=== PATIENT | female | born 1990 | race African-American/Black ===

== ENCOUNTER 2022-01-21 20:44 | Emergency (ER) | payer OTHER ==
--- OUTSIDE RECORDS SUMMARY | 2022-01-21 20:47 | XMS REPORT | Continuity of Care Document ---
:[address] [facility] t Address [address] [place] [address] Care Team Providers Name Role Phone Asked, Pcp Primary Care Physician Unavailable Rj Chong Attending Clinician Unavailable Caitie Calle Attending Clinician Unavailable JULIET CULLEN Attending Clinician Unavailable Makenzie Deluna MD Attending Clinician MAKENZIE DELUNA Attending Clinician Unavailable Doctor Unassigned, Name Attending Clinician Unavailable Wood Rasheed Attending Clinician Unavailable Joselyn BILL Attending Clinician 2, Lab Attending Clinician Unavailable Tushar BILL Attending Clinician Ultrasound Attending Clinician Unavailable Josselyn LATHAM Attending Clinician Akinsitammy WHJONELP, C Attending Clinician Risk Attending Clinician Unavailable Rj Chnog Admitting Clinician Unavailable Caitie Calle Admitting Clinician Unavailable MAKENZIE DELUNA Admitting Clinician Unavailable Payers Payer Name Policy Type Policy Number Effective Date Expiration Date Rufino zavala [facility] MARIA G [id number] 2015 00:00:00 PLUS Advance Directives Directive Decision Effective Termination Comments Source Date Date Healthcare Agents on N/A Univ ersity FileNameRelationshipHealthcare [facility] Agent Medical RelationshipCommunicationLancaster General [facility] Branch BatesFatherHealth Care [phone] (Mobile) Tamera RiccardodparentFirst Alternate Health Care [phone] (Home) Tobin McknightJuancho Partner2 - Health Care Agent (Medical Power of 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 Current History of History of Disease Active U nivers depression depression 1-14 it y of 00:: [place] [address] Medical Branch Undiagnose Undiagnose Disease Active U nivers d cardiac d cardiac 1-14 ity of murmurs murmurs 00:00: [place] [address] Medical Branch Acute Acute Diagnosis Active [facility] vaginitis vaginitis Clin ic Poorly Poorly Problem Active [facility] controlled controlled Cl inic type 2 type 2 diabetes diabetes mellitus mellitus Vulvar Vulvar Problem Active [facility] Hyperthyro Hyperthyro Problem Active H ope idism idism Clinic Pure Pure Problem Active [facility] hyperchole hyperchole Cl inic sterolemia sterolemia Vitamin D Vitamin D Problem Active Hop e deficiency deficiency Cl inic Neutrophil Neutrophil Problem Active H ope ic ic Clinic leukocytos leukocytos is is Other Other Problem Active [facility] specified specified Clin ic anxiety anxiety disorders disorders Bandemia Bandemia Problem Active [facility] Allergies, Adverse Reactions, Alerts Allergy Allergy Status Severity Reaction(s) Onset Inactive Treating Comm ents Source Name Type Date Date Clinician No Known DA Active U 2020-0 [facility] No Known DA Active U 2020-0 [facility]ie 7[facility]15 [facility] 00 [facility] st No Known DA Active U 2020-0 [facility] Allergie 6-14 [facility] 00 are [facility] st No Known DA Active U 2020-0 [facility] Allergie 6-14 [facility] 00 are [facility] NO KNOWN Drug Active Univers ALLERGIE Class ity of S [facility] Social History Social Habit Start Date Stop Date Quantity Comments Source History of 2015-10-28 Cigarette Smoker Universi ty of tobacco use 00:00:00 [place] [facility] History [facility] University o f Alcohol Std [place] Medical Drinks Branch History [facility] University o f Alcohol Binge [place] Medic al Branch Exposure to Not sure University of SARS-CoV-2 [facility] (event) Branch ASSERTION [facility] Alcohol intake 2021-10-26 2021-10-26 Lifetime University of 00:00:00 00:00:00 non-drinker [facility] (finding) [place] Tobacco Comment 2021-09-08 2021-09-08 1 cig a day Universi ty of 00:00:00 00:00:00 [facility] History SDOH 2019-10-28 2019-10-28 1 University o f Alcohol Frequency 00:00:00 00:00:00 [facility] edical Branch Alcohol Comment 2013-10-14 2013-10-14 occasional Universit y of 00:00:00 00:00:00 [facility] Tobacco use and 2013-10-14 2013-10-14 Never used Universit y of exposure 00:00:00 00:00:00 [facility] Sex Assigned At [birth year] Universit y of 00:00:00 00:00:00 [facility] Smoking Status Start Date Stop Date Source Never smoker [facility] Current every day smoker 2013-10-14 00:00:00 [facility] Medications Ordered Filled Start Stop Current Ordering Indication Dosage Frequency Signature Comments Components Source Medication Medication Date Date Medication? Clinician (SIG) Name Name medroxyPROG 2021- No [id number] 150mg Univers ESTERone 10-26 ity of (DEPO-PROVE 17:15: 16:06 [place] RA) syringe 00 :00 Medical 150 mg Branch medroxyPROG 2021- No [id number] 150mg 150 mg, Univers ESTERone 10-26 Intramuscu ity of (DEPO-PROVE 17:15: 16:06 lar, ONCE, [place] RA) syringe 00 :00 1 dose, On Me dical 150 mg [facility] Branch 10/26/21 at 1115, Routine medroxyPROG 2021- No [id number] 150mg Univers ESTERone 10-26 ity of (DEPO-PROVE 17:15: 16:06 [place] RA) syringe 00 :00 Medical 150 mg Branch medroxyPROG 2021- No [id number] 150mg 150 mg, Univers ESTERone 10-26 Intramuscu ity of (DEPO-PROVE 17:15: 16:06 lar, ONCE, [place] RA) syringe 00 :00 1 dose, On Me dical 150 mg [facility] Branch 10/26/21 at 1115, Routine atorvastati 2020-10 Yes 40mg Take 40 mg Univers n 40 mg 2-13 by mouth ity of tablet 19:00: at [place] 30 bedtime. Medical Branch lisinopril 2020-10 Yes 2.5mg Take 2.5 Un turner 2.5 mg 2-13 mg by ity of tablet 19:00: mouth [place] 30 daily. Medical Branch atorvastati 2020-10 Yes 40mg Take 40 mg Univers n 40 mg 2-13 by mouth ity of tablet 19:00: at [place] 30 bedtime. Medical Branch lisinopril 2020-10 Yes 2.5mg Take 2.5 Un turner 2.5 mg 2-13 mg by ity of tablet 19:00: mouth [place] 30 daily. Medical Branch atorvastati 2020-10 Yes 40mg Take 40 mg Univers n 40 mg 2-13 by mouth ity of tablet 19:00: at [place] 30 bedtime. Medical Branch lisinopril 2020-10 Yes 2.5mg Take 2.5 Un turner 2.5 mg 2-13 mg by ity of tablet 19:00: mouth [place] 30 daily. Medical Branch PNV 67-iron 2020-10 Yes [id number] 1{each} Take 1 Univers ps-folate 2-13 Each by ity of no.1-dha 00:00: mouth [place] (VITAFOL 00 daily. Medical ULTRA) 29 Branch mg iron- 1 mg-200 mg Cap docusate 2020-10 Yes [id number] 240mg Take 1 Univers calcium 240 2-13 102 capsule by it y of mg capsule 00:00: mouth [place] 00 daily as Medical needed for Branch Constipati on. ibuprofen 2020-10 Yes [id number] 600mg Take 1 Univers 600 mg 2-13 102 tablet by ity of tablet 00:00: mouth [place] 00 every 6 Medical (six) Branch hours as needed (Pain). Take with food or milk. PNV 67-iron 2020-10 Yes [id number] 1{each} Take 1 Univers ps-folate 2-13 Each by ity of no.1-dha 00:00: mouth [place] (VITAFOL 00 daily. Medical ULTRA) 29 Branch mg iron- 1 mg-200 mg Cap docusate 2020-10 Yes [id number] 240mg Take 1 Univers calcium 240 2-13 102 capsule by it y of mg capsule 00:00: mouth once [place] 00 daily as Medical needed for Branch Constipati on. ibuprofen 2020-10 Yes [id number] 600mg Take 1 Univers 600 mg 2-13 102 tablet by ity of tablet 00:00: mouth [place] 00 every 6 Medical (six) Branch hours as needed (Pain). Take with food or milk. PNV 67-iron 2020-10 Yes [id number] 1{each} Take 1 Univers ps-folate 2-13 Each by ity of no.1-dha 00:00: mouth [place] (VITAFOL 00 daily. Medical ULTRA) 29 Branch mg iron- 1 mg-200 mg Cap docusate 2020-10 Yes [id number] 240mg Take 1 Univers calcium 240 2-13 102 capsule by it y of mg capsule 00:00: mouth once [place] 00 daily as Medical needed for Branch Constipati on. ibuprofen 2020-10 Yes [id number] 600mg Take 1 Univers 600 mg 2-13 102 tablet by ity of tablet 00:00: mouth [place] 00 every 6 Medical (six) Branch hours as needed (Pain). Take with food or milk. [id number] Yes 1{tbl} QD Chew 1 Me thodi 3-dha-epa-f 02-[address] [facility] oil 00:00: daily. [facility] ( 00 l Gummy) 400 mcg-35 mg -25 mg-5 mg tablet,chew able nitrofurant 2020- No 100mg Q.5D Take 1 Me thodi oin, 02-26 06-[address] macrocrysta 00:00: 04:59 (100 mg Ho spita l-monohydra 00 :00 total) by l te, mouth 2 (MACROBID) (two) 100 MG times a capsule day for 7 days. Blood-Gluco 2020-0 Yes Patient to [facility] se Meter 02-26 check ity of Kit 00:00: blood [place] 00 sugar 4 Medical times Branch daily blood sugar 2020-0 Yes Patient to [facility] diagnostic 02-26 check ity of (BLOOD 00:00: blood [place] GLUCOSE 00 sugar 4 Medical TEST) strip times Branch daily. Lancets 2020-0 Yes Patient to [facility] Misc 02-26 check ity of 00:00: blood [place] 00 sugar 4 Medical times Branch daily. Blood-Gluco 2020-0 Yes Patient to [facility] se Meter 02-26 check ity of Kit 00:00: blood [place] 00 sugar 4 Medical times Branch daily blood sugar 2020-0 Yes Patient to [facility] diagnostic 02-26 check ity of (BLOOD 00:00: blood [place] GLUCOSE 00 sugar 4 Medical TEST) strip times Branch daily. Lancets 2020-0 Yes Patient to [facility] easy2map Misc 02-26 check ity of 00:00: blood [place] 00 sugar 4 Medical times Branch daily. Blood-Gluco 2020-0 Yes Patient to [facility] se Meter 02-26 check ity of Kit 00:00: blood [place] 00 sugar 4 Medical times Branch daily blood sugar 2020-0 Yes Patient to [facility] diagnostic 02-26 check ity of (BLOOD 00:00: blood [place] GLUCOSE 00 sugar 4 Medical TEST) strip times Branch daily. Lancets 2020-0 Yes Patient to [facility] Misc 02-26 check ity of 00:00: blood [place] 00 sugar 4 Medical times Branch daily. famotidine 2020-0 Yes [id number] 20mg Take 1 Univers 20 mg 5-27 tablet by ity of tablet 00:00: mouth 2 (two) Medical times Branch daily. insulin 2020-0 Yes Use as Univers syringe-nee 5-27 directed ity of dle U-100 00:00: [place] 1/2 ml 1/2 00 Medical mL 28 gauge Branch x 1/2" Syrg famotidine 2020-0 Yes [id number] 20mg Take 1 Univers 20 mg 5-27 tablet by ity of tablet 00:00: mouth 2 (two) Medical times Branch daily. insulin 2020-0 Yes Use as Univers syringe-nee 5-27 directed ity of dle U-100 00:00: [place] 1/2 ml 1/2 00 Medical mL 28 gauge Branch x 1/2" Syrg famotidine 2020-0 Yes [id number] 20mg Take 1 Univers 20 mg 5-27 tablet by ity of tablet 00:00: mouth 2 [place] (two) Medical times Branch daily. insulin 2020-0 Yes Use as Univers syringe-nee 5-27 directed ity of dle U-100 00:00: [place] 1/2 ml 1/2 00 Medical mL 28 gauge Branch x 1/2" Syrg propylthiou 2020-0 Yes [id number] 50mg Take 1 Univers racil 50 mg 2-13 100 tablet by ity of tablet 00:00: mouth [place] 00 every 8 Medical (eight) Branch hours. atenoloL 25 2020-0 Yes [id number] 25mg Take 1 Univers mg tablet 2-13 tablet by ity o f 00:00: mouth [place] 00 daily. Medical Branch propylthiou 2020-0 Yes [id number] 50mg Take 1 Univers racil 50 mg 2-13 100 tablet by ity of tablet 00:00: mouth [place] 00 every 8 Medical (eight) Branch hours. atenoloL 25 2020-0 Yes [id number] 25mg Take 1 Univers mg tablet 2-13 tablet by ity o f 00:00: mouth [place] 00 daily. Medical Branch propylthiou 2020-0 Yes [id number] 50mg Take 1 Univers racil 50 mg 2-13 100 tablet by ity of tablet 00:00: mouth [place] 00 every 8 Medical (eight) Branch hours. atenoloL 25 2019-0 Yes [id number] 25mg Take 1 Univers mg tablet 2-13 tablet by ity o f 00:00: mouth [place] 00 daily. Medical Branch Lancing Yes [id number] Check Univ ers Device with 1-28 blood ity of Lancets 00:00: glucose 4x [place] (ACCU-CHEK 00 daily Medical FASTCLIX Branch LANCING DEV) Kit Lancing Yes [id number] Check Univ ers Device with 1-28 blood ity of Lancets 00:00: glucose 4x [place] (ACCU-CHEK 00 daily Medical FASTCLIX Branch LANCING DEV) Kit Lancing Yes [id number] Check Univ ers Device with 1-28 blood ity of Lancets 00:00: glucose 4x [place] (ACCU-CHEK 00 daily Medical FASTCLIX Branch LANCING DEV) Kit metFORMIN 2014-10 Yes [id number] 1000mg Take 1 Tab Univers (GLUCOPHAGE 0-13 by mouth 2 it y of ) 1,000 mg 00:00: (two) [place] tablet 00 times Medical daily with Branch meals. metFORMIN 2014-10 Yes [id number] 1000mg Take 1 Tab Univers (GLUCOPHAGE 0-13 by mouth 2 it y of ) 1,000 mg 00:00: (two) [place] tablet 00 times Medical daily with Branch meals. metFORMIN 2014-10 Yes [id number] 1000mg Take 1 Tab Univers (GLUCOPHAGE 0-13 by mouth 2 it y of ) 1,000 mg 00:00: (two) [place] tablet 00 times Medical daily with Branch meals. Metronidazo Metronidazo Yes Florencio 1 tablet [facility] Terconazole Terconazole Yes Florencio 1 H [facility] n at bedtime Immunizations Ordered Filled Immunization Date Status Comments [facility] e Immunization Name Name TDAP 2021-09-08 Completed University 00:00:00 [facility] TDAP 2021-09-08 Completed University of 00:00:00 [facility] TDAP 2021-09-08 Completed University of 00:00:00 [facility] Rubella 2010-01-18 Completed University 00:00:00 [facility] Rubella 2010-01-18 Completed University of 00:00:00 [facility] Rubella 2010-01-18 Completed University of 00:00:00 [facility] HPV 2008-01-09 Completed University of 00:00:00 [facility] Branch HPV 2008-01-09 Completed University of 00:00:00 [facility] Branch HPV 2008-01-09 Completed University of 00:00:00 [facility] Branch Td 2005-05-14 Completed University of 00:00:00 [facility] Branch Td 2005-05-14 Completed University of 00:00:00 [facility] Branch Td 2005-05-14 Completed University of 00:00:00 [facility] Vital Signs Vital Name Observation Time Observation Value Comments Source Systolic blood 2021-10-26 15:50:00 134 mm[Hg] Univer sity of pressure [facility] Diastolic blood 2021-10-26 15:50:00 89 mm[Hg] Unive rsity [facility] Heart rate 2021-10-26 15:48:00 94 /min [facility] Body temperature 2021-10-26 15:48:00 36.5 [facility] Respiratory rate 2021-10-26 15:48:00 18 /[facility] Body height 2021-10-26 15:48:00 157.5 cm [facility] Body weight 2021-10-26 15:48:00 68.04 kg [facility] BMI 2021-10-26 15:48:00 27.44 kg/m2 [facility] Diastolic blood 2021-02-26 13:12:00 60 mm[Hg[facility] pressure Heart rate 2021-02-26 13:12:00 89 /min [facility] Body temperature 2021-02-26 13:12:00 36.67 Jennifer [facility] Respiratory rate 2021-02-26 13:12:00 16 /min [facility] Oxygen saturation in 2021-02-26 13:12:00 100 /min [facility] Arterial blood by Pulse oximetry Systolic blood 2021-02-26 13:12:00 110 mm[Hg] Method [facility] pressure Body height 2021-02-26 09:52:00 157.5 cm [facility] Body weight 2021-02-26 09:52:00 58.2 kg [facility] BMI 2021-02-26 09:52:00 23.47 kg/m2 [facility] Procedure Date / Time Performing Clinician Source Performed CONSENT FOR 2021-10-26 06:01:00 Doctor Unassigned, Alyson hylton [facility] CONTRACEPTION Name [facility] Branch POCT TEST 2021-10-26 00:00:00 [facility] SING[facility] L[facility] 2021-02-26 11:25:00 [facility] THAN 14 WEEKS US 2021-02-26 11:25:[address] [facility] TRANSVAGINAL URINALYSIS SCREEN AND 2021-02-26 10:27:00 [facility] MICROSCOPY, WITH REFLEX TO CULTURE HC COMPLETE BLD COUNT 2021-02-26 10:24:00 [facility] W/AUTO DIFF COMPREHENSIVE METABOLIC 2021-02-26 10:24:00 [facility] [place] PANEL HCG QUANTITATIVE, SERUM 2021-02-26 10:24:00 [facility] [place] TYPE AND SCREEN 2021-02-26 10:24:[address] [facility] ESTIMATED GFR 2021-02-26 10:24:[address] [facility] URINE CULTURE 2021-02-26 10:00:[address] [facility] [id number] 2020-06-01 00:00:[address] [facility] Plan of Care Planned Activity Planned Date Details Comments Source Future Scheduled Test DIABETES: RETINAL EYE [facility] EXAM [code = DIABETES: RETINAL EYE EXAM] Future Scheduled Test DIABETIC FOOT EXAM [facility] [code = DIABETIC FOOT EXAM] Future Scheduled Test URINE MICROALBUMIN [facility] [code = URINE MICROALBUMIN] Future Scheduled Test COVID-19 VACCINE (1) [facility] [code = COVID-19 VACCINE (1)] Future Scheduled Test Hepatitis C screening [facility] (procedure) [code = 930839906] Future Scheduled Test Screening for malignant [facility] neoplasm of cervix (procedure) [code = 326857171] Future Scheduled Test INFLUENZA VACCINE [code [facility] = INFLUENZA VACCINE] Encounters Start End Encounter Admission Attending Care Care Encounter Source Date/Time Date/Time Type Type Clinicians Facility Department ID 2020-05-31 Inpatient STEFANI Chong MARC [id number] [facility] 22:20:00 Jamir [id number] [facility] 2020-04-14 Inpatient LATOYA CalleLinW MARC [id number] [facility] 00:30:00 Cruz [id number] [facility] are [facility] 2020-03-14 Inpatient LATOYA ChongJERED MARC [id number] [facility] 00:18:00 Jamir [id number] [facility] are [facility] 2022-01-24 2022-01-24 Outpatient R [facility] [id number] Univers 10:30:00 10:30:00 ity [facility] 2021-10-27 2021-10-27 Outpatient R SUBHASH [facility] [id number] Univers 11:20:00 11:20:00 [facility] [place] [facility] 2021-10-26 2021-10-26 Office Huey Deluna [facility] [id number] Univers 09:30:00 10:06:50 Visit Makenzie HERNANDEZ [id number] i ty [facility] 4.2.7.2.686 [place] PROFESSIO [phone] Or dical [address] 2021-10-26 2021-10-26 Outpatient R HUEY DELUNA [facility] [id number] Univers 09:30:00 10:06:50 ity of [facility] 2021-10-26 2021-10-26 Orders Doctor FORTINO [id number] Univers 00:00:00 00:00:00 Only Unassigned, ALINA [id number] ity of [place] [facility] [id number] Jaylon as [phone] [address] 2021-09-08 2021-09-12 Inpatient P HUEY DELUNA [facility] OBS [id number] Univers 16:31:00 17:15:00 ity [facility] 2021-06-12 2021-06-12 Emergency EM STEFANI Chong MARC [id number] [facility] 03:25:00 05:44:00 Jamir [id number] [facility] are [facility] 2021-05-31 2021-05-31 Emergency EM Kathya, LATOYANW [facility] [id number] [facility] 15:12:00 23:29:00 Jake [id number] [facility] are [facility] 2021-02-26 2021-02-26 Emergency Joselyn, 1.2.840.1 [id number] Methodi 05:15:00 08:13:[id number] 3.430.2.7 Hospit a .[id number] l .8 2021-02-26 2021-02-26 Travel 1.2.840.1 [id number] Methodi 00:00:00 00:00:[address] 3.430.2.7 0.2.7.3.698 Ho spita .3.409290 084.8 l .8 2020-04-27 2020-04-27 Orders Doctor FORTINO 1.2.840.114 [id number] 00:00:00 00:00:00 Only Unassigned, ALINA [id number] [place] [facility] 4.2.7.2.686 [id number] [id number] 2020-04-26 2020-04-26 Telephone Huey Deluna [facility] [id number] 00:00:00 00:00:00 [place] [id number] Jitendra [id number] Professio [phone] [facility] [address] [facility] 2020-02-27 2020-02-27 Health Care Marketing Manager 2, Adc Lab [facility] [id number] 15:47:13 16:02:13 Visit [place] [id number] Jitendra [id number] Professio [id number] [facility] 2020-02-27 2020-02-27 Telephone Huey Deluna [facility] 1.2.840.114 [id number] 00:00:00 00:00:00 [place] [id number] Jitendra 4.2.7.2.686 Professio [id number] [address] 2020-02-26 2020-02-26 Telephone Huey Deluna [facility] 1.2.840.114 [id number] 00:00:00 00:00:00 [place] [id number] [place] [id number] Professio [id number] [address] 2020-02-25 2020-02-25 Routine Huey Deluna [facility] [id number] 15:12:41 16:39:24 [place] [id number] Visit [place] [id number] Professio [id number] [address] 2020-02-18 2020-02-18 Routine Huey Deluna [facility] [id number] 08:56:59 09:27:58 [place] [id number] Visit [place] [id number] Professio [id number] [address] 2020-02-18 2020-02-18 Orders Huey Deluna [facility] [id number] 00:00:00 00:00:00 Only Cam ALINA [id number] [facility] 4.2.7.2.686 [id number] 009 2020-02-16 2020-02-16 Telephone DANNY Finley 1.2.840.114 [id number] 00:00:00 00:00:00 Kobe Y 350.1.13.10 [facility] 4.2.7.2.686 [facility] [id number] BLDG. 136 2020-02-12 2020-02-12 Health Care Marketing Manager Ultrasound, [facility] 1.2.840.114 [id number] 11:06:22 12:17:59 Visit Otoniel-Mfm CARAMEL CUTTER MACHINE [id number] [facility] 4.2.7.2.686 MATERNAL [id number] & CHILD [address] [place] [address] 2020-02-12 2020-02-12 Case Josselyn [facility] [id number] 00:00:00 00:00:00 Management Tomasa Hernandez [id number] [place] [id number] Professio [phone] [address] 2020-02-12 2020-02-12 Case Josselyn [facility] [id number] 00:00:00 00:00:00 Management Tomasa Hernandez [id number] [place] 4.2.7.2.686 Professio [phone] [address] 2020-02-12 2020-02-12 Case Josselyn [facility] [id number] [id number] 00:00:00 00:00:00 Management Tomasa Hernandez [id number] [place] [id number] Professio [id number] [address] 2020-02-11 2020-02-11 Initial Huey Deluna [facility] [id number] 07:56:09 12:21:22 [place] [id number] Visit [place] [id number] Professio [id number] [address] 2019-12-31 2019-12-31 Telephone Akinsitammy, [facility] 1.2.840.114 [id number] 00:00:00 00:00:00 Ana Carmichael CARAMEL CUTTER MACHINE [id number] REGIONAL 4.2.7.2.686 MATERNAL [id number] & CHILD 107 [facility] 2019-11-20 2019-12-01 Routine [place] 1.2.840.114 [id number] 13:55:16 13:23:02 Ang-Rmchp-N CARAMEL CUTTER MACHINE 350.1.13.10 Visit p/High REGIONAL 4.2.7.2.686 MATERNAL [id number] & CHILD 107 [facility] 2018-04-17 2018-04-[address] [facility] [id number] [place] 15:56:00 15:56:00 [facility] 2018-04-15 2018-04-[address] [facility] [id number] [place] 10:16:00 10:16:00 [facility] 2018-04-05 2018-04-05 [facility] [facility] [id number] [facility] 09:45:00 09:45:00 [facility] 2018-03-21 2018-03-21 [facility] [id number] [facility] 10:30:00 10:30:00 [facility] 2018-03-05 2018-03-05 Outpatient [facility]( [id number] [facility] 16:00:00 16:00:00 [facility] ) 2018-03-05 2018-03-05 [facility]patient [facility]( [id number] [facility] 15:30:00 15:30:00 [facility] ) 2018-02-04 2018-02-04 Outpatient [facility]( [id number] [facility] 14:45:00 14:45:00 [facility] ) 2018-01-22 2018-01-22 Outpatient [facility]( [id number] [facility] 15:00:00 15:00:00 [facility] ) 2018-01-22 2018-01-22 Outpatient [facility]( [id number] [facility] 14:30:00 14:30:00 [facility] ) 2018-01-20 2018-01-20 [facility] [id number] [facility] 13:24:00 13:24:00 [facility] 2018-01-18 2018-01-18 [facility] [id number] [facility] 10:30:00 10:30:00 [facility] 2018-01-17 2018-01-17 [facility] [id number] [facility] 10:00:00 10:00:00 [facility] 2018-01-03 2018-01-03 [facility] [id number] [facility] 10:15:00 10:15:00 [facility] 2017-12-21 2017-12-21 [facility] [id number] [facility] 10:15:00 10:15:00 [facility] Results Test Description Test Time Test Comments Results Result Comments Source POCT TEST 2021-10-26 15:56:00 Test Item Value Reference Range Interpretation Comme nts POCT PREG (test code = 1605) Negative On board controls acceptable with C Line (test code = 3574) Yes POCT PREG LOT # (test code = 3575) POCT PREG TEST DATE (test code = 3576) [facility] [id number] 15:56:00 Test Item Value Reference Range Interpretation Comments POCT PREG (test code = 1605) Negative On board controls acceptable with C Yes Line (test code = 3574) POCT PREG LOT # (test code = 3575) POCT PREG TEST DATE (test code = 3576) [facility] [id number] 04:37:00 Test Item Value Reference Range Interpretation Comments UA COLOR (test code = Straw YELLOW COLU) UA APPEARANCE (test Clear CLEAR code = APPU) UA GLUCOSE DIPSTICK NEGATIVE NEGATIVE (test code = DGLUU) UA BILIRUBIN DIPSTICK NEGATIVE NEGATIVE (test code = BILU) UA KETONE DIPSTICK NEGATIVE NEGATIVE (test code = KETU) UA SPECIFIC GRAVITY 1.008 1.001-1.030 (test code = SGU) UA BLOOD DIPSTICK (test 2+ NEGATIVE code = ALESSIO) UA PH DIPSTICK (test 7.0 5.0-9.0 code = PATEL) UA PROTEIN DIPSTICK NEGATIVE NEGATIVE (test code = PROU) UA UROBILINOGEN NEGATIVE See_Comment [Automated message] DIPSTICK (test code = The sy stem which URO) generated this result transmitted ref erence range: <=1.0. T he reference range was not used to int erpret this result as normal/abnormal . UA NITRITE DIPSTICK NEGATIVE NEGATIVE (test code = CHARISSE) UA ASCORBIC ACID NEGATIVE DIPSTICK (test code = AAU) UA LEUKOCYTE ESTERASE NEGATIVE NEGATIVE DIPSTICK (test code = LEUU) UA WBC (test code = 0-5 /HPF 0-5 WBCU) UA RBC (test code = 0-5 /HPF 0-5 RBCU) UA EPITHELIAL CELLS RARE /LPF NONE-FEW (test code = EPIU) UA BACTERIA (test code None /HPF NONE SEEN = BACU) [id number] 04:15:00 Test Item Value Reference Range Interpretation Comments GLUBED (test code = GLUBED) 134 MG/DL 70-105 H - XR CHEST 1 [id number] 16:20:00 [facility] 1990 Sex: FPatient Name: MICHELLE AZUL Unit No: [id number] EXAMS: CPT: [id number] XR CHEST 1 V 08798 CHEST RADIOGRAPH, ONE VIEW: FRONTAL HISTORY: Shortness of breath. COMPARISON: None. FINDINGS: The lungs are clear and the cardiovascular silhouette is normal. No infiltrates or pulmonary edema is present.No pleural effusions are seen. IMPRESSION: No acute lung findings. at 1620 Reported and signed by: Moses Mercado MD CC: Jamir Chong DO Technologist: Jonas Roa Time: DAP (Gy m2): Air Kerma (mGy): Trscr Dt/Tm: 05/31/2021 (1620) by:[email or web address] Orig Print D/T: S: 05/31/2021 (1623) BATCH NO: N/A Name: MICHELLE AZUL [facility] Phys: [id number] - Jake Rasheed MD [address] [facility] : 1990 Age: 31 Sex: [place] [address] Loc: N.ERS Exam Date: 05/31/2021 Status: REG ER PH: FAX: PAGE 1 Signed ReportUrine [id number] 21:11:10 Test Item Value Reference Range Interpretation Comments Urine culture Mixed madelyn Specimen isolate (test 07-04 col/cc InformationSpe [facility] code = 77471-4) Source: Urin eSpecimen Site: Clean cat ch [facility] Single Less Than 14 [id number] 12:09:20 EXAMINATION: US SINGLE LESS THAN 14 WEEKS, US TRANSVAGINAL CLINICAL HISTORY: Vaginal bleeding () COMPARISON: None. TECHNIQUE: Transverse and longitudinal transvaginal andtransabdominal sonographic images of the pelvis were obtained. Grayscale, color Doppler, and spectral waveform analysis of the ovarian vessels was performed. FINDINGS: The uterus measures 8.8 x 5.9 x4.7 cm. The right ovary measures 2.5 x 1.5 x 1.0 cm. The left ovary measures 2.6 x 2.1 x 1.5 cm.Blood flow is documented within each ovary. No suspicious fluid is identified. Limited evaluation demonstrates a single intrauterine . Mean gestational sac diameter: 3.0 cmCrown-rump length: 2.2 cm Estimated gestational age is 8 weeks 3 days which gives an JAKOB of 10/05/2021. cardiac activity is identified with a rate of 171 bpm. IMPRESSION: 1.Viable montes intrauterine ,8 weeks 3 days by sonographic dating, with heart rate of 171 bpm. [facility] Results 02/26/2021 7:12 AM CDT EXAMINATION: US SINGLE LESS THAN 14 WEEKS, US TRANSVAGINALCLINICAL HISTORY: Vaginal bleeding ()COMPARISON: None.TECHNIQUE: Transverse and longitudinal transvaginal and transabdominal sonographic images of the pelvis were obtained. Grayscale, color Doppler, and spectral waveform analysis of the ovarian vessels was performed.FINDINGS:The uterus measures 8.8 x5.9 x 4.7 cm. The right ovary measures 2.5 x 1.5 x 1.0 cm. The left ovary measures 2.6 x 2.1 x 1.5cm. Blood flow is documented within each ovary. No suspicious fluid is identified.Limited evaluation demonstrates a single intrauterine .Mean gestational sac diameter: 3.0 cmCrown-rump length: 2.2 cmEstimated gestational age is 8 weeks 3 days which gives an JAKOB of 10/05/2021. cardiac activity is identified with a rate of 171 bpm.IMPRESSION:1.Viable montes intrauterine , 8 weeks 3 days by sonographic dating, with heart rate of 171 bpm.[facility]andaen [facility] [id number] 12:09:20EXAMINATION: US SINGLE LESS THAN 14 WEEKS, US TRANSVAGINAL CLINICAL HISTORY: Vaginal bleeding () COMPARISON: None. TECHNIQUE: Transverse and longitudinal transvaginal andtransabdominal sonographic images of the pelvis were obtained. Grayscale, color Doppler, and spectral waveform analysis of the ovarian vessels was performed. FINDINGS: The uterus measures 8.8 x 5.9 x4.7 cm. The right ovary measures 2.5 x 1.5 x 1.0 cm. The left ovary measures 2.6 x 2.1 x 1.5 cm.Blood flow is documented within each ovary. No suspicious fluid is identified. Limited evaluation demonstrates a single intrauterine . Mean gestational sac diameter: 3.0 cmCrown-rump length:2.2 cm Estimated gestational age is 8 weeks 3 days which gives an JAKOB of 10/05/2021. cardiac activity is identified with a rate of 171 bpm. IMPRESSION: 1.Viable montes intrauterine ,8 weeks 3 days by sonographic dating, with heart rate of 171 bpm. [facility] Results 02/26/2021 7:12 AM CDT EXAMINATION: US SINGLE LESS THAN 14 WEEKS, US TRANSVAGINALCLINICAL HISTORY: Vaginal bleeding ()COMPARISON: None.TECHNIQUE: Transverse and longitudinal transvaginal and transabdominal sonographic images of the pelvis were obtained. Grayscale, color Doppler, and spectral waveform analysis of the ovarian vessels was performed.FINDINGS:The uterus measures 8.8 x5.9 x 4.7 cm. The right ovary measures 2.5 x 1.5 x 1.0 cm. The left ovary measures 2.6 x 2.1 x 1.5cm. Blood flow is documented within each ovary. No suspicious fluid is identified.Limited evaluation demonstrates a single intrauterine .Mean gestational sac diameter: 3.0 cmCrown-rump length: 2.2 cmEstimated gestational age is 8 weeks 3 days which gives an JAKOB of 10/05/2021. cardiac activity is identified with a rate of 171 bpm.IMPRESSION:1.Viable montes intrauterine , 8 weeks 3 days by sonographic dating, with heart rate of 171 bpm.[facility]st HospitalType and [id number] 11:15:00 Test Item Value Reference Range Interpretation Comments ABO grouping (test code = 883-9) A Rh type (test code = 82210-5) POS Antibody screen (gel) (test code = NEG 890-4) [facility] [id number] 18:51:00 RUN DATE: 06/09/20 [facility] PAGE 1 RUN TIME: 1850 Specimen Inquiry RUN USER: INTERFACE PATIENT: MICHELLE AZUL LOC: Oneil2A U #: [id number] AGE/SX: 30/F ROOM: [facility] RE05/31/20REG DR: Jamir Chong : [birth year] BED: 1 DIS: 06/02/20 STATUS: DIS IN TLOC: SPEC #: [id number] RECD: 06/02/20-1148 STATUS: BETSY MOLINA #: [id number] [place]: 06/01/20-[address]: Jamir Chong DO ENTERED: 06/02/20-1224 SP TYPE: SURG OTHR DR: ORDERED: PATHGM5, PATH SPEC, H E STAIN TISSUES: A. PLACENTA THIRD TRIMESTER - Placenta CLINICAL HISTORY Diagnosis/Clinical Data: IUFD, 37.1 weeks Operative Procedure: Vaginal delivery FINAL DIAGNOSIS Placenta, vaginal delivery: Underweight placenta (280 g) for gestational age. Umbilical cord: Three vessels identified; cord length 21 cm. Membranes: Microscopic meconium staining. Dilated surface blood vessel with organizing thrombus. Other surface vessels with endothelial cushion lesion. Cotyledons: - Stem villi vessels with luminal septations and organizing to organized thrombi. - Occasional, hypovascular or avascular villi identified. - Foci of placental infarction and focally increased perivillous fibrin deposition. - Mild increase in parenchymal calcifications. - Pattern consistent with accelerated maturation. 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 FTV can be associated with maternal diabetes, growth restriction, maternal or hypercoagulable state, and/or sudden intrauterine or intrapartum . Clinical correlation is recommended. Although a signed consent for disposal of fetus is received with this placenta specimen, no fetus is received in the Pathology department. Discussed with Jackie Kimble DDirector) on 06/08/2020, by telephone. Electronically signed by: Juan Duncan MD 06/09/2020 CONTINUED ON NEXT PAGE RUN DATE: 06/09/20 [facility] PAGE 2 RUN TIME: 1850 Specimen Inquiry RUN USER: INTERFACE - SPEC #: [id number] PATIENT: MICHELLE AZUL #[id number] (Continued) GROSS DESCRIPTION Received fresh, labeled "placenta", is a 280 g, 15.0 x 14.0 x 2.0 cm, montes, ovoid placenta.The membranes are segura-pink to segura- brown, semi-translucent, and insert marginally. The umbilical cord is segura- brown and dusky, measures 21.0 cm in length and 1.7 cm in diameter, is normally coiled, contains three vessels and inserts eccentrically. The surface is blue-pizano, contains focal areas of meconium staining, and has a normal vascular distribution pattern. The maternal surface is red-brown with complete cotyledons. The parenchyma contains multiple, segura-yellow, focal, firm lesions ranging from 0.5 - 1.2 x 1.0 x 0.6 cm in greatest dimension. These areas account for less than 10% of the total disc. The remaining cotyledons are segura-red and spongy. Vacuum Extractor Operator sections are submitted in cassettes as follows, A1 - A5 (A2-A3 contains lesions). TR 06/04/2020 03:05 PM The placenta is grossly examined by Dr. Jorge L Duncan on 06/08/2020. Of note, the surface blood vessels appear dilated and filled with blood clot. The umbilical cord, on cut section also shows some dilated vessels filled with blood clot. The placental parenchyma shows vagueareas of soft, segura-white discoloration as well as a few, white-segura, more firm areas. The maternal surface appears relatively unremarkable. Additional telephone claims representative sections are submitted in A6-A10. [facility], 06/09/2020 5:54 PM MICROSCOPIC DESCRIPTION Sections of the umbilical cord show three vessels identified that are free of inflammation. Sections of the membranes show amnion and chorion that are without inflammation, however, a number of pigment-laden macrophages are noted within the membranes, consistent with microscopic meconium staining. A surface vessel is dilatedand filled with organizing thrombus. Other surface vessels show endothelial cushion lesions. Sections of the cotyledons show a pattern consistent with accelerated maturation, showing frequently slender or small chorionic villi and numerous syncytial knots. Several foci of placental infarction and increased perivillous fibrin deposition are noted. Many villi show appropriate vascularity, however, occasional, hypovascular or avascular stem villi are noted and some stem villi show focal, luminal septations, organizing or organized thrombi. No villitis is identified. A mild increase in parenchymal calcifications is noted. The decidual vessels are without thrombosis nor necrosis. No distinct evidence of malignancy is identified. Signed SIGNATURE ON FILE Juan Duncan MD 06/09/20 6530 END OF REPORT CBC W/AUTO [id number] 06:12:00 Test Item Value Reference Range Interpretation Comments WHITE BLOOD CELL (test code = 13.1 x10 3/uL 3.2-11.5 H WBC) RED BLOOD CELL (test code = 3.85 x10(6)/m 3.70-5.10 N RBC) HEMOGLOBIN (test code = HGB) 11.7 g/dL 12.0-15.0 L HEMATOCRIT (test code = HCT) 34.8 % 35.7-44.8 L MEAN CELL VOLUME (test code = 90 fL 80-100 N MCV) MEAN CELL HGB (test code = MCH) 30.4 pg 26.2-33.8 N MEAN CELL HGB CONCENTRATION 33.6 g/dL 30.0-34.0 N (test code = MCHC) RED CELL DISTRIBUTION WIDTH 12.6 % 11.3-14.5 N (test code = RDW) PLATELET COUNT (test code = 277 x10 3/uL 130-408 N PLT) MEAN PLATELET VOLUME (test code 9.0 fL 8.6-12.6 N = MPV) NEUTROPHIL % (test code = NT%) 68.8 % 40.0-70.0 N IMMATURE GRANULOCYTE % (test 0.5 % 0.0-2.0 N code = IG%) LYMPHOCYTE % (test code = LY%) 24.3 % 20-40 N MONOCYTE % (test code = MO%) 6.0 % 1-10 N EOSINOPHIL % (test code = EO%) 0.2 % 0.0-5.0 N BASOPHIL % (test code = BA%) 0.2 % 0.0-1.0 N NUCLEATED RBC % (test code = 0.0 % 0.0-0.9 N NRBC%) NEUTROPHIL # (test code = NT#) 9.0 x10 3/uL 1.6-7.2 H LYMPHOCYTE # (test code = LY#) 3.18 x10 3/uL 1.1-2.7 H MONOCYTE # (test code = MO#) 0.8 x10 3/uL 0.3-0.8 N EOSINOPHIL # (test code = EO#) 0.0 x10 3/uL 0.0-0.5 N BASOPHIL # (test code = BA#) 0.0 x10 3/uL 0.0-0.1 N RAPID PLASMA [id number] 10:35:00 Test Item Value Reference Range Interpretation Comments RAPID PLASMA REAGIN (test code = NEGATIVE NEGATIVE RPR) [id number] 06:52:00 Test Item Value Reference Range Interpretation Comments GLUBED (test code = GLUBED) 85 MG/DL 70-105 N [id number] 04:40:00 Test Item Value Reference Range Interpretation Comments GLUBED (test code = GLUBED) 78 MG/DL 70-105 N UR CREATININE [id number] 02:42:00 Test Item Value Reference Range Interpretation Comments UR CREATININE RANDOM (test code 221.63 mg/dL 40-300 N = CREATU) UR MICROALB/CREAT [id number] 02:42:00 Test Item Value Reference Range Interpretation Comments UR MICROALB/CREAT RATIO (test code 0.0 mg/dL 0.0-30.0 N = MICALBRAT) MICROALBUMIN [id number] 02:42:00 Test Item Value Reference Range Interpretation Comments MICROALBUMIN UR (test code = 1.6 mg/dL 0.0-1.9 N MICROALBUR) UR CREATININE [id number] 02:36:00 Test Item Value Reference Range Interpretation Comments UR CREATININE RANDOM (test code 221.63 mg/dL 40-300 N = CREATU) UR MICROALB/CREAT [id number] 02:36:00 Test Item Value Reference Range Interpretation Comments UR MICROALB/CREAT RATIO (test code = mg/dL 0.0-30.0 MICALBRAT) MICROALBUMIN [id number] 02:36:00 Test Item Value Reference Range Interpretation Comments MICROALBUMIN UR (test code = mg/dL 0.0-1.9 MICROALBUR) AB RUBELLA [id number] 02:26:00 Test Item Value Reference Range Interpretation Comments AB RUBELLA IGG POSITIVE NEGATIVE A Interpretive Data: (test code = Rubella IgG Con centrations RUBGAB) between >= 10 IU/mL and < 15 IU/mL are co nsidered indeterminate f or determining imm unity to rubella. Studie s suggest that vaccinate d individuals hav ing these low levels of anti-rubella Ig G do show a secondary immun e response following re-va ccination but have not be en challenged with wild rubella virus ( 9). A follow-up sampl e should be taken to [facility] evaluate immune status. If the repeat sample i s still indeterminate, the sample may require zohaib ting by alternate metho ds AG HEPATITIS B [id number] 02:26:00 Test Item Value Reference Range Interpretation Comments AG HEPATITIS B SURFACE (test code = NEGATIVE NEGATIVE HBSAG) AB HIV 1 02:26:00 Test Item Value Reference Range Interpretation Comments AB HIV 1 2 (test code = SKG50KH) NEGATIVE NEGATIVE [id number] 02:25:00 Test Item Value Reference Range Interpretation Comments GLUBED (test code = GLUBED) 117 MG/DL 70-105 H BASIC METABOLIC [id number] 02:25:00 Test Item Value Reference Range Interpretation Comments SODIUM (test code 132 mmol/L 135-145 L = NA) POTASSIUM (test 3.4 mmol/L 3.6-5.0 L code = K) CHLORIDE (test 99 mmol/L 101-111 L code = CL) CARBON DIOXIDE 23 mmol/L 21-31 N (test code = CO2) GLUCOSE (test code 140 mg/dl 70-100 H = GLU) BLOOD UREA 12 mg/dl 6-20 N NITROGEN (test code = BUN) GLOMERULAR >=60 max >60 The estimated FILTRATION RATE estimate glomerular (test code = GFR) filtration rate is computed usingpatient ra ce, age (>18), sex, and serum creatinin e. If anyof the neede d data elements a re missing the Laboratory lucita ot compute an estimation of t he glomerular filtration rate . CREATININE (test 0.60 mg/dL 0.44-1.03 N code = CREAT) CALCIUM (test code 9.3 mg/dL 8.5-10.5 N = CA) T4 [id number] 02:25:00 Test Item Value Reference Range Interpretation Comments T4 FREE (test code = T4F) 0.78 ng/dL 0.61-1.12 N THYROID STIMULATING [id number] 02:25:00 Test Item Value Reference Range Interpretation Comments THYROID STIMULATING HORMONE 0.229 uIU/ml 0.450-5.330 L (test code = TSH) THYROID REFLEX TO [id number] 02:25:00 Test Item Value Reference Range Interpretation Comments THYROID REFLEX TO FT4 (test code 0.229 uIU/ml 0.450-5.330 L = TSHREFLEX) DRUGS OF ABUSE SCREEN [id number] 01:41:00 Test Item Value Reference Range Interpretation Comments UR COCAINE (test code NEGATIVE NEGATIVE This i s a toxicology = COCAU) qualitative scr eening test only, whic hmay detect parent c ompound or metabolite or relatedsubstanc e. If confirmatory te sting is desired, please request drug screen con firmation. These results a re unconfirmed and should be used only for m edical purposes. Cut- off concentration f or Cocaine is 300 ng/mLRec ommended screening cut-o ff concentrations by theS[facility] Ab use and [facility] Administration. UR CANABINOIDS (test POSITIVE NEGATIVE A This is a toxicology code = CANU) qualitative scr eening test only which may detect parent compound or metabolite or relatedsubstanc e. If confirmatory te sting is desired, please request drug screen con firmation. These results areunconfirmed and should be used only fo r medical purposes. Cut-o ff concentration f or THC is 50 ng/mLRecomme nded screening cut-o ff concentrations by theS[facility] Ab use and [facility] Administration. UR AMPHETAMINE (test POSITIVE NEGATIVE A The ing estion of natural code = AMPHU) herbal and miiran nt productscontain ing Ephedra/Ephedra -Metabolit es can produce in urineone or mor e substances capa ble of cross-reacting withAmphetamine /Methamphe tamine immunoas says. This testprovid es a preliminary res ult only. A more specificalterna tive chemical method must be used to obtain aconfirmed analytical resu lt. This is a toxicology qualitative scr eening test only which may detect parent compund or metabolite or relatedsubstanc e. If confirmatory te sting is desired, please request drug screen con firmation. These results areunconfirmed and should be used only fo r medical purposes. Cut-o ff concentration f or Amphetamines is 1000 ng/mLRecommende d screening cut-o ff concentrations by thebstance Ab use and [facility]. UR BARBITURATE (test NEGATIVE NEGATIVE This is a toxicology code = BARBQLU) qualitative screening test only which may detect parent compund or metabolite or relatedsubstanc e. If confirmatory te sting is desired, please request drug screen con firmation. These results areunconfirmed and should be used only fo r medical purposes. Cut-o ff concentration f or Barbiturates is 200 ng/mLRecommende d screening cut-o ff concentrations by thebstance Ab use and [facility]. UR BENZODIAZEPINE NEGATIVE NEGATIVE This is a toxicology (test code = BENZU) qualitat jethro screening test only which may detect parent compound or metabolite or relatedsubstanc e. If confirmatory te sting is desired, please request drug screen con firmation. These results areunconfirmed and should be used only fo r medical purposes. Cut-o ff concentration f or Benzodiazepines is 200 ng/mLRecommende d screening cut-o ff concentrations by thebstance Ab use and [facility] Administration. UR OPIATES QUAL (test NEGATIVE NEGATIVE This i s a toxicology code = OPIAQLU) qualitative screening test only which may detect parent compound or metabolite or relatedsubstanc e. If confirmatory te sting is desired, please request drug screen con firmation. These results areunconfirmed and should be used only fo r medical purposes. Cut-o ff concentration f or Opiates is 300 ng/mLRec ommended screening cut-o ff concentrations by theS[facility] Ab use and [facility]. UR PHENCYCLIDINE NEGATIVE NEGATIVE This is a t oxicology (PCP) (test code = qualitati ve screening PHENCU) test only which may detect parent compund or metabolite or relatedsubstanc e. If confirmatory te sting is desired, please request drug screen con firmation. These results areunconfirmed and should be used only fo r medical purposes. Cut-o ff concentration f or PCP is 25 ng/mLRecomme nded screening cut-o ff concentrations by thebstance Ab use and [facility]. - US [id number] 01:34:00Patient Name: MICHELLE AZUL Unit No: [id number] EXAMS: CPT: [id number] [place] [address]131 Limited obstetrical sonogram, 06/01/2020. Clinical: No heart rate. Comment: Single intrauterine gestation. Sonographic gestational age 27W1D +/- 1W6D. Cephalic presentation. Posterior placenta without previa or abruption. OJ 1.1 cm. No heart tones profiled. 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 at 0134 Reported and signed by: Thaddeus Pal MD CC: Jamir Chong DO; Moshe Bassett MD Technologist: Sumi Peres Probe: Trscr Dt/Tm: 06/01/2020 (0134) by:[email or web address] Orig Print D/T: S: 06/01 (0137) BATCH NO: N/A Name: MICHELLE AZUL [facility] Phys: CONSUELOONO.Ann - Brittany Bassett [address] [place] : 1990 Age: 30 Sex: F [place] [address] Loc: N.1210 1 Exam Date: 05/31/2020 Status: ADM IN PH: FAX: PAGE 1 Signed ReportCBC W/AUTO [id number] 01:33:00 Test Item Value Reference Range Interpretation Comments WHITE BLOOD CELL (test code = 9.9 x10 3/uL 3.2-11.5 N WBC) RED BLOOD CELL (test code = 4.25 x10(6)/m 3.70-5.10 N RBC) HEMOGLOBIN (test code = HGB) 13.1 g/dL 12.0-15.0 N HEMATOCRIT (test code = HCT) 38.0 % 35.7-44.8 N MEAN CELL VOLUME (test code = 89 fL 80-100 N MCV) MEAN CELL HGB (test code = MCH) 30.8 pg 26.2-33.8 N MEAN CELL HGB CONCENTRATION 34.5 g/dL 30.0-34.0 H (test code = MCHC) RED CELL DISTRIBUTION WIDTH 12.8 % 11.3-14.5 N (test code = RDW) PLATELET COUNT (test code = 335 x10 3/uL 130-408 N PLT) MEAN PLATELET VOLUME (test code 9.6 fL 8.6-12.6 N = MPV) NEUTROPHIL % (test code = NT%) 64.0 % 40.0-70.0 N IMMATURE GRANULOCYTE % (test 0.5 % 0.0-2.0 N code = IG%) LYMPHOCYTE % (test code = LY%) 29.8 % 20-40 N MONOCYTE % (test code = MO%) 5.2 % 1-10 N EOSINOPHIL % (test code = EO%) 0.3 % 0.0-5.0 N BASOPHIL % (test code = BA%) 0.2 % 0.0-1.0 N NUCLEATED RBC % (test code = 0.0 % 0.0-0.9 N NRBC%) NEUTROPHIL # (test code = NT#) 6.4 x10 3/uL 1.6-7.2 N LYMPHOCYTE # (test code = LY#) 2.96 x10 3/uL 1.1-2.7 H MONOCYTE # (test code = MO#) 0.5 x10 3/uL 0.3-0.8 N EOSINOPHIL # (test code = EO#) 0.0 x10 3/uL 0.0-0.5 N BASOPHIL # (test code = BA#) 0.0 x10 3/uL 0.0-0.1 N BASIC METABOLIC [id number] 01:32:00 Test Item Value Reference Range Interpretation Comments SODIUM (test code 132 mmol/L 135-145 L = NA) POTASSIUM (test 3.4 mmol/L 3.6-5.0 L code = K) CHLORIDE (test 99 mmol/L 101-111 L code = CL) CARBON DIOXIDE 23 mmol/L 21-31 N (test code = CO2) GLUCOSE (test code 140 mg/dl 70-100 H = GLU) BLOOD UREA 12 mg/dl 6-20 N NITROGEN (test code = BUN) GLOMERULAR >=60 max >60 The estimated FILTRATION RATE estimate glomerular (test code = GFR) filtration rate is computed usingpatient ra ce, age (>18), sex, and serum creatinin e. If anyof the neede d data elements a re missing the Laboratory lucita ot compute an estimation of t he glomerular filtration rate . CREATININE (test 0.60 mg/dL 0.44-1.03 N code = CREAT) CALCIUM (test code 9.3 mg/dL 8.5-10.5 N = CA) T4 [id number] 01:32:00 Test Item Value Reference Range Interpretation Comments T4 FREE (test code = T4F) ng/dL 0.61-1.12 THYROID STIMULATING [id number] 01:32:00 Test Item Value Reference Range Interpretation Comments THYROID STIMULATING HORMONE 0.229 uIU/ml 0.450-5.330 L (test code = TSH) THYROID REFLEX TO [id number] 01:32:00 Test Item Value Reference Range Interpretation Comments THYROID REFLEX TO FT4 (test code 0.229 uIU/ml 0.450-5.330 L = TSHREFLEX) CBC W/AUTO [id number] 01:24:00 Test Item Value Reference Range Interpretation Comments WHITE BLOOD CELL (test code = 9.9 x10 3/uL 3.2-11.5 N WBC) RED BLOOD CELL (test code = 4.25 x10(6)/m 3.70-5.10 N RBC) HEMOGLOBIN (test code = HGB) 13.1 g/dL 12.0-15.0 N HEMATOCRIT (test code = HCT) 38.0 % 35.7-44.8 N MEAN CELL VOLUME (test code = 89 fL 80-100 N MCV) MEAN CELL HGB (test code = MCH) 30.8 pg 26.2-33.8 N MEAN CELL HGB CONCENTRATION 34.5 g/dL 30.0-34.0 H (test code = MCHC) RED CELL DISTRIBUTION WIDTH % 11.3-14.5 (test code = RDW) PLATELET COUNT (test code = x10 3/uL 130-408 PLT) MEAN PLATELET VOLUME (test code 9.6 fL 8.6-12.6 N = MPV) NEUTROPHIL % (test code = NT%) % 40.0-70.0 LYMPHOCYTE % (test code = LY%) % 20-40 MONOCYTE % (test code = MO%) % 1-10 EOSINOPHIL % (test code = EO%) % 0.0-5.0 BASOPHIL % (test code = BA%) % 0.0-1.0 NUCLEATED RBC % (test code = % 0.0-0.9 NRBC%) NEUTROPHIL # (test code = NT#) x10 3/uL 1.6-7.2 LYMPHOCYTE # (test code = LY#) x10 3/uL 1.1-2.7 MONOCYTE # (test code = MO#) x10 3/uL 0.3-0.8 EOSINOPHIL # (test code = EO#) x10 3/uL 0.0-0.5 BASIC METABOLIC [id number] 01:10:00 Test Item Value Reference Range Interpretation Comments SODIUM (test code 132 mmol/L 135-145 L = NA) POTASSIUM (test 3.4 mmol/L 3.6-5.0 L code = K) CHLORIDE (test 99 mmol/L 101-111 L code = CL) CARBON DIOXIDE 23 mmol/L 21-31 N (test code = CO2) GLUCOSE (test code 140 mg/dl 70-100 H = GLU) BLOOD UREA 12 mg/dl 6-20 N NITROGEN (test code = BUN) GLOMERULAR >=60 max >60 The estimated FILTRATION RATE estimate glomerular (test code = GFR) filtration rate is computed usingpatient ra ce, age (>18), sex, and serum creatinin e. If anyof the neede d data elements a re missing the Laboratory lcuita ot compute an estimation of t he glomerular filtration rate . CREATININE (test 0.60 mg/dL 0.44-1.03 N code = CREAT) CALCIUM (test code 9.3 mg/dL 8.5-10.5 N = CA) THYROID STIMULATING [id number] 01:10:00 Test Item Value Reference Range Interpretation Comments THYROID STIMULATING HORMONE (test uIU/ml 0.450-5.330 code = TSH) THYROID REFLEX TO [id number] 01:10:00 Test Item Value Reference Range Interpretation Comments THYROID REFLEX TO FT4 (test code = uIU/ml 0.450-5.330 TSHREFLEX) URINALYSIS [id number] 00:16:00 Test Item Value Reference Range Interpretation Comments UA COLOR (test code = COLU) YELLOW YELLOW UA APPEARANCE (test code = APPU) Clear CLEAR UA GLUCOSE DIPSTICK (test code = 3+ NEGATIVE DGLUU) UA BILIRUBIN DIPSTICK (test code = NEGATIVE NEGATIVE BILU) UA KETONE DIPSTICK (test code = NEGATIVE NEGATIVE KETU) UA SPECIFIC GRAVITY (test code = 1.021 1.001-1.030 SGU) UA BLOOD DIPSTICK (test code = ALESSIO) NEGATIVE NEGATIVE UA PH DIPSTICK (test code = PATEL) 6.0 5.0-9.0 UA PROTEIN DIPSTICK (test code = 1+ NEGATIVE A PROU) UA UROBILINOGEN DIPSTICK (test code 2.0 <=1.0 A = URO) UA NITRITE DIPSTICK (test code = NEGATIVE NEGATIVE CHARISSE) UA ASCORBIC ACID DIPSTICK (test NEGATIVE code = AAU) UA LEUKOCYTE ESTERASE DIPSTICK NEGATIVE NEGATIVE (test code = LEUU) UA WBC (test code = WBCU) 0-5 /HPF 0-5 UA RBC (test code = RBCU) 0-5 /HPF 0-5 UA EPITHELIAL CELLS (test code = RARE /LPF NONE-FEW EPIU) UA BACTERIA (test code = BACU) None /HPF NONE SEEN UA MUCUS (test code = MUCU) 1+ /LPF NONE SEEN COVID 19 Asymptomatic IH [id number] 00:03:00 Test Item Value Reference Range Interpretation Comments COVID 19 Asymptomatic Negative Negative Negati ve results IH AG (test code = should be treated as COVNONPUIAG) presumptive andconfirmed wi th a molecular assay , if necessary for patientmanageme nt. Negative result s do not rule out CO VID-19 andshould not b e used as the sole bas is for treatment orpat ient management deci sions, including infec tion controldecision s. Negative result s should be consi dered in thecontext o f a patient's recen t exposures, hist ory and thepresence of clnical signs and sympt oms consistent withCOVID-19. [id number] 23:23:00 Test Item Value Reference Range Interpretation Comments GLUBED (test code = GLUBED) 161 MG/DL 70-105 H URINALYSIS [id number] 02:17:00 Test Item Value Reference Range Interpretation Comments UA COLOR (test code = COLU) YELLOW YELLOW UA APPEARANCE (test code = APPU) Clear CLEAR UA GLUCOSE DIPSTICK (test code = NEGATIVE NEGATIVE DGLUU) UA BILIRUBIN DIPSTICK (test code = NEGATIVE NEGATIVE BILU) UA KETONE DIPSTICK (test code = 1+ NEGATIVE A KETU) UA SPECIFIC GRAVITY (test code = 1.008 1.001-1.030 SGU) UA BLOOD DIPSTICK (test code = ALESSIO) NEGATIVE NEGATIVE UA PH DIPSTICK (test code = PATEL) 7.0 5.0-9.0 UA PROTEIN DIPSTICK (test code = NEGATIVE NEGATIVE PROU) UA UROBILINOGEN DIPSTICK (test code NEGATIVE <=1.0 = URO) UA NITRITE DIPSTICK (test code = NEGATIVE NEGATIVE CHARISSE) UA ASCORBIC ACID DIPSTICK (test code NEGATIVE = AAU) UA LEUKOCYTE ESTERASE DIPSTICK (test NEGATIVE NEGATIVE code = LEUU) UA WBC (test code = WBCU) 0-5 /HPF 0-5 UA RBC (test code = RBCU) 0-5 /HPF 0-5 UA EPITHELIAL CELLS (test code = OCC /LPF NONE-FEW EPIU) UA BACTERIA (test code = BACU) 1+ /HPF NONE SEEN A URINALYSIS [id number] 01:28:00 Test Item Value Reference Range Interpretation Comments UA COLOR (test code = COLU) YELLOW YELLOW UA APPEARANCE (test code = APPU) Clear CLEAR UA GLUCOSE DIPSTICK (test code = 3+ NEGATIVE DGLUU) UA BILIRUBIN DIPSTICK (test code = NEGATIVE NEGATIVE BILU) UA KETONE DIPSTICK (test code = NEGATIVE NEGATIVE KETU) UA SPECIFIC GRAVITY (test code = 1.023 1.001-1.030 SGU) UA BLOOD DIPSTICK (test code = ALESSIO) NEGATIVE NEGATIVE UA PH DIPSTICK (test code = PATEL) 6.0 5.0-9.0 UA PROTEIN DIPSTICK (test code = NEGATIVE NEGATIVE PROU) UA UROBILINOGEN DIPSTICK (test code 2.0 <=1.0 A = URO) UA NITRITE DIPSTICK (test code = NEGATIVE NEGATIVE CHARISSE) UA ASCORBIC ACID DIPSTICK (test NEGATIVE code = AAU) UA LEUKOCYTE ESTERASE DIPSTICK NEGATIVE NEGATIVE (test code = LEUU) UA WBC (test code = WBCU) 0-5 /HPF 0-5 UA RBC (test code = RBCU) 0-5 /HPF 0-5 UA EPITHELIAL CELLS (test code = RARE /LPF NONE-FEW EPIU) UA BACTERIA (test code = BACU) None /HPF NONE SEEN UA MUCUS (test code = MUCU) 1+ /LPF NONE SEEN
[2022-01-22] MEDS ORDERED: ACETAMINOPHEN 500 MG TAB ONE (00:15)
[2022-01-22 00:17] LABS: Absolute Lymphocytes (CBC) 3.9 K/uL (0.7-4.9); Hematocrit 42.7 % (36.0-45.0); Lymphocytes % 48.5 % (15.3-44.8); MPV 7.4 fL (7.6-11.3); RBC Red Blood Cell Count 4.78 M/uL (3.86-4.86)
[2022-01-22 00:35] LABS: ALT/SGPT 17 U/L (12-78); AST/SGOT 9 U/L (15-37); Albumin 3.3 g/dL (3.4-5.0); Alkaline Phosphatase 88 U/L (45-117); BUN Blood Urea Nitrogen 9 mg/dL (7-18); Bicarbonate 24 mmol/L (21-32); Bilirubin Total 0.2 mg/dL (0.2-1.0); Glucose Level 365 mg/dL (74-106); Potassium 3.5 mmol/L (3.5-5.1); Protein, Total 7.4 g/dL (6.4-8.2); Sodium Level 133 mmol/L (136-145)
[2022-01-22] MEDS ORDERED: INSULIN -REGULAR HUMAN 50 UNIT/0.5 ML ML ONE ×2 (01:40→02:27)
--- NOTE | 2022-01-22 03:10 | ER ---
Nurse's Notes [facility] Name: Lindsay Alexander Age: 31 yrs Sex: Female : 1990 Arrival Date: 01/21/2022 Time: 20:51 Bed 4 Private MD: Diagnosis: Hyperglycemia, unspecified Presentation: 01/21 20:51 Chief complaint: EMS states: at rehab for 2 weeks for meth, recently prescribed sm5 metformin. high blood sugar for rehab 600, 403 for ems on arrival. 20:51 Method Of Arrival: EMS: [facility] 5 21:21 Coronavirus screen: Vaccine status: Patient reports being unvaccinated. Ebola Screen: 5 No symptoms or risks identified at this time. Initial Sepsis Screen: Does the patient meet any 2 criteria? HR > 90 bpm. No. Patient's initial sepsis screen is negative. Does the patient have a suspected source of infection? No. Patient's initial sepsis screen is negative. Risk Assessment: Do you want to hurt yourself or someone else? Patient reports no desire to harm self or others. Onset of symptoms was January 21, 2022. 21:21 Acuity: MORENO 3 5 Triage Assessment: 21:20 General: Appears in no apparent distress. Behavior is cooperative. Pain: Denies pain. sm5 Neuro: No deficits noted. Level of Consciousness is awake, alert, obeys commands, Oriented to person, place, time, situation. Cardiovascular: No deficits noted. Capillary refill < 3 seconds Patient's skin is warm and dry. Respiratory: No deficits noted. Airway is patent Trachea midline Respiratory effort is even, unlabored. 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 - Social history:: Smoking status: Patient reports the use of cigarette tobacco products, smokes one-half pack cigarettes per day, Patient uses street drugs, Methamphetamine (Meth). Screenin:20 Abuse screen: Denies threats or abuse. Denies injuries from another. Nutritional sm5 screening: No deficits noted. Tuberculosis screening: No symptoms or risk factors identified. Fall Risk None identified. Assessment: 22:37 Reassessment: called patient to bring back to room. pt not in lobby or standing outside [facility] ER doors. 23:00 Reassessment: Pt seen drinking powerade, pt educated on the amount of sugar in the vc1 drink and instructed not to drink any more. Pt verbalized understanding. 01/22 00:11 General: Appears in no apparent distress. Behavior is calm, cooperative. Neuro: Level kd3 of Consciousness is awake, alert, obeys commands, Oriented to person, place, time, situation. Cardiovascular: Patient's skin is warm and dry. Respiratory: Airway is patent Trachea midline Respiratory effort is even, unlabored, Respiratory pattern is regular, symmetrical. 01:15 Reassessment: Patient and/or family updated on plan of care and expected duration. Pain kd3 level reassessed. Patient is alert, oriented x 3, equal unlabored respirations, skin warm/dry/pink. 02:04 Reassessment: No changes from previously documented assessment. kd3 03:04 Reassessment: No changes from previously documented assessment. kd3 Vital Signs: 01/21 21:21 BP 123 / 89; Pulse 106; Resp 17; Temp 98.2(TE); Pulse Ox 99% on R/A; Weight 63.5 kg; [facility] Height 5 ft. 2 in. (157.48 cm); 01/22 02:04 BP 120 / 75; Pulse 99; Resp 16; Pulse Ox 99% on R/A; kd3 03:17 BP 108 / 68; Pulse 90; Resp 16; Pulse Ox 99% on R/A; kd3 01/21 21:21 Body Mass Index 25.61 (63.50 kg, 157.48 cm) [facility] ED Course: 01/21 20:51 Patient arrived in ED. 5 20:52 Arm band placed on right wrist. 5 21:21 Triage completed. [facility] 21:22 Pasquale Martinez MD is Attending Physician. kdr 23:58 Pamela Fairbanks, [place] is Primary Nurse. kd3 01/22 00:11 Patient has correct armband on for positive identification. Bed in low position. Call kd3 light in reach. Side rails up X 1. 03:15 No provider procedures requiring assistance completed. Patient did not have IV access kd3 during this emergency room visit. Administered Medications: 00:11 Drug: Tylenol 1000 mg Route: PO; kd3 03:14 Follow up: Response: Pain is decreased kd3 01:39 Drug: Insulin Regular Human 8 units {Co-Signature: al4 (Eric Wilsall).} Route: IVP; kd3 Site: left upper arm; 03:15 Follow up: Response: Blood sugar is lowered kd3 02:25 Drug: Insulin Regular Human 6 units {Co-Signature: al4 (Eric Wilsall).} Route: kd3 Sub-Q; Site: left upper arm; 03:15 Follow up: Response: Blood sugar is lowered kd3 Outcome: 03:09 Discharge ordered by . kdr 03:15 Discharged to home ambulatory. kd3 03:15 Condition: stable 03:15 Discharge instructions given to patient, Instructed on discharge instructions, Demonstrated understanding of instructions. 03:25 Patient left the ED. kd3 Signatures: Pasquale Martinez MD MD kdr Doucette, Kyli RN RN kd3 Makenzie Espinoza RN RN 5 Violette Castaneda RN RN vc1 Eric Mcleod al4
--- NOTE | 2022-01-22 03:10 | EDPHYS ---
Physician Documentation [facility] Name: Lindsay Alexander Age: 31 yrs Sex: Female : 1990 Arrival Date: 01/21/2022 Time: 20:51 Bed 4 Private MD: ED Physician Pasquale Martinez HPI: 01/21 23:50 This 31 yrs old Black Female presents to ER via EMS with complaints of elevated Blood kdr Sugar. 23:50 The patient is in a recovery program for meth use and has not been on her kdr antihyperglycemic medication until day when she had a low dose of metformin. Onset: The symptoms/episode began/occurred today. Severity of symptoms: At their worst the symptoms were mild in the emergency department the symptoms are unchanged. It is unknown whether or not the patient has had similar symptoms in the past. The patient has been recently seen by a physician: the patient's primary care provider. 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 - Social history:: Smoking status: Patient reports the use of cigarette tobacco products, smokes one-half pack cigarettes per day, Patient uses street drugs, Methamphetamine (Meth). ROS: 23:50 Constitutional: Negative for fever, chills, and weight loss, Eyes: Negative for injury, kdr pain, redness, and discharge, ENT: Negative for injury, pain, and discharge, Neck: Negative for injury, pain, and swelling, Cardiovascular: Negative for chest pain, palpitations, and edema, Respiratory: Negative for shortness of breath, cough, wheezing, and pleuritic chest pain, Abdomen/GI: Negative for abdominal pain, nausea, vomiting, diarrhea, and constipation, Back: Negative for injury and pain, : Negative for injury, bleeding, discharge, and swelling, MS/Extremity: Negative for injury and deformity, Skin: Negative for injury, rash, and discoloration, Neuro: Negative for headache, weakness, numbness, tingling, and seizure activity. Psych: Negative for depression, anxiety, suicide ideation, homicidal ideation, and hallucinations, Allergy/Immunology: Negative for hives, rash, and allergies, Hematologic/Lymphatic: Negative for swollen nodes, abnormal bleeding, and unusual bruising. 23:50 Endocrine: Positive for increased glucose. Exam: 23:50 Constitutional: This is a well developed, well nourished patient who is awake, alert, kdr and in no acute distress. Head/Face: Normocephalic, atraumatic. Eyes: Pupils equal round and reactive to light, extra-ocular motions intact. Lids and lashes normal. Conjunctiva and sclera are non-icteric and not injected. Cornea within normal limits. Periorbital areas with no swelling, redness, or edema. Neck: Trachea midline, no thyromegaly or masses palpated, and no cervical lymphadenopathy. Supple, full range of motion without nuchal rigidity, or vertebral point tenderness. No Meningismus. Chest/axilla: Normal chest wall appearance and motion. Nontender with no deformity. No lesions are appreciated. Cardiovascular: Regular rate and rhythm with a normal S1 and S2. No gallops, murmurs, or rubs. Normal PMI, no JVD. No pulse deficits. Respiratory: Lungs have equal breath sounds bilaterally, clear to auscultation and percussion. No rales, rhonchi or wheezes noted. No increased work of breathing, no retractions or nasal flaring. Abdomen/GI: Soft, non-tender, with normal bowel sounds. No distension or tympany. No guarding or rebound. No evidence of tenderness throughout. Back: No spinal tenderness. No costovertebral tenderness. Full range of motion. MS/ Extremity: Pulses equal, no cyanosis. Neurovascular intact. Full, normal range of motion. Neuro: Awake and alert, GCS 15, oriented to person, place, time, and situation. Cranial nerves II-XII grossly intact. Motor strength 5/5 in all extremities. Sensory grossly intact. Cerebellar exam normal. Normal gait. Psych: Awake, alert, with orientation to person, place and time. Behavior, mood, and affect are within normal limits. Vital Signs: 21:21 BP 123 / 89; Pulse 106; Resp 17; Temp 98.2(TE); Pulse Ox 99% on R/A; Weight 63.5 kg; sm5 Height 5 ft. 2 in. (157.48 cm); 01/22 02:04 BP 120 / 75; Pulse 99; Resp 16; Pulse Ox 99% on R/A; kd3 03:17 BP 108 / 68; Pulse 90; Resp 16; Pulse Ox 99% on R/A; kd3 01/21 21:21 Body Mass Index 25.61 (63.50 kg, 157.48 cm) 5 MDM: 01/21 23:50 Data reviewed: vital signs, nurses notes, lab test result(s). Counseling: I had a kdr detailed discussion with the patient and/or guardian regarding: the historical points, exam findings, and any diagnostic results supporting the discharge/admit diagnosis, lab results. 01/22 03:09 Patient medically screened. kdr 01/21 21:30 Order name: Glucose, Ancillary Testing; Complete Time: 23:16 EDMS 01/21 23:42 Order name: CBC with Diff; Complete Time: 00:54 kdr 01/21 23:42 Order name: Comprehensive Metabolic Panel; Complete Time: 00:54 kdr 01/22 02:59 Order name: Glucose, Ancillary Testing; Complete Time: 03:04 EDMS 01/22 03:20 Order name: Glucose, Ancillary Testing EDMS Administered Medications: 00:11 Drug: Tylenol 1000 mg Route: PO; kd3 03:14 Follow up: Response: Pain is decreased kd3 01:39 Drug: Insulin Regular Human 8 units {Co-Signature: al4 (Eric Shani).} Route: IVP; kd3 Site: left upper arm; 03:15 Follow up: Response: Blood sugar is lowered kd3 02:25 Drug: Insulin Regular Human 6 units {Co-Signature: al4 (Eric [place]).} Route: kd3 Sub-Q; Site: left upper arm; 03:15 Follow up: Response: Blood sugar is lowered kd3 Disposition Summary: 01/22/22 03:09 Discharge Ordered Location: Home kdr Problem: an acute exacerbation kdr Symptoms: have improved kdr Condition: Stable kdr Diagnosis - Hyperglycemia, unspecified kdr Followup: kdr - With: Private Physician - When: 2 - 3 days - Reason: If symptoms return, Further diagnostic work-up, Recheck today's complaints, Continuance of care, Re-evaluation by your physician Discharge Instructions: - Discharge Summary Sheet kdr - Blood Glucose Monitoring, Adult kdr - Hyperglycemia, [id number] kdr Forms: - Medication Reconciliation Form kdr - Thank You Letter kdr Prescriptions: - Metformin 500 mg Oral Tablet - take 2 tablet by ORAL route once daily for 30 days Then take 2 tablet with kdr morning meals; 30 tablet; Refills: 0, Product Selection Permitted Signatures: Dispatcher [employer] Pasquale Alberto MD MD kdr Doucette, Kyli, RN RN kd3 Makenzie Espinoza RN RN sm5 Kimberly May PA PA sb3 Eric Mcleod al4
[2022-01-22 03:29] VITALS: TEMP 98.2; O2SAT 99
[2022-01-22 03:31] VITALS: BP 108/68
== END 2022-01-22 03:25 | disposition home or self-care (01) ==
LOC: ER 20:44
DX: E11.65 Type 2 diabetes mellitus with hyperglycemia (principal); F17.210 Nicotine dependence, cigarettes, uncomplicated
CPT/HCPCS: 85025; 36415; 82947 ×3; 80053; 96372; 96374; 99283; J1815 ×2

== ENCOUNTER 2023-02-24 20:23 | Emergency (ER) | payer OTHER ==
--- OUTSIDE RECORDS SUMMARY | 2023-02-24 20:39 | XMS REPORT | Continuity of Care Document ---
:1990 Author Organization [facility] t Address [address] [address] [place] [address] Care Team Providers Name Role Phone Asked, No Pcp Primary Care Physician Unavailable Jamir Chong Attending Clinician Unavailable Cruz Calle Attending Clinician Unavailable CHAIM RAMIREZ Attending Clinician Unavailable EVENS MACE Attending Clinician Unavailable HUEY DELUNA Attending Clinician Unavailable Room, Adc Nst Attending Clinician Unavailable Gladys Angeles MD, Vincent Attending Clinician [phone] Stefany BILL, Crystal Attending Clinician VINCENT HOOKER Attending Clinician Unavailable Faculty, Otoniel Dowdkiko [facility] Attending Clinician Unavailable Regi BILL, Huey Martinez Attending Clinician Doctor Unassigned, [place] Attending Clinician Unavailable 2, [facility] Attending Clinician Unavailable 1, [facility] Nst Room Attending Clinician Unavailable Fellow, Genaro Walters [facility] Attending Clinician Unavailable Damian BILL, Ama Attending Clinician AMA SALGADO Attending Clinician Unavailable Claire Cobos MD Attending Clinician CLAIRE COBOS Attending Clinician Unavailable 1, [facility] Us Room Attending Clinician Unavailable Rodri BILL, Evens Byrne Attending Clinician [phone] Ambreen Alba PA-C Attending Clinician Ultrasound, [facility] Attending Clinician Unavailable ARIC MOSER Attending Clinician Unavailable MOPARIC FERNANDEZ Attending Clinician Unavailable Pob, [facility] Lab Main Attending Clinician Unavailable NATALIE BLUE Attending Clinician Unavailable NATALIE BLUE Attending Clinician Unavailable Deven BILL, Chaim Attending Clinician Natalie Blue MD Attending Clinician TOBIN VICENTE Attending Clinician Unavailable Jennifer Watkins Attending Clinician Unavailable Tobin Vicente MD Attending Clinician Yanna Joyce DO Attending Clinician YANNA JOYCE Attending Clinician Unavailable KATHY DE LA FUENTE Attending Clinician Unavailable Kathy De La Fuente MD Attending Clinician TRICIA TIM Attending Clinician Unavailable TRICIA TIM Attending Clinician Unavailable AMBREEN ALBA Attending Clinician Unavailable Nurse, [facility] Attending Clinician Unavailable RADHA BLUE Attending Clinician Unavailable Tone CHOWDHURY, Cassidy Gloria Attending Clinician Unavailable JONO ALEXANDRA Attending Clinician Unavailable Jono Alexandra DO Attending Clinician Jaya Olivera MD Attending Clinician [phone] Jake Rasheed Attending Clinician Unavailable Raoul Alves MD Attending Clinician MATIAS SAGE Attending Clinician Unavailable OTILIO SANTANA Attending Clinician Unavailable Otilio Santana MD Attending Clinician Akinsitammy WHJONELPAna Attending Clinician [phone] VERA BURCH Attending Clinician Unavailable BALA DAVIS Attending Clinician Unavailable Risk, Mxt-Uwncj-Ka/High Attending Clinician Unavailable JAZMÍN WHITE Attending Clinician Unavailable Jamir Chong Admitting Clinician Unavailable Cruz Calle Admitting Clinician Unavailable NATALIE BLUE Admitting Clinician Unavailable HUEY DELUNA Admitting Clinician Unavailable Huey Deluna MD Admitting Clinician Payers Payer Name Policy Type Policy Number Effective Date Expiration Date S lucas [facility] [id number] 2015 00:00:00 PLUS Problems Condition Condition Condition Status Onset Resolution Last Treating Co mments Source Name Details Category Date Date Treatment Clinician Date Carrier of Carrier of Disease Active U nivers galactosem galactosem 1-20 it y of ia ia 00:00: [address] High-risk High-risk Disease Active 2021-10 Uni vers 1-03 ity of in third in third 00:00: [place] trimester trimester 00 [facility] Maternal Maternal Disease Active 2021-10 Unive rs pregestati pregestati 1-03 it y of onal onal 00:00: [place] diabetes diabetes 00 Medica l classes B classes B Bran ch through R, through R, antepartum antepartum History of History of Disease Active 2021-10 U nivers 1-03 ity of delivery delivery 00:00: [address] History of History of Disease Active 2020-10 U nivers stillbirth stillbirth 2-09 it y of 00:00: [address] Obesity Obesity Disease Active 2020-10 Univers (BMI (BMI 2-09 ity of 30-39.9) 30-39.9) 00:00: [address] Hyperthyro Hyperthyro Disease Active Overview : Univers idism idism 10-29 Formattin ity of affecting affecting 00:00: [place] , , 00 note Me dical antepartum antepartum might be Branch different from the original. See recent labs Marijuana Marijuana Disease Active Overview: Univers use use 10-28 Formattin ity of 00:00: g of this [place] 00 note Medical might be Branch different from the original. Current Pre-existi Pre-existi Disease Active Overview : Univers ng ng 10-14 Formattin ity of essential essential 00:00: [place] of [place] hypertensi hypertensi 00 note Me dical on during on during might be Br anch , , different antepartum antepartum from the original. A1C 8.1 History of History of Disease Active U nivers depression depression 10-14 it y of 00:00: [address] Undiagnose Undiagnose Disease Active U nivers d cardiac d cardiac 10-14 ity of murmurs murmurs 00:: [address] Branch Acute Acute Diagnosis Active [facility] vaginitis [...] Date Clinician No Known DA Active U 2019-0 [facility]14 [facility] 00:00: Health 00 are [facility] No Known DA Active U 2019-0 [facility] 04[facility]14 [facility] 00:[facility]: [facility] 00 are [facility] No Known DA Active U 2020-0 [facility] 03-14 [facility] 00:00: Health 00 are [facility] No Known DA Active U 2020-0 [facility] 03-14 [facility] 00:00: [facility] 00 are [facility] NO KNOWN Drug Active Univers ALLERGIE Class ity of S [facility] Social History Social Habit Start Date Stop Date Quantity Comments Source History [facility] University o f Alcohol Std Drinks [place] [facility] [place] History [facility] University o f Alcohol Binge [place] [facility] ASSERTION [facility] Gender identity [facility] Sexual orientation [facility] Exposure to 2023-02-09 2023-02-19 Not sure University SARS-CoV-2 (event) 00:00:00 14:56:00 [facility] Alcohol intake 2023-02-19 2023-02-19 Lifetime University of 00:00:00 00:00:00 non-drinker [facility] (finding) [place] Tobacco Comment 2022-08-03 2022-08-03 1 cig a day Universi ty of 00:00:00 00:00:00 [facility] Tobacco use and 2022-08-03 2022-08-03 Smokeless tobacco Un iversity of exposure 00:00:00 00:00:00 non-user [facility] History of tobacco 2015-10-28 2022-08-02 Cigarette Smoker University of use 00:00:00 00:00:00 [facility] History of Social 2021-02-26 2021-02-[address] function 00:00:00 00:00:00 Hospital History SDOH 2019-10-28 2019-10-28 1 University o f Alcohol Frequency 00:00:00 00:00:00 [facility] Alcohol Comment 2013-10-14 2013-10-14 occasional Universit y of 00:00:00 00:00:00 [facility] Sex Assigned At [birth year] [facility] 00:[facility]00 [facility] Smoking Status Start Date Stop Date Source Ex-smoker 2022-08-03 00:00:00 2022-08-03 00:00:00 Universi ty of [facility] Smokes tobacco daily 2021-09-08 00:00:00 Univers ity of [facility] Never smoker [facility] Medications Ordered Filled Start Stop Current Ordering Indication Dosage Frequency Signature Comments Components Source Medication Medication Date Date Medication? Clinician (SIG) Name Name methIMAzole Yes [id number] 10mg Take 1 Univers 10 mg 5-18 100 tablet by ity of tablet 00:00: mouth [place] 00 every 8 Medical (eight) Branch hours. methIMAzole Yes [id number] 10mg Take 1 Univers 10 mg 5-18 100 tablet by ity of tablet 00:00: mouth [place] 00 every 8 Medical (eight) Branch hours. methIMAzole 2023-0 Yes [id number] 10mg Take 1 Univers 10 mg 5-18 100 tablet by ity of tablet 00:00: mouth [place] 00 every 8 Medical (eight) Branch hours. methIMAzole 2023-0 Yes [id number] 10mg Take 1 Univers 10 mg 5-18 100 tablet by ity of tablet 00:00: mouth [place] 00 every 8 Medical (eight) Branch hours. methIMAzole 2023-0 Yes [id number] 10mg Take 1 Univers 10 mg 5-18 100 tablet by ity of tablet 00:00: mouth [place] 00 every 8 Medical (eight) Branch hours. methIMAzole 2023-0 Yes [id number] 10mg Take 1 Univers 10 mg 5-18 100 tablet by ity of tablet 00:00: mouth [place] 00 every 8 Medical (eight) Branch hours. pantoprazol 2023-0 Yes [id number] 40mg Take 1 Univers e 5-02 tablet by ity of (PROTONIX) 00:00: mouth in [place] 40 mg EC 00 the Medical tablet morning. Branch pantoprazol 2023-0 Yes [id number] 40mg Take 1 Univers e 5-02 tablet by ity of (PROTONIX) 00:00: mouth in [place] 40 mg EC 00 the Medical tablet morning. Branch pantoprazol 2023-0 Yes [id number] 40mg Take 1 Univers e 5-02 tablet by ity of (PROTONIX) 00:00: mouth in [place] 40 mg EC 00 the Medical tablet morning. Branch pantoprazol 2023-0 Yes [id number] 40mg Take 1 Univers e 5-02 tablet by ity of (PROTONIX) 00:00: mouth in [place] 40 mg EC 00 the Medical tablet morning. Branch pantoprazol 2023-0 Yes [id number] 40mg Take 1 Univers e 5-02 tablet by ity of (PROTONIX) 00:00: mouth in [place] 40 mg EC 00 the Medical tablet morning. Branch pantoprazol 2023-0 Yes [id number] 40mg Take 1 Univers e 5-02 tablet by ity of (PROTONIX) 00:00: mouth in [place] 40 mg EC 00 the Medical tablet morning. Branch pantoprazol 2023-0 Yes [id number] 40mg Take 1 Univers e 5-02 tablet by ity of (PROTONIX) 00:00: mouth in [place] 40 mg EC 00 the Medical tablet morning. Branch pantoprazol 2023-0 Yes [id number] 40mg Take 1 Univers e 5-02 tablet by ity of (PROTONIX) 00:00: mouth in [place] 40 mg EC 00 the Medical tablet morning. Branch pantoprazol 2023-0 Yes [id number] 40mg Take 1 Univers e 5-02 tablet by ity of (PROTONIX) 00:00: mouth in [place] 40 mg EC 00 the Medical tablet morning. Branch pantoprazol 2023-0 Yes [id number] 40mg Take 1 Univers e 5-02 tablet by ity of (PROTONIX) 00:00: mouth in [place] 40 mg EC 00 the Medical tablet morning. Branch pantoprazol 2023-0 Yes [id number] 40mg Take 1 Univers e 5-02 tablet by ity of (PROTONIX) 00:00: mouth in [place] as 40 mg EC 00 the Medical tablet morning. Branch pantoprazol 2023-0 Yes [id number] 40mg Take 1 Univers e 5-02 tablet by ity of (PROTONIX) 00:00: mouth in [place] as 40 mg EC 00 the Medical tablet morning. Branch methIMAzole 2023-0 Yes [id number] 10mg Take 1 Univers 10 mg 3-06 100 tablet by ity of tablet 00:00: mouth in [place] 00 the Medical morning Branch and 1 tablet in the evening. methIMAzole 2023-0 Yes [id number] 10mg Take 1 Univers 10 mg 3-06 100 tablet by ity of tablet 00:00: mouth in [place] 00 the Medical morning Branch and 1 tablet in the evening. methIMAzole 2023-0 Yes [id number] 10mg Take 1 Univers 10 mg 3-06 100 tablet by ity of tablet 00:00: mouth in [place] 00 the Medical morning Branch and 1 tablet in the evening. methIMAzole 2023-0 Yes [id number] 10mg Take 1 Univers 10 mg 3-06 100 tablet by ity of tablet 00:00: mouth in [place] 00 the Medical morning Branch and 1 tablet in the evening. methIMAzole 2023-0 Yes [id number] 10mg Take 1 Univers 10 mg 3-06 100 tablet by ity of tablet 00:00: mouth in [place] [address] the Medical morning Branch and 1 tablet in the evening. methIMAzole 2023-0 Yes [id number] 10mg Take 1 Univers 10 mg 3-06 100 tablet by ity of tablet 00:00: mouth in [place] [address] the Medical morning Branch and 1 tablet in the evening. methIMAzole 2023-0 Yes [id number] 10mg Take 1 Univers 10 mg 3-06 100 tablet by ity of tablet 00:00: mouth in [place] [address] the Medical morning Branch and 1 tablet in the evening. methIMAzole 2023-0 Yes [id number] 10mg Take 1 Univers 10 mg 3-06 100 tablet by ity of tablet 00:00: mouth in [place] [address] the [facility] morning [place] and 1 tablet in the evening. methIMAzole 2023-0 Yes [id number] 10mg Take 1 Univers 10 mg 3-06 100 tablet by ity of tablet 00:00: mouth in [address] morning [place] and 1 tablet in the evening. methIMAzole 2023-0 Yes [id number] 10mg Take 1 Univers 10 mg 3-06 100 tablet by ity of tablet 00:00: mouth in [address] morning [place] and 1 tablet in the evening. methIMAzole 2023-0 Yes [id number] 10mg Take 1 Univers 10 mg 3-06 100 tablet by ity of tablet 00:00: mouth in [address] morning [place] and 1 tablet in the evening. methIMAzole 2023-0 Yes [id number] 10mg Take 1 Univers 10 mg 3-06 100 tablet by ity of tablet 00:00: mouth in [address] Medical morning [place] and 1 tablet in the evening. methIMAzole 2023-0 Yes [id number] 10mg Take 1 Univers 10 mg 3-06 100 tablet by ity of tablet 00:00: mouth in [address] morning [place] and 1 tablet in the evening. methIMAzole 2023-0 Yes [id number] 10mg Take 1 Univers 10 mg 3-06 100 tablet by ity of tablet 00:00: mouth in [address] morning [place] and 1 tablet in the evening. methIMAzole 2023-0 Yes [id number] 10mg Take 1 Univers 10 mg 3-06 100 tablet by ity of tablet 00:00: mouth in [place] 00 the Medical morning Branch and 1 tablet in the evening. methIMAzole 2023-0 Yes [id number] 10mg Take 1 Univers 10 mg 3-06 100 tablet by ity of tablet 00:00: mouth in [place] 00 the Medical morning Branch and 1 tablet in the evening. methIMAzole 2023-0 Yes [id number] 10mg Take 1 Univers 10 mg 3-06 100 tablet by ity of tablet 00:00: mouth in [place] 00 the Medical morning Branch and 1 tablet in the evening. methIMAzole 2023-0 Yes [id number] 10mg Take 1 Univers 10 mg 3-06 100 tablet by ity of tablet 00:00: mouth in [place] [address] the Medical morning Branch and 1 tablet in the evening. methIMAzole 2023-0 Yes [id number] 10mg Take 1 Univers 10 mg 3-06 100 tablet by ity of tablet 00:00: mouth in [place] 00 the [facility] morning [place] and 1 tablet in the evening. methIMAzole 2023-0 2023- No [id number] 10mg Take 1 Univers 10 mg 3-06 05-18 100 tablet by ity of tablet 00:00: 00:00 mouth in [place] 00 :00 the [facility] morning [place] and 1 tablet in the evening. methIMAzole 2023-0 2023- No [id number] 7.5mg Take 1.5 Univers 5 mg tablet 10-12- 100 tablets by i ty of 00:00: 05:59 mouth in [place] 00 :00 the [facility] morning Branch and 1.5 tablets in the evening. Do all this for 30 days. methIMAzole 2023-0 2023- No [id number] 7.5mg Take 1.5 Univers 5 mg tablet 10-12-12 100 tablets by i ty of 00:00: 05:59 mouth in [place] 00 :00 the Medical morning Branch and 1.5 tablets in the evening. Do all this for 30 days. methIMAzole 2023-0 3- No [id number] 7.5mg Take 1.5 Univers 5 mg tablet 10-12-12 100 tablets by i ty of 00:00: 05:59 mouth in [place] 00 :00 the [facility] morning [place] and 1.5 tablets in the evening. Do all this for 30 days. methIMAzole 2023-0 2023- No [id number] 7.5mg Take 1.5 Univers 5 mg tablet 10-12 100 tablets by i ty of 00:00: 05:59 mouth in [place] 00 :00 the [facility] morning Branch and 1.5 tablets in the evening. Do all this for 30 days. methIMAzole 2023-0 2023- No [id number] 7.5mg Take 1.5 Univers 5 mg tablet 10-12 100 tablets by i ty of 00:00: 05:59 mouth in [place] 00 :00 the [facility] morning Branch and 1.5 tablets in the evening. Do all this for 30 days. methIMAzole 2023-0 2023- No [id number] 7.5mg Take 1.5 Univers 5 mg tablet 10-12 100 tablets by i ty of 00:00: 05:59 mouth in [place] 00 :00 the [facility] and 1.5 tablets in the evening. Do all this for 30 days. methIMAzole 2023-0 2023- No [id number] 7.5mg Take 1.5 Univers 5 mg tablet 10-12 100 tablets by i ty of 00:00: 05:59 mouth in [place] 00 :00 the [facility] and 1.5 tablets in the evening. Do all this for 30 days. methIMAzole 2023-0 3- No [id number] 7.5mg Take 1.5 Univers 5 mg tablet 10-12 100 tablets by i ty of 00:00: 05:59 mouth in [place] 00 :00 the [facility] and 1.5 tablets in the evening. Do all this for 30 days. methIMAzole 2023-0 2023- No [id number] 7.5mg Take 1.5 Univers 5 mg tablet 10-12 100 tablets by i ty of 00:00: 05:59 mouth in [place] 00 :00 the [facility] and 1.5 tablets in the evening. Do all this for 30 days. methIMAzole 2023-0 2023- No [id number] 7.5mg Take 1.5 Univers 5 mg tablet 10-12 100 tablets by i ty of 00:00: 05:59 mouth in [place] 00 :00 the Medical morning Branch and 1.5 tablets in the evening. Do all this for 30 days. aspirin 81 2023-0 Yes [id number] 81mg Take 1 Univers mg EC 1-09 102 tablet by ity of tablet 00:00: mouth in [place] 00 the Medical morning. Branch aspirin 81 3-0 Yes [id number] 81mg Take 1 Univers mg EC 1-09 102 tablet by ity of tablet 00:00: mouth in [place] 00 the Medical morning. Branch aspirin 81 3-0 Yes [id number] 81mg Take 1 Univers mg EC 1-09 102 tablet by ity of tablet 00:00: mouth in [place] 00 the Medical morning. Branch aspirin 81 3-0 Yes [id number] 81mg Take 1 Univers mg EC 1-09 102 tablet by ity of tablet 00:00: mouth in [place] 00 the Medical morning. Branch aspirin 81 3-0 Yes [id number] 81mg Take 1 Univers mg EC 1-09 102 tablet by ity of tablet 00:00: mouth in [place] 00 the Medical morning. Branch aspirin 81 2022-0 Yes [id number] 81mg Take 1 Univers mg EC 1-09 102 tablet by ity of tablet 00:00: mouth in [place] 00 the Medical morning. Branch aspirin 81 2022-0 Yes [id number] 81mg Take 1 Univers mg EC 1-09 102 tablet by ity of tablet 00:00: mouth in [place] 00 the Medical morning. Branch aspirin 81 3-0 Yes [id number] 81mg Take 1 Univers mg EC 1-09 102 tablet by ity of tablet 00:00: mouth in [place] 00 the Medical morning. Branch aspirin 81 3-0 Yes [id number] 81mg Take 1 Univers mg EC 1-09 102 tablet by ity of tablet 00:00: mouth in [place] 00 the Medical morning. Branch aspirin 81 2023-0 Yes [id number] 81mg Take 1 Univers mg EC 1-09 102 tablet by ity of tablet 00:00: mouth in [place] 00 the Medical morning. Branch aspirin 81 2023-0 Yes [id number] 81mg Take 1 Univers mg EC 1-09 102 tablet by ity of tablet 00:00: mouth in [place] 00 the Medical morning. Branch aspirin 81 3-0 Yes [id number] 81mg Take 1 Univers mg EC 1-09 102 tablet by ity of tablet 00:00: mouth in [place] 00 the Medical morning. Branch aspirin 81 2023-0 Yes [id number] 81mg Take 1 Univers mg EC 1-09 102 tablet by ity of tablet 00:00: mouth in [place] 00 the Medical morning. Branch aspirin 81 2023-0 Yes [id number] 81mg Take 1 Univers mg EC 1-09 102 tablet by ity of tablet 00:00: mouth in [place] 00 the Medical morning. Branch aspirin 81 2023-0 Yes [id number] 81mg Take 1 Univers mg EC 1-09 102 tablet by ity of tablet 00:00: mouth in [place] 00 the Medical morning. Branch aspirin 81 2023-0 Yes [id number] 81mg Take 1 Univers mg EC 1-09 102 tablet by ity of tablet 00:00: mouth in [place] 00 the Medical morning. Branch aspirin 81 2023-0 Yes [id number] 81mg Take 1 Univers mg EC 1-09 102 tablet by ity of tablet 00:00: mouth in [place] 00 the Medical morning. Branch aspirin 81 3-0 Yes [id number] 81mg Take 1 Univers mg EC 1-09 102 tablet by ity of tablet 00:00: mouth in [place] 00 the Medical morning. Branch aspirin 81 3-0 Yes [id number] 81mg Take 1 Univers mg EC 1-09 102 tablet by ity of tablet 00:00: mouth in [place] 00 the Medical morning. Branch aspirin 81 3-0 Yes [id number] 81mg Take 1 Univers mg EC 1-09 102 tablet by ity of tablet 00:00: mouth in [place] 00 the Medical morning. Branch aspirin 81 2023-0 Yes [id number] 81mg Take 1 Univers mg EC 1-09 102 tablet by ity of tablet 00:00: mouth in [place] 00 the Medical morning. Branch aspirin 81 2023-0 Yes [id number] 81mg Take 1 Univers mg EC 1-09 102 tablet by ity of tablet 00:00: mouth in [place] 00 the Medical morning. Branch aspirin 81 2023-0 Yes [id number] 81mg Take 1 Univers mg EC 1-09 102 tablet by ity of tablet 00:00: mouth in [place] 00 the Medical morning. Branch aspirin 81 2023-0 Yes [id number] 81mg Take 1 Univers mg EC 1-09 102 tablet by ity of tablet 00:00: mouth in [place] 00 the Medical morning. Branch aspirin 81 2022-0 Yes [id number] 81mg Take 1 Univers mg EC 1-09 102 tablet by ity of tablet 00:00: mouth in [place] 00 the Medical morning. Branch aspirin 81 2022-0 Yes [id number] 81mg Take 1 Univers mg EC 1-09 102 tablet by ity of tablet 00:00: mouth in [place] 00 the Medical morning. Branch aspirin 81 2022-0 Yes [id number] 81mg Take 1 Univers mg EC 1-09 102 tablet by ity of tablet 00:00: mouth in [place] 00 the Medical morning. Branch aspirin 81 2022-0 Yes [id number] 81mg Take 1 Univers mg EC 1- 102 tablet by ity of tablet 00:00: mouth in [place] 00 the Medical morning. Branch aspirin 81 2022-0 Yes [id number] 81mg Take 1 Univers mg EC 1- 102 tablet by ity of tablet 00:00: mouth in [place] the Medical morning. Branch aspirin 81 2022-0 Yes [id number] 81mg Take 1 Univers mg EC 1- 102 tablet by ity of tablet 00:00: mouth in [place] the Medical morning. Branch aspirin 81 2022-0 Yes [id number] 81mg Take 1 Univers mg EC 1- 102 tablet by ity of tablet 00:00: mouth in [place] the Medical morning. Branch aspirin 81 2022-0 Yes [id number] 81mg Take 1 Univers mg EC 1- 102 tablet by ity of tablet 00:00: mouth in [place] the Medical morning. Branch aspirin 81 2022-0 Yes [id number] 81mg Take 1 Univers mg EC 1- 102 tablet by ity of tablet 00:00: mouth in [place] 00 the Medical morning. Branch aspirin 81 2022-0 Yes [id number] 81mg Take 1 Univers mg EC 1-09 102 tablet by ity of tablet 00:00: mouth in [place] 00 the Medical morning. Branch aspirin 81 3-0 Yes [id number] 81mg Take 1 Univers mg EC 1-09 102 tablet by ity of tablet 00:00: mouth in [place] 00 the Medical morning. Branch aspirin 81 3-0 Yes [id number] 81mg Take 1 Univers mg EC 1-09 102 tablet by ity of tablet 00:00: mouth in [place] 00 the Medical morning. Branch aspirin 81 2022-0 Yes [id number] 81mg Take 1 Univers mg EC 1-09 102 tablet by ity of tablet 00:00: mouth in [place] 00 the Medical morning. Branch aspirin 81 2022-0 Yes [id number] 81mg Take 1 Univers mg EC 1- 102 tablet by ity of tablet 00:00: mouth in [place] 00 the Medical morning. Branch aspirin 81 2022-0 Yes [id number] 81mg Take 1 Univers mg EC 1- 102 tablet by ity of tablet 00:00: mouth in [place] 00 the Medical morning. Branch aspirin 81 2022-0 Yes [id number] 81mg Take 1 Univers mg EC - 102 tablet by ity of tablet 00:00: mouth in [place] 00 the Medical morning. Branch aspirin 81 2022-0 Yes [id number] 81mg Take 1 Univers mg EC - 102 tablet by ity of tablet 00:00: mouth in [place] 00 the Medical morning. Branch aspirin 81 2022-0 Yes [id number] 81mg Take 1 Univers mg EC - 102 tablet by ity of tablet 00:00: mouth in [place] 00 the Medical morning. Branch aspirin 81 2022-0 Yes [id number] 81mg Take 1 Univers mg EC - 102 tablet by ity of tablet 00:00: mouth in [place] 00 the Medical morning. Branch aspirin 81 2022-0 Yes [id number] 81mg Take 1 Univers mg EC - 102 tablet by ity of tablet 00:00: mouth in [place] 00 the Medical morning. Branch aspirin 81 2022-0 Yes [id number] 81mg Take 1 Univers mg EC - 102 tablet by ity of tablet 00:00: mouth in [place] 00 the Medical morning. Branch aspirin 81 2022-0 Yes [id number] 81mg Take 1 Univers mg EC 1- 102 tablet by ity of tablet 00:00: mouth in [place] 00 the Medical morning. Branch aspirin 81 2022-0 Yes [id number] 81mg Take 1 Univers mg EC 1- 102 tablet by ity of tablet 00:00: mouth in [place] 00 the Medical morning. Branch methIMAzole 2021-10 Yes [id number] 5mg Take 1 Univers 5 mg tablet 2- 100 tablet by ity of 00:00: mouth in [place] 00 the Medical morning Branch and 1 tablet in the evening. methIMAzole 2021-10 Yes [id number] 5mg Take 1 Univers 5 mg tablet 2-29 100 tablet by ity of 00:00: mouth in [place] 00 the Medical morning Branch and 1 tablet in the evening. methIMAzole 2021-1 Yes [id number] 5mg Take 1 [facility] 5 mg tablet 2-29 100 tablet by [facility]y of 00:00: mouth in [place] 00 the Medical morning Branch and 1 tablet in the evening. methIMAzole 2021-10 Yes [id number] 5mg Take 1 [facility] 5 mg tablet 2-29 100 tablet by ity of 00:00: mouth in [place] 00 the Medical morning Branch and 1 tablet in the evening. methIMAzole 2021-10 Yes [id number] 5mg Take 1 [facility] 5 mg tablet 2-29 100 tablet by ity of 00:00: mouth in [place] 00 the Medical morning Branch and 1 tablet in the evening. methIMAzole 2021-10 Yes [id number] 5mg Take 1 [facility] 5 mg tablet 2-29 100 tablet by ity of 00:00: mouth in [place] 00 the Medical morning Branch and 1 tablet in the evening. methIMAzole 2021-10 Yes [id number] 5mg Take 1 [facility] 5 mg tablet 2-29 100 tablet by ity of 00:00: mouth in [place] 00 the Medical morning Branch and 1 tablet in the evening. methIMAzole 2021-10 Yes [id number] 5mg Take 1 [facility] 5 mg tablet 2-29 100 tablet by ity of 00:00: mouth in [place] 00 the Medical morning Branch and 1 tablet in the evening. methIMAzole 2021-10- No [id number] 5mg Take 1 [facility] 5 mg tablet - 100 tablet by it y of 00:00: 00:00 mouth in [place] 00 :00 the Medical morning Branch and 1 tablet in the evening. methIMAzole 2021-10- No [id number] 5mg Take 1 [facility] 5 mg tablet - 100 tablet by it y of 00:00: 00:00 mouth in [place] 00 :00 the Medical morning Branch and 1 tablet in the evening. ondansetron 2021-10- No 4mg 4 mg, Slow [facility] (ZOFRAN 11-12 IV Push, ity of (PF)) 19:45: 18:56 ONCE, 1 [place] injection 4 00 :00 dose, On Medi zhao mg Mon Branch 09/11/22 at 1345, TEJINDER NaCl 0.9% 2021-10 No 1000mL at 999 Uni vers (NS) bolus 2-12 12-12 mL/hr, ity of infusion 19:45: 20:16 1,000 mL, [place] as 1,000 mL 00 :00 IV Medical Infusion, Branch ONCE, 1 dose, On Sun09/11/22 at 1345, STAT metoclopram 2021-10- No 10mg 10 mg, Uni vers fred HCl 2-12 12-12 Slow IV ity of (REGLAN) 18:45: 18:57 Push, [place] injection 00 :00 ONCE, 1 Medical 10 mg dose, On Branch Sun09/11/22 at 1245, TEJINDER metoclopram 2021-10 Yes [id number] 10mg Take 1 [facility] fred HCl 10 2-12 tablet by ity of mg tablet 00:00: mouth [place] 00 every 6 Medical (six) Branch hours. ondansetron 2021-10 Yes [id number] 4mg Take 1 [facility] 4 mg 2-12 tablet by ity of disintegrat 00:00: mouth [place] ing tablet 00 every 8 Medica l (eight) Branch hours as needed for Nausea and Vomiting (N/V). metoclopram 2021-10 Yes [id number] 10mg Take 1 [facility] fred HCl 10 2-12 tablet by ity of mg tablet 00:00: mouth [place] 00 every 6 Medical (six) Branch hours. ondansetron 2021-10 Yes [id number] 4mg Take 1 [facility] 4 mg 2-12 tablet by ity of disintegrat 00:00: mouth [place] ing tablet 00 every 8 Medica l (eight) Branch hours as needed for Nausea and Vomiting (N/V). metoclopram 2021-10 Yes [id number] 10mg Take 1 [facility] fred HCl 10 2-12 tablet by ity of mg tablet 00:00: mouth [place] 00 every 6 Medical (six) Branch hours. ondansetron 2021-10 Yes [id number] 4mg Take 1 [facility] 4 mg 2-12 tablet by ity of disintegrat 00:00: mouth [place] ing tablet 00 every 8 Medica l (eight) Branch hours as needed for Nausea and Vomiting (N/V). metoclopram 2021-1 Yes [id number] 10mg Take 1 [facility] fred HCl 10 2-12 tablet by ity of mg tablet 00:00: mouth [place] 00 every 6 Medical (six) Branch hours. ondansetron 2021-1 Yes [id number] 4mg Take 1 [facility] 4 mg 2-12 tablet by ity of disintegrat 00:00: mouth [place] ing tablet 00 every 8 Medica l (eight) Branch hours as needed for Nausea and Vomiting (N/V). metoclopram 2021- Yes [id number] 10mg Take 1 [facility] fred HCl 10 2-12 tablet by ity of mg tablet 00:00: mouth [place] 00 every 6 Medical (six) Branch hours. ondansetron 2021-1 Yes [id number] 4mg Take 1 [facility] 4 mg 2-12 tablet by ity of disintegrat 00:00: mouth [place] ing tablet 00 every 8 Medica l (eight) Branch hours as needed for Nausea and Vomiting (N/V). metoclopram 2021- Yes [id number] 10mg Take 1 [facility] fred HCl 10 2-12 tablet by ity of mg tablet 00:00: mouth [place] 00 every 6 Medical (six) Branch hours. ondansetron 2021- Yes [id number] 4mg Take 1 [facility] 4 mg 2-12 tablet by ity of disintegrat 00:00: mouth [place] ing tablet 00 every 8 Medica l (eight) Branch hours as needed for Nausea and Vomiting (N/V). metoclopram 2021- Yes [id number] 10mg Take 1 [facility] fred HCl 10 2-12 tablet by ity of mg tablet 00:00: mouth [place] 00 every 6 Medical (six) Branch hours. ondansetron 2021-1 Yes [id number] 4mg Take 1 [facility] 4 mg 2-12 tablet by ity of disintegrat 00:00: mouth [place] ing tablet 00 every 8 Medica l (eight) Branch hours as needed for Nausea and Vomiting (N/V). metoclopram 2-1 Yes [id number] 10mg Take 1 [facility] fred HCl 10 2-12 tablet by ity of mg tablet 00:00: mouth [place] 00 every 6 Medical (six) Branch hours. ondansetron 2021-1 Yes [id number] 4mg Take 1 [facility] 4 mg 2-12 tablet by ity of disintegrat 00:00: mouth [place] ing tablet 00 every 8 Medica l (eight) Branch hours as needed for Nausea and Vomiting (N/V). metoclopram 2021-1 Yes [id number] 10mg Take 1 [facility] fred HCl 10 2-12 tablet by ity of mg tablet 00:00: mouth [place] 00 every 6 Medical (six) Branch hours. ondansetron 2021- Yes [id number] 4mg Take 1 [facility] 4 mg 2-12 tablet by ity of disintegrat 00:00: mouth [place] ing tablet 00 every 8 Medica l (eight) Branch hours as needed for Nausea and Vomiting (N/V). metoclopram 2021- Yes [id number] 10mg Take 1 [facility] fred HCl 10 2-12 tablet by ity of mg tablet 00:00: mouth [place] 00 every 6 Medical (six) Branch hours. ondansetron 2021-1 Yes [id number] 4mg Take 1 [facility] 4 mg 2-12 tablet by ity of disintegrat 00:00: mouth [place] ing tablet 00 every 8 Medica l (eight) Branch hours as needed for Nausea and Vomiting (N/V). metoclopram 2021- Yes [id number] 10mg Take 1 [facility] fred HCl 10 2-12 tablet by ity of mg tablet 00:00: mouth [place] 00 every 6 Medical (six) Branch hours. ondansetron 2021-1 Yes [id number] 4mg Take 1 [facility] 4 mg 2-12 tablet by ity of disintegrat 00:00: mouth [place] ing tablet 00 every 8 Medica l (eight) Branch hours as needed for Nausea and Vomiting (N/V). metoclopram 2021-1 Yes [id number] 10mg Take 1 [facility] fred HCl 10 2-12 tablet by ity of mg tablet 00:00: mouth [place] 00 every 6 Medical (six) Branch hours. ondansetron 2021-1 Yes [id number] 4mg Take 1 [facility] 4 mg 2-12 tablet by ity of disintegrat 00:00: mouth [place] ing tablet 00 every 8 Medica l (eight) Branch hours as needed for Nausea and Vomiting (N/V). metoclopram 2021-1 Yes [id number] 10mg Take 1 [facility] fred HCl 10 2-12 tablet by ity of mg tablet 00:00: mouth [place] 00 every 6 Medical (six) Branch hours. ondansetron 2022-1 Yes [id number] 4mg Take 1 [facility] 4 mg 2-12 tablet by ity of disintegrat 00:00: mouth [place] ing tablet 00 every 8 Medica l (eight) Branch hours as needed for Nausea and Vomiting (N/V). metoclopram 2021-10 Yes [id number] 10mg Take 1 [facility] fred HCl 10 2-12 tablet by ity of mg tablet 00:00: mouth [place] 00 every 6 Medical (six) Branch hours. ondansetron 2021-10 Yes [id number] 4mg Take 1 [facility] 4 mg 2-12 tablet by ity of disintegrat 00:00: mouth [place] ing tablet 00 every 8 Medica l (eight) Branch hours as needed for Nausea and Vomiting (N/V). metoclopram 2021-10 Yes [id number] 10mg Take 1 [facility] fred HCl 10 2-12 tablet by ity of mg tablet 00:00: mouth [place] 00 every 6 Medical (six) Branch hours. ondansetron 2021-10 Yes [id number] 4mg Take 1 [facility] 4 mg 2-12 tablet by ity of disintegrat 00:00: mouth [place] ing tablet 00 every 8 Medica l (eight) Branch hours as needed for Nausea and Vomiting (N/V). metoclopram 2021-10 Yes [id number] 10mg Take 1 [facility] fred HCl 10 2-12 tablet by ity of mg tablet 00:00: mouth [place] 00 every 6 Medical (six) Branch hours. ondansetron 2021-10 Yes [id number] 4mg Take 1 [facility] 4 mg 2-12 tablet by ity of disintegrat 00:00: mouth [place] ing tablet 00 every 8 Medica l (eight) Branch hours as needed for Nausea and Vomiting (N/V). metoclopram 2021-10 Yes [id number] 10mg Take 1 [facility] fred HCl 10 2-12 tablet by ity of mg tablet 00:00: mouth [place] 00 every 6 Medical (six) Branch hours. ondansetron 2021-10 Yes [id number] 4mg Take 1 [facility] 4 mg 2-12 tablet by ity of disintegrat 00:00: mouth [place] ing tablet 00 every 8 Medica l (eight) Branch hours as needed for Nausea and Vomiting (N/V). metoclopram 2021-10 Yes [id number] 10mg Take 1 [facility] fred HCl 10 2-12 tablet by ity of mg tablet 00:00: mouth [place] 00 every 6 Medical (six) Branch hours. ondansetron 2021- Yes [id number] 4mg Take 1 [facility] 4 mg 2-12 tablet by ity of disintegrat 00:00: mouth [place] ing tablet 00 every 8 Medica l (eight) Branch hours as needed for Nausea and Vomiting (N/V). metoclopram 2021- Yes [id number] 10mg Take 1 [facility] fred HCl 10 2-12 tablet by ity of mg tablet 00:00: mouth [place] 00 every 6 Medical (six) Branch hours. ondansetron 2021- Yes [id number] 4mg Take 1 [facility] 4 mg 2-12 tablet by ity of disintegrat 00:00: mouth [place] ing tablet 00 every 8 Medica l (eight) Branch hours as needed for Nausea and Vomiting (N/V). metoclopram 2021- Yes [id number] 10mg Take 1 [facility] fred HCl 10 2-12 tablet by ity of mg tablet 00:00: mouth [place] 00 every 6 Medical (six) Branch hours. ondansetron 2021- Yes [id number] 4mg Take 1 [facility] 4 mg 2-12 tablet by ity of disintegrat 00:00: mouth [place] ing tablet 00 every 8 Medica l (eight) Branch hours as needed for Nausea and Vomiting (N/V). metoclopram 2021- Yes [id number] 10mg Take 1 [facility] fred HCl 10 2-12 tablet by ity of mg tablet 00:00: mouth [place] 00 every 6 Medical (six) Branch hours. ondansetron 2021-1 Yes [id number] 4mg Take 1 [facility] 4 mg 2-12 tablet by ity of disintegrat 00:00: mouth [place] ing tablet 00 every 8 Medica l (eight) Branch hours as needed for Nausea and Vomiting (N/V). metoclopram 2021-1 Yes [id number] 10mg Take 1 [facility] fred HCl 10 2-12 tablet by ity of mg tablet 00:00: mouth [place] 00 every 6 Medical (six) Branch hours. ondansetron 2021-1 Yes [id number] 4mg Take 1 [facility] 4 mg 2-12 tablet by ity of disintegrat 00:00: mouth [place] ing tablet 00 every 8 Medica l (eight) Branch hours as needed for Nausea and Vomiting (N/V). metoclopram 2022-1 Yes [id number] 10mg Take 1 [facility] fred HCl 10 2-12 tablet by ity of mg tablet 00:00: mouth [place] 00 every 6 Medical (six) Branch hours. ondansetron 2021- Yes [id number] 4mg Take 1 [facility] 4 mg 2-12 tablet by ity of disintegrat 00:00: mouth [place] ing tablet 00 every 8 Medica l (eight) Branch hours as needed for Nausea and Vomiting (N/V). metoclopram 2021- Yes [id number] 10mg Take 1 [facility] fred HCl 10 2-12 tablet by ity of mg tablet 00:00: mouth [place] 00 every 6 Medical (six) Branch hours. ondansetron 2021- Yes [id number] 4mg Take 1 [facility] 4 mg 2-12 tablet by ity of disintegrat 00:00: mouth [place] ing tablet 00 every 8 Medica l (eight) Branch hours as needed for Nausea and Vomiting (N/V). metoclopram 2021-10 Yes [id number] 10mg Take 1 [facility] fred HCl 10 2-12 tablet by ity of mg tablet 00:00: mouth [place] 00 every 6 Medical (six) Branch hours. ondansetron 2021-10 Yes [id number] 4mg Take 1 [facility] 4 mg 2-12 tablet by ity of disintegrat 00:00: mouth [place] ing tablet 00 every 8 Medica l (eight) Branch hours as needed for Nausea and Vomiting (N/V). metoclopram 2021-10 Yes [id number] 10mg Take 1 [facility] fred HCl 10 2-12 tablet by ity of mg tablet 00:00: mouth [place] 00 every 6 Medical (six) Branch hours. ondansetron 2021- Yes [id number] 4mg Take 1 [facility] 4 mg 2-12 tablet by ity of disintegrat 00:00: mouth [place] ing tablet 00 every 8 Medica l (eight) Branch hours as needed for Nausea and Vomiting (N/V). metoclopram 2021-1 Yes [id number] 10mg Take 1 [facility] fred HCl 10 2-12 tablet by ity of mg tablet 00:00: mouth [place] 00 every 6 Medical (six) Branch hours. ondansetron 2021-1 Yes [id number] 4mg Take 1 [facility] 4 mg 2-12 tablet by ity of disintegrat 00:00: mouth [place] ing tablet 00 every 8 Medica l (eight) Branch hours as needed for Nausea and Vomiting (N/V). metoclopram 2021- Yes [id number] 10mg Take 1 [facility] fred HCl 10 2-12 tablet by ity of mg tablet 00:00: mouth [place] 00 every 6 Medical (six) Branch hours. ondansetron 2021- Yes [id number] 4mg Take 1 [facility] 4 mg 2-12 tablet by ity of disintegrat 00:00: mouth [place] ing tablet 00 every 8 Medica l (eight) Branch hours as needed for Nausea and Vomiting (N/V). metoclopram 2021-10 Yes [id number] 10mg Take 1 [facility] fred HCl 10 2-12 tablet by ity of mg tablet 00:00: mouth [place] 00 every 6 Medical (six) Branch hours. ondansetron 2021- Yes [id number] 4mg Take 1 [facility] 4 mg 2-12 tablet by ity of disintegrat 00:00: mouth [place] ing tablet 00 every 8 Medica l (eight) Branch hours as needed for Nausea and Vomiting (N/V). metoclopram 2021-10 Yes [id number] 10mg Take 1 [facility] fred HCl 10 2-12 tablet by ity of mg tablet 00:00: mouth [place] 00 every 6 Medical (six) Branch hours. ondansetron 2021- Yes [id number] 4mg Take 1 [facility] 4 mg 2-12 tablet by ity of disintegrat 00:00: mouth [place] ing tablet 00 every 8 Medica l (eight) Branch hours as needed for Nausea and Vomiting (N/V). metoclopram 2021- Yes [id number] 10mg Take 1 [facility] fred HCl 10 2-12 tablet by ity of mg tablet 00:00: mouth [place] 00 every 6 Medical (six) Branch hours. ondansetron 2021- Yes [id number] 4mg Take 1 [facility] 4 mg 2-12 tablet by ity of disintegrat 00:00: mouth [place] ing tablet 00 every 8 Medica l (eight) Branch hours as needed for Nausea and Vomiting (N/V). metoclopram 2021-1 Yes [id number] 10mg Take 1 [facility] fred HCl 10 2-12 tablet by ity of mg tablet 00:00: mouth [place] 00 every 6 Medical (six) Branch hours. ondansetron 2021-1 Yes [id number] 4mg Take 1 [facility] 4 mg 2-12 tablet by ity of disintegrat 00:00: mouth [place] ing tablet 00 every 8 Medica l (eight) Branch hours as needed for Nausea and Vomiting (N/V). metoclopram 2021- Yes [id number] 10mg Take 1 [facility] fred HCl 10 2-12 tablet by ity of mg tablet 00:00: mouth [place] 00 every 6 Medical (six) Branch hours. ondansetron 2021-10 Yes [id number] 4mg Take 1 [facility] 4 mg 2-12 tablet by ity of disintegrat 00:00: mouth [place] ing tablet 00 every 8 Medica l (eight) Branch hours as needed for Nausea and Vomiting (N/V). metoclopram 2021-10 Yes [id number] 10mg Take 1 [facility] fred HCl 10 2-12 tablet by ity of mg tablet 00:00: mouth [place] 00 every 6 Medical (six) Branch hours. ondansetron 2021-10 Yes [id number] 4mg Take 1 [facility] 4 mg 2-12 tablet by ity of disintegrat 00:00: mouth [place] ing tablet 00 every 8 Medica l (eight) Branch hours as needed for Nausea and Vomiting (N/V). metoclopram 2021-10 Yes [id number] 10mg Take 1 [facility] fred HCl 10 2-12 tablet by ity of mg tablet 00:00: mouth [place] 00 every 6 Medical (six) Branch hours. ondansetron 2021-10 Yes [id number] 4mg Take 1 [facility] 4 mg 2-12 tablet by ity of disintegrat 00:00: mouth [place] ing tablet 00 every 8 Medica l (eight) Branch hours as needed for Nausea and Vomiting (N/V). metoclopram 2021-10 Yes [id number] 10mg Take 1 [facility] fred HCl 10 2-12 tablet by ity of mg tablet 00:00: mouth [place] 00 every 6 Medical (six) Branch hours. ondansetron 2021-1 Yes [id number] 4mg Take 1 [facility] 4 mg 2-12 tablet by ity of disintegrat 00:00: mouth [place] ing tablet 00 every 8 Medica l (eight) Branch hours as needed for Nausea and Vomiting (N/V). metoclopram 2021- Yes [id number] 10mg Take 1 [facility] fred HCl 10 2-12 tablet by ity of mg tablet 00:00: mouth [place] 00 every 6 Medical (six) Branch hours. ondansetron 2021- Yes [id number] 4mg Take 1 [facility] 4 mg 2-12 tablet by ity of disintegrat 00:00: mouth [place] ing tablet 00 every 8 Medica l (eight) Branch hours as needed for Nausea and Vomiting (N/V). metoclopram 2021- Yes [id number] 10mg Take 1 [facility] fred HCl 10 2-12 tablet by ity of mg tablet 00:00: mouth [place] 00 every 6 Medical (six) Branch hours. ondansetron 2021- Yes [id number] 4mg Take 1 [facility] 4 mg 2-12 tablet by ity of disintegrat 00:00: mouth [place] ing tablet 00 every 8 Medica l (eight) Branch hours as needed for Nausea and Vomiting (N/V). metoclopram 2021- Yes [id number] 10mg Take 1 [facility] fred HCl 10 2-12 tablet by ity of mg tablet 00:00: mouth [place] 00 every 6 Medical (six) Branch hours. ondansetron 2021- Yes [id number] 4mg Take 1 [facility] 4 mg 2-12 tablet by ity of disintegrat 00:00: mouth [place] ing tablet 00 every 8 Medica l (eight) Branch hours as needed for Nausea and Vomiting (N/V). metoclopram 2021- Yes [id number] 10mg Take 1 [facility] fred HCl 10 2-12 tablet by ity of mg tablet 00:00: mouth [place] 00 every 6 Medical (six) Branch hours. ondansetron 2021-1 Yes [id number] 4mg Take 1 [facility] 4 mg 2-12 tablet by ity of disintegrat 00:00: mouth [place] ing tablet 00 every 8 Medica l (eight) Branch hours as needed for Nausea and Vomiting (N/V). metoclopram 2021-1 Yes [id number] 10mg Take 1 [facility] fred HCl 10 2-12 tablet by ity of mg tablet 00:00: mouth [place] 00 every 6 Medical (six) Branch hours. ondansetron 2021-1 Yes [id number] 4mg Take 1 [facility] 4 mg 2-12 tablet by ity of disintegrat 00:00: mouth [place] ing tablet 00 every 8 Medica l (eight) Branch hours as needed for Nausea and Vomiting (N/V). metoclopram 2022-1 Yes [id number] 10mg Take 1 [facility] fred HCl 10 2-12 tablet by ity of mg tablet 00:00: mouth [place] 00 every 6 Medical (six) Branch hours. ondansetron 2021- Yes [id number] 4mg Take 1 [facility] 4 mg 2-12 tablet by ity of disintegrat 00:00: mouth [place] ing tablet 00 every 8 Medica l (eight) Branch hours as needed for Nausea and Vomiting (N/V). metoclopram 2021- Yes [id number] 10mg Take 1 [facility] fred HCl 10 2-12 tablet by ity of mg tablet 00:00: mouth [place] 00 every 6 Medical (six) Branch hours. ondansetron 2021- Yes [id number] 4mg Take 1 [facility] 4 mg 2-12 tablet by ity of disintegrat 00:00: mouth [place] ing tablet 00 every 8 Medica l (eight) Branch hours as needed for Nausea and Vomiting (N/V). metoclopram 2021-10 Yes [id number] 10mg Take 1 [facility] fred HCl 10 2-12 tablet by ity of mg tablet 00:00: mouth [place] 00 every 6 Medical (six) Branch hours. ondansetron 2021-10 Yes [id number] 4mg Take 1 [facility] 4 mg 2-12 tablet by ity of disintegrat 00:00: mouth [place] ing tablet 00 every 8 Medica l (eight) Branch hours as needed for Nausea and Vomiting (N/V). metoclopram 2021-10 Yes [id number] 10mg Take 1 [facility] fred HCl 10 2-12 tablet by ity of mg tablet 00:00: mouth [place] 00 every 6 Medical (six) Branch hours. ondansetron 2021- Yes [id number] 4mg Take 1 [facility] 4 mg 2-12 tablet by ity of disintegrat 00:00: mouth [place] ing tablet 00 every 8 Medica l (eight) Branch hours as needed for Nausea and Vomiting (N/V). metoclopram 2021-1 Yes [id number] 10mg Take 1 [facility] fred HCl 10 2-12 tablet by ity of mg tablet 00:00: mouth [place] 00 every 6 Medical (six) Branch hours. ondansetron 2021-1 Yes [id number] 4mg Take 1 [facility] 4 mg 2-12 tablet by ity of disintegrat 00:00: mouth [place] ing tablet 00 every 8 Medica l (eight) Branch hours as needed for Nausea and Vomiting (N/V). metoclopram 2021- Yes [id number] 10mg Take 1 [facility] fred HCl 10 2-12 tablet by ity of mg tablet 00:00: mouth [place] 00 every 6 Medical (six) Branch hours. ondansetron 2021- Yes [id number] 4mg Take 1 [facility] 4 mg 2-12 tablet by ity of disintegrat 00:00: mouth [place] ing tablet 00 every 8 Medica l (eight) Branch hours as needed for Nausea and Vomiting (N/V). metoclopram 2021- Yes [id number] 10mg Take 1 [facility] fred HCl 10 2-12 tablet by ity of mg tablet 00:00: mouth [place] 00 every 6 Medical (six) Branch hours. ondansetron 2021- Yes [id number] 4mg Take 1 [facility] 4 mg 2-12 tablet by ity of disintegrat 00:00: mouth [place] ing tablet 00 every 8 Medica l (eight) Branch hours as needed for Nausea and Vomiting (N/V). metoclopram 2021- Yes [id number] 10mg Take 1 [facility] fred HCl 10 2-12 tablet by ity of mg tablet 00:00: mouth [place] 00 every 6 Medical (six) Branch hours. ondansetron 2021- Yes [id number] 4mg Take 1 [facility] 4 mg 2-12 tablet by ity of disintegrat 00:00: mouth [place] ing tablet 00 every 8 Medica l (eight) Branch hours as needed for Nausea and Vomiting (N/V). metoclopram 2021- Yes [id number] 10mg Take 1 [facility] fred HCl 10 2-12 tablet by ity of mg tablet 00:00: mouth [place] 00 every 6 Medical (six) Branch hours. ondansetron 2021-1 Yes [id number] 4mg Take 1 [facility] 4 mg 2-12 tablet by ity of disintegrat 00:00: mouth [place] ing tablet 00 every 8 Medica l (eight) Branch hours as needed for Nausea and Vomiting (N/V). metoclopram 2-1 Yes [id number] 10mg Take 1 [facility] fred HCl 10 2-12 tablet by ity of mg tablet 00:00: mouth [place] 00 every 6 Medical (six) Branch hours. ondansetron 2021-1 Yes [id number] 4mg Take 1 [facility] 4 mg 2-12 tablet by ity of disintegrat 00:00: mouth [place] ing tablet 00 every 8 Medica l (eight) Branch hours as needed for Nausea and Vomiting (N/V). metoclopram 2021-10 Yes [id number] 10mg Take 1 [facility] fred HCl 10 2-12 tablet by ity of mg tablet 00:00: mouth [place] 00 every 6 Medical (six) Branch hours. ondansetron 2021-10 Yes [id number] 4mg Take 1 [facility] 4 mg 2-12 tablet by ity of disintegrat 00:00: mouth [place] ing tablet 00 every 8 Medica l (eight) Branch hours as needed for Nausea and Vomiting (N/V). metoclopram 2021-10 Yes [id number] 10mg Take 1 [facility] fred HCl 10 2-12 tablet by ity of mg tablet 00:00: mouth [place] 00 every 6 Medical (six) Branch hours. ondansetron 2021-10 Yes [id number] 4mg Take 1 [facility] 4 mg 2-12 tablet by ity of disintegrat 00:00: mouth [place] ing tablet 00 every 8 Medica l (eight) Branch hours as needed for Nausea and Vomiting (N/V). metoclopram 2021-10 Yes [id number] 10mg Take 1 [facility] fred HCl 10 2-12 tablet by ity of mg tablet 00:00: mouth [place] 00 every 6 Medical (six) Branch hours. ondansetron 2021-10 Yes [id number] 4mg Take 1 [facility] 4 mg 2-12 tablet by ity of disintegrat 00:00: mouth [place] ing tablet 00 every 8 Medica l (eight) Branch hours as needed for Nausea and Vomiting (N/V). blood sugar 2021-10 Yes Patient to [facility] diagnostic 1-28 check ity of (BLOOD 00:00: blood [place] GLUCOSE 00 sugar 4 Medical TEST) strip times Branch daily. Insulin 2021-10 Yes [id number] 25U inject 25 [facility] Glargine 1-28 Units ity of (LANTUS 00:00: under the [place] SOLOSTAR 00 skin Medical U-100 SEE-INSTRU Branch INSULIN) CTIONS. 100 unit/mL QAM and (3 mL) QPM injection insulin 2021-10 Yes [id number] 12U inject 12 [facility] aspart 1-28 Units ity of U-100 00:00: under the [place] (NOVOLOG 00 skin in Medical FLEXPEN the Branch U-100 morning INSULIN) and 12 100 unit/mL Units at (3 mL) noon and injection 12 Units in the evening. inject before meals. blood sugar 2021-10 Yes Patient to [facility] diagnostic 10-28 check ity of (BLOOD 00:00: blood [place] GLUCOSE 00 sugar 4 Medical TEST) strip times Branch daily. Insulin 2021-10 Yes 25U inject 25 [facility] Glargine 1-28 Units ity of (LANTUS 00:00: under the [place] [address] skin Medical U-100 SEE-INSTRU Branch INSULIN) CTIONS. 100 unit/mL QAM and (3 mL) QPM injection insulin 2021-10 Yes 12U inject 12 [facility] aspart 1-28 Units ity of U-100 00:00: under the [place] (NOVOLOG 00 skin in [facility] the Branch U-100 morning INSULIN) and 12 100 unit/mL Units at (3 mL) noon and injection 12 Units in the evening. inject before meals. blood sugar 2021-10 Yes Patient to [facility] diagnostic 10-28 check ity of (BLOOD 00:00: blood [place] GLUCOSE 00 sugar 4 Medical TEST) strip times Branch daily. Insulin 2021-10 Yes 25U inject 25 [facility] Glargine 1-28 Units ity of (LANTUS 00:00: under the [place] [id number] skin [facility] U-100 SEE-INSTRU Branch INSULIN) CTIONS. 100 unit/mL QAM and (3 mL) QPM injection insulin 2021-10 Yes 12U inject 12 [facility] aspart 1-28 Units ity of U-100 00:00: under the [place] (NOVOLOG 00 skin in [facility] the Branch U-100 morning INSULIN) and 12 100 unit/mL Units at (3 mL) noon and injection 12 Units in the evening. inject before meals. blood sugar 2021-10 Yes Patient to [facility] diagnostic 10-28 check ity of (BLOOD 00:00: blood [place] GLUCOSE 00 sugar 4 Medical TEST) strip times Branch daily. Insulin 2021-10 Yes 25U inject 25 [facility] Glargine 1-28 Units ity of (LANTUS 00:00: under the [place] [address] skin Medical U-100 SEE-INSTRU Branch INSULIN) CTIONS. 100 unit/mL QAM and (3 mL) QPM injection insulin 2021-10 Yes 12U inject 12 [facility] aspart 1-28 Units ity of U-100 00:00: under the [place] (NOVOLOG 00 skin in Medical FLEXPEN the Branch U-100 morning INSULIN) and 12 100 unit/mL Units at (3 mL) noon and injection 12 Units in the evening. inject before meals. blood sugar 2021-10 Yes Patient to [facility] diagnostic 10-28 check ity of (BLOOD 00:00: blood [place] GLUCOSE 00 sugar 4 Medical TEST) strip times Branch daily. Insulin 2021-10 Yes 25U inject 25 [facility] Glargine 1-28 Units ity of (LANTUS 00:00: under the [place] [address] skin Medical U-100 SEE-INSTRU Branch INSULIN) CTIONS. 100 unit/mL QAM and (3 mL) QPM injection insulin 2021-10 Yes 12U inject 12 [facility] aspart 1-28 Units ity of U-100 00:00: under the [place] (NOVOLOG 00 skin in [facility] the Branch U-100 morning INSULIN) and 12 100 unit/mL Units at (3 mL) noon and injection 12 Units in the evening. inject before meals. blood sugar 2021-10 Yes Patient to [facility] diagnostic 10-28 check ity of (BLOOD 00:00: blood [place] GLUCOSE 00 sugar 4 Medical TEST) strip times Branch daily. Insulin 2021-10 Yes 25U inject 25 [facility] Glargine 1-28 Units ity of (LANTUS 00:00: under the [address] U-100 SEE-INSTRU Branch INSULIN) CTIONS. 100 unit/mL QAM and (3 mL) QPM injection insulin 2021-10 Yes 12U inject 12 [facility] aspart 1-28 Units ity of U-100 00:00: under the [place] (NOVOLOG 00 skin in [facility] the Branch U-100 morning INSULIN) and 12 100 unit/mL Units at (3 mL) noon and injection 12 Units in the evening. inject before meals. blood sugar 2021-10 Yes Patient to [facility] diagnostic 10-28 check ity of (BLOOD 00:00: blood [place] GLUCOSE 00 sugar 4 Medical TEST) strip times Branch daily. Insulin 2021-10 Yes 25U inject 25 [facility] Glargine 1-28 Units ity of (LANTUS 00:00: under the [place] [facility] 00 skin Medical U-100 SEE-INSTRU Branch INSULIN) CTIONS. 100 unit/mL QAM and (3 mL) QPM injection insulin 2021-10 Yes 12U inject 12 [facility] aspart 1-28 Units ity of U-100 00:00: under the [place] (NOVOLOG 00 skin in Medical FLEXPEN the Branch U-100 morning INSULIN) and 12 100 unit/mL Units at (3 mL) noon and injection 12 Units in the evening. inject before meals. blood sugar 2021-10 Yes Patient to [facility] diagnostic 10-28 check ity of (BLOOD 00:00: blood [place] GLUCOSE 00 sugar 4 Medical TEST) strip times [place] daily. Insulin 2021-10 Yes 25U inject 25 [facility] Glargine 1-28 Units ity of (LANTUS 00:00: under the [place] [address] skin Medical U-100 SEE-INSTRU Branch INSULIN) CTIONS. 100 unit/mL QAM and (3 mL) QPM injection insulin 2021-10 Yes 12U inject 12 [facility] aspart 1-28 Units ity of U-100 00:00: under the [place] (NOVOLOG 00 skin in Medical FLEXPEN the Branch U-100 morning INSULIN) and 12 100 unit/mL Units at (3 mL) noon and injection 12 Units in the evening. inject before meals. blood sugar 2021-10 Yes Patient to [facility] diagnostic 10-28 check ity of (BLOOD 00:00: blood [place] GLUCOSE 00 sugar 4 Medical TEST) strip times [place] daily. Insulin 2021-10 Yes 25U inject 25 [facility] Glargine 1-28 Units ity of (LANTUS 00:00: under the [place] [facility] Medical U-100 SEE-INSTRU Branch INSULIN) CTIONS. 100 unit/mL QAM and (3 mL) QPM injection insulin 2021-10 Yes 12U inject 12 [facility] aspart 1-28 Units ity of U-100 00:00: under the [place] (NOVOLOG 00 skin in Medical FLEXPEN the Branch U-100 morning INSULIN) and 12 100 unit/mL Units at (3 mL) noon and injection 12 Units in the evening. inject before meals. blood sugar 2021-10 Yes Patient to [facility] diagnostic 10-28 check ity of (BLOOD 00:00: blood [place] GLUCOSE 00 sugar 4 Medical TEST) strip times Branch daily. Insulin 2021-10 Yes 25U inject 25 [facility] Glargine 1-28 Units ity of (LANTUS 00:00: [facility] [place] [facility] U-[facility] SEE-INSTRU Branch INSULIN) CTIONS. 100 unit/mL QAM and (3 mL) QPM injection insulin 2021-10 Yes 12U inject 12 [facility] aspart 1-28 Units ity of U-100 00:00: under the [place] (NOVOLOG 00 skin in Medical FLEXPEN the Branch U-100 morning INSULIN) and 12 100 unit/mL Units at (3 mL) noon and injection 12 Units in the evening. inject before meals. blood sugar 2021-10 Yes Patient to [facility] diagnostic 10-28 check ity of (BLOOD 00:00: blood [place] GLUCOSE 00 sugar 4 Medical TEST) strip times Branch daily. Insulin 2021-10 Yes 25U inject 25 [facility] Glargine 1-28 Units ity of (LANTUS 00:00: under the [place] [address] skin Medical U-100 SEE-INSTRU Branch INSULIN) CTIONS. 100 unit/mL QAM and (3 mL) QPM injection insulin 2021-10 Yes 12U inject 12 [facility] aspart 1-28 Units ity of U-100 00:00: under the [place] (NOVOLOG 00 skin in [facility] FLEXPEN the Branch U-100 morning INSULIN) and 12 100 unit/mL Units at (3 mL) noon and injection 12 Units in the evening. inject before meals. blood sugar 2021-10 Yes Patient to [facility] diagnostic 10-28 check ity of (BLOOD 00:00: blood [place] GLUCOSE 00 sugar 4 Medical TEST) strip times Branch daily. Insulin 2021-10 Yes 25U inject 25 [facility] Glargine 1-28 Units ity of (LANTUS 00:00: [facility] [place] [facility] U[facility] SEE-INSTRU Branch INSULIN) CTIONS. 100 unit/mL QAM and (3 mL) QPM injection insulin 2021-10 Yes 12U inject 12 [facility] aspart 1-28 Units ity of U-100 00:00: under the [place] (NOVOLOG 00 skin in Medical FLEXPEN the Branch U-100 morning INSULIN) and 12 100 unit/mL Units at (3 mL) noon and injection 12 Units in the evening. inject before meals. blood sugar 2021-10 Yes Patient to [facility] diagnostic 10-28 check ity of (BLOOD 00:00: blood [place] GLUCOSE 00 sugar 4 Medical TEST) strip times Branch daily. Insulin 2021-10 Yes 25U inject 25 [facility] Glargine 1-28 Units ity of (LANTUS 00:00: under the [place] [facility] skin Medical U-100 SEE-INSTRU Branch INSULIN) CTIONS. 100 unit/mL QAM and (3 mL) QPM injection insulin 2021-10 Yes 12U inject 12 [facility] aspart 1-28 Units ity of U-100 00:00: under the [place] (NOVOLOG 00 skin in [facility] the Branch U-100 morning INSULIN) and 12 100 unit/mL Units at (3 mL) noon and injection 12 Units in the evening. inject before meals. blood sugar 2021-10 Yes Patient to [facility] diagnostic 10-28 check ity of (BLOOD 00:00: blood [place] GLUCOSE 00 sugar 4 Medical TEST) strip times Branch daily. Insulin 2021-10 Yes 25U inject 25 [facility] Glargine 1-28 Units ity of (LANTUS 00:00: under the [place] [address] skin Medical U-100 SEE-INSTRU Branch INSULIN) CTIONS. 100 unit/mL QAM and (3 mL) QPM injection insulin 2021-10 Yes 12U inject 12 [facility] aspart 1-28 Units ity of U-100 00:00: under the [place] (NOVOLOG 00 skin in [facility] the Branch U-100 morning INSULIN) and 12 100 unit/mL Units at (3 mL) noon and injection 12 Units in the evening. inject before meals. blood sugar 2021-10 Yes Patient to [facility] diagnostic 10-28 check ity of (BLOOD 00:00: blood [place] GLUCOSE 00 sugar 4 Medical TEST) strip times Branch daily. Insulin 2021-10 Yes 25U inject 25 [facility] Glargine 1-28 Units ity of (LANTUS 00:00: under the [place] [address] skin Medical U-100 SEE-INSTRU Branch INSULIN) CTIONS. 100 unit/mL QAM and (3 mL) QPM injection insulin 2021-10 Yes 12U inject 12 [facility] aspart 1-28 Units ity of U-100 00:00: under the [place] (NOVOLOG 00 skin in Medical FLEXPEN the Branch U-100 morning INSULIN) and 12 100 unit/mL Units at (3 mL) noon and injection 12 Units in the evening. inject before meals. blood sugar 2021-10 Yes Patient to [facility] diagnostic 10-28 check ity of (BLOOD 00:00: blood [place] GLUCOSE 00 sugar 4 Medical TEST) strip times Branch daily. Insulin 2021-10 Yes 25U inject 25 [facility] Glargine 1-28 Units ity of (LANTUS 00:00: under the [place] [address] skin [facility] U-100 SEE-INSTRU Branch INSULIN) CTIONS. 100 unit/mL QAM and (3 mL) QPM injection insulin 2021-10 Yes 12U inject 12 [facility] aspart 1-28 Units ity of U-100 00:00: under the [place] (NOVOLOG 00 skin in [facility] the Branch U-100 morning INSULIN) and 12 100 unit/mL Units at (3 mL) noon and injection 12 Units in the evening. inject before meals. blood sugar 2021-10 Yes Patient to [facility] 10-28 check ity of (BLOOD 00:00: blood [place] GLUCOSE 00 sugar 4 Medical TEST) strip times Branch daily. Insulin 2021-10 Yes 25U inject 25 [facility] Glargine 1-28 Units ity of (LANTUS 00:00: under the [address] U-100 SEE-INSTRU Branch INSULIN) CTIONS. 100 unit/mL QAM and (3 mL) QPM injection insulin 2021-10 Yes 12U inject 12 [facility] aspart 1-28 Units ity of U-100 00:00: under the [place] (NOVOLOG 00 skin in [facility] the Branch U-100 morning INSULIN) and 12 100 unit/mL Units at (3 mL) noon and injection 12 Units in the evening. inject before meals. blood sugar 2021-10 Yes Patient to [facility] diagnostic 10-28 check ity of (BLOOD 00:00: blood [place] GLUCOSE 00 sugar 4 Medical TEST) strip times Branch daily. Insulin 2021-10 Yes 25U inject 25 [facility] Glargine 1-28 Units ity of (LANTUS 00:00: under the [place] [facility] 00 skin Medical U-100 SEE-INSTRU Branch INSULIN) CTIONS. 100 unit/mL QAM and (3 mL) QPM injection insulin 2021-10 Yes 12U inject 12 [facility] aspart 1-28 Units ity of U-100 00:00: under the [place] (NOVOLOG 00 skin in Medical FLEXPEN the Branch U-100 morning INSULIN) and 12 100 unit/mL Units at (3 mL) noon and injection 12 Units in the evening. inject before meals. blood sugar 2021-10 Yes Patient to [facility] diagnostic 10-28 check ity of (BLOOD 00:00: blood [place] GLUCOSE 00 sugar 4 Medical TEST) strip times Branch daily. Insulin 2021-10 Yes 25U inject 25 [facility] Glargine 1-28 Units ity of (LANTUS 00:00: under the [place] [address] skin Medical U-100 SEE-INSTRU Branch INSULIN) CTIONS. 100 unit/mL QAM and (3 mL) QPM injection insulin 2021-10 Yes 12U inject 12 [facility] aspart 1-28 Units ity of U-100 00:00: under the [place] (NOVOLOG 00 skin in Medical FLEXPEN the Branch U-100 morning INSULIN) and 12 100 unit/mL Units at (3 mL) noon and injection 12 Units in the evening. inject before meals. blood sugar 2021-10 Yes Patient to [facility] diagnostic 10-28 check ity of (BLOOD 00:00: blood [place] GLUCOSE 00 sugar 4 Medical TEST) strip times [place] daily. Insulin 2021-10 Yes 25U inject 25 [facility] Glargine 1-28 Units ity of (LANTUS 00:00: under the [place] [facility] skin Medical U-100 SEE-INSTRU Branch INSULIN) CTIONS. 100 unit/mL QAM and (3 mL) QPM injection insulin 2021-10 Yes 12U inject 12 [facility] aspart 1-28 Units ity of U-100 00:00: under the [place] (NOVOLOG 00 skin in Medical FLEXPEN the Branch U-100 morning INSULIN) and 12 100 unit/mL Units at (3 mL) noon and injection 12 Units in the evening. inject before meals. blood sugar 2021-10 Yes Patient to [facility] diagnostic 10-28 check ity of (BLOOD 00:00: blood [place] GLUCOSE 00 sugar 4 Medical TEST) strip times Branch daily. Insulin 2021-10 Yes 25U inject 25 [facility] Glargine 1-28 Units ity of (LANTUS 00:00: under the [place] [facility] skin Medical U-100 SEE-INSTRU Branch INSULIN) CTIONS. 100 unit/mL QAM and (3 mL) QPM injection insulin 2021-10 Yes 12U inject 12 [facility] aspart 1-28 Units ity of U-100 00:00: under the [place] (NOVOLOG 00 skin in Medical FLEXPEN the Branch U-100 morning INSULIN) and 12 100 unit/mL Units at (3 mL) noon and injection 12 Units in the evening. inject before meals. blood sugar 2021-10 Yes Patient to [facility] diagnostic 10-28 check ity of (BLOOD 00:00: blood [place] GLUCOSE 00 sugar 4 Medical TEST) strip times Branch daily. Insulin 2021-10 Yes 25U inject 25 [facility] Glargine 1-28 Units ity of (LANTUS 00:00: under the [place] [address] skin Medical U-100 SEE-INSTRU Branch INSULIN) CTIONS. 100 unit/mL QAM and (3 mL) QPM injection insulin 2021-10 Yes 12U inject 12 [facility] aspart 1-28 Units ity of U-100 00:00: under the [place] (NOVOLOG 00 skin in Medical FLEXPEN the Branch U-100 morning INSULIN) and 12 100 unit/mL Units at (3 mL) noon and injection 12 Units in the evening. inject before meals. blood sugar 2021-10 Yes Patient to [facility] diagnostic 10-28 check ity of (BLOOD 00:00: blood [place] GLUCOSE 00 sugar 4 Medical TEST) strip times Branch daily. Insulin 2021-10 Yes 25U inject 25 [facility] Glargine 1-28 Units ity of (LANTUS 00:00: under the [place] [facility] 00 skin Medical U-100 SEE-INSTRU Branch INSULIN) CTIONS. 100 unit/mL QAM and (3 mL) QPM injection insulin 2021-10 Yes 12U inject 12 [facility] aspart 1-28 Units ity of U-100 00:00: under the [place] (NOVOLOG 00 skin in [facility] the Branch U-100 morning INSULIN) and 12 100 unit/mL Units at (3 mL) noon and injection 12 Units in the evening. inject before meals. blood sugar 2021-10 Yes Patient to [facility] diagnostic 10-28 check ity of (BLOOD 00:00: blood [place] GLUCOSE 00 sugar 4 Medical TEST) strip times Branch daily. Insulin 2021-10 Yes 25U inject 25 [facility] Glargine 1-28 Units ity of (LANTUS 00:00: under the [place] [address] skin Medical U-100 SEE-INSTRU Branch INSULIN) CTIONS. 100 unit/mL QAM and (3 mL) QPM injection insulin 2021-10 Yes 12U inject 12 [facility] aspart 1-28 Units ity of U-100 00:00: under the [place] (NOVOLOG 00 skin in [facility] the Branch U-100 morning INSULIN) and 12 100 unit/mL Units at (3 mL) noon and injection 12 Units in the evening. inject before meals. blood sugar 2021-10 Yes Patient to [facility] diagnostic 10-28 check ity of (BLOOD 00:00: blood [place] GLUCOSE 00 sugar 4 Medical TEST) strip times Branch daily. Insulin 2021-10 Yes 25U inject 25 [facility] Glargine 1-28 Units ity of (LANTUS 00:00: under the [place] [address] skin Medical U-100 SEE-INSTRU Branch INSULIN) CTIONS. 100 unit/mL QAM and (3 mL) QPM injection insulin 2021-10 Yes 12U inject 12 [facility] aspart 1-28 Units ity of U-100 00:00: under the [place] (NOVOLOG 00 skin in [facility] the Branch U-100 morning INSULIN) and 12 100 unit/mL Units at (3 mL) noon and injection 12 Units in the evening. inject before meals. blood sugar 2021-10 Yes Patient to [facility] diagnostic 10-28 check ity of (BLOOD 00:00: blood [place] GLUCOSE 00 sugar 4 Medical TEST) strip times Branch daily. Insulin 2021-10 Yes 25U inject 25 [facility] Glargine 1-28 Units ity of (LANTUS 00:00: under the [place] [address] skin Medical U-100 SEE-INSTRU Branch INSULIN) CTIONS. 100 unit/mL QAM and (3 mL) QPM injection insulin 2021-10 Yes 12U inject 12 [facility] aspart 1-28 Units ity of U-100 00:00: under the [place] (NOVOLOG 00 skin in Medical FLEXPEN the Branch U-100 morning INSULIN) and 12 100 unit/mL Units at (3 mL) noon and injection 12 Units in the evening. inject before meals. blood sugar 2021-10 Yes Patient to [facility] diagnostic 10-28 check ity of (BLOOD 00:00: blood [place] GLUCOSE 00 sugar 4 Medical TEST) strip times Branch daily. Insulin 2021-10 Yes 25U inject 25 [facility] Glargine 1-28 Units ity of (LANTUS 00:00: under the [place] [address] skin Medical U-100 SEE-INSTRU Branch INSULIN) CTIONS. 100 unit/mL QAM and (3 mL) QPM injection insulin 2021-10 Yes 12U inject 12 [facility] aspart 1-28 Units ity of U-100 00:00: under the [place] (NOVOLOG 00 skin in [facility] the Branch U-100 morning INSULIN) and 12 100 unit/mL Units at (3 mL) noon and injection 12 Units in the evening. inject before meals. blood sugar 2021-10 Yes Patient to [facility] 10-28 check ity of (BLOOD 00:00: blood [place] GLUCOSE 00 sugar 4 Medical TEST) strip times Branch daily. Insulin 2021-10 Yes 25U inject 25 [facility] Glargine 1-28 Units ity of (LANTUS 00:00: under the [address] U-100 SEE-INSTRU Branch INSULIN) CTIONS. 100 unit/mL QAM and (3 mL) QPM injection insulin 2021-10 Yes 12U inject 12 [facility] aspart 1-28 Units ity of U-100 00:00: under the [place] (NOVOLOG 00 skin in [facility] the Branch U-100 morning INSULIN) and 12 100 unit/mL Units at (3 mL) noon and injection 12 Units in the evening. inject before meals. blood sugar 2021-10 Yes Patient to [facility] diagnostic 10-28 check ity of (BLOOD 00:00: blood [place] GLUCOSE 00 sugar 4 Medical TEST) strip times Branch daily. Insulin 2021-10 Yes 25U inject 25 [facility] Glargine 1-28 Units ity of (LANTUS 00:00: under the [place] 00 skin Medical U-100 SEE-INSTRU Branch INSULIN) CTIONS. 100 unit/mL QAM and (3 mL) QPM injection insulin 2021-10 Yes 12U inject 12 [facility] aspart 1-28 Units ity of U-100 00:00: under the [place] (NOVOLOG 00 skin in Medical FLEXPEN the Branch U-100 morning INSULIN) and 12 100 unit/mL Units at (3 mL) noon and injection 12 Units in the evening. inject before meals. blood sugar 2021-10 Yes Patient to [facility] diagnostic 10-28 check ity of (BLOOD 00:00: blood [place] GLUCOSE 00 sugar 4 Medical TEST) strip times Branch daily. Insulin 2021-10 Yes 25U inject 25 [facility] Glargine 1-28 Units ity of (LANTUS 00:00: under the [place] [address] skin Medical U-100 SEE-INSTRU Branch INSULIN) CTIONS. 100 unit/mL QAM and (3 mL) QPM injection insulin 2021-10 Yes 12U inject 12 [facility] aspart 1-28 Units ity of U-100 00:00: under the [place] (NOVOLOG 00 skin in Medical FLEXPEN the Branch U-100 morning INSULIN) and 12 100 unit/mL Units at (3 mL) noon and injection 12 Units in the evening. inject before meals. blood sugar 2021-10 Yes Patient to [facility] diagnostic 10-28 check ity of (BLOOD 00:00: blood [place] GLUCOSE 00 sugar 4 Medical TEST) strip times [place] daily. Insulin 2021-10 Yes 25U inject 25 [facility] Glargine 1-28 Units ity of (LANTUS 00:00: under the [place] [facility] 00 skin Medical U-100 SEE-INSTRU Branch INSULIN) CTIONS. 100 unit/mL QAM and (3 mL) QPM injection insulin 2021-10 Yes 12U inject 12 [facility] aspart 1-28 Units ity of U-100 00:00: under the [place] (NOVOLOG 00 skin in Medical FLEXPEN the Branch U-100 morning INSULIN) and 12 100 unit/mL Units at (3 mL) noon and injection 12 Units in the evening. inject before meals. blood sugar 2021-10 Yes Patient to [facility] diagnostic 10-28 check ity of (BLOOD 00:00: blood [place] GLUCOSE 00 sugar 4 Medical TEST) strip times Branch daily. Insulin 2021-10 Yes 25U inject 25 [facility] Glargine 1-28 Units ity of (LANTUS 00:00: under the [place] [facility] skin Medical U-100 SEE-INSTRU Branch INSULIN) CTIONS. 100 unit/mL QAM and (3 mL) QPM injection insulin 2021-10 Yes 12U inject 12 [facility] aspart 1-28 Units ity of U-100 00:00: under the [place] (NOVOLOG 00 skin in Medical FLEXPEN the Branch U-100 morning INSULIN) and 12 100 unit/mL Units at (3 mL) noon and injection 12 Units in the evening. inject before meals. blood sugar 2021-10 Yes Patient to [facility] diagnostic 10-28 check ity of (BLOOD 00:00: blood [place] GLUCOSE 00 sugar 4 Medical TEST) strip times Branch daily. Insulin 2021-10 Yes 25U inject 25 [facility] Glargine 1-28 Units ity of (LANTUS 00:00: under the [place] [address] skin Medical U-100 SEE-INSTRU Branch INSULIN) CTIONS. 100 unit/mL QAM and (3 mL) QPM injection insulin 2021-10 Yes 12U inject 12 [facility] aspart 1-28 Units ity of U-100 00:00: under the [place] (NOVOLOG 00 skin in Medical FLEXPEN the Branch U-100 morning INSULIN) and 12 100 unit/mL Units at (3 mL) noon and injection 12 Units in the evening. inject before meals. blood sugar 2021-10 Yes Patient to [facility] diagnostic 10-28 check ity of (BLOOD 00:00: blood [place] GLUCOSE 00 sugar 4 Medical TEST) strip times Branch daily. Insulin 2021-10 Yes 25U inject 25 [facility] Glargine 1-28 Units ity of (LANTUS 00:00: under the [place] [facility] 00 skin Medical U-100 SEE-INSTRU Branch INSULIN) CTIONS. 100 unit/mL QAM and (3 mL) QPM injection insulin 2021-10 Yes 12U inject 12 [facility] aspart 1-28 Units ity of U-100 00:00: under the [place] (NOVOLOG 00 skin in [facility] the Branch U-100 morning INSULIN) and 12 100 unit/mL Units at (3 mL) noon and injection 12 Units in the evening. inject before meals. blood sugar 2021-10 Yes Patient to [facility] diagnostic 10-28 check ity of (BLOOD 00:00: blood [place] GLUCOSE 00 sugar 4 Medical TEST) strip times Branch daily. Insulin 2021-10 Yes 25U inject 25 [facility] Glargine 1-28 Units ity of (LANTUS 00:00: under the [place] [id number] skin Medical U-100 SEE-INSTRU Branch INSULIN) CTIONS. 100 unit/mL QAM and (3 mL) QPM injection insulin 2021-10 Yes 12U inject 12 [facility] aspart 1-28 Units ity of U-100 00:00: under the [place] (NOVOLOG 00 skin in [facility] the Branch U-100 morning INSULIN) and 12 100 unit/mL Units at (3 mL) noon and injection 12 Units in the evening. inject before meals. blood sugar 2021-10 Yes Patient to [facility] diagnostic 10-28 check ity of (BLOOD 00:00: blood [place] GLUCOSE 00 sugar 4 Medical TEST) strip times Branch daily. Insulin 2021-10 Yes 25U inject 25 [facility] Glargine 1-28 Units ity of (LANTUS 00:00: under the [address] Medical U-100 SEE-INSTRU Branch INSULIN) CTIONS. 100 unit/mL QAM and (3 mL) QPM injection insulin 2021-10 Yes 12U inject 12 [facility] aspart 1-28 Units ity of U-100 00:00: under the [place] (NOVOLOG 00 skin in [facility] the Branch U-100 morning INSULIN) and 12 100 unit/mL Units at (3 mL) noon and injection 12 Units in the evening. inject before meals. blood sugar 2021-10 Yes Patient to [facility] diagnostic 10-28 check ity of (BLOOD 00:00: blood [place] GLUCOSE 00 sugar 4 Medical TEST) strip times Branch daily. Insulin 2021-10 Yes 25U inject 25 [facility] Glargine 1-28 Units ity of (LANTUS 00:00: under the [place] [address] skin Medical U-100 SEE-INSTRU Branch INSULIN) CTIONS. 100 unit/mL QAM and (3 mL) QPM injection insulin 2021-10 Yes 12U inject 12 [facility] aspart 1-28 Units ity of U-100 00:00: under the [place] (NOVOLOG 00 skin in Medical FLEXPEN the Branch U-100 morning INSULIN) and 12 100 unit/mL Units at (3 mL) noon and injection 12 Units in the evening. inject before meals. blood sugar 2021-10 Yes Patient to [facility] 10-28 check ity of (BLOOD 00:00: blood [place] GLUCOSE 00 sugar 4 Medical TEST) strip times Branch daily. Insulin 2021-10 Yes 25U inject 25 [facility] Glargine 1-28 Units ity of (LANTUS 00:00: under the [place] [address] skin Medical U-100 SEE-INSTRU Branch INSULIN) CTIONS. 100 unit/mL QAM and (3 mL) QPM injection insulin 2021-10 Yes 12U inject 12 [facility] aspart 1-28 Units ity of U-100 00:00: under the [place] (NOVOLOG 00 skin in [facility] Branch U-100 morning INSULIN) and 12 100 unit/mL Units at (3 mL) noon and injection 12 Units in the evening. inject before meals. blood sugar 2021-10 Yes Patient to [facility] 10-28 check ity of (BLOOD 00:00: blood [place] GLUCOSE 00 sugar 4 Medical TEST) strip times [place] daily. Insulin 2021-10 Yes 25U inject 25 [facility] Glargine 1-28 Units ity of (LANTUS 00:00: under the [address] U-100 SEE-INSTRU Branch INSULIN) CTIONS. 100 unit/mL QAM and (3 mL) QPM injection insulin 2021-10 Yes 12U inject 12 [facility] aspart 1-28 Units ity of U-100 00:00: under the [place] (NOVOLOG 00 skin in [facility] Branch U-100 morning INSULIN) and 12 100 unit/mL Units at (3 mL) noon and injection 12 Units in the evening. inject before meals. blood sugar 2021-10 Yes Patient to [facility] 10-28 check ity of (BLOOD 00:00: blood [place] GLUCOSE 00 sugar 4 Medical TEST) strip times Branch daily. Insulin 2021-10 Yes 25U inject 25 [facility] Glargine 1-28 Units ity of (LANTUS 00:00: under the [place] 00 skin Medical U-100 SEE-INSTRU Branch INSULIN) CTIONS. 100 unit/mL QAM and (3 mL) QPM injection insulin 2021-10 Yes 12U inject 12 [facility] aspart 1-28 Units ity of U-100 00:00: under the [place] (NOVOLOG 00 skin in Medical FLEXPEN the Branch U-100 morning INSULIN) and 12 100 unit/mL Units at (3 mL) noon and injection 12 Units in the evening. inject before meals. blood sugar 2021-10 Yes Patient to [facility] diagnostic 10-28 check ity of (BLOOD 00:00: blood [place] GLUCOSE 00 sugar 4 Medical TEST) strip times Branch daily. Insulin 2021-10 Yes 25U inject 25 [facility] Glargine 1-28 Units ity of (LANTUS 00:00: under the [place] [address] skin [facility] U-100 SEE-INSTRU Branch INSULIN) CTIONS. 100 unit/mL QAM and (3 mL) QPM injection insulin 2021-10 Yes 12U inject 12 [facility] aspart 1-28 Units ity of U-100 00:00: under the [place] (NOVOLOG 00 skin in Medical FLEXPEN the Branch U-100 morning INSULIN) and 12 100 unit/mL Units at (3 mL) noon and injection 12 Units in the evening. inject before meals. blood sugar 2021-10 Yes Patient to [facility] diagnostic 10-28 check ity of (BLOOD 00:00: blood [place] GLUCOSE 00 sugar 4 Medical TEST) strip times Branch daily. Insulin 2021-10 Yes 25U inject 25 [facility] Glargine 1-28 Units ity of (LANTUS 00:00: under the [place] [address] skin Medical U-100 SEE-INSTRU Branch INSULIN) CTIONS. 100 unit/mL QAM and (3 mL) QPM injection insulin 2021-10 Yes 12U inject 12 [facility] aspart 1-28 Units ity of U-100 00:00: under the [place] (NOVOLOG 00 skin in Medical FLEXPEN the Branch U-100 morning INSULIN) and 12 100 unit/mL Units at (3 mL) noon and injection 12 Units in the evening. inject before meals. blood sugar 2021-10 Yes Patient to [facility] diagnostic 10-28 check ity of (BLOOD 00:00: blood [place] GLUCOSE 00 sugar 4 Medical TEST) strip times Branch daily. Insulin 2021-10 Yes 25U inject 25 [facility] Glargine 1-28 Units ity of (LANTUS 00:00: under the [place] [facility] skin Medical U-100 SEE-INSTRU Branch INSULIN) CTIONS. 100 unit/mL QAM and (3 mL) QPM injection insulin 2021-10 Yes 12U inject 12 [facility] aspart 1-28 Units ity of U-100 00:00: under the [place] (NOVOLOG 00 skin in Medical FLEXPEN the Branch U-100 morning INSULIN) and 12 100 unit/mL Units at (3 mL) noon and injection 12 Units in the evening. inject before meals. blood sugar 2021-10 Yes Patient to [facility] diagnostic 10-28 check ity of (BLOOD 00:00: blood [place] GLUCOSE 00 sugar 4 Medical TEST) strip times Branch daily. Insulin 2021-10 Yes 25U inject 25 [facility] Glargine 1-28 Units ity of (LANTUS 00:00: under the [place] [address] skin Medical U-100 SEE-INSTRU Branch INSULIN) CTIONS. 100 unit/mL QAM and (3 mL) QPM injection insulin 2021-10 Yes 12U inject 12 [facility] aspart 1-28 Units ity of U-100 00:00: under the [place] (NOVOLOG 00 skin in Medical FLEXPEN the Branch U-100 morning INSULIN) and 12 100 unit/mL Units at (3 mL) noon and injection 12 Units in the evening. inject before meals. blood sugar 2021-10 Yes Patient to [facility] diagnostic 10-28 check ity of (BLOOD 00:00: blood [place] GLUCOSE 00 sugar 4 Medical TEST) strip times Branch daily. Insulin 2021-10 Yes 25U inject 25 [facility] Glargine 1-28 Units ity of (LANTUS 00:00: under the [place] 00 skin Medical U-100 SEE-INSTRU Branch INSULIN) CTIONS. 100 unit/mL QAM and (3 mL) QPM injection insulin 2021-10 Yes 12U inject 12 [facility] aspart 1-28 Units ity of U-100 00:00: under the [place] [facility]) and 12 100 unit/mL Units at (3 mL) noon and injection 12 Units in the evening. inject before meals. blood sugar 2021-10 Yes Patient to [facility] diagnostic 10-28 check ity of (BLOOD 00:00: blood [place] GLUCOSE 00 sugar 4 Medical TEST) strip times Branch daily. Insulin 2021-10 Yes 25U inject 25 [facility] Glargine 1-28 Units ity of (LANTUS 00:00: under the [place] [address] skin Medical U-100 SEE-INSTRU Branch INSULIN) CTIONS. 100 unit/mL QAM and (3 mL) QPM injection insulin 2021-10 Yes 12U inject 12 [facility] aspart 1-28 Units ity of U-100 00:00: under the [place] [facility]OLOG [facility] U[facility] morning INSULIN) and 12 100 unit/mL Units at (3 mL) noon and injection 12 Units in the evening. inject before meals. blood sugar 2021-10 Yes Patient to [facility] diagnostic 10-28 check ity of (BLOOD 00:00: blood [place] GLUCOSE 00 sugar 4 Medical TEST) strip times Branch daily. Insulin 2021-10 Yes 25U inject 25 [facility] Glargine 1-28 Units ity of (LANTUS 00:00: under the [place] [address] skin Medical U-100 SEE-INSTRU Branch INSULIN) CTIONS. 100 unit/mL QAM and (3 mL) QPM injection insulin 2021-10 Yes 12U inject 12 [facility] aspart 1-28 Units ity of U-100 00:00: under the [place] ([facility]OLOG [facility] U[facility] morning INSULIN) and 12 100 unit/mL Units at (3 mL) noon and injection 12 Units in the evening. inject before meals. blood sugar 2021-10 Yes Patient to [facility] diagnostic 10-28 check ity of (BLOOD 00:00: blood [place] GLUCOSE 00 sugar 4 Medical TEST) strip times Branch daily. Insulin 2021-10 Yes 25U inject 25 [facility] Glargine 1-28 Units ity of (LANTUS 00:00: under the [place] [address] skin Medical U-100 SEE-INSTRU Branch INSULIN) CTIONS. 100 unit/mL QAM and (3 mL) QPM injection insulin 2021-10 Yes 12U inject 12 [facility] aspart 1-28 Units ity of U-100 00:00: under the [place] (NOVOLOG 00 skin in Medical FLEXPEN the Branch U-100 morning INSULIN) and 12 100 unit/mL Units at (3 mL) noon and injection 12 Units in the evening. inject before meals. blood sugar 2021-10 Yes Patient to [facility] 10-28 check ity of (BLOOD 00:00: blood [place] GLUCOSE 00 sugar 4 Medical TEST) strip times Branch daily. Insulin 2021-10 Yes 25U inject 25 [facility] Glargine 1-28 Units ity of (LANTUS 00:00: under the [place] [address] skin Medical U-100 SEE-INSTRU Branch INSULIN) CTIONS. 100 unit/mL QAM and (3 mL) QPM injection insulin 2021-10 Yes 12U inject 12 [facility] aspart 1-28 Units ity of U-100 00:00: under the [place] (NOVOLOG 00 skin in [facility] the Branch U-100 morning INSULIN) and 12 100 unit/mL Units at (3 mL) noon and injection 12 Units in the evening. inject before meals. blood sugar 2021-10 Yes Patient to [facility] 10-28 check ity of (BLOOD 00:00: blood [place] GLUCOSE 00 sugar 4 Medical TEST) strip times Branch daily. Insulin 2021-10 Yes 25U inject 25 [facility] Glargine 1-28 Units ity of (LANTUS 00:00: under the [address] U-100 SEE-INSTRU Branch INSULIN) CTIONS. 100 unit/mL QAM and (3 mL) QPM injection insulin 2021-10 Yes 12U inject 12 [facility] aspart 1-28 Units ity of U-100 00:00: under the [place] (NOVOLOG 00 skin in [facility] the Branch U-100 morning INSULIN) and 12 100 unit/mL Units at (3 mL) noon and injection 12 Units in the evening. inject before meals. blood sugar 2021-10 Yes Patient to [facility] 10-28 check ity of (BLOOD 00:00: blood [place] GLUCOSE 00 sugar 4 Medical TEST) strip times Branch daily. Insulin 2021-10 Yes 25U inject 25 [facility] Glargine 1-28 Units ity of (LANTUS 00:00: under the [place] skin Medical U-100 SEE-INSTRU Branch INSULIN) CTIONS. 100 unit/mL QAM and (3 mL) QPM injection insulin 2021-10 Yes 12U inject 12 [facility] aspart 1-28 Units ity of U-100 00:00: under the [place] (NOVOLOG 00 skin in Medical FLEXPEN the Branch U-100 morning INSULIN) and 12 100 unit/mL Units at (3 mL) noon and injection 12 Units in the evening. inject before meals. blood sugar 2021-10 Yes Patient to [facility] diagnostic 10-28 check ity of (BLOOD 00:00: blood [place] GLUCOSE 00 sugar 4 Medical TEST) strip times Branch daily. Insulin 2021-10 Yes 25U inject 25 [facility] Glargine 1-28 Units ity of (LANTUS 00:00: under the [place] [address] skin [facility] U-100 SEE-INSTRU Branch INSULIN) CTIONS. 100 unit/mL QAM and (3 mL) QPM injection insulin 2021-10 Yes 12U inject 12 [facility] aspart 1-28 Units ity of U-100 00:00: under the [place] (NOVOLOG 00 skin in Medical FLEXPEN the Branch U-100 morning INSULIN) and 12 100 unit/mL Units at (3 mL) noon and injection 12 Units in the evening. inject before meals. blood sugar 2021-10 Yes Patient to [facility] diagnostic 10-28 check ity of (BLOOD 00:00: blood [place] GLUCOSE 00 sugar 4 Medical TEST) strip times Branch daily. Insulin 2021-10 Yes 25U inject 25 [facility] Glargine 1-28 Units ity of (LANTUS 00:00: under the [place] [facility] Medical U-100 SEE-INSTRU Branch INSULIN) CTIONS. 100 unit/mL QAM and (3 mL) QPM injection insulin 2021-10 Yes 12U inject 12 [facility] aspart 1-28 Units ity of U-100 00:00: under the [place] (NOVOLOG 00 skin in Medical FLEXPEN the Branch U-100 morning INSULIN) and 12 100 unit/mL Units at (3 mL) noon and injection 12 Units in the evening. inject before meals. blood sugar 2021-10 Yes Patient to [facility] diagnostic 10-28 check ity of (BLOOD 00:00: blood [place] GLUCOSE 00 sugar 4 Medical TEST) strip times Branch daily. Insulin 2021-10 Yes 25U inject 25 [facility] Glargine 1-28 Units ity of (LANTUS 00:00: [facility] the [place] [facility] U-100 SEE-INSTRU Branch INSULIN) CTIONS. 100 unit/mL QAM and (3 mL) QPM injection insulin 2021-10 Yes 12U inject 12 [facility] aspart 1-28 Units ity of U-100 00:00: under the [place] (NOVOLOG 00 skin in Medical FLEXPEN the Branch U-100 morning INSULIN) and 12 100 unit/mL Units at (3 mL) noon and injection 12 Units in the evening. inject before meals. blood sugar 2021-10 Yes Patient to [facility] diagnostic 10-28 check ity of (BLOOD 00:00: blood [place] GLUCOSE 00 sugar 4 Medical TEST) strip times Branch daily. Insulin 2021-10 Yes 25U inject 25 [facility] Glargine 1-28 Units ity of (LANTUS 00:00: under the [place] [address] skin Medical U-100 SEE-INSTRU Branch INSULIN) CTIONS. 100 unit/mL QAM and (3 mL) QPM injection insulin 2021-10 Yes 12U inject 12 [facility] aspart 1-28 Units ity of U-100 00:00: under the [place] (NOVOLOG 00 skin in [facility] FLEXPEN the Branch U-100 morning INSULIN) and 12 100 unit/mL Units at (3 mL) noon and injection 12 Units in the evening. inject before meals. blood sugar 2021-10 Yes Patient to [facility] diagnostic 10-28 check ity of (BLOOD 00:00: blood [place] GLUCOSE 00 sugar 4 Medical TEST) strip times Branch daily. Insulin 2021-10 Yes 25U inject 25 [facility] Glargine 1-28 Units ity of (LANTUS 00:00: under the [place] skin Medical U-100 SEE-INSTRU Branch INSULIN) CTIONS. 100 unit/mL QAM and (3 mL) QPM injection insulin 2021-10 Yes 12U inject 12 [facility] aspart 1-28 Units ity of U-100 00:00: under the [place] (NOVOLOG 00 skin in [facility] the Branch U-100 morning INSULIN) and 12 100 unit/mL Units at (3 mL) noon and injection 12 Units in the evening. inject before meals. blood sugar 2021-10 Yes Patient to [facility] diagnostic 10-28 check ity of (BLOOD 00:00: blood [place] GLUCOSE 00 sugar 4 Medical TEST) strip times Branch daily. Insulin 2021-10 Yes 25U inject 25 [facility] Glargine 1-28 Units ity of (LANTUS 00:00: under the [place] [address] skin Medical U-100 SEE-INSTRU Branch INSULIN) CTIONS. 100 unit/mL QAM and (3 mL) QPM injection insulin 2021-10 Yes 12U inject 12 [facility] aspart 1-28 Units ity of U-100 00:00: under the [place] (NOVOLOG 00 skin in [facility] the Branch U-100 morning INSULIN) and 12 100 unit/mL Units at (3 mL) noon and injection 12 Units in the evening. inject before meals. blood sugar 2021-10 Yes Patient to [facility] diagnostic 10-28 check ity of (BLOOD 00:00: blood [place] GLUCOSE 00 sugar 4 Medical TEST) strip times Branch daily. Insulin 2021-10 Yes 25U inject 25 [facility] Glargine 1-28 Units ity of (LANTUS 00:00: under the [address] Medical U-100 SEE-INSTRU Branch INSULIN) CTIONS. 100 unit/mL QAM and (3 mL) QPM injection insulin 2021-10 Yes 12U inject 12 [facility] aspart 1-28 Units ity of U-100 00:00: under the [place] (NOVOLOG 00 skin in [facility] the Branch U-100 morning INSULIN) and 12 100 unit/mL Units at (3 mL) noon and injection 12 Units in the evening. inject before meals. blood sugar 2021-10 Yes Patient to [facility] diagnostic 10-28 check ity of (BLOOD 00:00: blood [place] GLUCOSE 00 sugar 4 Medical TEST) strip times Branch daily. Insulin 2021-10 Yes 25U inject 25 [facility] Glargine 1-28 Units ity of (LANTUS 00:00: under the [place] [address] skin Medical U-100 SEE-INSTRU Branch INSULIN) CTIONS. 100 unit/mL QAM and (3 mL) QPM injection insulin 2021-10 Yes 12U inject 12 [facility] aspart 1-28 Units ity of U-100 00:00: under the [place] (NOVOLOG 00 skin in Medical FLEXPEN the Branch U-100 morning INSULIN) and 12 100 unit/mL Units at (3 mL) noon and injection 12 Units in the evening. inject before meals. blood sugar 2021-10 Yes Patient to [facility] diagnostic 10-28 check ity of (BLOOD 00:00: blood [place] GLUCOSE 00 sugar 4 Medical TEST) strip times [place] daily. Insulin 2021-10 Yes 25U inject 25 [facility] Glargine 1-28 Units ity of (LANTUS 00:00: under the [place] 00 skin Medical U-100 SEE-INSTRU Branch INSULIN) CTIONS. 100 unit/mL QAM and (3 mL) QPM injection insulin 2021-10 Yes 12U inject 12 [facility] aspart 1-28 Units ity of U-100 00:00: under the [place] (NOVOLOG 00 skin in Medical FLEXPEN the Branch U-100 morning INSULIN) and 12 100 unit/mL Units at (3 mL) noon and injection 12 Units in the evening. inject before meals. blood sugar 2021-10 Yes Patient to [facility] diagnostic 10-28 check ity of (BLOOD 00:00: blood [place] GLUCOSE 00 sugar 4 Medical TEST) strip times [place] daily. Insulin 2021-10 Yes 25U inject 25 [facility] Glargine 1-28 Units ity of (LANTUS 00:00: under the [place] [facility] skin Medical U-100 SEE-INSTRU Branch INSULIN) CTIONS. 100 unit/mL QAM and (3 mL) QPM injection insulin 2021-10 Yes 12U inject 12 [facility] aspart 1-28 Units ity of U-100 00:00: under the [place] (NOVOLOG 00 skin in Medical FLEXPEN the Branch U-100 morning INSULIN) and 12 100 unit/mL Units at (3 mL) noon and injection 12 Units in the evening. inject before meals. insulin 2021-10 Yes 10U inject 10 Unive rs aspart 1-17 Units ity of (NOVOLOG 11:13: [facility] skin 3 Medical U-100 (three) Branch INSULIN SC) times daily with meals. insulin 2021-10 Yes 25U inject 25 Unive rs glargine,hu 1-17 Units ity of m.rec.anlog 11:13: under the [place] (LANTUS 21 skin 2 Medical SOLOSTAR (two) Branch U-100 times INSULIN SC) daily. insulin 2021-10 Yes 10U inject 10 Unive rs aspart 1-17 Units ity of (NOVOLOG 11:13: [place] FLEXPEN 21 skin 3 Medical U-100 (three) Branch INSULIN SC) times daily with meals. insulin 2021-10 Yes 25U inject 25 Unive rs glargine,hu 1-17 Units ity of m.rec.anlog 11:13: under the [place] (LANTUS 21 skin 2 Medical SOLOSTAR (two) Branch U-100 times INSULIN SC) daily. insulin 2021-10 Yes 10U inject 10 Unive rs aspart 1-17 Units ity of (NOVOLOG 11:13: [place] FLEXPEN 21 skin 3 Medical U-100 (three) Branch INSULIN SC) times daily with meals. insulin 2021-10 Yes 25U inject 25 Unive rs glargine,hu 1-17 Units ity of m.rec.anlog 11:13: under the [place] (LANTUS 21 skin 2 Medical SOLOSTAR (two) Branch U-100 times INSULIN SC) daily. insulin 2021-10 Yes 10U inject 10 Unive rs aspart 1-17 Units ity of (NOVOLOG 11:13: [place] the [place] FLEXPEN 21 skin 3 Medical U-100 (three) Branch INSULIN SC) times daily with meals. insulin 2021-10 Yes 25U inject 25 Unive rs glargine,hu 1-17 Units ity of m.rec.anlog 11:13: under the [place] (LANTUS 21 skin 2 Medical SOLOSTAR (two) Branch U-100 times INSULIN SC) daily. insulin 2021-10 Yes 10U inject 10 Unive rs aspart 1-17 Units ity of (NOVOLOG 11:13: [place] the [place] FLEXPEN 21 skin 3 Medical U-100 (three) Branch INSULIN SC) times daily with meals. insulin 2021-10 Yes 25U inject 25 Unive rs glargine,hu 1-17 Units ity of m.rec.anlog 11:13: under the [place] (LANTUS 21 skin 2 Medical SOLOSTAR (two) Branch U-100 times INSULIN SC) daily. insulin 2021-10 Yes 10U inject 10 Unive rs aspart 1-17 Units ity of (NOVOLOG 11:13: [place] the [place] FLEXPEN 21 skin 3 Medical U-100 (three) Branch INSULIN SC) times daily with meals. insulin 2021-10 Yes 25U inject 25 Unive rs glargine,hu 1-17 Units ity of m.rec.anlog 11:13: under the [place] (LANTUS 21 skin 2 Medical SOLOSTAR (two) Branch U-100 times INSULIN SC) daily. insulin 2021-10 Yes 10U inject 10 Unive rs aspart 1-17 Units ity of (NOVOLOG 11:13: [place] the [place] FLEXPEN 21 skin 3 Medical U-100 (three) Branch INSULIN SC) times daily with meals. insulin 2021-10 Yes 25U inject 25 Unive rs glargine,hu 1-17 Units ity of m.rec.anlog 11:13: under the [place] (LANTUS 21 skin 2 Medical SOLOSTAR (two) Branch U-100 times INSULIN SC) daily. insulin 2021-10 Yes 10U inject 10 Unive rs aspart 1-17 Units ity of (NOVOLOG 11:13: [place] FLEXPEN 21 skin 3 Medical U-100 (three) Branch INSULIN SC) times daily with meals. insulin 2021-10 Yes 25U inject 25 Unive rs glargine,hu 1-17 Units ity of m.rec.anlog 11:13: under the [place] (LANTUS 21 skin 2 Medical SOLOSTAR (two) Branch U-100 times INSULIN SC) daily. insulin 2021-10 Yes 10U inject 10 Unive rs aspart 1-17 Units ity of (NOVOLOG 11:13: [place] the [place] FLEXPEN 21 skin 3 Medical U-100 (three) Branch INSULIN SC) times daily with meals. insulin 2021-10 Yes 25U inject 25 Unive rs glargine,hu 1-17 Units ity of m.rec.anlog 11:13: under the [place] (LANTUS 21 skin 2 Medical SOLOSTAR (two) Branch U-100 times INSULIN SC) daily. insulin 2021-10 Yes 10U inject 10 Unive rs aspart 1-17 Units ity of (NOVOLOG 11:13: under the [place] FLEXPEN 21 skin 3 Medical U-100 (three) Branch INSULIN SC) times daily with meals. insulin 2021-10 Yes 25U inject 25 Unive rs glargine,hu 1-17 Units ity of m.rec.anlog 11:13: under the [place] (LANTUS 21 skin 2 Medical SOLOSTAR (two) Branch U-100 times INSULIN SC) daily. insulin 2021-10 Yes 10U inject 10 Unive rs aspart 1-17 Units ity of (NOVOLOG 11:13: [place] the [place] FLEXPEN 21 skin 3 Medical U-100 (three) Branch INSULIN SC) times daily with meals. insulin 2021-10 Yes 25U inject 25 Unive rs glargine,hu 1-17 Units ity of m.rec.anlog 11:13: under the [place] (LANTUS 21 skin 2 Medical SOLOSTAR (two) Branch U-100 times INSULIN SC) daily. insulin 2021-10 Yes 10U inject 10 Unive rs aspart 1-17 Units ity of (NOVOLOG 11:13: under the [place] FLEXPEN 21 skin 3 Medical U-100 (three) Branch INSULIN SC) times daily with meals. insulin 2021-10 Yes 25U inject 25 Unive rs glargine,hu 1-17 Units ity of m.rec.anlog 11:13: under the [place] (LANTUS 21 skin 2 Medical SOLOSTAR (two) Branch U-100 times INSULIN SC) daily. insulin 2021-10 Yes 10U inject 10 Unive rs aspart 1-17 Units ity of (NOVOLOG 11:13: [place] the [place] FLEXPEN 21 skin 3 Medical U-100 (three) Branch INSULIN SC) times daily with meals. insulin 2021-10 Yes 25U inject 25 Unive rs glargine,hu 1-17 Units ity of m.rec.anlog 11:13: under the [place] (LANTUS 21 skin 2 Medical SOLOSTAR (two) Branch U-100 times INSULIN SC) daily. insulin 2021-10 Yes 10U inject 10 Unive rs aspart 1-17 Units ity of (NOVOLOG 11:13: [place] the [place] FLEXPEN 21 skin 3 Medical U-100 (three) Branch INSULIN SC) times daily with meals. insulin 2021-10 Yes 25U inject 25 Unive rs glargine,hu 1-17 Units ity of m.rec.anlog 11:13: under the [place] (LANTUS 21 skin 2 Medical SOLOSTAR (two) Branch U-100 times INSULIN SC) daily. insulin 2021-10 Yes 10U inject 10 Unive rs aspart 1-17 Units ity of (NOVOLOG 11:13: [place] the [place] FLEXPEN 21 skin 3 Medical U-100 (three) Branch INSULIN SC) times daily with meals. insulin 2021-10 Yes 25U inject 25 Unive rs glargine,hu 1-17 Units ity of m.rec.anlog 11:13: under the [place] (LANTUS 21 skin 2 Medical SOLOSTAR (two) Branch U-100 times INSULIN SC) daily. insulin 2021-10 Yes 10U inject 10 Unive rs aspart 1-17 Units ity of (NOVOLOG 11:13: [place] the [place] FLEXPEN 21 skin 3 Medical U-100 (three) Branch INSULIN SC) times daily with meals. insulin 2021-10 Yes 25U inject 25 Unive rs glargine,hu 1-17 Units ity of m.rec.anlog 11:13: under the [place] (LANTUS 21 skin 2 Medical SOLOSTAR (two) Branch U-100 times INSULIN SC) daily. insulin 2021-10 Yes 10U inject 10 Unive rs aspart 1-17 Units ity of (NOVOLOG 11:13: under the [place] FLEXPEN 21 skin 3 Medical U-100 (three) Branch INSULIN SC) times daily with meals. insulin 2021-10 Yes 25U inject 25 Unive rs glargine,hu 1-17 Units ity of m.rec.anlog 11:13: under the [place] (LANTUS 21 skin 2 Medical SOLOSTAR (two) Branch U-100 times INSULIN SC) daily. insulin 2021-10 Yes 10U inject 10 Unive rs aspart 1-17 Units ity of (NOVOLOG 11:13: [place] the [place] FLEXPEN 21 skin 3 Medical U-100 (three) Branch INSULIN SC) times daily with meals. insulin 2021-10 Yes 25U inject 25 Unive rs glargine,hu 1-17 Units ity of m.rec.anlog 11:13: under the [place] (LANTUS 21 skin 2 Medical SOLOSTAR (two) Branch U-100 times INSULIN SC) daily. insulin 2021-10 Yes 10U inject 10 Unive rs aspart 1-17 Units ity of (NOVOLOG 11:13: under the [place] FLEXPEN 21 skin 3 Medical U-100 (three) Branch INSULIN SC) times daily with meals. insulin 2021-10 Yes 25U inject 25 Unive rs glargine,hu 1-17 Units ity of m.rec.anlog 11:13: under the [place] (LANTUS 21 skin 2 Medical SOLOSTAR (two) Branch U-100 times INSULIN SC) daily. insulin 2021-10 Yes 10U inject 10 Unive rs aspart 1-17 Units ity of (NOVOLOG 11:13: under the [place] FLEXPEN 21 skin 3 Medical U-100 (three) Branch INSULIN SC) times daily with meals. insulin 2021-10 Yes 25U inject 25 Unive rs glargine,hu 1-17 Units ity of m.rec.anlog 11:13: under the [place] (LANTUS 21 skin 2 Medical SOLOSTAR (two) Branch U-100 times INSULIN SC) daily. insulin 2021-10 Yes 10U inject 10 Unive rs aspart 1-17 Units ity of (NOVOLOG 11:13: [place] the [place] FLEXPEN 21 skin 3 Medical U-100 (three) Branch INSULIN SC) times daily with meals. insulin 2021-10 Yes 25U inject 25 Unive rs glargine,hu 1-17 Units ity of m.rec.anlog 11:13: under the [place] (LANTUS 21 skin 2 Medical SOLOSTAR (two) Branch U-100 times INSULIN SC) daily. insulin 2021-10 Yes 10U inject 10 Unive rs aspart 1-17 Units ity of (NOVOLOG 11:13: [place] the [place]LEXPEN 21 skin 3 Medical U-100 (three) Branch INSULIN SC) times daily with meals. insulin 2021-10 Yes 25U inject 25 Unive rs glargine,hu 1-17 Units ity of m.rec.anlog 11:13: under the [place] (LANTUS 21 skin 2 Medical SOLOSTAR (two) Branch U-100 times INSULIN SC) daily. insulin 2021-10 Yes 10U inject 10 Unive rs aspart 1-17 Units ity of (NOVOLOG 11:13: under the [place] FLEXPEN 21 skin 3 Medical U-100 (three) Branch INSULIN SC) times daily with meals. insulin 2021-10 Yes 25U inject 25 Unive rs glargine,hu 1-17 Units ity of m.rec.anlog 11:13: under the [place] (LANTUS 21 skin 2 Medical SOLOSTAR (two) Branch U-100 times INSULIN SC) daily. insulin 2021-10 Yes 10U inject 10 Unive rs aspart 1-17 Units ity of (NOVOLOG 11:13: [place] the [place] FLEXPEN 21 skin 3 Medical U-100 (three) Branch INSULIN SC) times daily with meals. insulin 2021-10 Yes 25U inject 25 Unive rs glargine,hu 1-17 Units ity of m.rec.anlog 11:13: under the [place] (LANTUS 21 skin 2 Medical SOLOSTAR (two) Branch U-100 times INSULIN SC) daily. insulin 2021-10 Yes 10U inject 10 Unive rs aspart 1-17 Units ity of (NOVOLOG 11:13: [place] the [place] FLEXP[place] 21 skin 3 Medical U-100 (three) Branch INSULIN SC) times daily with meals. insulin 2021-10 Yes 25U inject 25 Unive rs glargine,hu 1-17 Units ity of m.rec.anlog 11:13: under the [place] (LANTUS 21 skin 2 Medical SOLOSTAR (two) Branch U-100 times INSULIN SC) daily. insulin 2021-10 Yes 10U inject 10 Unive rs aspart 1-17 Units ity of (NOVOLOG 11:13: [place] the [place]LEXPEN 21 skin 3 Medical U-100 (three) Branch INSULIN SC) times daily with meals. insulin 2021-10 Yes 25U inject 25 Unive rs glargine,hu 1-17 Units ity of m.rec.anlog 11:13: under the [place] (LANTUS 21 skin 2 Medical SOLOSTAR (two) Branch U-100 times INSULIN SC) daily. insulin 2021-10 Yes 10U inject 10 Unive rs aspart 1-17 Units ity of (NOVOLOG 11:13: under the [place]LE[place] 21 skin 3 Medical U-100 (three) Branch INSULIN SC) times daily with meals. insulin 2021-10 Yes 25U inject 25 Unive rs glargine,hu 1-17 Units ity of m.rec.anlog 11:13: under the [place] (LANTUS 21 skin 2 Medical SOLOSTAR (two) Branch U-100 times INSULIN SC) daily. insulin 2021-10 Yes 10U inject 10 Unive rs aspart 1-17 Units ity of (NOVOLOG 11:13: [place] the [place] FLEXPEN 21 skin 3 Medical U-100 (three) Branch INSULIN SC) times daily with meals. insulin 2021-10 Yes 25U inject 25 Unive rs glargine,hu 1-17 Units ity of m.rec.anlog 11:13: under the [place] (LANTUS 21 skin 2 Medical SOLOSTAR (two) Branch U-100 times INSULIN SC) daily. insulin 2021-10 Yes 10U inject 10 Unive rs aspart 1-17 Units ity of (NOVOLOG 11:13: [place] 21 skin 3 Medical U-100 (three) Branch INSULIN SC) times daily with meals. insulin 2021-10 Yes 25U inject 25 Unive rs glargine,hu 1-17 Units ity of m.rec.anlog 11:13: under the [place] (LANTUS 21 skin 2 Medical SOLOSTAR (two) Branch U-100 times INSULIN SC) daily. insulin 2021-10 Yes 10U inject 10 Unive rs aspart 1-17 Units ity of (NOVOLOG 11:13: [place] 21 skin 3 Medical U-100 (three) Branch INSULIN SC) times daily with meals. insulin 2021-10 Yes 25U inject 25 Unive rs glargine,hu 1-17 Units ity of m.rec.anlog 11:13: under the [place] (LANTUS 21 skin 2 Medical SOLOSTAR (two) Branch U-100 times INSULIN SC) daily. insulin 2021-10 Yes 10U inject 10 Unive rs aspart 1-17 Units ity of (NOVOLOG 11:13: [place] 21 skin 3 Medical U-100 (three) Branch INSULIN SC) times daily with meals. insulin 2021-10 Yes 25U inject 25 Unive rs glargine,hu 1-17 Units ity of m.rec.anlog 11:13: under the [place] (LANTUS 21 skin 2 Medical SOLOSTAR (two) Branch U-100 times INSULIN SC) daily. insulin 2021-10 Yes 10U inject 10 Unive rs aspart 1-17 Units ity of (NOVOLOG 11:13: [place] 21 skin 3 Medical U-100 (three) Branch INSULIN SC) times daily with meals. insulin 2021-10 Yes 25U inject 25 Unive rs glargine,hu 1-17 Units ity of m.rec.anlog 11:13: under the [place] (LANTUS 21 skin 2 Medical SOLOSTAR (two) Branch U-100 times INSULIN SC) daily. insulin 2021-10 Yes 10U inject 10 Unive rs aspart 1-17 Units ity of (NOVOLOG 11:13: [place] 21 skin 3 Medical U-100 (three) Branch INSULIN SC) times daily with meals. insulin 2021-10 Yes 25U inject 25 Unive rs glargine,hu 1-17 Units ity of m.rec.anlog 11:13: under the [place] (LANTUS 21 skin 2 Medical SOLOSTAR (two) Branch U-100 times INSULIN SC) daily. insulin 2021-10 Yes 10U inject 10 Unive rs aspart 1-17 Units ity of (NOVOLOG 11:13: [place] 21 skin 3 Medical U-100 (three) Branch INSULIN SC) times daily with meals. insulin 2021-10 Yes 25U inject 25 Unive rs glargine,hu 1-17 Units ity of m.rec.anlog 11:13: under the [place] (LANTUS 21 skin 2 Medical SOLOSTAR (two) Branch U-100 times INSULIN SC) daily. insulin 2021-10 Yes 10U inject 10 Unive rs aspart 1-17 Units ity of (NOVOLOG 11:13: [place] 21 skin 3 Medical U-100 (three) Branch INSULIN SC) times daily with meals. insulin 2021-10 Yes 25U inject 25 Unive rs glargine,hu 1-17 Units ity of m.rec.anlog 11:13: under the [place] (LANTUS 21 skin 2 Medical SOLOSTAR (two) Branch U-100 times INSULIN SC) daily. insulin 2021-10 Yes 10U inject 10 Unive rs aspart 1-17 Units ity of (NOVOLOG 11:13: [place] 21 skin 3 Medical U-100 (three) Branch INSULIN SC) times daily with meals. insulin 2021-10 Yes 25U inject 25 Unive rs glargine,hu 1-17 Units ity of m.rec.anlog 11:13: under the [place] (LANTUS 21 skin 2 Medical SOLOSTAR (two) Branch U-100 times INSULIN SC) daily. insulin 2021-10 Yes 10U inject 10 Unive rs aspart 1-17 Units ity of (NOVOLOG 11:13: [place] 21 skin 3 Medical U-100 (three) Branch INSULIN SC) times daily with meals. insulin 2021-10 Yes 25U inject 25 Unive rs glargine,hu 1-17 Units ity of m.rec.anlog 11:13: under the [place] (LANTUS 21 skin 2 Medical SOLOSTAR (two) Branch U-100 times INSULIN SC) daily. insulin 2021-10 Yes 10U inject 10 Unive rs aspart 1-17 Units ity of (NOVOLOG 11:13: [place] 21 skin 3 Medical U-100 (three) Branch INSULIN SC) times daily with meals. insulin 2021-10 Yes 25U inject 25 Unive rs glargine,hu 1-17 Units ity of m.rec.anlog 11:13: under the [place] (LANTUS 21 skin 2 Medical SOLOSTAR (two) Branch U-100 times INSULIN SC) daily. insulin 2021-10 Yes 10U inject 10 Unive rs aspart 1-17 Units ity of (NOVOLOG 11:13: [place] 21 skin 3 Medical U-100 (three) Branch INSULIN SC) times daily with meals. insulin 2021-10 Yes 25U inject 25 Unive rs glargine,hu 1-17 Units ity of m.rec.anlog 11:13: under the [place] (LANTUS 21 skin 2 Medical SOLOSTAR (two) Branch U-100 times INSULIN SC) daily. insulin 2021-10 Yes 10U inject 10 Unive rs aspart 1-17 Units ity of (NOVOLOG 11:13: [place] 21 skin 3 Medical U-100 (three) Branch INSULIN SC) times daily with meals. insulin 2021-10 Yes 25U inject 25 Unive rs glargine,hu 1-17 Units ity of m.rec.anlog 11:13: under the [place] (LANTUS 21 skin 2 Medical SOLOSTAR (two) Branch U-100 times INSULIN SC) daily. insulin 2021-10 Yes 10U inject 10 Unive rs aspart 1-17 Units ity of (NOVOLOG 11:13: [place] 21 skin 3 Medical U-100 (three) Branch INSULIN SC) times daily with meals. insulin 2021-10 Yes 25U inject 25 Unive rs glargine,hu 1-17 Units ity of m.rec.anlog 11:13: under the [place] (LANTUS 21 skin 2 Medical SOLOSTAR (two) Branch U-100 times INSULIN SC) daily. insulin 2021-10 Yes 10U inject 10 Unive rs aspart 1-17 Units ity of (NOVOLOG 11:13: [place] 21 skin 3 Medical U-100 (three) Branch INSULIN SC) times daily with meals. insulin 2021-10 Yes 25U inject 25 Unive rs glargine,hu 1-17 Units ity of m.rec.anlog 11:13: under the [place] (LANTUS 21 skin 2 Medical SOLOSTAR (two) Branch U-100 times INSULIN SC) daily. insulin 2021-10 Yes 10U inject 10 Unive rs aspart 1-17 Units ity of (NOVOLOG 11:13: [place] 21 skin 3 Medical U-100 (three) Branch INSULIN SC) times daily with meals. insulin 2021-10 Yes 25U inject 25 Unive rs glargine,hu 1-17 Units ity of m.rec.anlog 11:13: under the [place] (LANTUS 21 skin 2 Medical SOLOSTAR (two) Branch U-100 times INSULIN SC) daily. insulin 2021-10 Yes 10U inject 10 Unive rs aspart 1-17 Units ity of (NOVOLOG 11:13: [place] 21 skin 3 Medical U-100 (three) Branch INSULIN SC) times daily with meals. insulin 2021-10 Yes 25U inject 25 Unive rs glargine,hu 1-17 Units ity of m.rec.anlog 11:13: under the [place] (LANTUS 21 skin 2 Medical SOLOSTAR (two) Branch U-100 times INSULIN SC) daily. insulin 2021-10 Yes 10U inject 10 Unive rs aspart 1-17 Units ity of (NOVOLOG 11:13: [place] 21 skin 3 Medical U-100 (three) Branch INSULIN SC) times daily with meals. insulin 2021-10 Yes 25U inject 25 Unive rs glargine,hu 1-17 Units ity of m.rec.anlog 11:13: under the [place] (LANTUS 21 skin 2 Medical SOLOSTAR (two) Branch U-100 times INSULIN SC) daily. insulin 2021-10 Yes 10U inject 10 Unive rs aspart 1-17 Units ity of (NOVOLOG 11:13: [place] 21 skin 3 Medical U-100 (three) Branch INSULIN SC) times daily with meals. insulin 2021-10 Yes 25U inject 25 Unive rs glargine,hu 1-17 Units ity of m.rec.anlog 11:13: under the [place] (LANTUS 21 skin 2 Medical SOLOSTAR (two) Branch U-100 times INSULIN SC) daily. insulin 2021-10 Yes 10U inject 10 Unive rs aspart 1-17 Units ity of (NOVOLOG 11:13: [place] 21 skin 3 Medical U-100 (three) Branch INSULIN SC) times daily with meals. insulin 2021-10 Yes 25U inject 25 Unive rs glargine,hu 1-17 Units ity of m.rec.anlog 11:13: under the [place] (LANTUS 21 skin 2 Medical SOLOSTAR (two) Branch U-100 times INSULIN SC) daily. insulin 2021-10 Yes 10U inject 10 Unive rs aspart 1-17 Units ity of (NOVOLOG 11:13: [place] 21 skin 3 Medical U-100 (three) Branch INSULIN SC) times daily with meals. insulin 2021-10 Yes 25U inject 25 Unive rs glargine,hu 1-17 Units ity of m.rec.anlog 11:13: under the [place] (LANTUS 21 skin 2 Medical SOLOSTAR (two) Branch U-100 times INSULIN SC) daily. insulin 2021-10 Yes 10U inject 10 Unive rs aspart 1-17 Units ity of (NOVOLOG 11:13: [place] 21 skin 3 Medical U-100 (three) Branch INSULIN SC) times daily with meals. insulin 2021-10 Yes 25U inject 25 Unive rs glargine,hu 1-17 Units ity of m.rec.anlog 11:13: under the [place] (LANTUS 21 skin 2 Medical SOLOSTAR (two) Branch U-100 times INSULIN SC) daily. insulin 2021-10 Yes 10U inject 10 Unive rs aspart 1-17 Units ity of (NOVOLOG 11:13: [place] 21 skin 3 Medical U-100 (three) Branch INSULIN SC) times daily with meals. insulin 2021-10 Yes 25U inject 25 Unive rs glargine,hu 1-17 Units ity of m.rec.anlog 11:13: under the [place] (LANTUS 21 skin 2 Medical SOLOSTAR (two) Branch U-100 times INSULIN SC) daily. insulin 2021-10 Yes 10U inject 10 Unive rs aspart 1-17 Units ity of (NOVOLOG 11:13: [place] 21 skin 3 Medical U-100 (three) Branch INSULIN SC) times daily with meals. insulin 2021-10 Yes 25U inject 25 Unive rs glargine,hu 1-17 Units ity of m.rec.anlog 11:13: under the [place] (LANTUS 21 skin 2 Medical SOLOSTAR (two) Branch U-100 times INSULIN SC) daily. insulin 2021-10 Yes 10U inject 10 Unive rs aspart 1-17 Units ity of (NOVOLOG 11:13: [place] 21 skin 3 Medical U-100 (three) Branch INSULIN SC) times daily with meals. insulin 2021-10 Yes 25U inject 25 Unive rs glargine,hu 1-17 Units ity of m.rec.anlog 11:13: under the [place] (LANTUS 21 skin 2 Medical SOLOSTAR (two) Branch U-100 times INSULIN SC) daily. insulin 2021-10 Yes 10U inject 10 Unive rs aspart 1-17 Units ity of (NOVOLOG 11:13: [place] 21 skin 3 Medical U-100 (three) Branch INSULIN SC) times daily with meals. insulin 2021-10 Yes 25U inject 25 Unive rs glargine,hu 1-17 Units ity of m.rec.anlog 11:13: under the [place] (LANTUS 21 skin 2 Medical SOLOSTAR (two) Branch U-100 times INSULIN SC) daily. insulin 2021-10 Yes 10U inject 10 Unive rs aspart 1-17 Units ity of (NOVOLOG 11:13: [place] 21 skin 3 Medical U-100 (three) Branch INSULIN SC) times daily with meals. insulin 2021-10 Yes 25U inject 25 Unive rs glargine,hu 1-17 Units ity of m.rec.anlog 11:13: under the [place] (LANTUS 21 skin 2 Medical SOLOSTAR (two) Branch U-100 times INSULIN SC) daily. insulin 2021-10 Yes 10U inject 10 Unive rs aspart 1-17 Units ity of (NOVOLOG 11:13: [place] 21 skin 3 Medical U-100 (three) Branch INSULIN SC) times daily with meals. insulin 2021-10 Yes 25U inject 25 Unive rs glargine,hu 1-17 Units ity of m.rec.anlog 11:13: under the [place] (LANTUS 21 skin 2 Medical SOLOSTAR (two) Branch U-100 times INSULIN SC) daily. insulin 2021-10 Yes 10U inject 10 Unive rs aspart 1-17 Units ity of (NOVOLOG 11:13: [place] 21 skin 3 Medical U-100 (three) Branch INSULIN SC) times daily with meals. insulin 2021-10 Yes 25U inject 25 Unive rs glargine,hu 1-17 Units ity of m.rec.anlog 11:13: under the [place] (LANTUS 21 skin 2 Medical SOLOSTAR (two) Branch U-100 times INSULIN SC) daily. insulin 2021-10 Yes 10U inject 10 Unive rs aspart 1-17 Units ity of (NOVOLOG 11:13: [place] 21 skin 3 Medical U-100 (three) Branch INSULIN SC) times daily with meals. insulin 2021-10 Yes 25U inject 25 Unive rs glargine,hu 1-17 Units ity of m.rec.anlog 11:13: under the [place] (LANTUS 21 skin 2 Medical SOLOSTAR (two) Branch U-100 times INSULIN SC) daily. insulin 2021-10 Yes 10U inject 10 Unive rs aspart 1-17 Units ity of (NOVOLOG 11:13: [place] 21 skin 3 Medical U-100 (three) Branch INSULIN SC) times daily with meals. insulin 2021-10 Yes 25U inject 25 Unive rs glargine,hu 1-17 Units ity of m.rec.anlog 11:13: under the [place] (LANTUS 21 skin 2 Medical SOLOSTAR (two) Branch U-100 times INSULIN SC) daily. insulin 2021-10 Yes 10U inject 10 Unive rs aspart 1-17 Units ity of (NOVOLOG 11:13: [place] 21 skin 3 Medical U-100 (three) Branch INSULIN SC) times daily with meals. insulin 2021-10 Yes 25U inject 25 Unive rs glargine,hu 1-17 Units ity of m.rec.anlog 11:13: under the [place] (LANTUS 21 skin 2 Medical SOLOSTAR (two) Branch U-100 times INSULIN SC) daily. insulin 2021-10 Yes 10U inject 10 Unive rs aspart 1-17 Units ity of (NOVOLOG 11:13: [place] 21 skin 3 Medical U-100 (three) Branch INSULIN SC) times daily with meals. insulin 2021-10 Yes 25U inject 25 Unive rs glargine,hu 1-17 Units ity of m.rec.anlog 11:13: under the [place] (LANTUS 21 skin 2 Medical SOLOSTAR (two) Branch U-100 times INSULIN SC) daily. insulin 2021-10 Yes 10U inject 10 Unive rs aspart 1-17 Units ity of (NOVOLOG 11:13: [place] 21 skin 3 Medical U-100 (three) Branch INSULIN SC) times daily with meals. insulin 2021-10 Yes 25U inject 25 Unive rs glargine,hu 1-17 Units ity of m.rec.anlog 11:13: under the [place] (LANTUS 21 skin 2 Medical SOLOSTAR (two) Branch U-100 times INSULIN SC) daily. insulin 2021-10 Yes 10U inject 10 Unive rs aspart 1-17 Units ity of (NOVOLOG 11:13: [place] 21 skin 3 Medical U-100 (three) Branch INSULIN SC) times daily with meals. insulin 2021-10 Yes 25U inject 25 Unive rs glargine,hu 1-17 Units ity of m.rec.anlog 11:13: under the [place] (LANTUS 21 skin 2 Medical SOLOSTAR (two) Branch U-100 times INSULIN SC) daily. lisinopril 2021-10- No 2.5mg Take 2.5 U nivers 2.5 mg 10-03 mg by ity of tablet 22:35: 00:00 mouth [place] 30 :00 daily. Medical Branch atorvastati 2021-10- No 40mg Take 40 mg [facility] n 40 mg 10-03 by mouth ity of tablet 22:35: 00:00 at [place] 09 :00 bedtime. Medical Branch labetaloL 2021-10 Yes Univers 100 mg 0-25 ity of tablet 00:00: [place] 00 Medical Branch labetaloL 2021-10 Yes Univers 100 mg 0-25 ity of tablet 00:00: [place] 00 Medical Branch labetaloL 2021-10 Yes Univers 100 mg 0-25 ity of tablet 00:00: [place] 00 Medical Branch labetaloL 2021- Yes Univers 100 mg 0-25 ity of tablet 00:00: [place] 00 Medical Branch labetaloL 2021- Yes Univers 100 mg 0-25 ity of tablet 00:00: [place] 00 [facility] Branch labetaloL 2021-1 Yes 100mg Take 100 Uni vers 100 mg 0-25 mg by ity of tablet 00:00: mouth in [place] the Medical morning. Branch labetaloL 2021- Yes 100mg Take 100 Uni vers 100 mg 0-25 mg by ity of tablet 00:00: mouth in [place] the morning. Branch labetaloL 2021-10 Yes 100mg Take 100 Uni vers 100 mg 0-25 mg by ity of tablet 00:00: mouth in [place] the morning. Branch labetaloL 2021- Yes 100mg Take 100 Uni vers 100 mg 0-25 mg by ity of tablet 00:00: mouth in [place] the morning. Branch labetaloL 2021-10 Yes 100mg Take 100 Uni vers 100 mg 0-25 mg by ity of tablet 00:00: mouth in [place] the morning. Branch labetaloL 2021-10 Yes 100mg Take 100 Uni vers 100 mg 0-25 mg by ity of tablet 00:00: mouth in [place] the morning. Branch labetaloL 2021-10 Yes 100mg Take 100 Uni vers 100 mg 0-25 mg by ity of tablet 00:00: mouth in [place] the morning. Branch labetaloL 2021- Yes 100mg Take 100 Uni vers 100 mg 0-25 mg by ity of tablet 00:00: mouth in [place] the Medical morning. Branch labetaloL 2021- Yes 100mg Take 100 Uni vers 100 mg 0-25 mg by ity of tablet 00:00: mouth in [place] the Medical morning. Branch labetaloL 2021- Yes 100mg Take 100 Uni vers 100 mg 0-25 mg by ity of tablet 00:00: mouth in [place] the Medical morning. Branch labetaloL 2021-1 Yes 100mg Take 100 Uni vers 100 mg 0-25 mg by ity of tablet 00:00: mouth in [place] the Medical morning. Branch labetaloL 2021-1 Yes 100mg Take 100 Uni vers 100 mg 0-25 mg by ity of tablet 00:00: mouth in [place] the morning. Branch labetaloL 2021-10 Yes 100mg Take 100 Uni vers 100 mg 0-25 mg by ity of tablet 00:00: mouth in [place] the morning. Branch labetaloL 2021- Yes 100mg Take 100 Uni vers 100 mg 0-25 mg by ity of tablet 00:00: mouth in [place] the morning. Branch labetaloL 2021-10 Yes 100mg Take 100 Uni vers 100 mg 0-25 mg by ity of tablet 00:00: mouth in [place] the morning. Branch labetaloL 2021-10 Yes 100mg Take 100 Uni vers 100 mg 0-25 mg by ity of tablet 00:00: mouth in [place] the morning. Branch labetaloL 2021-10 Yes 100mg Take 100 Uni vers 100 mg 0-25 mg by ity of tablet 00:00: mouth in [place] the morning. Branch labetaloL 2021-10 Yes 100mg Take 100 Uni vers 100 mg 0-25 mg by ity of tablet 00:00: mouth in [place] the morning. Branch labetaloL 2021-10 Yes 100mg Take 100 Uni vers 100 mg 0-25 mg by ity of tablet 00:00: mouth in [place] the morning. Branch labetaloL 2021-10 Yes 100mg Take 100 Uni vers 100 mg 0-25 mg by ity of tablet 00:00: mouth in [place] the morning. Branch labetaloL 2021- Yes 100mg Take 100 Uni vers 100 mg 0-25 mg by ity of tablet 00:00: mouth in [place] the morning. Branch labetaloL 2021-10 Yes 100mg Take 100 Uni vers 100 mg 0-25 mg by ity of tablet 00:00: mouth in [place] the morning. Branch labetaloL 2021-1 Yes 100mg Take 100 Uni vers 100 mg 0-25 mg by ity of tablet 00:00: mouth in [place] the morning. Branch labetaloL 2021-1 Yes 100mg Take 100 Uni vers 100 mg 0-25 mg by ity of tablet 00:00: mouth in [place] the morning. Branch labetaloL 2021-1 Yes 100mg Take 100 Uni vers 100 mg 0-25 mg by ity of tablet 00:00: mouth in [place] the Medical morning. Branch labetaloL 2021-1 Yes 100mg Take 100 Uni vers 100 mg 0-25 mg by ity of tablet 00:00: mouth in [place] the Medical morning. Branch labetaloL 2021-1 Yes 100mg Take 100 Uni vers 100 mg 0-25 mg by ity of tablet 00:00: mouth in [place] the morning. Branch labetaloL 2021-1 Yes 100mg Take 100 Uni vers 100 mg 0-25 mg by ity of tablet 00:00: mouth in [place] the Medical morning. Branch labetaloL 2021-1 Yes 100mg Take 100 Uni vers 100 mg 0-25 mg by ity of tablet 00:00: mouth in [place] the morning. Branch labetaloL 2021-1 Yes 100mg Take 100 Uni vers 100 mg 0-25 mg by ity of tablet 00:00: mouth in [place] the morning. Branch labetaloL 2021-1 Yes 100mg Take 100 Uni vers 100 mg 0-25 mg by ity of tablet 00:00: mouth in [place] the morning. Branch labetaloL 2021-1 Yes 100mg Take 100 Uni vers 100 mg 0-25 mg by ity of tablet 00:00: mouth in [place] the morning. Branch labetaloL 2021-10 Yes 100mg Take 100 Uni vers 100 mg 0-25 mg by ity of tablet 00:00: mouth in [place] the morning. Branch labetaloL 2021-1 Yes 100mg Take 100 Uni vers 100 mg 0-25 mg by ity of tablet 00:00: mouth in [place] the morning. Branch labetaloL 2021-1 Yes 100mg Take 100 Uni vers 100 mg 0-25 mg by ity of tablet 00:00: mouth in [place] the Medical morning. Branch labetaloL 2-1 Yes 100mg Take 100 Uni vers 100 mg 0-25 mg by ity of tablet 00:00: mouth in [place] the Medical morning. Branch labetaloL 2021-1 Yes 100mg Take 100 Uni vers 100 mg 0-25 mg by ity of tablet 00:00: mouth in [place] the Medical morning. Branch labetaloL 2-1 Yes 100mg Take 100 Uni vers 100 mg 0-25 mg by ity of tablet 00:00: mouth in [place] the Medical morning. Branch labetaloL 2021-1 Yes 100mg Take 100 Uni vers 100 mg 0-25 mg by ity of tablet 00:00: mouth in [place] the morning. Branch labetaloL 2021-1 Yes 100mg Take 100 Uni vers 100 mg 0-25 mg by ity of tablet 00:00: mouth in [place] the morning. Branch labetaloL 2021-1 Yes 100mg Take 100 Uni vers 100 mg 0-25 mg by ity of tablet 00:00: mouth in [place] the morning. Branch labetaloL 2021-1 Yes 100mg Take 100 Uni vers 100 mg 0-25 mg by ity of tablet 00:00: mouth in [place] the morning. Branch labetaloL 2021-1 Yes 100mg Take 100 Uni vers 100 mg 0-25 mg by ity of tablet 00:00: mouth in [place] the morning. Branch labetaloL 2021-1 Yes 100mg Take 100 Uni vers 100 mg 0-25 mg by ity of tablet 00:00: mouth in [place] the morning. Branch labetaloL 2021-1 Yes 100mg Take 100 Uni vers 100 mg 0-25 mg by ity of tablet 00:00: mouth in [place] the morning. Branch labetaloL 2021-1 Yes 100mg Take 100 Uni vers 100 mg 0-25 mg by ity of tablet 00:00: mouth in [place] the morning. Branch labetaloL 2021-1 Yes 100mg Take 100 Uni vers 100 mg 0-25 mg by ity of tablet 00:00: mouth in [place] the morning. Branch labetaloL 2-1 Yes 100mg Take 100 Uni vers 100 mg 0-25 mg by ity of tablet 00:00: mouth in [place] the Medical morning. Branch labetaloL 2-1 Yes 100mg Take 100 Uni vers 100 mg 0-25 mg by ity of tablet 00:00: mouth in [place] the morning. Branch labetaloL 2-1 Yes 100mg Take 100 Uni vers 100 mg 0-25 mg by ity of tablet 00:00: mouth in [place] the Medical morning. Branch labetaloL 2-1 Yes 100mg Take 100 Uni vers 100 mg 0-25 mg by ity of tablet 00:00: mouth in [place] the Medical morning. Branch labetaloL 2021-10 Yes 100mg Take 100 Uni vers 100 mg 0-25 mg by ity of tablet 00:00: mouth in [place] the morning. Branch labetaloL 2021-10 Yes 100mg Take 100 Uni vers 100 mg 0-25 mg by ity of tablet 00:00: mouth in [place] the morning. Branch labetaloL 2021-10 Yes 100mg Take 100 Uni vers 100 mg 0-25 mg by ity of tablet 00:00: mouth in [place] the morning. Branch labetaloL 2021-10 Yes 100mg Take 100 Uni vers 100 mg 0-25 mg by ity of tablet 00:00: mouth in [place] the morning. Branch labetaloL 2021-10 Yes 100mg Take 100 Uni vers 100 mg 0-25 mg by ity of tablet 00:00: mouth in [place] the morning. Branch labetaloL 2021-10 Yes 100mg Take 100 Uni vers 100 mg 0-25 mg by ity of tablet 00:00: mouth in [place] the morning. Branch labetaloL 2021-10 Yes 100mg Take 100 Uni vers 100 mg 0-25 mg by ity of tablet 00:00: mouth in [place] the morning. Branch labetaloL 2021-10 Yes 100mg Take 100 Uni vers 100 mg 0-25 mg by ity of tablet 00:00: mouth in [place] the morning. Branch labetaloL 2021-10 Yes 100mg Take 100 Uni vers 100 mg 0-25 mg by ity of tablet 00:00: mouth in [place] the morning. Branch labetaloL 2021-10 Yes 100mg Take 100 Uni vers 100 mg 0-25 mg by ity of tablet 00:00: mouth in [place] the morning. Branch labetaloL 2021-10 Yes 100mg Take 100 Uni vers 100 mg 0-25 mg by ity of tablet 00:00: mouth in [place] the morning. Branch labetaloL 2021-10 Yes Univers 100 mg 0-25 ity of tablet 00:00: [place] 00 Medical Branch PNV 67-iron 2021-10 Yes [id number] 1{each} Take 1 Univers ps-folate 0-20 Each by ity of no.1-dha 00:00: mouth [place] (VITAFOL 00 daily. Medical ULTRA) 29 Branch mg iron- 1 mg-200 mg Cap PNV 67-iron 2021-10 Yes [id number] 1{each} Take 1 Univers ps-folate 0-20 Each by ity of no.1-dha 00:00: mouth [place] (VITAFOL 00 daily. Medical ULTRA) 29 Branch mg iron- 1 mg-200 mg Cap PNV 67-iron 2021-10 Yes [id number] 1{each} Take 1 Univers ps-folate 0-20 Each by ity of no.1-dha 00:00: mouth [place] (VITAFOL 00 daily. Medical ULTRA) 29 Branch mg iron- 1 mg-200 mg Cap PNV 67-iron 2021-10 Yes [id number] 1{each} Take 1 Univers ps-folate 0-20 Each by ity of no.1-dha 00:00: mouth [place] (VITAFOL 00 daily. Medical ULTRA) 29 Branch mg iron- 1 mg-200 mg Cap PNV 67-iron 2021-10 Yes [id number] 1{each} Take 1 Univers ps-folate 0-20 Each by ity of no.1-dha 00:00: mouth [place] (VITAFOL 00 daily. Medical ULTRA) 29 Branch mg iron- 1 mg-200 mg Cap PNV 67-iron 2021-10 Yes [id number] 1{each} Take 1 Univers ps-folate 0-20 Each by ity of no.1-dha 00:00: mouth [place] (VITAFOL 00 daily. Medical ULTRA) 29 Branch mg iron- 1 mg-200 mg Cap PNV 67-iron 2021-10 Yes [id number] 1{each} Take 1 Univers ps-folate 0-20 Each by ity of no.1-dha 00:00: mouth [place] (VITAFOL 00 daily. Medical ULTRA) 29 Branch mg iron- 1 mg-200 mg Cap PNV 67-iron 2021-10 Yes [id number] 1{each} Take 1 Univers ps-folate 0-20 Each by ity of no.1-dha 00:00: mouth [place] (VITAFOL 00 daily. Medical ULTRA) 29 Branch mg iron- 1 mg-200 mg Cap PNV 67-iron 2021-10 Yes [id number] 1{each} Take 1 Univers ps-folate 0-20 Each by ity of no.1-dha 00:00: mouth [place] (VITAFOL 00 daily. Medical ULTRA) 29 Branch mg iron- 1 mg-200 mg Cap PNV 67-iron 2021-10 Yes [id number] 1{each} Take 1 Univers ps-folate 0-20 Each by ity of no.1-dha 00:00: mouth [place] (VITAFOL 00 daily. Medical ULTRA) 29 Branch mg iron- 1 mg-200 mg Cap PNV 67-iron 2021-10 Yes [id number] 1{each} Take 1 Univers ps-folate 0-20 Each by ity of no.1-dha 00:00: mouth [place] (VITAFOL 00 daily. Medical ULTRA) 29 Branch mg iron- 1 mg-200 mg Cap PNV 67-iron 2021-10 Yes [id number] 1{each} Take 1 Univers ps-folate 0-20 Each by ity of no.1-dha 00:00: mouth [place] (VITAFOL 00 daily. Medical ULTRA) 29 Branch mg iron- 1 mg-200 mg Cap PNV 67-iron 2021-10 Yes [id number] 1{each} Take 1 Univers ps-folate 0-20 Each by ity of no.1-dha 00:00: mouth [place] (VITAFOL 00 daily. Medical ULTRA) 29 Branch mg iron- 1 mg-200 mg Cap PNV 67-iron 2021-10 Yes [id number] 1{each} Take 1 Univers ps-folate 0-20 Each by ity of no.1-dha 00:00: mouth [place] (VITAFOL 00 daily. Medical ULTRA) 29 Branch mg iron- 1 mg-200 mg Cap PNV 67-iron 2021-10 Yes [id number] 1{each} Take 1 Univers ps-folate 0-20 Each by ity of no.1-dha 00:00: mouth [place] (VITAFOL 00 daily. Medical ULTRA) 29 Branch mg iron- 1 mg-200 mg Cap PNV 67-iron 2021-10 Yes [id number] 1{each} Take 1 [facility] ps-folate 0-20 Each by ity of no.1-dha 00:00: mouth [place] (VITAFOL 00 daily. Medical ULTRA) 29 Branch mg iron- 1 mg-200 mg Cap PNV 67-iron 2021-10 Yes [id number] 1{each} Take 1 [facility] ps-folate 0-20 Each by ity of no.1-dha 00:00: mouth [place] (VITAFOL 00 daily. Medical ULTRA) 29 Branch mg iron- 1 mg-200 mg Cap PNV 67-iron 2021-10 Yes [id number] 1{each} Take 1 [facility] ps-folate 0-20 Each by ity of no.1-dha 00:00: mouth [place] (VITAFOL 00 daily. Medical ULTRA) 29 Branch mg iron- 1 mg-200 mg Cap PNV 67-iron 2021-10 Yes [id number] 1{each} Take 1 [facility] ps-folate 0-20 Each by ity of no.1-dha 00:00: mouth [place] (VITAFOL 00 daily. Medical ULTRA) 29 Branch mg iron- 1 mg-200 mg Cap PNV 67-iron 2021-10 Yes [id number] 1{each} Take 1 [facility] ps-folate 0-20 Each by ity of no.1-dha 00:00: mouth [place] (VITAFOL 00 daily. Medical ULTRA) 29 Branch mg iron- 1 mg-200 mg Cap PNV 67-iron 2021-10 Yes [id number] 1{each} Take 1 [facility] ps-folate 0-20 Each by ity of no.1-dha 00:00: mouth [place] (VITAFOL 00 daily. Medical ULTRA) 29 Branch mg iron- 1 mg-200 mg Cap PNV 67-iron 2021-10 Yes [id number] 1{each} Take 1 [facility] ps-folate 0-20 Each by ity of no.1-dha 00:00: mouth [place] (VITAFOL 00 daily. Medical ULTRA) 29 Branch mg iron- 1 mg-200 mg Cap PNV 67-iron 2021-10 Yes [id number] 1{each} Take 1 [facility] ps-folate 0-20 Each by ity of no.1-dha 00:00: mouth [place] (VITAFOL 00 daily. Medical ULTRA) 29 Branch mg iron- 1 mg-200 mg Cap PNV 67-iron 2021-10 Yes [id number] 1{each} Take 1 [facility] ps-folate 0-20 Each by ity of no.1-dha 00:00: mouth [place] (VITAFOL 00 daily. Medical ULTRA) 29 Branch mg iron- 1 mg-200 mg Cap PNV 67-iron 2021-10 Yes [id number] 1{each} Take 1 [facility] ps-folate 0-20 Each by ity of no.1-dha 00:00: mouth [place] (VITAFOL 00 daily. Medical ULTRA) 29 Branch mg iron- 1 mg-200 mg Cap PNV 67-iron 2021-10 Yes [id number] 1{each} Take 1 [facility] ps-folate 0-20 Each by ity of no.1-dha 00:00: mouth [place] (VITAFOL 00 daily. Medical ULTRA) 29 Branch mg iron- 1 mg-200 mg Cap PNV 67-iron 2021-10 Yes [id number] 1{each} Take 1 [facility] ps-folate 0-20 Each by ity of no.1-dha 00:00: mouth [place] (VITAFOL 00 daily. Medical ULTRA) 29 Branch mg iron- 1 mg-200 mg Cap PNV 67-iron 2021-10 Yes [id number] 1{each} Take 1 [facility] ps-folate 0-20 Each by ity of no.1-dha 00:00: mouth [place] (VITAFOL 00 daily. Medical ULTRA) 29 Branch mg iron- 1 mg-200 mg Cap PNV 67-iron 2021-10 Yes [id number] 1{each} Take 1 [facility] ps-folate 0-20 Each by ity of no.1-dha 00:00: mouth [place] (VITAFOL 00 daily. Medical ULTRA) 29 Branch mg iron- 1 mg-200 mg Cap PNV 67-iron 2021-10 Yes [id number] 1{each} Take 1 [facility] ps-folate 0-20 Each by ity of no.1-dha 00:00: mouth [place] (VITAFOL 00 daily. Medical ULTRA) 29 Branch mg iron- 1 mg-200 mg Cap PNV 67-iron 2021-10 Yes [id number] 1{each} Take 1 [facility] ps-folate 0-20 Each by ity of no.1-dha 00:00: mouth [place] (VITAFOL 00 daily. Medical ULTRA) 29 Branch mg iron- 1 mg-200 mg Cap PNV 67-iron 2021-10 Yes [id number] 1{each} Take 1 [facility] ps-folate 0-20 Each by ity of no.1-dha 00:00: mouth [place] (VITAFOL 00 daily. Medical ULTRA) 29 Branch mg iron- 1 mg-200 mg Cap PNV 67-iron 2021-10 Yes [id number] 1{each} Take 1 [facility] ps-folate 0-20 Each by ity of no.1-dha 00:00: mouth [place] (VITAFOL 00 daily. Medical ULTRA) 29 Branch mg iron- 1 mg-200 mg Cap PNV 67-iron 2021-10 Yes [id number] 1{each} Take 1 [facility] ps-folate 0-20 Each by ity of no.1-dha 00:00: mouth [place] (VITAFOL 00 daily. Medical ULTRA) 29 Branch mg iron- 1 mg-200 mg Cap PNV 67-iron 2021-10 Yes [id number] 1{each} Take 1 [facility] ps-folate 0-20 Each by ity of no.1-dha 00:00: mouth [place] (VITAFOL 00 daily. Medical ULTRA) 29 Branch mg iron- 1 mg-200 mg Cap PNV 67-iron 2021-10 Yes [id number] 1{each} Take 1 [facility] ps-folate 0-20 Each by ity of no.1-dha 00:00: mouth [place] (VITAFOL 00 daily. Medical ULTRA) 29 Branch mg iron- 1 mg-200 mg Cap PNV 67-iron 2021-10 Yes [id number] 1{each} Take 1 [facility] ps-folate 0-20 Each by ity of no.1-dha 00:00: mouth [place] (VITAFOL daily. Medical ULTRA) 29 Branch mg iron- 1 mg-200 mg Cap PNV 67-iron 2021-10 Yes [id number] 1{each} Take 1 [facility] ps-folate 0-20 Each by ity of no.1-dha 00:00: mouth [place] (VITAFOL 00 daily. Medical ULTRA) 29 Branch mg iron- 1 mg-200 mg Cap PNV 67-iron 2021-10 Yes [id number] 1{each} Take 1 [facility] ps-folate 0-20 Each by ity of no.1-dha 00:00: mouth [place] (VITAFOL 00 daily. Medical ULTRA) 29 Branch mg iron- 1 mg-200 mg Cap PNV 67-iron 2021-10 Yes [id number] 1{each} Take 1 [facility] ps-folate 0-20 Each by ity of no.1-dha 00:00: mouth [place] (VITAFOL 00 daily. Medical ULTRA) 29 Branch mg iron- 1 mg-200 mg Cap PNV 67-iron 2021-10 Yes [id number] 1{each} Take 1 [facility] ps-folate 0-20 Each by ity of no.1-dha 00:00: mouth [place] (VITAFOL 00 daily. Medical ULTRA) 29 Branch mg iron- 1 mg-200 mg Cap PNV 67-iron 2021-10 Yes [id number] 1{each} Take 1 [facility] ps-folate 0-20 Each by ity of no.1-dha 00:00: mouth [place] (VITAFOL 00 daily. Medical ULTRA) 29 Branch mg iron- 1 mg-200 mg Cap PNV 67-iron 2021-10 Yes [id number] 1{each} Take 1 [facility] ps-folate 0-20 Each by ity of no.1-dha 00:00: mouth [place] (VITAFOL 00 daily. Medical ULTRA) 29 Branch mg iron- 1 mg-200 mg Cap PNV 67-iron 2021-10 Yes [id number] 1{each} Take 1 [facility] ps-folate 0-20 Each by ity of no.1-dha 00:00: mouth [place] (VITAFOL 00 daily. Medical ULTRA) 29 Branch mg iron- 1 mg-200 mg Cap PNV 67-iron 2021-10 Yes [id number] 1{each} Take 1 [facility] ps-folate 0-20 Each by ity of no.1-dha 00:00: mouth [place] (VITAFOL 00 daily. Medical ULTRA) 29 Branch mg iron- 1 mg-200 mg Cap PNV 67-iron 2021-10 Yes [id number] 1{each} Take 1 [facility] ps-folate 0-20 Each by ity of no.1-dha 00:00: mouth [place] (VITAFOL 00 daily. Medical ULTRA) 29 Branch mg iron- 1 mg-200 mg Cap PNV 67-iron 2021-10 Yes [id number] 1{each} Take 1 [facility] ps-folate 0-20 Each by ity of no.1-dha 00:00: mouth [place] (VITAFOL 00 daily. Medical ULTRA) 29 Branch mg iron- 1 mg-200 mg Cap PNV 67-iron 2021-10 Yes [id number] 1{each} Take 1 [facility] ps-folate 0-20 Each by ity of no.1-dha 00:00: mouth [place] (VITAFOL 00 daily. Medical ULTRA) 29 Branch mg iron- 1 mg-200 mg Cap PNV 67-iron 2021-10 Yes [id number] 1{each} Take 1 [facility] ps-folate 0-20 Each by ity of no.1-dha 00:00: mouth [place] (VITAFOL 00 daily. Medical ULTRA) 29 Branch mg iron- 1 mg-200 mg Cap PNV 67-iron 2021-10 Yes [id number] 1{each} Take 1 [facility] ps-folate 0-20 Each by ity of no.1-dha 00:00: mouth [place] (VITAFOL 00 daily. Medical ULTRA) 29 Branch mg iron- 1 mg-200 mg Cap PNV 67-iron 2021-10 Yes [id number] 1{each} Take 1 [facility] ps-folate 0-20 Each by ity of no.1-dha 00:00: mouth [place] (VITAFOL 00 daily. Medical ULTRA) 29 Branch mg iron- 1 mg-200 mg Cap PNV 67-iron 2021-10 Yes [id number] 1{each} Take 1 [facility] ps-folate 0-20 Each by ity of no.1-dha 00:00: mouth [place] (VITAFOL 00 daily. Medical ULTRA) 29 Branch mg iron- 1 mg-200 mg Cap PNV 67-iron 2021-10 Yes [id number] 1{each} Take 1 [facility] ps-folate 0-20 Each by ity of no.1-dha 00:00: mouth [place] (VITAFOL 00 daily. Medical ULTRA) 29 Branch mg iron- 1 mg-200 mg Cap PNV 67-iron 2021-10 Yes [id number] 1{each} Take 1 [facility] ps-folate 0-20 Each by ity of no.1-dha 00:00: mouth [place] (VITAFOL 00 daily. Medical ULTRA) 29 Branch mg iron- 1 mg-200 mg Cap PNV 67-iron 2021-10 Yes [id number] 1{each} Take 1 [facility] ps-folate 0-20 Each by ity of no.1-dha 00:00: mouth [place] (VITAFOL 00 daily. Medical ULTRA) 29 Branch mg iron- 1 mg-200 mg Cap PNV 67-iron 2021-10 Yes [id number] 1{each} Take 1 [facility] ps-folate 0-20 Each by ity of no.1-dha 00:00: mouth [place] (VITAFOL 00 daily. Medical ULTRA) 29 Branch mg iron- 1 mg-200 mg Cap PNV 67-iron 2021-10 Yes [id number] 1{each} Take 1 [facility] ps-folate 0-20 Each by ity of no.1-dha 00:00: mouth [place] (VITAFOL 00 daily. Medical ULTRA) 29 Branch mg iron- 1 mg-200 mg Cap PNV 67-iron 2021-10 Yes [id number] 1{each} Take 1 [facility] ps-folate 0-20 Each by ity of no.1-dha 00:00: mouth [place] (VITAFOL 00 daily. Medical ULTRA) 29 Branch mg iron- 1 mg-200 mg Cap PNV 67-iron 2021-10 Yes [id number] 1{each} Take 1 [facility] ps-folate 0-20 Each by ity of no.1-dha 00:00: mouth [place] (VITAFOL 00 daily. Medical ULTRA) 29 Branch mg iron- 1 mg-200 mg Cap PNV 67-iron 2021-10 Yes [id number] 1{each} Take 1 [facility] ps-folate 0-20 Each by ity of no.1-dha 00:00: mouth [place] (VITAFOL 00 daily. Medical ULTRA) 29 Branch mg iron- 1 mg-200 mg Cap PNV 67-iron 2021-10 Yes [id number] 1{each} Take 1 [facility] ps-folate 0-20 Each by ity of no.1-dha 00:00: mouth [place] (VITAFOL 00 daily. Medical ULTRA) 29 Branch mg iron- 1 mg-200 mg Cap PNV 67-iron 2021-10 Yes [id number] 1{each} Take 1 [facility] ps-folate 0-20 Each by ity of no.1-dha 00:00: mouth [place] (VITAFOL 00 daily. Medical ULTRA) 29 Branch mg iron- 1 mg-200 mg Cap PNV 67-iron 2021-10 Yes [id number] 1{each} Take 1 [facility] ps-folate 0-20 Each by ity of no.1-dha 00:00: mouth [place] (VITAFOL 00 daily. Medical ULTRA) 29 Branch mg iron- 1 mg-200 mg Cap PNV 67-iron 2021-10 Yes [id number] 1{each} Take 1 [facility] ps-folate 0-20 Each by ity of no.1-dha 00:00: mouth [place] (VITAFOL 00 daily. Medical ULTRA) 29 Branch mg iron- 1 mg-200 mg Cap PNV 67-iron 2021-10 Yes [id number] 1{each} Take 1 [facility] ps-folate 0-20 Each by ity of no.1-dha 00:00: mouth [place] (VITAFOL 00 daily. Medical ULTRA) 29 Branch mg iron- 1 mg-200 mg Cap PNV 67-iron 2021-10 Yes [id number] 1{each} Take 1 [facility] ps-folate 0-20 Each by ity of no.1-dha 00:00: mouth [place] (VITAFOL 00 daily. Medical ULTRA) 29 Branch mg iron- 1 mg-200 mg Cap PNV 67-iron 2021-10 Yes [id number] 1{each} Take 1 [facility] ps-folate 0-20 Each by ity of no.1-dha 00:00: mouth [place] (VITAFOL 00 daily. Medical ULTRA) 29 Branch mg iron- 1 mg-200 mg Cap metroNIDAZO 2021-10 Yes [id number] 500mg Take 1 [facility] LE 500 mg 0-20 tablet by ity o f tablet 00:00: mouth [place] 00 every 12 Medical (twelve) Branch hours. PNV 67-iron 2021-10 Yes [id number] 1{each} Take 1 [facility] ps-folate 0-20 Each by ity of no.1-dha 00:00: mouth [place] (VITAFOL 00 daily. Medical ULTRA) 29 Branch mg iron- 1 mg-200 mg Cap metroNIDAZO 2021-10 Yes [id number] 500mg Take 1 [facility] LE 500 mg 0-20 tablet by ity o f tablet 00:00: mouth [place] 00 every 12 Medical (twelve) Branch hours. PNV 67-iron 2021-10 Yes [id number] 1{each} Take 1 [facility] ps-folate 0-20 Each by ity of no.1-dha 00:00: mouth [place] (VITAFOL 00 daily. Medical ULTRA) 29 Branch mg iron- 1 mg-200 mg Cap metroNIDAZO 2021-10 Yes [id number] 500mg Take 1 [facility] LE 500 mg 0-20 tablet by ity o f tablet 00:00: mouth [place] 00 every 12 Medical (twelve) Branch hours. PNV 67-iron 2021-10 Yes [id number] 1{each} Take 1 [facility] ps-folate 0-20 Each by ity of no.1-dha 00:00: mouth [place] (VITAFOL 00 daily. Medical ULTRA) 29 Branch mg iron- 1 mg-200 mg Cap metroNIDAZO 2021-10 Yes [id number] 500mg Take 1 [facility] LE 500 mg 0-20 tablet by ity o f tablet 00:00: mouth [place] 00 every 12 Medical (twelve) Branch hours. metroNIDAZO 2021-10- No [id number] 500mg Take 1 [facility] LE 500 mg 0-20 11-03 tablet by ity of tablet 00:00: 00:00 mouth [place] 00 :00 every 12 Medical (twelve) Branch hours. medroxyPROG 2021- No [id number] 150mg [facility] ESTERone 01-24 ity of (DEPO-PROVE 16:30: 15:26 [place] RA) syringe 00 :00 Medical 150 mg Branch medroxyPROG 2021- No [id number] 150mg 150 mg, Univers ESTERone 01-24 Intramuscu ity of (DEPO-PROVE 16:30: 15:26 lar, ONCE, [place] RA) syringe 00 :00 1 dose, On Me dical 150 mg [facility] 01/24/22 at 1130, Routine medroxyPROG 2021- No [id number] 150mg [facility] ESTERone 10-26 ity of (DEPO-PROVE 17:15: 16:06 [place] RA) syringe 00 :00 Medical 150 mg Branch medroxyPROG 2021- No [id number] 150mg 150 mg, Univers ESTERone 10-26 Intramuscu ity of (DEPO-PROVE 17:15: 16:06 lar, ONCE, [place] RA) syringe 00 :00 1 dose, On Me dical 150 mg [facility] [place] [facility] 10/26/21 at 1115, Routine medroxyPROG 2021- No [id number] 150mg [facility] ESTERone 10-26 ity of (DEPO-PROVE 17:15: 16:06 [place] RA) syringe 00 :00 Medical 150 mg Branch medroxyPROG 2021- No [id number] 150mg 150 mg, [facility] ESTERone 10-26 Intramuscu ity of (DEPO-PROVE 17:15: 16:06 lar, ONCE, [place] RA) syringe 00 :00 1 dose, On Me dical 150 mg Wed Branch 10/26/21 at 1115, Routine atorvastati 2020-10 Yes 40mg Take 40 mg Univers n 40 mg 2-13 by mouth ity of tablet 19:00: at [place] 30 bedtime. Medical Branch lisinopril 2020-10 Yes 2.5mg Take 2.5 Un turner 2.5 mg 2-13 mg by ity of tablet 19:00: mouth [place] 30 daily. Medical Branch atorvastati 2020-10 Yes 40mg Take 40 mg Univers n 40 mg 2-13 by mouth ity of tablet 19:00: at [place] 30 bedtime. Medical Branch lisinopril 2020-10 Yes 2.5mg Take 2.5 Un turner 2.5 mg 2-13 mg by ity of tablet 19:00: mouth [place] 30 daily. Medical Branch atorvastati 2020-10 Yes 40mg Take 40 mg [facility] n 40 mg 2-13 by mouth ity of tablet 19:00: at [place] 30 bedtime. Medical Branch lisinopril 2020-10 Yes 2.5mg Take 2.5 Un turner 2.5 mg 2-13 mg by ity of tablet 19:00: mouth [place] 30 daily. Medical Branch atorvastati 2020-10 Yes 40mg Take 40 mg [facility] n 40 mg 2-13 by mouth ity of tablet 19:00: at [place] 30 bedtime. Medical Branch lisinopril 2020-10 Yes 2.5mg Take 2.5 Un turner 2.5 mg 2-13 mg by ity of tablet 19:00: mouth [place] 30 daily. Medical Branch atorvastati 2020-10 Yes 40mg Take 40 mg [facility] n 40 mg 2-13 by mouth ity of tablet 19:00: at [place] 30 bedtime. [facility] Branch lisinopril 2020-10 Yes 2.5mg Take 2.5 Un turner 2.5 mg 2-13 mg by ity of tablet 19:00: mouth [place] 30 daily. Medical Branch atorvastati 2021-1 Yes 40mg Take 40 mg Univers n [...] daily. Medical Branch PNV 67-iron 2020-10 Yes [id number] 1{each} Take 1 [facility] ps-folate 2-13 Each by ity of no.1-dha 00:00: mouth [place] (VITAFOL 00 daily. Medical ULTRA) 29 Branch mg iron- 1 mg-200 mg Cap docusate 2020-10 Yes [id number] 240mg Take 1 [facility] calcium 240 2-13 102 capsule by it y of mg capsule 00:00: mouth once [place] 00 daily as Medical needed for Branch Constipati on. ibuprofen 2020-10 Yes [id number] 600mg Take 1 [facility] 600 mg 2-13 102 tablet by ity of tablet 00:00: mouth [place] 00 every 6 Medical (six) Branch hours as needed (Pain). Take with food or milk. PNV 67-iron 2020-10 Yes [id number] 1{each} Take 1 [facility] ps-folate 2-13 Each by ity of no.1-dha 00:00: mouth [place] (VITAFOL 00 daily. Medical ULTRA) 29 Branch mg iron- 1 mg-200 mg Cap docusate 2020-10 Yes [id number] 240mg Take 1 [facility] calcium 240 2-13 102 capsule by it y of mg capsule 00:00: mouth once [place] 00 daily as Medical needed for Branch Constipati on. ibuprofen 2020-10 Yes [id number] 600mg Take 1 [facility] 600 mg 2-13 102 tablet by ity of tablet 00:00: mouth [place] 00 every 6 Medical (six) Branch hours as needed (Pain). Take with food or milk. PNV 67-iron 2020-10 Yes [id number] 1{each} Take 1 [facility] ps-folate 2-13 Each by ity of no.1-dha 00:00: mouth [place] (VITAFOL 00 daily. Medical ULTRA) 29 Branch mg iron- 1 mg-200 mg Cap docusate 2020-10 Yes [id number] 240mg Take 1 [facility] calcium 240 2-13 102 capsule by it y of mg capsule 00:00: mouth once [place] 00 daily as Medical needed for Branch Constipati on. ibuprofen 2020-10 Yes [id number] 600mg Take 1 [facility] 600 mg 2-13 102 tablet by ity of tablet 00:00: mouth [place] 00 every 6 Medical (six) Branch hours as needed (Pain). Take with food or milk. PNV 67-iron 2020-10 Yes [id number] 1{each} Take 1 [facility] ps-folate 2-13 Each by ity of no.1-dha 00:00: mouth [place] (VITAFOL 00 daily. Medical ULTRA) 29 Branch mg iron- 1 mg-200 mg Cap docusate 2020-10 Yes [id number] 240mg Take 1 [facility] calcium 240 2-13 102 capsule by it y of mg capsule 00:00: mouth once [place] 00 daily as Medical needed for Branch Constipati on. ibuprofen 2020-10 Yes [id number] 600mg Take 1 [facility] 600 mg 2-13 102 tablet by ity of tablet 00:00: mouth [place] 00 every 6 Medical (six) Branch hours as needed (Pain). Take with food or milk. PNV 67-iron 2020-10 Yes [id number] 1{each} Take 1 [facility] ps-folate 2-13 Each by ity of no.1-dha 00:00: mouth [place] (VITAFOL 00 daily. Medical ULTRA) 29 Branch mg iron- 1 mg-200 mg Cap docusate 2020-10 Yes [id number] 240mg Take 1 [facility] calcium 240 2-13 102 capsule by it y of mg capsule 00:00: mouth once [place] 00 daily as Medical needed for Branch Constipati on. ibuprofen 2020-10 Yes [id number] 600mg Take 1 [facility] 600 mg 2-13 102 tablet by ity of tablet 00:00: mouth [place] 00 every 6 Medical (six) Branch hours as needed (Pain). Take with food or milk. PNV 67-iron 2020-10 Yes [id number] 1{each} Take 1 [facility] ps-folate 2-13 Each by ity of no.1-dha 00:00: mouth [place] (VITAFOL 00 daily. Medical ULTRA) 29 Branch mg iron- 1 mg-200 mg Cap docusate 2020-10 Yes [id number] 240mg Take 1 [facility] calcium 240 2-13 102 capsule by it y of mg capsule 00:00: mouth once [place] 00 daily as Medical needed for Branch Constipati on. ibuprofen 2020-10 Yes [id number] 600mg Take 1 [facility] 600 mg 2-13 102 tablet by ity of tablet 00:00: mouth [place] 00 every 6 Medical (six) Branch hours as needed (Pain). Take with food or milk. PNV 67-iron 2020-10 Yes [id number] 1{each} Take 1 [facility] ps-folate 2-13 Each by ity of no.1-dha 00:00: mouth [place] (VITAFOL 00 daily. Medical ULTRA) 29 Branch mg iron- 1 mg-200 mg Cap docusate 2020-10 Yes [id number] 240mg Take 1 [facility] calcium 240 2-13 102 capsule by it y of mg capsule 00:00: mouth once [place] 00 daily as Medical needed for Branch Constipati on. ibuprofen 2020-10 Yes [id number] 600mg Take 1 [facility] 600 mg 2-13 102 tablet by ity of tablet 00:00: mouth [place] 00 every 6 Medical (six) Branch hours as needed (Pain). Take with food or milk. PNV 67-iron 2020-10 Yes [id number] 1{each} Take 1 [facility] ps-folate 2-13 Each by ity of no.1-dha 00:00: mouth [place] (VITAFOL 00 daily. Medical ULTRA) 29 Branch mg iron- 1 mg-200 mg Cap docusate 2020-10 Yes [id number] 240mg Take 1 [facility] calcium 240 2-13 102 capsule by it y of mg capsule 00:00: mouth once [place] 00 daily as Medical needed for Branch Constipati on. ibuprofen 2020-10 Yes [id number] 600mg Take 1 [facility] 600 mg 2-13 102 tablet by ity of tablet 00:00: mouth [place] 00 every 6 Medical (six) Branch hours as needed (Pain). Take with food or milk. PNV 67-iron 2020-10 Yes [id number] 1{each} Take 1 [facility] ps-folate 2-13 Each by ity of no.1-dha 00:00: mouth [place] (VITAFOL 00 daily. Medical ULTRA) 29 Branch mg iron- 1 mg-200 mg Cap docusate 2020-10 Yes [id number] 240mg Take 1 [facility] calcium 240 2-13 102 capsule by it y of mg capsule 00:00: mouth once [place] 00 daily as Medical needed for Branch Constipati on. ibuprofen 2020-10 Yes [id number] 600mg Take 1 [facility] 600 mg 2-13 102 tablet by ity of tablet 00:00: mouth [place] 00 every 6 Medical (six) Branch hours as needed (Pain). Take with food or milk. PNV 67-iron 2020-10 Yes [id number] 1{each} Take 1 [facility] ps-folate 2-13 Each by ity of no.1-dha 00:00: mouth [place] (VITAFOL 00 daily. Medical ULTRA) 29 Branch mg iron- 1 mg-200 mg Cap docusate 2020-10 Yes [id number] 240mg Take 1 [facility] calcium 240 2-13 102 capsule by it y of mg capsule 00:00: mouth once [place] 00 daily as Medical needed for Branch Constipati on. ibuprofen 2020-10 Yes [id number] 600mg Take 1 [facility] 600 mg 2-13 102 tablet by ity of tablet 00:00: mouth [place] 00 every 6 Medical (six) Branch hours as needed (Pain). Take with food or milk. docusate 2020-10 Yes [id number] 240mg Take 1 [facility] calcium 240 2-13 102 capsule by it y of mg capsule 00:00: mouth once [place] 00 daily as Medical needed for Branch Constipati on. ibuprofen 2020-10 Yes [id number] 600mg Take 1 [facility] 600 mg 2-13 102 tablet by ity of tablet 00:00: mouth [place] 00 every 6 Medical (six) Branch hours as needed (Pain). Take with food or milk. docusate 2020-10 Yes [id number] 240mg Take 1 [facility] calcium 240 2-13 102 capsule by it y of mg capsule 00:00: mouth once [place] 00 daily as Medical needed for Branch Constipati on. ibuprofen 2020-10 Yes [id number] 600mg Take 1 [facility] 600 mg 2-13 102 tablet by ity of tablet 00:00: mouth [place] 00 every 6 Medical (six) Branch hours as needed (Pain). Take with food or milk. docusate 2020-10 Yes [id number] 240mg Take 1 [facility] calcium 240 2-13 102 capsule by it y of mg capsule 00:00: mouth once [place] 00 daily as Medical needed for Branch Constipati on. ibuprofen 2020-10 Yes [id number] 600mg Take 1 [facility] 600 mg 2-13 102 tablet by ity of tablet 00:00: mouth [place] 00 every 6 Medical (six) Branch hours as needed (Pain). Take with food or milk. docusate 2020-10- No [id number] 240mg Take 1 [facility] calcium 240 2-13 11-03 102 capsule by i ty of mg capsule 00:00: 00:00 mouth once [place] 00 :00 daily as Medical needed for Branch Constipati on. ibuprofen 2020-10- No [id number] 600mg Take 1 [facility] 600 mg 2-13 11-03 102 tablet by ity of tablet 00:00: 00:00 mouth [place] 00 :00 every 6 Medical (six) Branch hours as needed (Pain). Take with food or milk. PNV 67-iron 2020-10- No [id number] 1{each} Take 1 [facility] ps-folate 2-13 10-20 Each by ity of no.1-dha 00:00: 00:00 mouth [place] (VITAFOL 00 :00 daily. Medical ULTRA) 29 Branch mg iron- 1 mg-200 mg Cap [id number] Yes 1{tbl} QD Chew 1 Me thodi 3-dha-epa-f 5-[address] [facility] ( 00 l Gummy) 400 mcg-35 mg -25 mg-5 mg tablet,chew able [id number] Yes 1{tbl} QD Chew 1 Me thodi 3-dha-epa-f 5-[address] [facility] 00:00: daily. [facility] ( 00 l Gummy) 400 mcg-35 mg -25 mg-5 mg tablet,chew able nitrofurant 2020- No 100mg Q.5D Take 1 Me [facility]odi oin, 5-29 06-[address] macrocrysta 00:00: 04:59 (100 mg [facility] l-monohydra 00 :00 total) by desire te, mouth 2 (MACROBID) (two) 100 MG times a capsule day for 7 days. Blood-Gluco 2020-0 Yes Patient to [facility] 02-26 check ity of Kit 00:00: blood [place] 00 sugar 4 Medical times Branch daily blood sugar 2020-0 Yes Patient to [facility] diagnostic 02-26 check ity of (BLOOD 00:00: blood [place] GLUCOSE 00 sugar 4 Medical TEST) strip times Branch daily. Lancets 2020-0 Yes Patient to [facility] [employer] Misc 02-26 check ity of 00:00: blood [place] 00 sugar 4 Medical times Branch daily. Blood-Gluco 2020-0 Yes Patient to [facility] [employer] 02-26 check ity of Kit 00:00: blood [place] 00 sugar 4 Medical times Branch daily blood sugar 2020-0 Yes Patient to [facility] diagnostic 02-26 check ity of (BLOOD 00:00: blood [place] GLUCOSE 00 sugar 4 Medical TEST) strip times Branch daily. Lancets 2020-0 Yes Patient to [facility] [employer] Misc 02-26 check ity of 00:00: blood [place] 00 sugar 4 Medical times Branch daily. Blood-Gluco 2020-0 Yes Patient to [facility] 02-26 check ity of Kit 00:00: blood [place] 00 sugar 4 Medical times Branch daily blood sugar 2020-0 Yes Patient to [facility] diagnostic 02-26 check ity of (BLOOD 00:00: blood [place] GLUCOSE 00 sugar 4 Medical TEST) strip times Branch daily. Lancets 2020-0 Yes Patient to [facility] [employer] Misc 02-26 check ity of 00:00: blood [place] 00 sugar 4 Medical times Branch daily. Blood-Gluco 2020-0 Yes Patient to [facility] 02-26 check ity of Kit 00:00: blood [place] 00 sugar 4 Medical times Branch daily blood sugar 2020-0 Yes Patient to [facility] diagnostic 02-26 check ity of (BLOOD 00:00: blood [place] GLUCOSE 00 sugar 4 Medical TEST) strip times Branch daily. Lancets 2020-0 Yes Patient to [facility] [employer] Misc 02-26 check ity of 00:00: blood [place] 00 sugar 4 Medical times Branch daily. Blood-Gluco 2020-0 Yes Patient to [facility] 02-26 check ity of Kit 00:00: blood [place] 00 sugar 4 Medical times Branch daily blood sugar 2020-0 Yes Patient to [facility] diagnostic 5-29 check ity of (BLOOD 00:00: blood [place] GLUCOSE 00 sugar 4 Medical TEST) strip times Branch daily. Lancets 2020-0 Yes Patient to [facility] [employer] Misc 5-29 check ity of 00:00: blood [place] 00 sugar 4 Medical times Branch daily. Blood-Gluco 2020-0 Yes Patient to [facility] 5-29 check ity of Kit 00:00: blood [place] 00 sugar 4 Medical times Branch daily blood sugar 2020-0 Yes Patient to [facility] diagnostic 5-29 check ity of (BLOOD 00:00: blood [place] GLUCOSE 00 sugar 4 Medical TEST) strip times Branch daily. Lancets 2020-0 Yes Patient to [facility] [employer] Misc 5-29 check ity of 00:00: blood [place] 00 sugar 4 Medical times Branch daily. Blood-Gluco 2020-0 Yes Patient to [facility] 5-29 check ity of Kit 00:00: blood [place] 00 sugar 4 Medical times Branch daily Lancets 2020-0 Yes Patient to [facility] Misc 5 check ity of 00:00: blood [place] 00 sugar 4 Medical times Branch daily. Blood-Gluco 2020-0 Yes Patient to [facility]eter 5-29 check ity of Kit 00:00: blood [place] 00 sugar 4 Medical times Branch daily Lancets 2020-0 Yes Patient to [facility] [employer] Misc 5- check ity of 00:00: blood [place] 00 sugar 4 Medical times Branch daily. Blood-Gluco 2020-0 Yes Patient to [facility] 5-29 check ity of Kit 00:00: blood [place] 00 sugar 4 Medical times Branch daily Lancets 2020-0 Yes Patient to [facility] Misc 5-29 check ity of 00:00: blood [place] 00 sugar 4 Medical times Branch daily. Blood-Gluco 2020-0 Yes Patient to [facility] 5-29 check ity of Kit 00:00: blood [place] 00 sugar 4 Medical times Branch daily Lancets 2020-0 Yes Patient to [facility] [employer] Misc 5-29 check ity of 00:00: blood [place] 00 sugar 4 Medical times Branch daily. Blood-Gluco 2020-0 Yes Patient to [facility] 5-29 check ity of Kit 00:00: blood [place] 00 sugar 4 Medical times Branch daily Lancets 2020-0 Yes Patient to [facility] Misc 5-29 check ity of 00:00: blood [place] 00 sugar 4 Medical times Branch daily. Blood-Gluco 2020-0 Yes Patient to [facility] 5-29 check ity of Kit 00:00: blood [place] 00 sugar 4 Medical times Branch daily Lancets 2020-0 Yes Patient to [facility] Misc 5-29 check ity of 00:00: blood [place] 00 sugar 4 Medical times Branch daily. Blood-Gluco 2020-0 Yes Patient to [facility] M[facility] 5-29 check ity of Kit 00:00: blood [place] 00 sugar 4 Medical times Branch daily Lancets 2020-0 Yes Patient to [facility] Misc 5-29 check ity of 00:00: blood [place] 00 sugar 4 Medical times Branch daily. Blood-Gluco 2020-0 Yes Patient to [facility] 5-29 check ity of Kit 00:00: blood [place] 00 sugar 4 Medical times Branch daily Lancets 2020-0 Yes Patient to [facility] Misc 5-29 check ity of 00:00: blood [place] 00 sugar 4 Medical times Branch daily. Blood-Gluco 2020-0 Yes Patient to [facility] 5-29 check ity of Kit 00:00: blood [place] 00 sugar 4 Medical times Branch daily Lancets 2020-0 Yes Patient to [facility] Misc 5-29 check ity of 00:00: blood [place] 00 sugar 4 Medical times Branch daily. Blood-Gluco 2020-0 Yes Patient to [facility] 5-29 check ity of Kit 00:00: blood [place] 00 sugar 4 Medical times Branch daily Lancets 2020-0 Yes Patient to [facility] Misc 5-29 check ity of 00:00: blood [place] 00 sugar 4 Medical times Branch daily. Blood-Gluco 2020-0 Yes Patient to [facility] 5-29 check ity of Kit 00:00: blood [place] 00 sugar 4 Medical times Branch daily Lancets 2020-0 Yes Patient to [facility] Misc 5-29 check ity of 00:00: blood [place] 00 sugar 4 Medical times Branch daily. Blood-Gluco 2020-0 Yes Patient to [facility] 5-29 check ity of Kit 00:00: blood [place] 00 sugar 4 Medical times Branch daily Lancets 2020-0 Yes Patient to [facility] Misc 5-29 check ity of 00:00: blood [place] 00 sugar 4 Medical times Branch daily. Blood-Gluco 2020-0 Yes Patient to [facility] 5-29 check ity of Kit 00:00: blood [place] 00 sugar 4 Medical times Branch daily Lancets 2020-0 Yes Patient to [facility] Misc 5-29 check ity of 00:00: blood [place] 00 sugar 4 Medical times Branch daily. Blood-Gluco 2020-0 Yes Patient to [facility] 5-29 check ity of Kit 00:00: blood [place] 00 sugar 4 Medical times Branch daily Lancets 2020-0 Yes Patient to [facility] Misc 5-29 check ity of 00:00: blood [place] 00 sugar 4 Medical times Branch daily. Blood-Gluco 2020-0 Yes Patient to [facility] 5-29 check ity of Kit 00:00: blood [place] 00 sugar 4 Medical times Branch daily Lancets 2020-0 Yes Patient to [facility] Misc 5-29 check ity of 00:00: blood [place] 00 sugar 4 Medical times Branch daily. Blood-Gluco 2020-0 Yes Patient to [facility] 5-29 check ity of Kit 00:00: blood [place] 00 sugar 4 Medical times Branch daily Lancets 2020-0 Yes Patient to [facility] Misc 5-29 check ity of 00:00: blood [place] 00 sugar 4 Medical times Branch daily. Blood-Gluco 2020-0 Yes Patient to [facility] 5-29 check ity of Kit 00:00: blood [place] 00 sugar 4 Medical times Branch daily Lancets 2020-0 Yes Patient to [facility] Misc 5-29 check ity of 00:00: blood [place] 00 sugar 4 Medical times Branch daily. Blood-Gluco 2020-0 Yes Patient to [facility] 5-29 check ity of Kit 00:00: blood [place] 00 sugar 4 Medical times Branch daily Lancets 2020-0 Yes Patient to [facility] Misc 5-29 check ity of 00:00: blood [place] 00 sugar 4 Medical times Branch daily. Blood-Gluco 2020-0 Yes Patient to [facility] 5-29 check ity of Kit 00:00: blood [place] 00 sugar 4 Medical times Branch daily Lancets 2020-0 Yes Patient to [facility] Misc 5-29 check ity of 00:00: blood [place] 00 sugar 4 Medical times Branch daily. Blood-Gluco 2020-0 Yes Patient to [facility] 5-29 check ity of Kit 00:00: blood [place] 00 sugar 4 Medical times Branch daily Lancets 2020-0 Yes Patient to [facility] Misc 5-29 check ity of 00:00: blood [place] 00 sugar 4 Medical times Branch daily. Blood-Gluco 2020-0 Yes Patient to [facility] 5-29 check ity of Kit 00:00: blood [place] 00 sugar 4 Medical times Branch daily Lancets 2020-0 Yes Patient to [facility] Misc 5-29 check ity of 00:00: blood [place] 00 sugar 4 Medical times Branch daily. Blood-Gluco 2020-0 Yes Patient to [facility] 5-29 check ity of Kit 00:00: blood [place] 00 sugar 4 Medical times Branch daily Lancets 2020-0 Yes Patient to [facility] Misc 5-29 check ity of 00:00: blood [place] 00 sugar 4 Medical times Branch daily. Blood-Gluco 2020-0 Yes Patient to [facility] 5-29 check ity of Kit 00:00: blood [place] 00 sugar 4 Medical times Branch daily Lancets 2020-0 Yes Patient to [facility] Misc 5-29 check ity of 00:00: blood [place] 00 sugar 4 Medical times Branch daily. Blood-Gluco 2020-0 Yes Patient to [facility] 5-29 check ity of Kit 00:00: blood [place] 00 sugar 4 Medical times Branch daily Lancets 2020-0 Yes Patient to [facility] Misc 5-29 check ity of 00:00: blood [place] 00 sugar 4 Medical times Branch daily. Blood-Gluco 2020-0 Yes Patient to [facility] 5-29 check ity of Kit 00:00: blood [place] 00 sugar 4 Medical times Branch daily Lancets 2020-0 Yes Patient to [facility] Misc 5-29 check ity of 00:00: blood [place] 00 sugar 4 Medical times Branch daily. Blood-Gluco 2020-0 Yes Patient to [employer] [facility] 5-29 check ity of Kit 00:00: blood [place] 00 sugar 4 Medical times Branch daily Lancets 2020-0 Yes Patient to [facility] Misc 5-29 check ity of 00:00: blood [place] 00 sugar 4 Medical times Branch daily. Blood-Gluco 2020-0 Yes Patient to [employer] [facility] 5-29 check ity of Kit 00:00: blood [place] 00 sugar 4 Medical times Branch daily Lancets 2020-0 Yes Patient to [facility] Misc 5-29 check ity of 00:00: blood [place] 00 sugar 4 Medical times Branch daily. Blood-Gluco 2020-0 Yes Patient to [facility] 5-29 check ity of Kit 00:00: blood [place] 00 sugar 4 Medical times Branch daily Lancets 2020-0 Yes Patient to [facility] Misc 5-29 check ity of 00:00: blood [place] 00 sugar 4 Medical times Branch daily. Blood-Gluco 2020-0 Yes Patient to [facility] 5-29 check ity of Kit 00:00: blood [place] 00 sugar 4 Medical times Branch daily Lancets 2020-0 Yes Patient to [facility] Misc 5-29 check ity of 00:00: blood [place] 00 sugar 4 Medical times Branch daily. Blood-Gluco 2020-0 Yes Patient to [facility] 5-29 check ity of Kit 00:00: blood [place] 00 sugar 4 Medical times Branch daily Lancets 2020-0 Yes Patient to [facility] Misc 5-29 check ity of 00:00: blood [place] 00 sugar 4 Medical times Branch daily. Blood-Gluco 2020-0 Yes Patient to [facility] 5-29 check ity of Kit 00:00: blood [place] 00 sugar 4 Medical times Branch daily Lancets 2020-0 Yes Patient to [facility] Misc 5-29 check ity of 00:00: blood [place] 00 sugar 4 Medical times Branch daily. Blood-Gluco 2020-0 Yes Patient to [facility] 5-29 check ity of Kit 00:00: blood [place] 00 sugar 4 Medical times Branch daily Lancets 2020-0 Yes Patient to [facility] Misc 5-29 check ity of 00:00: blood [place] 00 sugar 4 Medical times Branch daily. Blood-Gluco 2020-0 Yes Patient to [facility] 5-29 check ity of Kit 00:00: blood [place] 00 sugar 4 Medical times Branch daily Lancets 2020-0 Yes Patient to [facility] Misc 5-29 check ity of 00:00: blood [place] 00 sugar 4 Medical times Branch daily. Blood-Gluco 2020-0 Yes Patient to [facility] 5-29 check ity of Kit 00:00: blood [place] 00 sugar 4 Medical times Branch daily Lancets 2020-0 Yes Patient to [facility] Misc 5-29 check ity of 00:00: blood [place] 00 sugar 4 Medical times Branch daily. Blood-Gluco 2020-0 Yes Patient to [facility] 5-29 check ity of Kit 00:00: blood [place] 00 sugar 4 Medical times Branch daily Lancets 2020-0 Yes Patient to [facility] Misc 5-29 check ity of 00:00: blood [place] 00 sugar 4 Medical times Branch daily. Blood-Gluco 2020-0 Yes Patient to [employer] [facility] 5-29 check ity of Kit 00:00: blood [place] 00 sugar 4 Medical times Branch daily Lancets 2020-0 Yes Patient to [facility] Misc 5-29 check ity of 00:00: blood [place] 00 sugar 4 Medical times Branch daily. Blood-Gluco 2020-0 Yes Patient to [employer] [facility] 5-29 check ity of Kit 00:00: blood [place] 00 sugar 4 Medical times Branch daily Lancets 2020-0 Yes Patient to [facility] Misc 5-29 check ity of 00:00: blood [place] 00 sugar 4 Medical times Branch daily. Blood-Gluco 2020-0 Yes Patient to [employer] [facility] 5-29 check ity of Kit 00:00: blood [place] 00 sugar 4 Medical times Branch daily Lancets 2020-0 Yes Patient to [facility] Misc 5-29 check ity of 00:00: blood [place] 00 sugar 4 Medical times Branch daily. Blood-Gluco 2020-0 Yes Patient to [employer] [facility] 5-29 check ity of Kit 00:00: blood [place] 00 sugar 4 Medical times Branch daily Lancets 2020-0 Yes Patient to [facility] Misc 5-29 check ity of 00:00: blood [place] 00 sugar 4 Medical times Branch daily. Blood-Gluco 2020-0 Yes Patient to [employer] [facility] 5-29 check ity of Kit 00:00: blood [place] 00 sugar 4 Medical times Branch daily Lancets 2020-0 Yes Patient to [facility] Misc 5-29 check ity of 00:00: blood [place] 00 sugar 4 Medical times Branch daily. Blood-Gluco 2020-0 Yes Patient to [employer] [facility] 5-29 check ity of Kit 00:00: blood [place] 00 sugar 4 Medical times Branch daily Lancets 2020-0 Yes Patient to [facility] Misc 5-29 check ity of 00:00: blood [place] 00 sugar 4 Medical times Branch daily. Blood-Gluco 2020-0 Yes Patient to [employer] [facility] 5-29 check ity of Kit 00:00: blood [place] 00 sugar 4 Medical times Branch daily Lancets 2020-0 Yes Patient to [facility] Misc 5-29 check ity of 00:00: blood [place] 00 sugar 4 Medical times Branch daily. Blood-Gluco 2020-0 Yes Patient to [facility] 5-29 check ity of Kit 00:00: blood [place] 00 sugar 4 Medical times Branch daily Lancets 2020-0 Yes Patient to [facility] Misc 5-29 check ity of 00:00: blood [place] 00 sugar 4 Medical times Branch daily. Blood-Gluco 2020-0 Yes Patient to [facility] 5-29 check ity of Kit 00:00: blood [place] 00 sugar 4 Medical times Branch daily Lancets 2020-0 Yes Patient to [facility] Misc 5-29 check ity of 00:00: blood [place] 00 sugar 4 Medical times Branch daily. Blood-Gluco 2020-0 Yes Patient to [facility] 5-29 check ity of Kit 00:00: blood [place] 00 sugar 4 Medical times Branch daily Lancets 2020-0 Yes Patient to [facility] Misc 5-29 check ity of 00:00: blood [place] 00 sugar 4 Medical times Branch daily. Blood-Gluco 2020-0 Yes Patient to [facility] 5-29 check ity of Kit 00:00: blood [place] 00 sugar 4 Medical times Branch daily Lancets 2020-0 Yes Patient to [facility] Misc 5-29 check ity of 00:00: blood [place] 00 sugar 4 Medical times Branch daily. Blood-Gluco 2020-0 Yes Patient to [facility] 5-29 check ity of Kit 00:00: blood [place] 00 sugar 4 Medical times Branch daily Lancets 2020-0 Yes Patient to [facility] Misc 5-29 check ity of 00:00: blood [place] 00 sugar 4 Medical times Branch daily. Blood-Gluco 2020-0 Yes Patient to [facility] 5-29 check ity of Kit 00:00: blood [place] 00 sugar 4 Medical times Branch daily Lancets 2020-0 Yes Patient to [facility] Misc 5-29 check ity of 00:00: blood [place] 00 sugar 4 Medical times Branch daily. Blood-Gluco 2020-0 Yes Patient to [facility] 5-29 check ity of Kit 00:00: blood [place] 00 sugar 4 Medical times Branch daily Lancets 2020-0 Yes Patient to [facility] Misc 5-29 check ity of 00:00: blood [place] 00 sugar 4 Medical times Branch daily. Blood-Gluco 2020-0 Yes Patient to [facility] 5-29 check ity of Kit 00:00: blood [place] 00 sugar 4 Medical times Branch daily Lancets 2020-0 Yes Patient to [facility] Misc 5-29 check ity of 00:00: blood [place] 00 sugar 4 Medical times Branch daily. Blood-Gluco 2020-0 Yes Patient to [employer] [facility] 5-29 check ity of Kit 00:00: blood [place] 00 sugar 4 Medical times Branch daily Lancets 2020-0 Yes Patient to [facility] Misc 5-29 check ity of 00:00: blood [place] 00 sugar 4 Medical times Branch daily. Blood-Gluco 2020-0 Yes Patient to [employer] [facility] 5-29 check ity of Kit 00:00: blood [place] 00 sugar 4 Medical times Branch daily Lancets 2020-0 Yes Patient to [facility] Misc 5-29 check ity of 00:00: blood [place] 00 sugar 4 Medical times Branch daily. Blood-Gluco 2020-0 Yes Patient to [employer] [facility] 5-29 check ity of Kit 00:00: blood [place] 00 sugar 4 Medical times Branch daily Lancets 2020-0 Yes Patient to [facility] Misc 5-29 check ity of 00:00: blood [place] 00 sugar 4 Medical times Branch daily. Blood-Gluco 2020-0 Yes Patient to [employer] [facility] 5-29 check ity of Kit 00:00: blood [place] 00 sugar 4 Medical times Branch daily Lancets 2020-0 Yes Patient to [facility] Misc 5-29 check ity of 00:00: blood [place] 00 sugar 4 Medical times Branch daily. Blood-Gluco 2020-0 Yes Patient to [employer] [facility] 5-29 check ity of Kit 00:00: blood [place] 00 sugar 4 Medical times Branch daily Lancets 2020-0 Yes Patient to [facility] Misc 5-29 check ity of 00:00: blood [place] 00 sugar 4 Medical times Branch daily. Blood-Gluco 2020-0 Yes Patient to [employer] [facility] 5-29 check ity of Kit 00:00: blood [place] 00 sugar 4 Medical times Branch daily Lancets 2020-0 Yes Patient to [facility] Misc 5-29 check ity of 00:00: blood [place] 00 sugar 4 Medical times Branch daily. Blood-Gluco 2020-0 Yes Patient to [employer] [facility] 5-29 check ity of Kit 00:00: blood [place] 00 sugar 4 Medical times Branch daily Lancets 2020-0 Yes Patient to [facility] Misc 5-29 check ity of 00:00: blood [place] 00 sugar 4 Medical times Branch daily. Blood-Gluco 2020-0 Yes Patient to [facility] 5-29 check ity of Kit 00:00: blood [place] 00 sugar 4 Medical times Branch daily Lancets 2020-0 Yes Patient to [facility] Misc 5-29 check ity of 00:00: blood [place] 00 sugar 4 Medical times Branch daily. Blood-Gluco 2020-0 Yes Patient to [facility] 5-29 check ity of Kit 00:00: blood [place] 00 sugar 4 Medical times Branch daily Lancets 2020-0 Yes Patient to [facility] Misc 5-29 check ity of 00:00: blood [place] 00 sugar 4 Medical times Branch daily. Blood-Gluco 2020-0 Yes Patient to [facility] 5-29 check ity of Kit 00:00: blood [place] 00 sugar 4 Medical times Branch daily Lancets 2020-0 Yes Patient to [facility] Misc 5-29 check ity of 00:00: blood [place] 00 sugar 4 Medical times Branch daily. Blood-Gluco 2020-0 Yes Patient to [facility] 5-29 check ity of Kit 00:00: blood [place] 00 sugar 4 Medical times Branch daily Lancets 2020-0 Yes Patient to [facility] Misc 5-29 check ity of 00:00: blood [place] 00 sugar 4 Medical times Branch daily. Blood-Gluco 2020-0 Yes Patient to [facility] 5-29 check ity of Kit 00:00: blood [place] 00 sugar 4 Medical times Branch daily blood sugar 2020-0 Yes Patient to [facility] diagnostic 5-29 check ity of (BLOOD 00:00: blood [place] GLUCOSE 00 sugar 4 Medical TEST) strip times Branch daily. Lancets 2020-0 Yes Patient to [facility] Misc 5-29 check ity of 00:00: blood [place] 00 sugar 4 Medical times Branch daily. Blood-Gluco 2020-0 Yes Patient to [employer] 5-29 check ity of Kit 00:00: blood [place] 00 sugar 4 Medical times Branch daily blood sugar 2020-0 Yes Patient to [facility] diagnostic 5-29 check ity of (BLOOD 00:00: blood [place] GLUCOSE 00 sugar 4 Medical TEST) strip times Branch daily. Lancets 2020-0 Yes Patient to [facility] ers Misc 5-29 check ity of 00:00: blood [place] 00 sugar 4 Medical times Branch daily. Blood-Gluco 2020-0 Yes Patient to [employer] [facility] 5-29 check ity of Kit 00:00: blood [place] 00 sugar 4 Medical times Branch daily blood sugar 2020-0 Yes Patient to [facility] diagnostic 02-26 check ity of (BLOOD 00:00: blood [place] GLUCOSE 00 sugar 4 Medical TEST) strip times Branch daily. Lancets 2020-0 Yes Patient to [facility] ers Misc 02-26 check ity of 00:00: blood [place] 00 sugar 4 Medical times Branch daily. Blood-Gluco 2020-0 Yes Patient to [facility] 02-26 check ity of Kit 00:00: blood [place] 00 sugar 4 Medical times Branch daily blood sugar 2020-0 Yes Patient to [facility] diagnostic 02-26 check ity of (BLOOD 00:00: blood [place] GLUCOSE 00 sugar 4 Medical TEST) strip times Branch daily. Lancets 2020-0 Yes Patient to [facility] Misc 02-26 check ity of 00:00: blood [place] 00 sugar 4 Medical times Branch daily. Blood-Gluco 2020-0 Yes Patient to [facility] 02-26 check ity of Kit 00:00: blood [place] 00 sugar 4 Medical times Branch daily blood sugar 2020-0 Yes Patient to [facility] diagnostic 02-26 check ity of (BLOOD 00:00: blood [place] GLUCOSE 00 sugar 4 Medical TEST) strip times Branch daily. Lancets 2020-0 Yes Patient to [facility] Misc 02-26 check ity of 00:00: blood [place] 00 sugar 4 Medical times Branch daily. Blood-Gluco 2020-0 Yes Patient to [employer] [facility] 02-26 check ity of Kit 00:00: blood [place] 00 sugar 4 Medical times Branch daily blood sugar 2020-0 Yes Patient to [facility] diagnostic 02-26 check ity of (BLOOD 00:00: blood [place] GLUCOSE 00 sugar 4 Medical TEST) strip times Branch daily. Lancets 2020-0 Yes Patient to [facility] Misc 02-26 check ity of 00:00: blood [place] 00 sugar 4 Medical times Branch daily. Blood-Gluco 2020-0 Yes Patient to [employer] [facility] 02-26 check ity of Kit 00:00: blood [place] 00 sugar 4 Medical times Branch daily blood sugar 2020-0 Yes Patient to [facility] diagnostic 02-26 check ity of (BLOOD 00:00: blood [place] GLUCOSE 00 sugar 4 Medical TEST) strip times Branch daily. Lancets 2020-0 Yes Patient to [facility] Misc 02-26 check ity of 00:00: blood [place] 00 sugar 4 Medical times Branch daily. Blood-Gluco 2020-0 Yes Patient to [facility] 02-26 check ity of Kit 00:00: blood [place] 00 sugar 4 Medical times Branch daily blood sugar 2020-0 Yes Patient to [facility] diagnostic 02-26 check ity of (BLOOD 00:00: blood [place] GLUCOSE 00 sugar 4 Medical TEST) strip times Branch daily. Lancets 2020-0 Yes Patient to [facility] Misc 02-26 check ity of 00:00: blood [place] 00 sugar 4 Medical times Branch daily. Blood-Gluco 2020-0 Yes Patient to [facility] 02-26 check ity of Kit 00:00: blood [place] 00 sugar 4 Medical times Branch daily blood sugar 2020-0 Yes Patient to [facility] diagnostic 02-26 check ity of (BLOOD 00:00: blood [place] GLUCOSE 00 sugar 4 Medical TEST) strip times Branch daily. Lancets 2020-0 Yes Patient to [facility] Misc 02-26 check ity of 00:00: blood [place] 00 sugar 4 Medical times Branch daily. Blood-Gluco 2020-0 Yes Patient to [facility] 02-26 check ity of Kit 00:00: blood [place] 00 sugar 4 Medical times Branch daily blood sugar 2020-0 Yes Patient to [facility] diagnostic 02-26 check ity of (BLOOD 00:00: blood [place] GLUCOSE 00 sugar 4 Medical TEST) strip times Branch daily. Lancets 2020-0 Yes Patient to [facility] Misc 02-26 check ity of 00:00: blood [place] 00 sugar 4 Medical times Branch daily. Blood-Gluco 2020-0 Yes Patient to [facility] 02-26 check ity of Kit 00:00: blood [place] 00 sugar 4 Medical times Branch daily blood sugar 2020-0 Yes Patient to [facility] diagnostic 02-26 check ity of (BLOOD 00:00: blood [place] GLUCOSE 00 sugar 4 Medical TEST) strip times Branch daily. Lancets 2020-0 Yes Patient to [facility] Misc 02-26 check ity of 00:00: blood [place] 00 sugar 4 Medical times Branch daily. Blood-Gluco 2020-0 Yes Patient to [facility] 02-26 check ity of Kit 00:00: blood [place] 00 sugar 4 Medical times Branch daily blood sugar 2020-0 Yes Patient to [facility] diagnostic 02-26 check ity of (BLOOD 00:00: blood [place] GLUCOSE 00 sugar 4 Medical TEST) strip times Branch daily. Lancets 2020-0 Yes Patient to [facility] Misc 02-26 check ity of 00:00: blood [place] 00 sugar 4 Medical times Branch daily. Blood-Gluco 2020-0 Yes Patient to [facility] se Meter 02-26 check ity of Kit 00:00: blood [place] 00 sugar 4 Medical times Branch daily blood sugar 2020-0 Yes Patient to [facility] diagnostic 02-26 check ity of (BLOOD 00:00: blood [place] GLUCOSE 00 sugar 4 Medical TEST) strip times Branch daily. Lancets 2020-0 Yes Patient to [facility] ers Misc 02-26 check ity of 00:00: blood [place] 00 sugar 4 Medical times Branch daily. blood sugar 2020-0 2021- No Patient to [facility] diagnostic 02-26 check ity of (BLOOD 00:00: 00:00 blood [place] GLUCOSE 00 :00 sugar 4 Medical TEST) strip times Branch daily. blood sugar 2020-0 2021- No Patient to [facility] diagnostic 02-26 check ity of (BLOOD 00:00: 00:00 blood [place] GLUCOSE 00 :00 sugar 4 Medical TEST) strip times Branch daily. insulin 2020-0 Yes Use as [facility] syringe-nee 5-27 directed ity of dle U-100 00:00: [place] 1/2 ml 1/2 00 Medical mL 28 gauge Branch x 1/2" Syrg insulin 2020-0 Yes Use as [facility] syringe-nee 5-27 directed ity of dle U-100 00:00: [place] 1/2 ml 1/2 00 Medical mL 28 gauge Branch x 1/2" Syrg insulin 2020-0 Yes Use as [facility] syringe-nee 5-27 directed ity of dle U-100 00:00: [place] 1/2 ml 1/2 00 Medical mL 28 gauge Branch x 1/2" Syrg insulin 2020-0 Yes Use as [facility] syringe-nee 5-27 directed ity of dle U-100 00:00: [place] 1/2 ml 1/2 00 Medical mL 28 gauge Branch x 1/2" Syrg insulin 2020-0 Yes Use as [facility] syringe-nee 5-27 directed ity of dle U-100 00:00: [place] 1/2 ml 1/2 00 Medical mL 28 gauge Branch x 1/2" Syrg insulin 2020-0 Yes Use as [facility] syringe-nee 5-27 directed ity of dle U-100 00:00: [place] 1/2 ml 1/2 00 Medical mL 28 gauge Branch x 1/2" Syrg insulin 2020-0 Yes Use as [facility] syringe-nee 5-27 directed ity of dle U-100 00:00: [place] 1/2 ml 1/2 00 Medical mL 28 gauge Branch x 1/2" Syrg insulin 2020-0 Yes Use as [facility] syringe-nee 5-27 directed ity of dle U-100 00:00: [place] 1/2 ml 1/2 00 Medical mL 28 gauge Branch x 1/2" Syrg insulin 2020-0 Yes Use as [facility] syringe-nee 5-27 directed ity of dle U-100 00:00: [place] 1/2 ml 1/2 00 Medical mL 28 gauge Branch x 1/2" Syrg insulin 2020-0 Yes Use as [facility] syringe-nee 5-27 directed ity of dle U-100 00:00: [place] 1/2 ml 1/2 00 Medical mL 28 gauge Branch x 1/2" Syrg insulin 2020-0 Yes Use as [facility] syringe-nee 5-27 directed ity of dle U-100 00:00: [place] 1/2 ml 1/2 00 Medical mL 28 gauge Branch x 1/2" Syrg insulin 2020-0 Yes Use as [facility] syringe-nee 5-27 directed ity of dle U-100 00:00: [place] 1/2 ml 1/2 00 Medical mL 28 gauge Branch x 1/2" Syrg insulin 2020-0 Yes Use as [facility] syringe-nee 5-27 directed ity of dle U-100 00:00: [place] 1/2 ml 1/2 00 Medical mL 28 gauge Branch x 1/2" Syrg insulin 2020-0 Yes Use as [facility] syringe-nee 5-27 directed ity of dle U-100 00:00: [place] 1/2 ml 1/2 00 Medical mL 28 gauge Branch x 1/2" Syrg insulin 2020-0 Yes Use as [facility] syringe-nee 5-27 directed ity of dle U-100 00:00: [place] 1/2 ml 1/2 00 Medical mL 28 gauge Branch x 1/2" Syrg insulin 2020-0 Yes Use as [facility] syringe-nee 5-27 directed ity of dle U-100 00:00: [place] 1/2 ml 1/2 00 Medical mL 28 gauge Branch x 1/2" Syrg insulin 2020-0 Yes Use as [facility] syringe-nee 5-27 directed ity of dle U-100 00:00: [place] 1/2 ml 1/2 00 Medical mL 28 gauge Branch x 1/2" Syrg insulin 2020-0 Yes Use as [facility] syringe-nee 5-27 directed ity of dle U-100 00:00: [place] 1/2 ml 1/2 00 Medical mL 28 gauge Branch x 1/2" Syrg insulin 2020-0 Yes Use as [facility] syringe-nee 5-27 directed ity of dle U-100 00:00: [place] 1/2 ml 1/2 00 Medical mL 28 gauge Branch x 1/2" Syrg insulin 2020-0 Yes Use as [facility] syringe-nee 5-27 directed ity of dle U-100 00:00: [place] 1/2 ml 1/2 00 Medical mL 28 gauge Branch x 1/2" Syrg insulin 2020-0 Yes Use as [facility] syringe-nee 5-27 directed ity of dle U-100 00:00: [place] 1/2 ml 1/2 00 Medical mL 28 gauge Branch x 1/2" Syrg insulin 2020-0 Yes Use as [facility] syringe-nee 5-27 directed ity of dle U-100 00:00: [place] 1/2 ml 1/2 00 Medical mL 28 gauge Branch x 1/2" Syrg insulin 2020-0 Yes Use as [facility] syringe-nee 5-27 directed ity of dle U-100 00:00: [place] 1/2 ml 1/2 00 Medical mL 28 gauge Branch x 1/2" Syrg insulin 2020-0 Yes Use as [facility] syringe-nee 5-27 directed ity of dle U-100 00:00: [place] 1/2 ml 1/2 00 Medical mL 28 gauge Branch x 1/2" Syrg insulin 2020-0 Yes Use as [facility] syringe-nee 5-27 directed ity of dle U-100 00:00: [place] 1/2 ml 1/2 00 Medical mL 28 gauge Branch x 1/2" Syrg insulin 2020-0 Yes Use as [facility] syringe-nee 5-27 directed ity of dle U-100 00:00: [place] 1/2 ml 1/2 00 Medical mL 28 gauge Branch x 1/2" Syrg insulin 2020-0 Yes Use as [facility] syringe-nee 5-27 directed ity of dle U-100 00:00: [place] 1/2 ml 1/2 00 Medical mL 28 gauge Branch x 1/2" Syrg insulin 2020-0 Yes Use as [facility] syringe-nee 5-27 directed ity of dle U-100 00:00: [place] 1/2 ml 1/2 00 Medical mL 28 gauge Branch x 1/2" Syrg insulin 2020-0 Yes Use as [facility] syringe-nee 5-27 directed ity of dle U-100 00:00: [place] 1/2 ml 1/2 00 Medical mL 28 gauge Branch x 1/2" Syrg insulin 2020-0 Yes Use as [facility] syringe-nee 5-27 directed ity of dle U-100 00:00: [place] 1/2 ml 1/2 00 Medical mL 28 gauge Branch x 1/2" Syrg insulin 2020-0 Yes Use as [facility] syringe-nee 5-27 directed ity of dle U-100 00:00: [place] 1/2 ml 1/2 00 Medical mL 28 gauge Branch x 1/2" Syrg insulin 2020-0 Yes Use as [facility] syringe-nee 5-27 directed ity of dle U-100 00:00: [place] 1/2 ml 1/2 00 Medical mL 28 gauge Branch x 1/2" Syrg insulin 2020-0 Yes Use as [facility] syringe-nee 5-27 directed ity of dle U-100 00:00: [place] 1/2 ml 1/2 00 Medical mL 28 gauge Branch x 1/2" Syrg insulin 2020-0 Yes Use as [facility] syringe-nee 5-27 directed ity of dle U-100 00:00: [place] 1/2 ml 1/2 00 Medical mL 28 gauge Branch x 1/2" Syrg insulin 2020-0 Yes Use as [facility] syringe-nee 5-27 directed ity of dle U-100 00:00: [place] 1/2 ml 1/2 00 Medical mL 28 gauge Branch x 1/2" Syrg insulin 2020-0 Yes Use as [facility] syringe-nee 5-27 directed ity of dle U-100 00:00: [place] 1/2 ml 1/2 00 Medical mL 28 gauge Branch x 1/2" Syrg insulin 2020-0 Yes Use as [facility] syringe-nee 5-27 directed ity of dle U-100 00:00: [place] 1/2 ml 1/2 00 Medical mL 28 gauge Branch x 1/2" Syrg insulin 2020-0 Yes Use as [facility] syringe-nee 5-27 directed ity of dle U-100 00:00: [place] 1/2 ml 1/2 00 Medical mL 28 gauge Branch x 1/2" Syrg insulin 2020-0 Yes Use as [facility] syringe-nee 5-27 directed ity of dle U-100 00:00: [place] 1/2 ml 1/2 00 Medical mL 28 gauge Branch x 1/2" Syrg insulin 2020-0 Yes Use as [facility] syringe-nee 5-27 directed ity of dle U-100 00:00: [place] 1/2 ml 1/2 00 Medical mL 28 gauge Branch x 1/2" Syrg insulin 2020-0 Yes Use as [facility] syringe-nee 5-27 directed ity of dle U-100 00:00: [place] 1/2 ml 1/2 00 Medical mL 28 gauge Branch x 1/2" Syrg insulin 2020-0 Yes Use as [facility] syringe-nee 5-27 directed ity of dle U-100 00:00: [place] 1/2 ml 1/2 00 Medical mL 28 gauge Branch x 1/2" Syrg insulin 2020-0 Yes Use as [facility] syringe-nee 5-27 directed ity of dle U-100 00:00: [place] 1/2 ml 1/2 00 Medical mL 28 gauge Branch x 1/2" Syrg insulin 2020-0 Yes Use as [facility] syringe-nee 5-27 directed ity of dle U-100 00:00: [place] 1/2 ml 1/2 00 Medical mL 28 gauge Branch x 1/2" Syrg insulin 2020-0 Yes Use as [facility] syringe-nee 5-27 directed ity of dle U-100 00:00: [place] 1/2 ml 1/2 00 Medical mL 28 gauge Branch x 1/2" Syrg insulin 2020-0 Yes Use as [facility] syringe-nee 5-27 directed ity of dle U-100 00:00: [place] 1/2 ml 1/2 00 Medical mL 28 gauge Branch x 1/2" Syrg insulin 2020-0 Yes Use as [facility] syringe-nee 5-27 directed ity of dle U-100 00:00: [place] 1/2 ml 1/2 00 Medical mL 28 gauge Branch x 1/2" Syrg insulin 2020-0 Yes Use as [facility] syringe-nee 5-27 directed ity of dle U-100 00:00: [place] 1/2 ml 1/2 00 Medical mL 28 gauge Branch x 1/2" Syrg insulin 2020-0 Yes Use as [facility] syringe-nee 5-27 directed ity of dle U-100 00:00: [place] 1/2 ml 1/2 00 Medical mL 28 gauge Branch x 1/2" Syrg insulin 2020-0 Yes Use as [facility] syringe-nee 5-27 directed ity of dle U-100 00:00: [place] 1/2 ml 1/2 00 Medical mL 28 gauge Branch x 1/2" Syrg insulin 2020-0 Yes Use as [facility] syringe-nee 5-27 directed ity of dle U-100 00:00: [place] 1/2 ml 1/2 00 Medical mL 28 gauge Branch x 1/2" Syrg insulin 2020-0 Yes Use as [facility] syringe-nee 5-27 directed ity of dle U-100 00:00: [place] 1/2 ml 1/2 00 Medical mL 28 gauge Branch x 1/2" Syrg insulin 2020-0 Yes Use as [facility] syringe-nee 5-27 directed ity of dle U-100 00:00: [place] 1/2 ml 1/2 00 Medical mL 28 gauge Branch x 1/2" Syrg insulin 2020-0 Yes Use as [facility] syringe-nee 5-27 directed ity of dle U-100 00:00: [place] 1/2 ml 1/2 00 Medical mL 28 gauge Branch x 1/2" Syrg insulin 2020-0 Yes Use as [facility] syringe-nee 5-27 directed ity of dle U-100 00:00: [place] 1/2 ml 1/2 00 Medical mL 28 gauge Branch x 1/2" Syrg insulin 2020-0 Yes Use as [facility] syringe-nee 5-27 directed ity of dle U-100 00:00: [place] 1/2 ml 1/2 00 Medical mL 28 gauge Branch x 1/2" Syrg insulin 2020-0 Yes Use as [facility] syringe-nee 5-27 directed ity of dle U-100 00:00: [place] 1/2 ml 1/2 00 Medical mL 28 gauge Branch x 1/2" Syrg insulin 2020-0 Yes Use as [facility] syringe-nee 5-27 directed ity of dle U-100 00:00: [place] 1/2 ml 1/2 00 Medical mL 28 gauge Branch x 1/2" Syrg insulin 2020-0 Yes Use as [facility] syringe-nee 5-27 directed ity of dle U-100 00:00: [place] 1/2 ml 1/2 00 Medical mL 28 gauge Branch x 1/2" Syrg insulin 2020-0 Yes Use as [facility] syringe-nee 5-27 directed ity of dle U-100 00:00: [place] 1/2 ml 1/2 00 Medical mL 28 gauge Branch x 1/2" Syrg insulin 2020-0 Yes Use as [facility] syringe-nee 5-27 directed ity of dle U-100 00:00: [place] 1/2 ml 1/2 00 Medical mL 28 gauge Branch x 1/2" Syrg insulin 2020-0 Yes Use as [facility] syringe-nee 5-27 directed ity of dle U-100 00:00: [place] 1/2 ml 1/2 00 Medical mL 28 gauge Branch x 1/2" Syrg insulin 2020-0 Yes Use as [facility] syringe-nee 5-27 directed ity of dle U-100 00:00: [place] 1/2 ml 1/2 00 Medical mL 28 gauge Branch x 1/2" Syrg insulin 2020-0 Yes Use as [facility] syringe-nee 5-27 directed ity of dle U-100 00:00: [place] 1/2 ml 1/2 00 Medical mL 28 gauge Branch x 1/2" Syrg insulin 2020-0 Yes Use as [facility] syringe-nee 5-27 directed ity of dle U-100 00:00: [place] 1/2 ml 1/2 00 Medical mL 28 gauge Branch x 1/2" Syrg insulin 2020-0 Yes Use as [facility] syringe-nee 5-27 directed ity of dle U-100 00:00: [place] 1/2 ml 1/2 00 Medical mL 28 gauge Branch x 1/2" Syrg insulin 2020-0 Yes Use as [facility] syringe-nee 5-27 directed ity of dle U-100 00:00: [place] 1/2 ml 1/2 00 Medical mL 28 gauge Branch x 1/2" Syrg famotidine 2020-0 Yes [id number] 20mg Take 1 [facility] 20 mg 5-27 tablet by ity of tablet 00:00: mouth 2 (two) Medical times Branch daily. insulin 2020-0 Yes Use as [facility] syringe-nee 5-27 directed ity of dle U-100 00:00: [place] 1/2 ml 1/2 00 Medical mL 28 gauge Branch x 1/2" Syrg famotidine 2020-0 Yes [id number] 20mg Take 1 [facility] 20 mg 5-27 tablet by ity of tablet 00:00: mouth 2 00 (two) Medical times Branch daily. insulin 2020-0 Yes Use as [facility] syringe-nee 5-27 directed ity of dle U-100 00:00: [place] 1/2 ml 1/2 00 Medical mL 28 gauge Branch x 1/2" Syrg famotidine 2020-0 Yes [id number] 20mg Take 1 [facility] 20 mg 5-27 tablet by ity of tablet 00:00: mouth 2 [place] (two) Medical times Branch daily. insulin 2020-0 Yes Use as [facility] syringe-nee 5-27 directed ity of dle U-100 00:00: [place] 1/2 ml 1/2 00 Medical mL 28 gauge Branch x 1/2" Syrg famotidine 2020-0 Yes [id number] 20mg Take 1 [facility] 20 mg 5-27 tablet by ity of tablet 00:00: mouth 2 [place] (two) Medical times Branch daily. insulin 2020-0 Yes Use as [facility] syringe-nee 5-27 directed ity of dle U-100 00:00: [place] 1/2 ml 1/2 00 Medical mL 28 gauge Branch x 1/2" Syrg famotidine 2020-0 Yes [id number] 20mg Take 1 [facility] 20 mg 5-27 tablet by ity of tablet 00:00: mouth 2 [place] (two) Medical times Branch daily. insulin 2020-0 Yes Use as [facility] syringe-nee 5-27 directed ity of dle U-100 00:00: [place] 1/2 ml 1/2 00 Medical mL 28 gauge Branch x 1/2" Syrg famotidine 2020-0 Yes [id number] 20mg Take 1 [facility] 20 mg 5-27 tablet by ity of tablet 00:00: mouth 2 [place] 00 (two) Medical times Branch daily. insulin 2020-0 Yes Use as [facility] syringe-nee 5-27 directed ity of dle U-100 00:00: [place] 1/2 ml 1/2 00 Medical mL 28 gauge Branch x 1/2" Syrg famotidine 2020-0 Yes [id number] 20mg Take 1 [facility] 20 mg 5-27 tablet by ity of tablet 00:00: mouth 2 00 (two) Medical times Branch daily. insulin 2020-0 Yes Use as [facility] syringe-nee 5-27 directed ity of dle U-100 00:00: [place] 1/2 ml 1/2 00 Medical mL 28 gauge Branch x 1/2" Syrg famotidine 2020-0 Yes [id number] 20mg Take 1 [facility] 20 mg 5-27 tablet by ity of tablet 00:00: mouth 2 (two) Medical times Branch daily. insulin 2020-0 Yes Use as [facility] syringe-nee 5-27 directed ity of dle U-100 00:00: [place] 1/2 ml 1/2 00 Medical mL 28 gauge Branch x 1/2" Syrg famotidine 2020-0 Yes [id number] 20mg Take 1 [facility] 20 mg 5-27 tablet by ity of tablet 00:00: mouth 2 [place] (two) Medical times Branch daily. insulin 2020-0 Yes Use as [facility] syringe-nee 5-27 directed ity of dle U-100 00:00: [place] 1/2 ml 1/2 00 Medical mL 28 gauge Branch x 1/2" Syrg famotidine 2020-0 Yes [id number] 20mg Take 1 [facility] 20 mg 5-27 tablet by ity of tablet 00:00: mouth 2 [place] (two) Medical times Branch daily. insulin 2020-0 Yes Use as [facility] syringe-nee 5-27 directed ity of dle U-100 00:00: [place] 1/2 ml 1/2 00 Medical mL 28 gauge Branch x 1/2" Syrg famotidine 2020-0 Yes [id number] 20mg Take 1 [facility] 20 mg 5-27 tablet by ity of tablet 00:00: mouth 2 00 (two) Medical times Branch daily. insulin 2020-0 Yes Use as [facility] syringe-nee 5-27 directed ity of dle U-100 00:00: [place] 1/2 ml 1/2 00 Medical mL 28 gauge Branch x 1/2" Syrg famotidine 2020-0 Yes [id number] 20mg Take 1 [facility] 20 mg 5-27 tablet by ity of tablet 00:00: mouth 2 [place] 00 (two) Medical times Branch daily. insulin 2020-0 Yes Use as [facility] syringe-nee 5-27 directed ity of dle U-100 00:00: [place] 1/2 ml 1/2 00 Medical mL 28 gauge Branch x 1/2" Syrg famotidine 2020-0 Yes [id number] 20mg Take 1 [facility] 20 mg 5-27 tablet by ity of tablet 00:00: mouth 2 [place] 00 (two) Medical times Branch daily. insulin 2020-0 Yes Use as [facility] syringe-nee 5-27 directed ity of dle U-100 00:00: [place] 1/2 ml 1/2 00 Medical mL 28 gauge Branch x 1/2" Syrg famotidine 2020-0 2022- No [id number] 20mg Take 1 [facility] 20 mg 5-27 11-03 tablet by ity of tablet 00:00: 00:00 mouth 2 [place] 00 :00 (two) Medical times Branch daily. propylthiou 2020-0 Yes [id number] 50mg Take 1 [facility] racil 50 mg 2-13 100 tablet by ity of tablet 00:00: mouth [place] 00 every 8 Medical (eight) Branch hours. atenoloL 25 2020-0 Yes [id number] 25mg Take 1 [facility] mg tablet 2-13 tablet by ity o f 00:00: mouth [place] 00 daily. Medical Branch propylthiou 2020-0 Yes [id number] 50mg Take 1 [facility] racil 50 mg 2-13 100 tablet by ity of tablet 00:00: mouth [place] 00 every 8 Medical (eight) Branch hours. atenoloL 25 2020-0 Yes [id number] 25mg Take 1 [facility] mg tablet 2-13 tablet by ity o f 00:00: mouth [place] 00 daily. Medical Branch propylthiou 2020-0 Yes [id number] 50mg Take 1 [facility] racil 50 mg 2-13 100 tablet by ity of tablet 00:00: mouth [place] 00 every 8 Medical (eight) Branch hours. atenoloL 25 2020-0 Yes [id number] 25mg Take 1 [facility] mg tablet 2-13 tablet by ity o f 00:00: mouth [place] 00 daily. Medical Branch propylthiou 2020-0 Yes [id number] 50mg Take 1 [facility] racil 50 mg 2-13 100 tablet by ity of tablet 00:00: mouth [place] 00 every 8 Medical (eight) Branch hours. atenoloL 25 2020-0 Yes [id number] 25mg Take 1 [facility] mg tablet 2-13 tablet by ity o f 00:00: mouth [place] 00 daily. Medical Branch propylthiou 2020-0 Yes [id number] 50mg Take 1 [facility] racil 50 mg 2-13 100 tablet by ity of tablet 00:00: mouth [place] 00 every 8 Medical (eight) Branch hours. atenoloL 25 2020-0 Yes [id number] 25mg Take 1 [facility] mg tablet 2-13 tablet by ity o f 00:00: mouth [place] 00 daily. Medical Branch propylthiou 2020-0 Yes [id number] 50mg Take 1 [facility] racil 50 mg 2-13 100 tablet by ity of tablet 00:00: mouth [place] 00 every 8 Medical (eight) Branch hours. atenoloL 25 2020-0 Yes [id number] 25mg Take 1 [facility] mg tablet 2-13 tablet by ity o f 00:00: mouth [place] 00 daily. Medical Branch propylthiou 2020-0 Yes [id number] 50mg Take 1 [facility] racil 50 mg 2-13 100 tablet by ity of tablet 00:00: mouth [place] 00 every 8 Medical (eight) Branch hours. atenoloL 25 2020-0 Yes [id number] 25mg Take 1 [facility] mg tablet 2-13 tablet by ity o f 00:00: mouth [place] 00 daily. Medical Branch propylthiou 2020-0 Yes [id number] 50mg Take 1 [facility] racil 50 mg 2-13 100 tablet by ity of tablet 00:00: mouth [place] 00 every 8 Medical (eight) Branch hours. atenoloL 25 2020-0 Yes [id number] 25mg Take 1 [facility] mg tablet 2-13 tablet by ity o f 00:00: mouth [place] 00 daily. Medical Branch propylthiou 2020-0 Yes [id number] 50mg Take 1 [facility] racil 50 mg 2-13 100 tablet by ity of tablet 00:00: mouth [place] 00 every 8 Medical (eight) Branch hours. atenoloL 25 2020-0 Yes [id number] 25mg Take 1 [facility] mg tablet 2-13 tablet by ity o f 00:00: mouth [place] 00 daily. Medical Branch propylthiou 2020-0 Yes [id number] 50mg Take 1 [facility] racil 50 mg 2-13 100 tablet by ity of tablet 00:00: mouth [place] 00 every 8 Medical (eight) Branch hours. atenoloL 25 2020-0 Yes [id number] 25mg Take 1 [facility] mg tablet 2-13 tablet by ity o f 00:00: mouth [place] 00 daily. Medical Branch propylthiou 2020-0 Yes [id number] 50mg Take 1 [facility] racil 50 mg 2-13 100 tablet by ity of tablet 00:00: mouth [place] 00 every 8 Medical (eight) Branch hours. atenoloL 25 2020-0 Yes [id number] 25mg Take 1 [facility] mg tablet 2-13 tablet by ity o f 00:00: mouth [place] 00 daily. Medical Branch propylthiou 2020-0 Yes [id number] 50mg Take 1 [facility] racil 50 mg 2-13 100 tablet by ity of tablet 00:00: mouth [place] 00 every 8 Medical (eight) Branch hours. atenoloL 25 2020-0 Yes [id number] 25mg Take 1 [facility] mg tablet 2-13 tablet by ity o f 00:00: mouth [place] 00 daily. Medical Branch propylthiou 2020-0 Yes [id number] 50mg Take 1 [facility] racil 50 mg 2-13 100 tablet by ity of tablet 00:00: mouth [place] 00 every 8 Medical (eight) Branch hours. atenoloL 25 2020-0 Yes [id number] 25mg Take 1 [facility] mg tablet 2-13 tablet by ity o f 00:00: mouth [place] 00 daily. Medical Branch propylthiou 2020-0 Yes [id number] 50mg Take 1 [facility] racil 50 mg 2-13 100 tablet by ity of tablet 00:00: mouth [place] 00 every 8 Medical (eight) Branch hours. atenoloL 25 2020-0 Yes [id number] 25mg Take 1 [facility] mg tablet 2-13 tablet by ity o f 00:00: mouth [place] 00 daily. Medical Branch propylthiou 2020-0 Yes [id number] 50mg Take 1 [facility] racil 50 mg 2-13 100 tablet by ity of tablet 00:00: mouth [place] 00 every 8 Medical (eight) Branch hours. atenoloL 25 2020-0 Yes [id number] 25mg Take 1 [facility] mg tablet 2-13 tablet by ity o f 00:00: mouth [place] 00 daily. Medical Branch propylthiou 2020-0 Yes [id number] 50mg Take 1 [facility] racil 50 mg 2-13 100 tablet by ity of tablet 00:00: mouth [place] 00 every 8 Medical (eight) Branch hours. atenoloL 25 2020-0 Yes [id number] 25mg Take 1 [facility] mg tablet 2-13 tablet by ity o f 00:00: mouth [place] 00 daily. Medical Branch propylthiou 2020-0 Yes [id number] 50mg Take 1 [facility] racil 50 mg 2-13 100 tablet by ity of tablet 00:00: mouth [place] 00 every 8 Medical (eight) Branch hours. atenoloL 25 2020-0 Yes [id number] 25mg Take 1 [facility] mg tablet 2-13 tablet by ity o f 00:00: mouth [place] 00 daily. [facility] Branch atenoloL 25 2020-0 Yes [id number] 25mg Take 1 [facility] mg tablet 2-13 tablet by ity o f 00:00: mouth [place] 00 daily. Medical Branch atenoloL 25 2020-0 Yes [id number] 25mg Take 1 [facility] mg tablet 2-13 tablet by ity o f 00:00: mouth [place] 00 daily. [facility] Branch atenoloL 25 2020-0 Yes [id number] 25mg Take 1 [facility] mg tablet 2-13 tablet by ity o f 00:00: mouth [place] 00 daily. [facility] Branch atenoloL 25 2020-0 Yes [id number] 25mg Take 1 [facility] mg tablet 2-13 tablet by ity o f 00:00: mouth [place] 00 daily. [facility] Branch atenoloL 25 2020-0 Yes [id number] 25mg Take 1 [facility] mg tablet 2-13 tablet by ity o f 00:00: mouth [place] 00 daily. [facility] Branch atenoloL 25 2020-0 Yes [id number] 25mg Take 1 [facility] mg tablet 2-13 tablet by ity o f 00:00: mouth [place] 00 daily. [facility] Branch atenoloL 25 2020-0 Yes [id number] 25mg Take 1 [facility] mg tablet 2-13 tablet by ity o f 00:00: mouth [place] 00 daily. [facility] Branch atenoloL 25 2020-0 Yes [id number] 25mg Take 1 [facility] mg tablet 2-13 tablet by ity o f 00:00: mouth [place] 00 daily. [facility] Branch atenoloL 25 2020-0 Yes [id number] 25mg Take 1 [facility] mg tablet 2-13 tablet by ity o f 00:00: mouth [place] 00 daily. [facility] Branch atenoloL 25 2020-0 Yes [id number] 25mg Take 1 [facility] mg tablet 2-13 tablet by ity o f 00:00: mouth [place] 00 daily. [facility] Branch atenoloL 25 2020-0 Yes [id number] 25mg Take 1 [facility] mg tablet 2-13 tablet by ity o f 00:00: mouth [place] 00 daily. [facility] Branch atenoloL 25 2020-0 Yes [id number] 25mg Take 1 [facility] mg tablet 2-13 tablet by ity o f 00:00: mouth [place] 00 daily. [facility] atenoloL 25 2020-0 Yes [id number] 25mg Take 1 [facility] mg tablet 2-13 tablet by ity o f 00:00: mouth [place] 00 daily. [facility] Branch atenoloL 25 2020-0 Yes [id number] 25mg Take 1 [facility] mg tablet 2-13 tablet by ity o f 00:00: mouth [place] 00 daily. [facility] Branch atenoloL 25 2020-0 Yes [id number] 25mg Take 1 [facility] mg tablet 2-13 tablet by ity o f 00:00: mouth [place] 00 daily. [facility] atenoloL 25 2020-0 Yes [id number] 25mg Take 1 [facility] mg tablet 2-13 tablet by ity o f 00:00: mouth [place] 00 daily. [facility] Branch atenoloL 25 2020-0 Yes [id number] 25mg Take 1 [facility] mg tablet 2-13 tablet by ity o f 00:00: mouth [place] 00 daily. [facility] Branch atenoloL 25 2020-0 Yes [id number] 25mg Take 1 [facility] mg tablet 2-13 tablet by ity o f 00:00: mouth [place] 00 daily. [facility] Branch atenoloL 25 2020-0 Yes [id number] 25mg Take 1 [facility] mg tablet 2-13 tablet by ity o f 00:00: mouth [place] 00 daily. [facility] atenoloL 25 2020-0 Yes [id number] 25mg Take 1 [facility] mg tablet 2-13 tablet by ity o f 00:00: mouth [place] 00 daily. [facility] Branch atenoloL 25 2020-0 Yes [id number] 25mg Take 1 [facility] mg tablet 2-13 tablet by ity o f 00:00: mouth [place] 00 daily. [facility] Branch atenoloL 25 2020-0 Yes [id number] 25mg Take 1 [facility] mg tablet 2-13 tablet by ity o f 00:00: mouth [place] 00 daily. [facility] Branch atenoloL 25 2020-0 Yes [id number] 25mg Take 1 [facility] mg tablet 2-13 tablet by ity o f 00:00: mouth [place] 00 daily. [facility] Branch atenoloL 25 2020-0 Yes [id number] 25mg Take 1 [facility] mg tablet 2-13 tablet by ity o f 00:00: mouth [place] 00 daily. [facility] Branch atenoloL 25 2020-0 Yes [id number] 25mg Take 1 [facility] mg tablet 2-13 tablet by ity o f 00:00: mouth [place] 00 daily. [facility] atenoloL 25 2020-0 Yes [id number] 25mg Take 1 [facility] mg tablet 2-13 tablet by ity o f 00:00: mouth [place] 00 daily. [facility] Branch atenoloL 25 2020-0 Yes [id number] 25mg Take 1 [facility] mg tablet 2-13 tablet by ity o f 00:00: mouth [place] 00 daily. [facility] Branch atenoloL 25 2020-0 Yes [id number] 25mg Take 1 [facility] mg tablet 2-13 tablet by ity o f 00:00: mouth [place] 00 daily. [facility] atenoloL 25 2020-0 Yes [id number] 25mg Take 1 [facility] mg tablet 2-13 tablet by ity o f 00:00: mouth [place] 00 daily. [facility] Branch atenoloL 25 2020-0 Yes [id number] 25mg Take 1 [facility] mg tablet 2-13 tablet by ity o f 00:00: mouth [place] 00 daily. [facility] Branch atenoloL 25 2020-0 Yes [id number] 25mg Take 1 [facility] mg tablet 2-13 tablet by ity o f 00:00: mouth [place] 00 daily. [facility] Branch atenoloL 25 2020-0 Yes [id number] 25mg Take 1 [facility] mg tablet 2-13 tablet by ity o f 00:00: mouth [place] 00 daily. [facility] Branch atenoloL 25 2020-0 Yes [id number] 25mg Take 1 [facility] mg tablet 2-13 tablet by ity o f 00:00: mouth [place] 00 daily. [facility] Branch atenoloL 25 2020-0 Yes [id number] 25mg Take 1 [facility] mg tablet 2-13 tablet by ity o f 00:00: mouth [place] 00 daily. [facility] Branch atenoloL 25 2020-0 Yes [id number] 25mg Take 1 [facility] mg tablet 2-13 tablet by ity o f 00:00: mouth [place] 00 daily. [facility] atenoloL 25 2020-0 Yes [id number] 25mg Take 1 [facility] mg tablet 2-13 tablet by ity o f 00:00: mouth [place] 00 daily. [facility] atenoloL 25 2020-0 Yes [id number] 25mg Take 1 [facility] mg tablet 2-13 tablet by ity o f 00:00: mouth [place] 00 daily. [facility] atenoloL 25 2020-0 Yes [id number] 25mg Take 1 [facility] mg tablet 2-13 tablet by ity o f 00:00: mouth [place] 00 daily. [facility] atenoloL 25 2020-0 Yes [id number] 25mg Take 1 [facility] mg tablet 2-13 tablet by ity o f 00:00: mouth [place] 00 daily. [facility] atenoloL 25 2020-0 Yes [id number] 25mg Take 1 [facility] mg tablet 2-13 tablet by ity o f 00:00: mouth [place] 00 daily. [facility] atenoloL 25 2020-0 Yes [id number] 25mg Take 1 [facility] mg tablet 2-13 tablet by ity o f 00:00: mouth [place] 00 daily. [facility] atenoloL 25 2020-0 Yes [id number] 25mg Take 1 [facility] mg tablet 2-13 tablet by ity o f 00:00: mouth [place] 00 daily. [facility] atenoloL 25 2020-0 Yes [id number] 25mg Take 1 [facility] mg tablet 2-13 tablet by ity o f 00:00: mouth [place] 00 daily. [facility] atenoloL 25 2020-0 Yes [id number] 25mg Take 1 [facility] mg tablet 2-13 tablet by ity o f 00:00: mouth [place] 00 daily. [facility] atenoloL 25 2020-0 Yes [id number] 25mg Take 1 [facility] mg tablet 2-13 tablet by ity o f 00:00: mouth [place] 00 daily. [facility] atenoloL 25 2020-0 Yes [id number] 25mg Take 1 [facility] mg tablet 2-13 tablet by ity o f 00:00: mouth [place] 00 daily. Medical Branch atenoloL 25 2020-0 Yes [id number] 25mg Take 1 [facility] mg tablet 2-13 tablet by ity o f 00:00: mouth [place] 00 daily. Medical [facility] atenoloL 25 2020-0 Yes [id number] 25mg Take 1 [facility] mg tablet 2-13 tablet by ity o f 00:00: mouth [place] 00 daily. Medical [facility] atenoloL 25 2020-0 Yes [id number] 25mg Take 1 [facility] mg tablet 2-13 tablet by ity o f 00:00: mouth [place] 00 daily. Medical [facility] atenoloL 25 2020-0 Yes [id number] 25mg Take 1 [facility] mg tablet 2-13 tablet by ity o f 00:00: mouth [place] 00 daily. Medical [facility] propylthiou 2020-0 Yes [id number] 50mg Take 1 [facility] racil 50 mg 2-13 100 tablet by ity of tablet 00:00: mouth [place] 00 every 8 Medical (eight) Branch hours. atenoloL 25 2020-0 Yes [id number] 25mg Take 1 [facility] mg tablet 2-13 tablet by ity o f 00:00: mouth [place] 00 daily. Medical [facility] propylthiou 2020-0 Yes [id number] 50mg Take 1 [facility] racil 50 mg 2-13 100 tablet by ity of tablet 00:00: mouth [place] 00 every 8 Medical (eight) Branch hours. atenoloL 25 2020-0 Yes [id number] 25mg Take 1 [facility] mg tablet 2-13 tablet by ity o f 00:00: mouth [place] 00 daily. Medical [facility] propylthiou 2020-0 Yes [id number] 50mg Take 1 [facility] racil 50 mg 2-13 100 tablet by ity of tablet 00:00: mouth [place] 00 every 8 Medical (eight) Branch hours. atenoloL 25 2020-0 Yes [id number] 25mg Take 1 [facility] mg tablet 2-13 tablet by ity o f 00:00: mouth [place] 00 daily. Medical [facility] propylthiou 2020-0 Yes [id number] 50mg Take 1 [facility] racil 50 mg 2-13 100 tablet by ity of tablet 00:00: mouth [place] 00 every 8 Medical (eight) Branch hours. atenoloL 25 2020-0 Yes [id number] 25mg Take 1 [facility] mg tablet 2-13 tablet by ity o f 00:00: mouth [place] 00 daily. Medical [facility] propylthiou 2020-0 Yes [id number] 50mg Take 1 [facility] racil 50 mg 2-13 100 tablet by ity of tablet 00:00: mouth [place] 00 every 8 Medical (eight) Branch hours. atenoloL 25 2020-0 Yes [id number] 25mg Take 1 [facility] mg tablet 2-13 tablet by ity o f 00:00: mouth [place] 00 daily. Medical Branch propylthiou 2020-0 Yes [id number] 50mg Take 1 [facility] racil 50 mg 2-13 100 tablet by ity of tablet 00:00: mouth [place] 00 every 8 Medical (eight) Branch hours. atenoloL 25 2020-0 Yes [id number] 25mg Take 1 [facility] mg tablet 2-13 tablet by ity o f 00:00: mouth [place] 00 daily. Medical Branch propylthiou 2020-0 Yes [id number] 50mg Take 1 [facility] racil 50 mg 2-13 100 tablet by ity of tablet 00:00: mouth [place] 00 every 8 Medical (eight) Branch hours. atenoloL 25 2020-0 Yes [id number] 25mg Take 1 [facility] mg tablet 2-13 tablet by ity o f 00:00: mouth [place] 00 daily. Medical Branch propylthiou 2020-0 Yes [id number] 50mg Take 1 [facility] racil 50 mg 2-13 100 tablet by ity of tablet 00:00: mouth [place] 00 every 8 Medical (eight) Branch hours. atenoloL 25 2020-0 Yes [id number] 25mg Take 1 [facility] mg tablet 2-13 tablet by ity o f 00:00: mouth [place] 00 daily. Medical Branch propylthiou 2020-0 Yes [id number] 50mg Take 1 [facility] racil 50 mg 2-13 100 tablet by ity of tablet 00:00: mouth [place] 00 every 8 Medical (eight) Branch hours. atenoloL 25 2020-0 Yes [id number] 25mg Take 1 [facility] mg tablet 2-13 tablet by ity o f 00:00: mouth [place] 00 daily. Medical Branch propylthiou 2020-0 Yes [id number] 50mg Take 1 [facility] racil 50 mg 2-13 100 tablet by ity of tablet 00:00: mouth [place] 00 every 8 Medical (eight) Branch hours. atenoloL 25 2020-0 Yes [id number] 25mg Take 1 [facility] mg tablet 2-13 tablet by ity o f 00:00: mouth [place] 00 daily. Medical Branch propylthiou 2020-0 Yes [id number] 50mg Take 1 [facility] racil 50 mg 2-13 100 tablet by ity of tablet 00:00: mouth [place] 00 every 8 Medical (eight) Branch hours. atenoloL 25 2020-0 Yes [id number] 25mg Take 1 [facility] mg tablet 2-13 tablet by ity o f 00:00: mouth [place] 00 daily. Medical Branch propylthiou 2019-0 Yes [id number] 50mg Take 1 [facility] racil 50 mg 2-13 100 tablet by ity of tablet 00:00: mouth [place] 00 every 8 Medical (eight) Branch hours. atenoloL 25 2019-0 Yes [id number] 25mg Take 1 [facility] mg tablet 2-13 tablet by ity o f 00:00: mouth [place] 00 daily. Medical Branch propylthiou 2019-0 Yes [id number] 50mg Take 1 [facility] racil 50 mg 2-13 100 tablet by ity of tablet 00:00: mouth [place] 00 every 8 Medical (eight) Branch hours. atenoloL 25 2020-0 Yes [id number] 25mg Take 1 [facility] mg tablet 2-13 tablet by ity o f 00:00: mouth [place] 00 daily. Medical Branch propylthiou 2019-0 2021- No [id number] 50mg Take 1 [facility] racil 50 mg 2-13 12-29 100 tablet by it y of tablet 00:00: 00:00 mouth [place] 00 :00 every 8 Medical (eight) Branch hours. propylthiou 2019-0 2021- No [id number] 50mg Take 1 [facility] racil 50 mg 2-13 12-29 100 tablet by it y of tablet 00:00: 00:00 mouth [place] 00 :00 every 8 Medical (eight) Branch hours. Lancing Yes [id number] Check Univ ers Device with 1-28 blood ity of Lancets 00:00: glucose 4x [place] (ACCU-CHEK 00 daily Medical FASTCLIX Branch LANCING DEV) Kit [place] Yes [id number] Check Univ ers Device with 1-28 blood ity of Lancets 00:00: glucose 4x [place] (ACCU-CHEK daily Medical FASTCLIX Branch LANCING DEV) Kit [place] Yes [id number] Check Univ ers Device with 1-28 blood ity of Lancets 00:00: glucose 4x [place] (ACCU-CHEK daily Medical FASTCLIX Branch LANCING DEV) Kit [place] Yes [id number] Check Univ ers Device with 1-28 blood ity of Lancets 00:00: glucose 4x [place] (ACCU-CHEK daily Medical FASTCLIX Branch LANCING DEV) Kit [place] Yes [id number] Check Univ ers Device with 1-28 blood ity of Lancets 00:00: glucose 4x [place] (ACCU-CHEK daily Medical FASTCLIX Branch LANCING DEV) Kit [place] Yes [id number] Check Univ ers Device with 1-28 blood ity of Lancets 00:00: glucose 4x [place] (ACCU-CHEK daily Medical FASTCLIX Branch LANCING DEV) Kit [place] Yes [id number] Check Univ ers Device with 1-28 blood ity of Lancets 00:00: glucose 4x [place] (ACCU-CHEK daily Medical FASTCLIX Branch LANCING DEV) Kit [place] Yes [id number] Check Univ ers Device with 1-28 blood ity of Lancets 00:00: glucose 4x [place] (ACCU-CHEK daily Medical FASTCLIX Branch LANCING DEV) Kit [place] Yes [id number] Check Univ ers Device with 1-28 blood ity of Lancets 00:00: glucose 4x [place] (ACCU-CHEK daily Medical FASTCLIX Branch LANCING DEV) Kit [place] Yes [id number] Check Univ ers Device with 1-28 blood ity of Lancets 00:00: glucose 4x [place] (ACCU-CHEK daily Medical FASTCLIX Branch LANCING DEV) Kit [place] Yes [id number] Check Univ ers Device with 1-28 blood ity of Lancets 00:00: glucose 4x [place] (ACCU-CHEK daily Medical FASTCLIX Branch LANCING DEV) Kit [place] Yes [id number] Check Univ ers Device with 1-28 blood ity of Lancets 00:00: glucose 4x [place] (ACCU-CHEK daily Medical FASTCLIX Branch LANCING DEV) Kit [place] Yes [id number] Check Univ ers Device with 1-28 blood ity of Lancets 00:00: glucose 4x [place] (ACCU-CHEK daily Medical FASTCLIX Branch LANCING DEV) Kit [place] Yes [id number] Check Univ ers Device with 1-28 blood ity of Lancets 00:00: glucose 4x [place] (ACCU-CHEK daily Medical FASTCLIX Branch LANCING DEV) Kit [place] Yes [id number] Check Univ ers Device with 1-28 blood ity of Lancets 00:00: glucose 4x [place] (ACCU-CHEK daily Medical FASTCLIX Branch LANCING DEV) Kit [place] Yes [id number] Check Univ ers Device with 1-28 blood ity of Lancets 00:00: glucose 4x [place] (ACCU-CHEK daily Medical FASTCLIX Branch LANCING DEV) Kit [place] Yes [id number] Check Univ ers Device with 1-28 blood ity of Lancets 00:00: glucose 4x [place] (ACCU-CHEK daily Medical FASTCLIX Branch LANCING DEV) Kit [place] Yes [id number] Check Univ ers Device with 1-28 blood ity of Lancets 00:00: glucose 4x [place] (ACCU-CHEK daily Medical FASTCLIX Branch LANCING DEV) Kit [place] Yes [id number] Check Univ ers Device with 1-28 blood ity of Lancets 00:00: glucose 4x [place] (ACCU-CHEK daily Medical FASTCLIX Branch LANCING DEV) Kit [place] Yes [id number] Check Univ ers Device with 1-28 blood ity of Lancets 00:00: glucose 4x [place] (ACCU-CHEK daily Medical FASTCLIX Branch LANCING DEV) Kit [place] Yes [id number] Check Univ ers Device with 1-28 blood ity of Lancets 00:00: glucose 4x [place] (ACCU-CHEK daily Medical FASTCLIX Branch LANCING DEV) Kit [place] Yes [id number] Check Univ ers Device with 1-28 blood ity of Lancets 00:00: glucose 4x [place] (ACCU-CHEK daily Medical FASTCLIX Branch LANCING DEV) Kit [place] Yes [id number] Check Univ ers Device with 1-28 blood ity of Lancets 00:00: glucose 4x [place] (ACCU-CHEK daily Medical FASTCLIX Branch LANCING DEV) Kit [place] Yes [id number] Check Univ ers Device with 1-28 blood ity of Lancets 00:00: glucose 4x [place] (ACCU-CHEK daily Medical FASTCLIX Branch LANCING DEV) Kit [place] Yes [id number] Check Univ ers Device with 1-28 blood ity of Lancets 00:00: glucose 4x [place] (ACCU-CHEK daily Medical FASTCLIX Branch LANCING DEV) Kit [place] Yes [id number] Check Univ ers Device with 1-28 blood ity of Lancets 00:00: glucose 4x [place] (ACCU-CHEK daily Medical FASTCLIX Branch LANCING DEV) Kit [place] Yes [id number] Check Univ ers Device with 1-28 blood ity of Lancets 00:00: glucose 4x [place] (ACCU-CHEK daily Medical FASTCLIX Branch LANCING DEV) Kit [place] Yes [id number] Check Univ ers Device with 1-28 blood ity of Lancets 00:00: glucose 4x [place] (ACCU-CHEK daily Medical FASTCLIX Branch LANCING DEV) Kit [place] Yes [id number] Check Univ ers Device with 1-28 blood ity of Lancets 00:00: glucose 4x [place] (ACCU-CHEK daily Medical FASTCLIX Branch LANCING DEV) Kit [place] Yes [id number] Check Univ ers Device with 1-28 blood ity of Lancets 00:00: glucose 4x [place] (ACCU-CHEK daily Medical FASTCLIX Branch LANCING DEV) Kit [place] Yes [id number] Check Univ ers Device with 1-28 blood ity of Lancets 00:00: glucose 4x [place] (ACCU-CHEK daily Medical FASTCLIX Branch LANCING DEV) Kit [place] Yes [id number] Check Univ ers Device with 1-28 blood ity of Lancets 00:00: glucose 4x [place] (ACCU-CHEK daily Medical FASTCLIX Branch LANCING DEV) Kit [place] Yes [id number] Check Univ ers Device with 1-28 blood ity of Lancets 00:00: glucose 4x [place] (ACCU-CHEK daily Medical FASTCLIX Branch LANCING DEV) Kit [place] Yes [id number] Check Univ ers Device with 1-28 blood ity of Lancets 00:00: glucose 4x [place] (ACCU-CHEK daily Medical FASTCLIX Branch LANCING DEV) Kit [place] Yes [id number] Check Univ ers Device with 1-28 blood ity of Lancets 00:00: glucose 4x [place] (ACCU-CHEK daily Medical FASTCLIX Branch LANCING DEV) Kit [place] Yes [id number] Check Univ ers Device with 1-28 blood ity of Lancets 00:00: glucose 4x [place] (ACCU-CHEK daily Medical FASTCLIX Branch LANCING DEV) Kit [place] Yes [id number] Check Univ ers Device with 1-28 blood ity of Lancets 00:00: glucose 4x [place] (ACCU-CHEK daily Medical FASTCLIX Branch LANCING DEV) Kit [place] Yes [id number] Check Univ ers Device with 1-28 blood ity of Lancets 00:00: glucose 4x [place] (ACCU-CHEK daily Medical FASTCLIX Branch LANCING DEV) Kit [place] Yes [id number] Check Univ ers Device with 1-28 blood ity of Lancets 00:00: glucose 4x [place] (ACCU-CHEK daily Medical FASTCLIX Branch LANCING DEV) Kit [place] Yes [id number] Check Univ ers Device with 1-28 blood ity of Lancets 00:00: glucose 4x [place] (ACCU-CHEK daily Medical FASTCLIX Branch LANCING DEV) Kit [place] Yes [id number] Check Univ ers Device with 1-28 blood ity of Lancets 00:00: glucose 4x [place] (ACCU-CHEK daily Medical FASTCLIX Branch LANCING DEV) Kit [place] Yes [id number] Check Univ ers Device with 1-28 blood ity of Lancets 00:00: glucose 4x [place] (ACCU-CHEK daily Medical FASTCLIX Branch LANCING DEV) Kit [place] Yes [id number] Check Univ ers Device with 1-28 blood ity of Lancets 00:00: glucose 4x [place] (ACCU-CHEK daily Medical FASTCLIX Branch LANCING DEV) Kit [place] Yes [id number] Check Univ ers Device with 1-28 blood ity of Lancets 00:00: glucose 4x [place] (ACCU-CHEK daily Medical FASTCLIX Branch LANCING DEV) Kit [place] Yes [id number] Check Univ ers Device with 1-28 blood ity of Lancets 00:00: glucose 4x [place] (ACCU-CHEK daily Medical FASTCLIX Branch LANCING DEV) Kit [place] Yes [id number] Check Univ ers Device with 1-28 blood ity of Lancets 00:00: glucose 4x [place] (ACCU-CHEK daily Medical FASTCLIX Branch LANCING DEV) Kit [place] Yes [id number] Check Univ ers Device with 1-28 blood ity of Lancets 00:00: glucose 4x [place] (ACCU-CHEK daily Medical FASTCLIX Branch LANCING DEV) Kit [place] Yes [id number] Check Univ ers Device with 1-28 blood ity of Lancets 00:00: glucose 4x [place] (ACCU-CHEK daily Medical FASTCLIX Branch LANCING DEV) Kit [place] Yes [id number] Check Univ ers Device with 1-28 blood ity of Lancets 00:00: glucose 4x [place] (ACCU-CHEK daily Medical FASTCLIX Branch LANCING DEV) Kit [place] Yes [id number] Check Univ ers Device with 1-28 blood ity of Lancets 00:00: glucose 4x [place] (ACCU-CHEK daily Medical FASTCLIX Branch LANCING DEV) Kit [place] Yes [id number] Check Univ ers Device with 1-28 blood ity of Lancets 00:00: glucose 4x [place] (ACCU-CHEK daily Medical FASTCLIX Branch LANCING DEV) Kit [place] Yes [id number] Check Univ ers Device with 1-28 blood ity of Lancets 00:00: glucose 4x [place] (ACCU-CHEK daily Medical FASTCLIX Branch LANCING DEV) Kit [place] Yes [id number] Check Univ ers Device with 1-28 blood ity of Lancets 00:00: glucose 4x [place] (ACCU-CHEK daily Medical FASTCLIX Branch LANCING DEV) Kit [place] Yes [id number] Check Univ ers Device with 1-28 blood ity of Lancets 00:00: glucose 4x [place] (ACCU-CHEK daily Medical FASTCLIX Branch LANCING DEV) Kit [place] Yes [id number] Check Univ ers Device with 1-28 blood ity of Lancets 00:00: glucose 4x [place] (ACCU-CHEK daily Medical FASTCLIX Branch LANCING DEV) Kit [place] Yes [id number] Check Univ ers Device with 1-28 blood ity of Lancets 00:00: glucose 4x [place] (ACCU-CHEK daily Medical FASTCLIX Branch LANCING DEV) Kit [place] Yes [id number] Check Univ ers Device with 1-28 blood ity of Lancets 00:00: glucose 4x [place] (ACCU-CHEK daily Medical FASTCLIX Branch LANCING DEV) Kit [place] Yes [id number] Check Univ ers Device with 1-28 blood ity of Lancets 00:00: glucose 4x [place] (ACCU-CHEK daily Medical FASTCLIX Branch LANCING DEV) Kit [place] Yes [id number] Check Univ ers Device with 1-28 blood ity of Lancets 00:00: glucose 4x [place] (ACCU-CHEK daily Medical FASTCLIX Branch LANCING DEV) Kit [place] Yes [id number] Check Univ ers Device with 1-28 blood ity of Lancets 00:00: glucose 4x [place] (ACCU-CHEK daily Medical FASTCLIX Branch LANCING DEV) Kit [place] Yes [id number] Check Univ ers Device with 1-28 blood ity of Lancets 00:00: glucose 4x [place] (ACCU-CHEK daily Medical FASTCLIX Branch LANCING DEV) Kit [place] Yes [id number] Check Univ ers Device with 1-28 blood ity of Lancets 00:00: glucose 4x [place] (ACCU-CHEK daily Medical FASTCLIX Branch LANCING DEV) Kit [place] Yes [id number] Check Univ ers Device with 1-28 blood ity of Lancets 00:00: glucose 4x [place] (ACCU-CHEK daily Medical FASTCLIX Branch LANCING DEV) Kit [place] Yes [id number] Check Univ ers Device with 1-28 blood ity of Lancets 00:00: glucose 4x [place] (ACCU-CHEK daily Medical FASTCLIX Branch LANCING DEV) Kit [place] Yes [id number] Check Univ ers Device with 1-28 blood ity of Lancets 00:00: glucose 4x [place] (ACCU-CHEK daily Medical FASTCLIX Branch LANCING DEV) Kit [place] Yes [id number] Check Univ ers Device with 1-28 blood ity of Lancets 00:00: glucose 4x [place] (ACCU-CHEK daily Medical FASTCLIX Branch LANCING DEV) Kit [place] Yes [id number] Check Univ ers Device with 1-28 blood ity of Lancets 00:00: glucose 4x [place] (ACCU-CHEK daily Medical FASTCLIX Branch LANCING DEV) Kit [place] Yes [id number] Check Univ ers Device with 1-28 blood ity of Lancets 00:00: glucose 4x [place] (ACCU-CHEK daily Medical FASTCLIX Branch LANCING DEV) Kit [place] Yes [id number] Check Univ ers Device with 1-28 blood ity of Lancets 00:00: glucose 4x [place] (ACCU-CHEK daily Medical FASTCLIX Branch LANCING DEV) Kit [place] Yes [id number] Check Univ ers Device with 1-28 blood ity of Lancets 00:00: glucose 4x [place] (ACCU-CHEK daily Medical FASTCLIX Branch LANCING DEV) Kit [place] Yes [id number] Check Univ ers Device with 1-28 blood ity of Lancets 00:00: glucose 4x [place] (ACCU-CHEK daily Medical FASTCLIX Branch LANCING DEV) Kit [place] Yes [id number] Check Univ ers Device with 1-28 blood ity of Lancets 00:00: glucose 4x [place] (ACCU-CHEK daily Medical FASTCLIX Branch LANCING DEV) Kit [place] Yes [id number] Check Univ ers Device with 1-28 blood ity of Lancets 00:00: glucose 4x [place] (ACCU-CHEK daily Medical FASTCLIX Branch LANCING DEV) Kit [place] Yes [id number] Check Univ ers Device with 1-28 blood ity of Lancets 00:00: glucose 4x [place] (ACCU-CHEK daily Medical FASTCLIX Branch LANCING DEV) Kit [place] Yes [id number] Check Univ ers Device with 1-28 blood ity of Lancets 00:00: glucose 4x [place] (ACCU-CHEK daily Medical FASTCLIX Branch LANCING DEV) Kit [place] Yes [id number] Check Univ ers Device with 1-28 blood ity of Lancets 00:00: glucose 4x [place] (ACCU-CHEK daily Medical FASTCLIX Branch LANCING DEV) Kit [place] Yes [id number] Check Univ ers Device with 1-28 blood ity of Lancets 00:00: glucose 4x [place] (ACCU-CHEK daily Medical FASTCLIX Branch LANCING DEV) Kit [place] Yes [id number] Check Univ ers Device with 1-28 blood ity of Lancets 00:00: glucose 4x [place] (ACCU-CHEK daily Medical FASTCLIX Branch LANCING DEV) Kit [place] Yes [id number] Check Univ ers Device with 1-28 blood ity of Lancets 00:00: glucose 4x [place] (ACCU-CHEK 00 daily Medical FASTCLIX Branch LANCING DEV) Kit [place] Yes [id number] Check Univ ers Device with 1-28 blood ity of Lancets 00:00: glucose 4x [place] (ACCU-CHEK 00 daily Medical FASTCLIX Branch LANCING DEV) Kit metFORMIN 2014-10 Yes [id number] 1000mg Take 1 Tab [facility] (GLUCOPHAGE 0-13 by mouth 2 it y of ) 1,000 mg 00:00: (two) [place] tablet 00 times Medical daily with Branch meals. metFORMIN 2014-10 Yes [id number] 1000mg Take 1 Tab [facility] (GLUCOPHAGE 0-13 by mouth 2 it y of ) 1,000 mg 00:00: (two) [place] tablet 00 times Medical daily with Branch meals. metFORMIN 2014-10 Yes [id number] 1000mg Take 1 Tab [facility] (GLUCOPHAGE 0-13 by mouth 2 it y of ) 1,000 mg 00:00: (two) [place] tablet 00 times Medical daily with Branch meals. metFORMIN 2014-10 Yes [id number] 1000mg Take 1 Tab [facility] (GLUCOPHAGE 0-13 by mouth 2 it y of ) 1,000 mg 00:00: (two) [place] tablet 00 times Medical daily with Branch meals. metFORMIN 2014-10 Yes [id number] 1000mg Take 1 Tab [facility] (GLUCOPHAGE 0-13 by mouth 2 it y of ) 1,000 mg 00:00: (two) [place] tablet 00 times Medical daily with Branch meals. metFORMIN 2014-10 Yes [id number] 1000mg Take 1 Tab [facility] (GLUCOPHAGE 0-13 by mouth 2 it y of ) 1,000 mg 00:00: (two) [place] tablet 00 times Medical daily with Branch meals. metFORMIN 2014-10 Yes [id number] 1000mg Take 1 Tab [facility] (GLUCOPHAGE 0-13 by mouth 2 it y of ) 1,000 mg 00:00: (two) [place] tablet 00 times Medical daily with Branch meals. metFORMIN 2014-10 Yes [id number] 1000mg Take 1 Tab [facility] (GLUCOPHAGE 0-13 by mouth 2 it y of ) 1,000 mg 00:00: (two) [place] tablet 00 times Medical daily with Branch meals. metFORMIN 2014-10 Yes [id number] 1000mg Take 1 Tab [facility] (GLUCOPHAGE 0-13 by mouth 2 it y of ) 1,000 mg 00:00: (two) [place] tablet 00 times Medical daily with Branch meals. metFORMIN 2014-10 Yes [id number] 1000mg Take 1 Tab [facility] (GLUCOPHAGE 0-13 by mouth 2 it y of ) 1,000 mg 00:00: (two) [place] tablet 00 times Medical daily with Branch meals. metFORMIN 2014-10 Yes [id number] 1000mg Take 1 Tab [facility] (GLUCOPHAGE 0-13 by mouth 2 it y of ) 1,000 mg 00:00: (two) [place] tablet 00 times Medical daily with Branch meals. metFORMIN 2014-10 Yes [id number] 1000mg Take 1 Tab [facility] (GLUCOPHAGE 0-13 by mouth 2 it y of ) 1,000 mg 00:00: (two) [place] tablet 00 times Medical daily with Branch meals. metFORMIN 2014-10 Yes [id number] 1000mg Take 1 Tab [facility] (GLUCOPHAGE 0-13 by mouth 2 it y of ) 1,000 mg 00:00: (two) [place] tablet 00 times Medical daily with Branch meals. metFORMIN 2014-10- No [id number] 1000mg Take 1 Tab [facility] (GLUCOPHAGE 0-13 11-03 by mouth 2 i ty of ) 1,000 mg 00:00: 00:00 (two) [place] tablet 00 :00 times Medical daily with Branch meals. Metronidazo Metronidazo Yes Flore[facility]io 1 tablet [facility] Terconazole Terconazole Yes [facility] n at bedtime Immunizations Ordered Filled Immunization Date Status Comments [facility] e Immunization Name Name AP 2022-12-25 Completed [facility] of 00:00: [facility] TDAP 2022-12-25 Completed University of :00: [facility] TDAP 2022-12-25 Completed University of 00:00: [facility] TDAP 2022-12-25 Completed University of 00:00: [facility] TDAP 2022-12-25 Completed University of 00:00:00 [facility] TDAP 2022-12-25 Completed University of 00:00:00 [facility] TDAP 2022-12-25 Completed University of :00: [facility] TDAP 2022-12-25 Completed University of 00:00:00 [facility] TDAP 2022-12-25 Completed University of 00:00:00 [place] [facility] TDAP 2022-12-25 Completed [facility] of 00:00:00 [place] [facility] TDAP 2022-12-25 Completed [facility] of 00:00:00 [place] [facility] TDAP 2022-12-25 Completed [facility] of 00:00:00 [place] [facility] TDAP 2022-12-25 Completed [facility] of 00:00:00 [place] [facility] TDAP 2022-12-25 Completed [facility] of 00:00:00 [place] [facility] TDAP 2022-12-25 Completed [facility] of 00:00:00 [place] [facility] TDAP 2022-12-25 Completed [facility] of 00:00:00 [place] [facility] TDAP 2022-12-25 Completed [facility] of 00:00:00 [place] [facility] TDAP 2022-12-25 Completed [facility] of 00:00:00 [place] [facility] TDAP 2022-12-25 Completed University of 00:00:00 [facility] TDAP 2021-09-08 Completed University of 00:00:00 [place] [facility] TDAP 2021-09-08 Completed University of 00:00:00 [place] [facility] TDAP 2021-09-08 Completed University of 00:00:00 [place] [facility] TDAP 2021-09-08 Completed [facility] of 00:00:00 [place] [facility] TDAP 2021-09-08 Completed [facility] of 00:00:00 [place] [facility] TDAP 2021-09-08 Completed [facility] of 00:00:00 [place] [facility] TDAP 2021-09-08 Completed [facility] of 00:00:00 [place] [facility] TDAP 2021-09-08 Completed [facility] of 00:00:00 [place] [facility] TDAP 2021-09-08 Completed [facility] 00[facility]:00 [facility] TDAP 2021-09-08 Completed [facility] 00[facility]00:00 [facility] TDAP 2021-09-08 Completed [facility] 00:00:00 [facility] TDAP 2021-09-08 Completed [facility] 00:00:00 [facility] TDAP 2021-09-08 Completed [facility] 00:00:00 [facility] TDAP 2021-09-08 Completed [facility] 00:00:00 [facility] TDAP 2021-09-08 Completed [facility] 00[facility]00:00 [facility] TDAP 2021-09-08 Completed [facility] 00:00:00 [facility] TDAP 2021-09-08 Completed [facility] 00[facility]00:00 [facility] TDAP 2021-09-08 Completed [facility] 00:00:00 [facility] TDAP 2021-09-08 Completed [facility] 00[facility]00:00 [facility] TDAP 2021-09-08 Completed [facility] 00:00:00 [facility] TDAP 2021-09-08 Completed [facility] 00[facility]00:00 [facility] TDAP 2021-09-08 Completed [facility] 00:00:00 [facility] TDAP 2021-09-08 Completed [facility] 00:00:00 [facility] TDAP 2021-09-08 Completed [facility] 00:00:00 [facility] TDAP 2021-09-08 Completed [facility] 00:00:00 [facility] TDAP 2021-09-08 Completed [facility] 00:00:00 [facility] TDAP 2021-09-08 Completed [facility] 00:00:00 [facility] TDAP 2021-09-08 Completed [facility] 00[facility]00:00 [facility] TDAP 2021-09-08 Completed [facility] 00:00:00 [facility] TDAP 2021-09-08 Completed [facility] 00:00:00 [facility] TDAP 2021-09-08 Completed [facility] 00:00:00 [facility] TDAP 2021-09-08 Completed [facility] 00[facility]00:00 [facility] TDAP 2021-09-08 Completed [facility] 00:00:00 [facility] TDAP 2021-09-08 Completed [facility] 00:00:00 [facility] TDAP 2021-09-08 Completed [facility] 00:00:00 [facility] TDAP 2021-09-08 Completed [facility] 00:00:00 [facility] TDAP 2021-09-08 Completed [facility] 00:00:00 [facility] TDAP 2021-09-08 Completed [facility] 00:00:00 [facility] TDAP 2021-09-08 Completed [facility] 00:00:00 [facility] TDAP 2021-09-08 Completed [facility] 00:00:00 [facility] TDAP 2021-09-08 Completed [facility] 00:00:00 [facility] TDAP 2021-09-08 Completed [facility] 00:00:00 [facility] TDAP 2021-09-08 Completed [facility] 00:00:00 [facility] TDAP 2021-09-08 Completed [facility] 00:00:00 [facility] TDAP 2021-09-08 Completed [facility] 00:00:00 [facility] TDAP 2021-09-08 Completed [facility] 00:00:00 [facility] TDAP 2021-09-08 Completed [facility] 00:00:00 [facility] TDAP 2021-09-08 Completed [facility] 00:00:00 [facility] TDAP 2021-09-08 Completed [facility] 00:00:00 [facility] TDAP 2021-09-08 Completed [facility] 00:00:00 [facility] TDAP 2021-09-08 Completed [facility] 00:00:00 [facility] TDAP 2021-09-08 Completed [facility] 00:00:00 [facility] TDAP 2021-09-08 Completed [facility] 00:00:00 [facility] TDAP 2021-09-08 Completed [facility] 00:00:00 [facility] TDAP 2021-09-08 Completed [facility] 00:00:00 [facility] TDAP 2021-09-08 Completed [facility] 00:00:00 [facility] TDAP 2021-09-08 Completed [facility] 00:00:00 [facility] TDAP 2021-09-08 Completed [facility] 00:00:00 [facility] TDAP 2021-09-08 Completed [facility] 00:00:00 [facility] TDAP 2021-09-08 Completed [facility] 00[facility]00:00 [facility] TDAP 2021-09-08 Completed [facility] 00:00:00 [facility] TDAP 2021-09-08 Completed [facility] 00:00:00 [facility] TDAP 2021-09-08 Completed [facility] 00:00:00 [facility] TDAP 2021-09-08 Completed [facility] 00:00:00 [facility] TDAP 2021-09-08 Completed [facility] 00:00:00 [facility] TDAP 2021-09-08 Completed [facility] 00:00:00 [facility] TDAP 2021-09-08 Completed [facility] 00:00:00 [facility] TDAP 2021-09-08 Completed [facility] 00:00:00 [facility] TDAP 2021-09-08 Completed [facility] 00:00:00 [facility] TDAP 2021-09-08 Completed [facility] 00:00:00 [facility] TDAP 2021-09-08 Completed [facility] 00:00:00 [facility] TDAP 2021-09-08 Completed [facility] 00:00:00 [facility] TDAP 2021-09-08 Completed [facility] 00:00:00 [facility] TDAP 2021-09-08 Completed [facility] 00:00:00 [facility] TDAP 2021-09-08 Completed [facility] 00:00:00 [facility] TDAP 2021-09-08 Completed [facility] 00:00:00 [facility] TDAP 2021-09-08 Completed [facility] 00:00:00 [facility] TDAP 2021-09-08 Completed [facility] 00:00:00 [facility] TDAP 2021-09-08 Completed [facility] 00:00:00 [facility] TDAP 2021-09-08 Completed [facility] 00:00:00 [facility] Rubella 2010-01-18 Completed [facility] 00:00:00 [facility] Rubella 2010-01-18 Completed [facility] 00:00:00 [facility] Rubella 2010-01-18 Completed [facility] 00:00:00 [facility] Rubella 2010-01-18 Completed [facility] 00:00:00 [facility] Rubella 2010-01-18 Completed [facility] 00:00:00 [facility] Rubella 2010-01-18 Completed [facility] 00:00:00 [facility] Rubella 2010-01-18 Completed [facility] 00:00:00 [facility] Rubella 2010-01-18 Completed [facility] 00:00:00 [facility] Rubella 2010-01-18 Completed [facility] 00:00:00 [facility] Rubella 2010-01-18 Completed [facility] 00:00:00 [facility] Rubella 2010-01-18 Completed [facility] 00:00:00 [facility] Rubella 2010-01-18 Completed [facility] 00:00:00 [facility] Rubella 2010-01-18 Completed [facility] 00:00:00 [facility] Rubella 2010-01-18 Completed [facility] 00:00:00 [facility] Rubella 2010-01-18 Completed [facility] 00:00:00 [facility] Rubella 2010-01-18 Completed [facility] 00:00:00 [facility] Rubella 2010-01-18 Completed [facility] 00:00:00 [facility] Rubella 2010-01-18 Completed [facility] 00:00:00 [facility] Rubella 2010-01-18 Completed [facility] 00:00:00 [facility] Rubella 2010-01-18 Completed [facility] 00:00:00 [facility] Rubella 2010-01-18 Completed [facility] 00:00:00 [facility] Rubella 2010-01-18 Completed [facility] 00:00:00 [facility] Rubella 2010-01-18 Completed [facility] 00:00:00 [facility] Rubella 2010-01-18 Completed [facility] 00:00:00 [facility] Rubella 2010-01-18 Completed [facility] 00:00:00 [facility] Rubella 2010-01-18 Completed [facility] 00:00:00 [facility] Rubella 2010-01-18 Completed [facility] 00:00:00 [facility] Rubella 2010-01-18 Completed [facility] 00:00:00 [facility] Rubella 2010-01-18 Completed [facility] 00:00:00 [facility] Rubella 2010-01-18 Completed [facility] 00:00:00 [facility] Rubella 2010-01-18 Completed [facility] 00:00:00 [facility] Rubella 2010-01-18 Completed [facility] 00:00:00 [facility] Rubella 2010-01-18 Completed [facility] 00:00:00 [facility] Rubella 2010-01-18 Completed [facility] 00:00:00 [facility] Rubella 2010-01-18 Completed [facility] 00:00:00 [facility] Rubella 2010-01-18 Completed [facility] 00:00:00 [facility] Rubella 2010-01-18 Completed [facility] 00:00:00 [facility] Rubella 2010-01-18 Completed [facility] 00:00:00 [facility] Rubella 2010-01-18 Completed [facility] 00:00:00 [facility] Rubella 2010-01-18 Completed [facility] 00:00:00 [facility] Rubella 2010-01-18 Completed [facility] 00:00:00 [facility] Rubella 2010-01-18 Completed [facility] 00:00:00 [facility] Rubella 2010-01-18 Completed [facility] 00:00:00 [facility] Rubella 2010-01-18 Completed [facility] 00:00:00 [facility] Rubella 2010-01-18 Completed [facility] 00:00:00 [facility] Rubella 2010-01-18 Completed [facility] 00:00:00 [facility] Rubella 2010-01-18 Completed [facility] 00:00:00 [facility] Rubella 2010-01-18 Completed [facility] 00:00:00 [facility] Rubella 2010-01-18 Completed [facility] 00:00:00 [facility] Rubella 2010-01-18 Completed [facility] 00:00:00 [facility] Rubella 2010-01-18 Completed [facility] 00:00:00 [facility] Rubella 2010-01-18 Completed [facility] 00:00:00 [facility] Rubella 2010-01-18 Completed [facility] 00:00:00 [facility] Rubella 2010-01-18 Completed [facility] 00:00:00 [facility] Rubella 2010-01-18 Completed [facility] 00:00:00 [facility] Rubella 2010-01-18 Completed [facility] 00:00:00 [facility] Rubella 2010-01-18 Completed [facility] 00:00:00 [facility] Rubella 2010-01-18 Completed [facility] 00:00:00 [facility] Rubella 2010-01-18 Completed [facility] 00:00:00 [facility] Rubella 2010-01-18 Completed [facility] 00:00:00 [facility] Rubella 2010-01-18 Completed [facility] 00:00:00 [facility] Rubella 2010-01-18 Completed [facility] 00:00:00 [facility] Rubella 2010-01-18 Completed [facility] 00:00:00 [facility] Rubella 2010-01-18 Completed [facility] 00:00:00 [facility] Rubella 2010-01-18 Completed [facility] 00:00:00 [facility] Rubella 2010-01-18 Completed [facility] 00:00:00 [facility] Rubella 2010-01-18 Completed [facility] 00:00:00 [facility] Rubella 2010-01-18 Completed [facility] 00:00:00 [facility] Rubella 2010-01-18 Completed [facility] 00:00:00 [facility] Rubella 2010-01-18 Completed [facility] 00:00:00 [facility] Rubella 2010-01-18 Completed [facility] 00:00:00 [facility] Rubella 2010-01-18 Completed [facility] 00:00:00 [facility] Rubella 2010-01-18 Completed [facility] 00:00:00 [facility] Rubella 2010-01-18 Completed [facility] 00:00:00 [facility] Rubella 2010-01-18 Completed [facility] 00:00:00 [facility] Rubella 2010-01-18 Completed [facility] 00:00:00 [facility] Rubella 2010-01-18 Completed [facility] 00:00:00 [facility] Rubella 2010-01-18 Completed [facility] 00:00:00 [facility] Rubella 2010-01-18 Completed [facility] 00:00:00 [facility] Rubella 2010-01-18 Completed [facility] 00:00:00 [facility] HPV 2008-01-09 Completed [facility] 00:00:00 [facility] HPV 2008-01-09 Completed [facility] 00:00:00 [facility] HPV 2008-01-09 Completed [facility] 00:00:00 [facility] HPV 2008-01-09 Completed [facility] 00:00:00 [facility] HPV 2008-01-09 Completed [facility] 00:00:00 [facility] HPV 2008-01-09 Completed [facility] 00:00:00 [facility] HPV 2008-01-09 Completed [facility] 00:00:00 [facility] HPV 2008-01-09 Completed [facility] 00:00:00 [facility] HPV 2008-01-09 Completed [facility] 00:00:00 [facility] HPV 2008-01-09 Completed [facility] 00:00:00 [facility] HPV 2008-01-09 Completed [facility] 00:00:00 [facility] HPV 2008-01-09 Completed [facility] 00:00:00 [facility] HPV 2008-01-09 Completed [facility] 00:00:00 [facility] HPV 2008-01-09 Completed [facility] 00:00:00 [facility] HPV 2008-01-09 Completed [facility] 00:00:00 [facility] HPV 2008-01-09 Completed [facility] 00:00:00 [facility] HPV 2008-01-09 Completed [facility] 00:00:00 [facility] HPV 2008-01-09 Completed [facility] 00:00:00 [facility] HPV 2008-01-09 Completed [facility] 00:00:00 [facility] HPV 2008-01-09 Completed [facility] 00:00:00 [facility] HPV 2008-01-09 Completed [facility] 00:00:00 [facility] HPV 2008-01-09 Completed [facility] 00:00:00 [facility] HPV 2008-01-09 Completed [facility] 00:00:00 [facility] HPV 2008-01-09 Completed [facility] 00:00:00 [facility] HPV 2008-01-09 Completed [facility] 00:00:00 [facility] HPV 2008-01-09 Completed [facility] 00:00:00 [facility] HPV 2008-01-09 Completed [facility] 00:00:00 [facility] HPV 2008-01-09 Completed [facility] 00:00:00 [facility] HPV 2008-01-09 Completed [facility] 00:00:00 [facility] HPV 2008-01-09 Completed [facility] 00:00:00 [facility] HPV 2008-01-09 Completed [facility] 00:00:00 [facility] HPV 2008-01-09 Completed [facility] 00:00:00 [facility] HPV 2008-01-09 Completed [facility] 00:00:00 [facility] HPV 2008-01-09 Completed [facility] 00:00:00 [facility] HPV 2008-01-09 Completed [facility] 00:00:00 [facility] HPV 2008-01-09 Completed [facility] 00:00:00 [facility] HPV 2008-01-09 Completed [facility] 00:00:00 [facility] HPV 2008-01-09 Completed [facility] 00:00:00 [facility] HPV 2008-01-09 Completed [facility] 00:00:00 [facility] HPV 2008-01-09 Completed [facility] 00:00:00 [facility] HPV 2008-01-09 Completed [facility] 00:00:00 [facility] HPV 2008-01-09 Completed [facility] 00:00:00 [facility] HPV 2008-01-09 Completed [facility] 00:00:00 [facility] HPV 2008-01-09 Completed [facility] 00:00:00 [facility] HPV 2008-01-09 Completed [facility] 00:00:00 [facility] HPV 2008-01-09 Completed [facility] 00:00:00 [facility] HPV 2008-01-09 Completed [facility] 00:00:00 [facility] HPV 2008-01-09 Completed [facility] 00:00:00 [facility] HPV 2008-01-09 Completed [facility] 00:00:00 [facility] HPV 2008-01-09 Completed [facility] 00:00:00 [facility] HPV 2008-01-09 Completed [facility] 00:00:00 [facility] HPV 2008-01-09 Completed [facility] 00:00:00 [facility] HPV 2008-01-09 Completed [facility] 00:00:00 [facility] HPV 2008-01-09 Completed [facility] 00:00:00 [facility] HPV 2008-01-09 Completed [facility] 00:00:00 [facility] HPV 2008-01-09 Completed [facility] 00:00:00 [facility] HPV 2008-01-09 Completed [facility] 00:00:00 [facility] HPV 2008-01-09 Completed [facility] 00:00:00 [facility] HPV 2008-01-09 Completed [facility] 00:00:00 [facility] HPV 2008-01-09 Completed [facility] 00:00:00 [facility] HPV 2008-01-09 Completed [facility] 00:00:00 [facility] HPV 2008-01-09 Completed [facility] 00:00:00 [facility] HPV 2008-01-09 Completed [facility] 00:00:00 [facility] HPV 2008-01-09 Completed [facility] 00:00:00 [facility] HPV 2008-01-09 Completed [facility] 00:00:00 [facility] HPV 2008-01-09 Completed [facility] 00:00:00 [facility] HPV 2008-01-09 Completed [facility] 00:00:00 [facility] HPV 2008-01-09 Completed [facility] 00:00:00 [facility] HPV 2008-01-09 Completed [facility] 00:00:00 [facility] HPV 2008-01-09 Completed [facility] 00:00:00 [facility] HPV 2008-01-09 Completed [facility] 00:00:00 [facility] HPV 2008-01-09 Completed [facility] 00:00:00 [facility] HPV 2008-01-09 Completed [facility] 00:00:00 [facility] HPV 2008-01-09 Completed [facility] 00:00:00 [facility] HPV 2008-01-09 Completed [facility] 00:00:00 [facility] HPV 2008-01-09 Completed [facility] 00:00:00 [facility] HPV 2008-01-09 Completed [facility] 00:00:00 [facility] HPV 2008-01-09 Completed [facility] 00:00:00 [facility] HPV 2008-01-09 Completed [facility] 00:00:00 [facility] HPV 2008-01-09 Completed [facility] 00:00:00 [facility] Td 2005-05-14 Completed [facility] 00:00:00 [facility] Td 2005-05-14 Completed [facility] 00:00:00 [facility] Td 2005-05-14 Completed [facility] 00:00:00 [facility] Td 2005-05-14 Completed [facility] 00:00:00 [facility] Td 2005-05-14 Completed [facility] 00:00:00 [facility] Td 2005-05-14 Completed [facility] 00:00:00 [facility] Td 2005-05-14 Completed [facility] 00:00:00 [facility] Td 2005-05-14 Completed [facility] 00:00:00 [facility] Td 2005-05-14 Completed [facility] 00:00:00 [facility] Td 2005-05-14 Completed [facility] 00:00:00 [facility] Td 2005-05-14 Completed [facility] 00:00:00 [facility] Td 2005-05-14 Completed [facility] 00:00:00 [facility] Td 2005-05-14 Completed [facility] 00:00:00 [facility] Td 2005-05-14 Completed [facility] 00:00:00 [facility] Td 2005-05-14 Completed [facility] 00:00:00 [facility] Td 2005-05-14 Completed [facility] 00:00:00 [facility] TD, NOS 2005-05-14 Completed [facility] 00:00:00 [facility] TD, NOS 2005-05-14 Completed [facility] 00:00:00 [facility] TD, NOS 2005-05-14 Completed [facility] 00:00:00 [facility] TD, NOS 2005-05-14 Completed [facility] 00:00:00 [facility] TD, NOS 2005-05-14 Completed [facility] 00:00:00 [facility] TD, NOS 2005-05-14 Completed [facility] 00:00:00 [facility] TD, NOS 2005-05-14 Completed [facility] 00:00:00 [facility] TD, NOS 2005-05-14 Completed [facility] 00:00:00 [facility] TD, NOS 2005-05-14 Completed [facility] 00:00:00 [facility] TD, NOS 2005-05-14 Completed [facility] 00:00:00 [facility] TD, NOS 2005-05-14 Completed [facility] 00:00:00 [facility] TD, NOS 2005-05-14 Completed [facility] 00:00:00 [facility] TD, NOS 2005-05-14 Completed [facility] 00:00:00 [facility] TD, NOS 2005-05-14 Completed [facility] 00:00:00 [facility] TD, NOS 2005-05-14 Completed [facility] 00:00:00 [facility] TD, NOS 2005-05-14 Completed [facility] 00:00:00 [facility] TD, NOS 2005-05-14 Completed [facility] 00:00:00 [facility] TD, NOS 2005-05-14 Completed [facility] 00:00:00 [facility] TD, NOS 2005-05-14 Completed [facility] 00:00:00 [facility] TD, NOS 2005-05-14 Completed [facility] 00:00:00 [facility] TD, NOS 2005-05-14 Completed [facility] 00:00:00 [facility] TD, NOS 2005-05-14 Completed [facility] 00:00:00 [facility] TD, NOS 2005-05-14 Completed [facility] 00:00:00 [facility] TD, NOS 2005-05-14 Completed [facility] 00:00:00 [facility] TD, NOS 2005-05-14 Completed [facility] 00:00:00 [facility] TD, NOS 2005-05-14 Completed [facility] 00:00:00 [facility] TD, NOS 2005-05-14 Completed [facility] 00:00:00 [facility] TD, NOS 2005-05-14 Completed [facility] 00:00:00 [facility] TD, NOS 2005-05-14 Completed [facility] 00:00:00 [facility] TD, NOS 2005-05-14 Completed [facility] 00:00:00 [facility] TD, NOS 2005-05-14 Completed [facility] 00:00:00 [facility] TD, NOS 2005-05-14 Completed [facility] 00:00:00 [facility] TD, NOS 2005-05-14 Completed [facility] 00:00:00 [facility] TD, NOS 2005-05-14 Completed [facility] 00:00:00 [facility] TD, NOS 2005-05-14 Completed [facility] 00:00:00 [facility] TD, NOS 2005-05-14 Completed [facility] 00:00:00 [facility] TD, NOS 2005-05-14 Completed [facility] 00:00:00 [facility] TD, NOS 2005-05-14 Completed [facility] 00:00:00 [facility] TD, NOS 2005-05-14 Completed [facility] 00:00:00 [facility] TD, NOS 2005-05-14 Completed [facility] 00:00:00 [facility] TD, NOS 2005-05-14 Completed [facility] 00:00:00 [facility] TD, NOS 2005-05-14 Completed [facility] 00:00:00 [facility] TD, NOS 2005-05-14 Completed [facility] 00:00:00 [facility] TD, NOS 2005-05-14 Completed [facility] 00:00:00 [facility] TD, NOS 2005-05-14 Completed [facility] 00:00:00 [facility] TD, NOS 2005-05-14 Completed [facility] 00:00:00 [facility] TD, NOS 2005-05-14 Completed [facility] 00:00:00 [facility] TD, NOS 2005-05-14 Completed [facility] 00:00:00 [facility] TD, NOS 2005-05-14 Completed [facility] 00:00:00 [facility] TD, NOS 2005-05-14 Completed [facility] 00:00:00 [facility] TD, NOS 2005-05-14 Completed [facility] 00:00:00 [facility] Td 2005-05-14 Completed [facility] 00:00:00 [facility] Td 2005-05-14 Completed [facility] 00:00:00 [facility] Td 2005-05-14 Completed [facility] 00:00:00 [facility] Td 2005-05-14 Completed [facility] 00:00:00 [facility] Td 2005-05-14 Completed [facility] 00:00:00 [facility] Td 2005-05-14 Completed [facility] 00:00:00 [facility] Td 2005-05-14 Completed [facility] 00:00:00 [facility] Td 2005-05-14 Completed [facility] 00:00:00 [facility] Td 2005-05-14 Completed [facility] 00:00:00 [facility] Td 2005-05-14 Completed [facility] 00:00:00 [facility] Td 2005-05-14 Completed [facility] 00:00:00 [facility] Td 2005-05-14 Completed [facility] 00:00:00 [facility] Td 2005-05-14 Completed [facility] 00:00:00 [facility] Vital Signs Vital Name Observation Time Observation Value Comments Source Systolic blood 2023-02-19 20:11:00 122 mm[Hg] [facility] Diastolic blood 2023-02-19 20:11:00 65 mm[Hg] [facility] Heart rate 2023-02-19 20:11:00 92 /min [facility] Body temperature 2023-02-19 20:11:00 36.72 Jennifer [facility] Body weight 2023-02-19 20:11:00 74.934 kg [facility] BMI 2023-02-19 20:11:00 30.22 kg/m2 [facility] Systolic blood 2023-02-15 15:28:00 122 mm[Hg] [facility] Diastolic blood 2023-02-15 15:28:00 69 mm[Hg] [facility] Heart rate 2023-02-15 15:28:00 88 /min [facility] Body temperature 2023-02-15 15:28:00 36.61 Jennifer [facility] Respiratory rate 2023-02-15 15:28:00 18 /min [facility] Body height 2023-02-15 15:28:00 157.5 cm [facility] Body weight 2023-02-15 15:28:00 74.844 kg [facility] BMI 2023-02-15 15:28:00 30.18 kg/m2 [facility] Systolic blood 2023-02-12 15:44:00 136 mm[Hg] [facility] Diastolic blood 2023-02-12 15:44:00 85 mm[Hg] [facility] Heart rate 2023-02-12 15:44:00 109 /min [facility] Body temperature 2023-02-12 15:44:00 36.5 Jennifer [facility] Respiratory rate 2023-02-12 15:44:00 18 /min [facility] Body height 2023-02-12 15:44:00 157.5 cm [facility] Body weight 2023-02-12 15:44:00 73.936 kg [facility] BMI 2023-02-12 15:44:00 29.81 kg/m2 [facility] Systolic blood 2023-02-08 14:21:00 121 mm[Hg] [facility] Diastolic blood 2023-02-08 14:21:00 79 mm[Hg] [facility] Heart rate 2023-02-08 14:21:00 97 /min [facility] Body temperature 2023-02-08 14:21:00 36.89 Jennifer [facility] Respiratory rate 2023-02-08 14:21:00 18 /min [facility] Body height 2023-02-08 14:21:00 157.5 cm [facility] Body weight 2023-02-08 14:21:00 73.483 kg [facility] BMI 2023-02-08 14:21:00 29.63 kg/m2 [facility] Systolic blood 2023-02-05 14:26:00 128 mm[Hg] [facility] Diastolic blood 2023-02-05 14:26:00 74 mm[Hg] [facility] Heart rate 2023-02-05 14:26:00 99 /min [facility] Body temperature 2023-02-05 14:26:00 36.61 Jennifer [facility] Respiratory rate 2023-02-05 14:26:00 18 /min [facility] Body height 2023-02-05 14:26:00 157.5 cm [facility] Body weight 2023-02-05 14:26:00 73.936 kg [facility] BMI 2023-02-05 14:26:00 29.81 kg/m2 [facility] Systolic blood 2023-02-02 18:58:00 127 mm[Hg] [facility] Diastolic blood 2023-02-02 18:58:00 82 mm[Hg] [facility] Heart rate 2023-02-02 18:58:00 109 /min [facility] Respiratory rate 2023-02-02 18:58:00 18 /min [facility] Body height 2023-02-02 18:58:00 157.5 cm [facility] Body weight 2023-02-02 18:58:00 73.936 kg [facility] BMI 2023-02-02 18:58:00 29.81 kg/m2 [facility] Systolic blood 2023-01-30 16:40:00 130 mm[Hg] [facility] Diastolic blood 2023-01-30 16:40:00 73 mm[Hg] [facility] Heart rate 2023-01-30 16:40:00 64 /min [facility] Body temperature 2023-01-30 16:40:00 36.78 Jennifer [facility] Respiratory rate 2023-01-30 16:40:00 18 /min [facility] Body height 2023-01-30 16:40:00 157.5 cm [facility] Body weight 2023-01-30 16:40:00 72.576 kg [facility] BMI 2023-01-30 16:40:00 29.26 kg/m2 [facility] Systolic blood 2023-01-25 15:16:00 119 mm[Hg] [facility] Diastolic blood 2023-01-25 15:16:00 74 mm[Hg] [facility] Heart rate 2023-01-25 15:16:00 98 /min [facility] Body temperature 2023-01-25 15:16:00 36.78 Jennifer [facility] Respiratory rate 2023-01-25 15:16:00 18 /min [facility] Body height 2023-01-25 15:16:00 157.5 cm [facility] Body weight 2023-01-25 15:16:00 71.94 kg [facility] BMI 2023-01-25 15:16:00 29.01 kg/m2 [facility] Systolic blood 2023-01-17 18:45:00 129 mm[Hg] [facility] Diastolic blood 2023-01-17 18:45:00 74 mm[Hg] [facility] Heart rate 2023-01-17 18:45:00 118 /min [facility] Body temperature 2023-01-17 18:45:00 36.61 Jennifer [facility] Respiratory rate 2023-01-17 18:45:00 18 /min [facility] Body height 2023-01-17 18:45:00 157.5 cm [facility] Body weight 2023-01-17 18:45:00 70.761 kg [facility] BMI 2023-01-17 18:45:00 28.53 kg/m2 [facility] Systolic blood 2022-12-25 16:21:00 120 mm[Hg] [facility] Diastolic blood 2022-12-25 16:21:00 70 mm[Hg] [facility] Heart rate 2022-12-25 16:21:00 105 /min [facility] Body temperature 2022-12-25 16:21:00 36.72 Jennifer [facility] Respiratory rate 2022-12-25 16:21:00 18 /min [facility] Body height 2022-12-25 16:21:00 157.5 cm [facility] Body weight 2022-12-25 16:21:00 70.761 kg [facility] BMI 2022-12-25 16:21:00 28.53 kg/m2 [facility] Systolic blood 2022-11-27 15:54:00 122 mm[Hg] [facility] Diastolic blood 2022-11-27 15:54:00 74 mm[Hg] [facility] Heart rate 2022-11-27 15:54:00 72 /min [facility] Body temperature 2022-11-27 15:54:00 36.61 Jennifer [facility] Respiratory rate 2022-11-27 15:54:00 18 /min [facility] Body height 2022-11-27 15:54:00 157.5 cm [facility] Body weight 2022-11-27 15:54:00 69.854 kg [facility] BMI 2022-11-27 15:54:00 28.17 kg/m2 [facility] Systolic blood 2022-10-26 17:25:00 112 mm[Hg] [facility] Diastolic blood 2022-10-26 17:25:00 59 mm[Hg] [facility] Heart rate 2022-10-26 17:25:00 96 /min [facility] [place] Body temperature 2022-10-26 17:25:00 36.83 Jennifer [facility] Body height 2022-10-26 17:25:00 157.5 cm [facility] Body weight 2022-10-26 17:25:00 65.772 kg [facility] BMI 2022-10-26 17:25:00 26.52 kg/m2 [facility] Systolic blood 2022-10-26 15:43:00 132 mm[Hg] [facility] Diastolic blood 2022-10-26 15:43:00 65 mm[Hg] [facility] Heart rate 2022-10-26 15:43:00 109 /min [facility] Respiratory rate 2022-10-26 15:43:00 21 /min [facility] Body height 2022-10-26 15:43:00 157.5 cm [facility] Body weight 2022-10-26 15:43:00 66.679 kg [facility] BMI 2022-10-26 15:43:00 26.89 kg/m2 [facility] Oxygen saturation in 2022-10-26 15:43:00 100 /min [facility] Arterial blood by [facility] Pulse oximetry Branch Systolic blood 2022-10-12 17:06:00 104 mm[Hg] [facility] Diastolic blood 2022-10-12 17:06:00 65 mm[Hg] [facility] Heart rate 2022-10-12 17:06:00 111 /min [facility] Body temperature 2022-10-12 17:06:00 36.78 Jennifer [facility] Body height 2022-10-12 17:06:00 157.5 cm [facility] Body weight 2022-10-12 17:06:00 66.225 kg [facility] BMI 2022-10-12 17:06:00 26.70 kg/m2 [facility] Systolic blood 2022-10-09 18:53:00 125 mm[Hg] [facility] Diastolic blood 2022-10-09 18:53:00 67 mm[Hg] [facility] Heart rate 2022-10-09 18:53:00 102 /min [facility] Body temperature 2022-10-09 18:53:00 36.28 Jennifer [facility] Respiratory rate 2022-10-09 18:53:00 18 /min [facility] Body weight 2022-10-09 18:53:00 65.59 kg [facility] BMI 2022-10-09 18:53:00 26.45 kg/m2 [facility] Systolic blood 2022-09-28 16:13:00 106 mm[Hg] [facility] Diastolic blood 2022-09-28 16:13:00 63 mm[Hg] [facility] Heart rate 2022-09-28 16:13:00 93 /min [facility] Body temperature 2022-09-28 16:13:00 36.61 Jennifer [facility] Body height 2022-09-28 16:13:00 157.5 cm [facility] Body weight 2022-09-28 16:13:00 64.229 kg [facility] BMI 2022-09-28 16:13:00 25.90 kg/m2 [facility] Systolic blood 2022-09-13 15:55:00 111 mm[Hg] [facility] Diastolic blood 2022-09-13 15:55:00 67 mm[Hg] [facility] Heart rate 2022-09-13 15:55:00 101 /min [facility] Body temperature 2022-09-13 15:55:00 36.72 Jennifer [facility] Body height 2022-09-13 15:55:00 157.5 cm [facility] Body weight 2022-09-13 15:55:00 64.139 kg [facility] BMI 2022-09-13 15:55:00 25.86 kg/m2 [facility] Systolic blood 2022-09-11 20:20:00 124 mm[Hg] [facility] Diastolic blood 2022-09-11 20:20:00 65 mm[Hg] [facility] Heart rate 2022-09-11 20:20:00 102 /min [facility] Respiratory rate 2022-09-11 20:20:00 18 /min [facility] of [facility] Oxygen saturation in 2022-09-11 20:20:00 100 /min [facility] of Arterial blood by [facility] Pulse oximetry Branch Body temperature 2022-09-11 18:32:00 36.78 Jennifer [facility] Body height 2022-09-11 18:32:00 157.5 cm [facility] Body weight 2022-09-11 18:32:00 63.005 kg [facility] BMI 2022-09-11 18:32:00 25.41 kg/m2 [facility] Systolic blood 2022-08-28 19:32:00 123 mm[Hg] [facility] Diastolic blood 2022-08-28 19:32:00 77 mm[Hg] [facility] Heart rate 2022-08-28 19:32:00 112 /min [facility] Body temperature 2022-08-28 19:32:00 36.72 Jennifer [facility] Respiratory rate 2022-08-28 19:32:00 18 /min [facility] Body height 2022-08-28 19:32:00 160 cm [facility] Body weight 2022-08-28 19:32:00 63.957 kg [facility] BMI 2022-08-28 19:32:00 24.98 kg/m2 [facility] Systolic blood 2022-08-17 16:43:00 103 mm[Hg] [facility] Diastolic blood 2022-08-17 16:43:00 66 mm[Hg] [facility] Heart rate 2022-08-17 16:43:00 105 /min [facility] Body temperature 2022-08-17 16:43:00 36.78 Jennifer [facility] Respiratory rate 2022-08-17 16:43:00 17 /min [facility] Body height 2022-08-17 16:43:00 157.5 cm [facility] Body weight 2022-08-17 16:43:00 64.774 kg [facility] BMI 2022-08-17 16:43:00 26.12 kg/m2 [facility] Systolic blood 2022-08-03 15:11:00 117 mm[Hg] [facility] Diastolic blood 2022-08-03 15:11:00 72 mm[Hg] [facility] Heart rate 2022-08-03 15:11:00 105 /min [facility] Body temperature 2022-08-03 15:11:00 37.06 Jennifer [facility] Body height 2022-08-03 15:11:00 157.5 cm [facility] Body weight 2022-08-03 15:11:00 59.966 kg [facility] BMI 2022-08-03 15:11:00 24.18 kg/m2 [facility] Systolic blood 2022-07-19 16:45:00 138 mm[Hg] [facility] Diastolic blood 2022-07-19 16:45:00 83 mm[Hg] [facility] Heart rate 2022-07-19 16:45:00 108 /min [facility] Body temperature 2022-07-19 16:45:00 36.72 Jennifer [facility] Respiratory rate 2022-07-19 16:45:00 18 /min [facility] Body height 2022-07-19 16:45:00 157.5 cm [facility] Body weight 2022-07-19 16:45:00 60.328 kg [facility] BMI 2022-07-19 16:45:00 24.33 kg/m2 [facility] Systolic blood 2022-01-24 15:24:00 124 mm[Hg] [facility] Diastolic blood 2022-01-24 15:24:00 79 mm[Hg] [facility] Heart rate 2022-01-24 15:24:00 94 /min [facility] Body temperature 2022-01-24 15:24:00 36.83 Jennifer [facility] Body height 2022-01-24 15:24:00 157.5 cm [facility] Body weight 2022-01-24 15:24:00 63.413 kg [facility] BMI 2022-01-24 15:24:00 25.57 kg/m2 [facility] Systolic blood 2021-10-26 15:50:00 134 mm[Hg] [facility] Diastolic blood 2021-10-26 15:50:00 89 mm[Hg] [facility] Heart rate 2021-10-26 15:48:00 94 /min [facility] Body temperature 2021-10-26 15:48:00 36.5 Jennifer [facility] Respiratory rate 2021-10-26 15:48:00 18 /min [facility] Body height 2021-10-26 15:48:00 157.5 cm [facility] Body weight 2021-10-26 15:48:00 68.04 kg [facility] BMI 2021-10-26 15:48:00 27.44 kg/m2 [facility] Systolic blood 2021-02-26 13:12:00 110 mm[Hg] Method [facility] pressure Diastolic blood 2021-02-26 13:12:00 60 mm[Hg] [facility] pressure Heart rate 2021-02-26 13:12:00 89 /min [facility] Body temperature 2021-02-26 13:12:00 36.67 Jennifer [facility] Respiratory rate 2021-02-26 13:12:00 16 /min [facility] Oxygen saturation in 2021-02-26 13:12:00 100 /min [facility] Arterial blood by Pulse oximetry Body height 2021-02-26 09:52:00 157.5 cm [facility] Body weight 2021-02-26 09:52:00 58.2 kg [facility] BMI 2021-02-26 09:52:00 23.47 kg/m2 [facility] Procedures Procedure Date / Time Performing Clinician Source Performed NON-STRESS TEST 2023-02-19 21:14:16 Ste[facility] NON-STRESS TEST 2023-02-16 03:55:30 Huey Deluna [facility] DSU PRE-OP 2023-02-15 05:01:00 Doctor Unassigned, [facility] POCT URINALYSIS W/O 2023-02-15 00:00:00 Huey Deluna [facility] SPECIFIC [facility] NON-STRESS TEST 2023-02-12 16:10:50 Huey Deluan [facility] NON-STRESS TEST 2023-02-08 14:48:18 Huey Deluna [facility] NON-STRESS TEST 2023-02-05 14:48:03 Huey Deluna [facility] NON-STRESS TEST 2023-02-02 19:43:40 Huey Deluna [facility] POCT URINALYSIS W/O 2023-02-02 00:00:00 [facility] SPECIFIC [facility] [place] NON-STRESS TEST 2023-01-30 17:20:56 Stefany [facility] NON-STRESS TEST 2023-01-25 23:37:27 Huey Deluna [facility] DIABETES TESTING REPORTS 2023-01-17 05:01:00 Doctor Bailee [facility] [place] [facility] POCT URINALYSIS W/O 2023-01-17 00:00:[address] [facility] TDAP VACCINE, >11 YRS, IM 2022-12-25 16:56:15 Ambreen Alba [facility] POCT URINALYSIS W/O 2022-12-25 00:00:[address] [facility] EXTERNAL PROVIDER RECORDS 2022-12-21 05:01:00 Doctor Bailee, [facility] [place] [facility] PATIENT FINANCIAL 2022-11-27 15:49:05 Doctor Bailee, [facility] POLICY [place] [facility] POCT URINALYSIS W/O 2022-11-27 00:00:[address] [facility] DIABETES TESTING REPORTS 2022-10-27 06:01:00 Doctor Bailee [facility] Name [facility] DIABETES TESTING REPORTS 2022-10-26 06:01:00 Doctor Bailee [facility] [place] [facility] [place] POCT URINALYSIS W/O 2022-10-26 00:00:00 Huey Deluna [facility] [place] DIABETES TESTING REPORTS 2022-10-12 06:01:00 Doctor Bailee [facility] [place] [facility] POCT URINALYSIS W/O 2022-10-12 00:00:00 Huey Deluna [facility] SPECIFIC [facility] [place] FREE T4 2022-10-09 21:40:00 Yanna Joyce [place] [facility] GLYCOSYLATED HEMOGLOBIN 2022-10-09 21:40:00 Yanna Joyce [facility] (A1C) [facility] ANTICARDIOLIPIN ANTIBODIES 2022-10-09 21:40:00 Yanna Joyce [facility] ANTI-B2 GLYCOPROTEIN I AB 2022-10-09 21:40:[address] [facility] TRIIODOTHYRONINE 2022-09-28 17:39:00 Huey Deluna [facility] THYROID STIMULATING 2022-09-28 17:39:00 Huey Deluna [facility] HORMONE [facility] DIABETES TESTING REPORTS 2022-09-28 06:01:00 Doctor Bailee [facility] Name [facility] POCT URINALYSIS W/O 2022-09-13 00:00:[address] [facility] COMP. METABOLIC PANEL 2022-09-11 18:56:00 Kathy De La Fuente [facility] ([id number]) [facility] CBC WITH DIFF 2022-09-11 18:56:00 Kathy De La Fuente [facility] URINALYSIS 2022-09-11 18:56:00 Kathy De La Fuente [facility] NOTICE OF PRIVACY 2022-09-11 18:29:39 Doctor Bailee, [facility] PRACTICES [place] [facility] [place] CONSENT/REFUSAL FOR 2022-09-11 18:28:39 Doctor Bailee [facility] DIAGNOSIS AND TREATMENT [place] [facility] DIABETES TESTING REPORTS 2022-08-28 06:01:00 Doctor Bailee [facility] [place] [facility] POCT URINALYSIS W/O 2022-08-17 16:56:00 Huey Deluna [facility] SPECIFIC [facility] OB TRANSVAGINAL 2022-08-04 03:40:25 Huey Deluna [facility] URINE DRUG (IMMUNOASSAY) - 2022-08-03 15:43:00 Huey Deluna [facility] COMPREHENSIVE DRUG SCREEN [facility]ica [facility] AUTHORIZATION TO RELEASE 2022-08-03 05:01:00 Doctor Bailee [facility] PHI TO [facility] [place] [facility] [place] POCT URINALYSIS W/O 2022-08-03 00:00:00 Huey Deluna [facility] OB TRANSVAGINAL 2022-07-19 18:28:38 Ambreen Alba [facility] GC & CHLAMYDIA AMPLIFIED 2022-07-19 16:46:00 Ambreen Alba [facility] ASSAY [facility] GALV ONLY - VAGINAL 2022-07-19 16:46:00 Ambreen Alba [facility] PATHOGENS BY NUCLEIC ACID [facility] TESTING [facility] ULTRASOUND 2022-07-19 05:01:00 Doctor Bailee [facility] [place] [facility] POCT TEST 2022-07-19 00:00:00 Ambreen Alba [facility] AUTHORIZATION FOR RELEASE 2022-06-23 05:01:00 Doctor Morocho [facility] Name [facility] REFERRAL- REQUEST/RESPONSE 2022-04-11 05:01:00 Doctor Morocho [facility] Name [facility] CONSENT FOR CONTRACEPTION 2021-10-26 06:01:00 Doctor Morocho [facility] [place] [facility] POCT TEST 2021-10-26 00:00:00 Huye Deluna [facility] US SINGLE LESS 2021-02-26 11:25:00 Elias Ambriz [facility] THAN 14 WEEKS [facility] TRANSVAGINAL 2021-02-26 11:25:[address] [facility] URINALYSIS SCREEN AND 2021-02-26 10:27:00 Elias Ambriz [facility] MICROSCOPY, WITH REFLEX TO [place] CULTURE HC COMPLETE BLD COUNT 2021-02-26 10:24:00 Elias Ambriz [facility] W/AUTO DIFF [place] COMPREHENSIVE METABOLIC 2021-02-26 10:24:00 Elias Ambriz [facility] PANEL [place] HCG QUANTITATIVE, SERUM 2021-02-26 10:24:00 Elias Ambriz [facility] TYPE AND SCREEN 2021-02-26 10:24:00 Elias Ambriz [facility] ESTIMATED GFR 2021-02-26 10:24:00 Elias Ambriz [facility] URINE CULTURE 2021-02-26 10:00:00 Elias Ambriz [id number] 2020-06-01 00:00:00 VALENTE.02 [facility] Plan of Care Planned Activity Planned Date Details Comments Source Future Scheduled 2023-02-08 COVID-19 VACCINE (#1) [facility] Test 09:05:34 [code = COVID-19 VACCINE (#1)] Future Scheduled 2023-02-08 Hepatitis C screening [facility] Test 09:05:34 (procedure) [code = 367751731] Future Scheduled 2023-02-08 [facility] Test 09:05:34 malignant neoplasm of cervix (procedure) [code = 760251514] Future Scheduled 2023-02-08 [facility]ACCINE [facility] 09:05:34 [code = INFLUENZA VACCINE] Future Scheduled DIABETES: RETINAL EYE [facility] EXAM [code = DIABETES: RETINAL EYE EXAM] Future Scheduled DIABETIC FOOT EXAM [facility] [code = DIABETIC FOOT EXAM] Future Scheduled URINE MICROALBUMIN [facility] Test [code = URINE MICROALBUMIN] Future Scheduled COVID-19 VACCINE (1) [facility] [code = COVID-19 VACCINE (1)] Future Scheduled [facility] (procedure) [code = 303342400] Future Scheduled [facility] Test malignant neoplasm of cervix (procedure) [code = 215070711] Future Scheduled IN[facility]ENZA VACCINE [facility] [code = INFLUENZA VACCINE] Encounters Start End Encounter Admission Attending Care Care Encounter Source Date/Time Date/Time Type Type Clinicians Facility Department ID 2020-05-31 Inpatient STEFANI Chong MARC [id number] [facility] 22:20:00 Jamir 91 [facility] 2020-04-14 Inpatient STEFANI Calle MARC [id number] [facility] 00:30:00 Cruz 75 [facility] 2020-03-14 Inpatient STEFANI Chong MARC [id number] [facility] 00:18:00 Jamir 31 [facility] 2023-04-25 2023-04-[address] [facility] [id number] Univers 10:00:00 10:00:00 CHAIM la [facility] 2023-03-05 2023-03-[address] [facility] [id number] Univers 11:30:00 11:30:00 ity of [facility] 2023-02-27 2023-02-[address] [facility] [id number] Univers 11:00:00 11:00:00 ity of [facility] 2023-02-23 2023-02-[address]UE[address]UNA [facility] [id number] Univers 11:00:00 11:00:00 ity of [facility] 2023-02-22 2023-02-[address] [facility] [id number] Univers 15:00:00 15:00:00 ity [facility] 2023-02-19 2023-02-19 Routine Room, [facility] [id number] Univers 15:00:00 15:42:06 Vincent Hooker 350. [id number] ity of Visit Crystal Mccall [id number] [facility] [id number] Me dical NAL [address] [place] [address] 2023-02-19 2023-02-[address] [facility] [id number] Univers 11:00:00 12:04:07 DIMA it y of SVINCENT [facility] 2023-02-19 2023-02-19 Telemedici Faculty, Otoniel [facility] [id number] Univers 11:00:00 12:04:07 ne Visit Vincent Hooker SENIOR VALIDATION ENGINEER 350.1 .13.10 ity of REGIONAL 4.2.7.2.686 Jaylon as MATERNAL [id number] Med ical & CHILD 107 [facility] 2023-02-19 2023-02-[address] [facility] [id number] Univers 10:45:00 10:45:00 ity [facility] 2023-02-16 2023-02-16 Telephone Huey Deluna [facility] 1.2.840.114 10 [id number] Univers 00:00:00 00:00:00 Cam [place] 350.1.13.10 i ty of [place] [id number] Hi dical NAL 134 [facility] 2023-02-15 2023-02-[address] [facility] [id number] Univers 10:00:00 11:15:24 ity of [facility] 2023-02-15 2023-02-15 Routine Room, [facility] 1.2.840.1 14 [id number] Univers 10:00:00 11:15:24 Huey Deluna 350.1.13.10 ity of Visit [place] [id number] Hi dical NAL [address] [place] [address] 2023-02-15 2023-02-15 Orders Doctor FORTINO 1.2.840.114 [id number] Univers 00:00:00 00:00:00 Only Unassigned, ALINA 350.1.13.10 ity of [place] [facility] 4.2.7.2.686 Jaylon as [id number] [address] 2023-02-12 2023-02-12 Outpatient R REGI [facility] [id number] Univers 10:00:00 11:08:24 ity of [facility] 2023-02-12 2023-02-12 Routine Room, [facility] 1.2.840.1 14 [id number] Univers 10:00:00 11:08:24 Huey Deluna 350.1.13.10 ity of [place] [id number] Hi dical NAL 134 [facility] 2023-02-08 2023-02-08 Puncher 2, [facility] 1.2.840.114 [id number] Univers 10:00:00 10:15:00 Visit Huey Deluna 350.1.13.10 ity of [place] [id number] Hi dical NAL 353 [facility] 2023-02-08 2023-02-08 Outpatient R [facility] [id number] Univers 10:00:00 10:00:00 ity of [facility] 2023-02-08 2023-02-08 Routine Room, [facility] 1.2.840.1 14 [id number] Univers 09:00:00 09:15:00 Huey Deluna 350.1.13.10 ity of [place] [id number] Hi dical [address] 2023-02-05 2023-02-[address] [facility] [id number] Univers 09:00:00 09:47:05 ity of [facility] 2023-02-05 2023-02-05 Routine Room, [facility] 1.2.840.1 14 [id number] Univers 09:00:00 09:47:05 Huey Deluna 350.1.13.10 ity of [place] [id number] Hi dical NAL [address] [place] [address] 2023-02-02 2023-02-[address] [facility] [id number] Univers 14:00:00 14:25:50 ity of [facility] 2023-02-02 2023-02-02 Routine 1, Lkj [facility] Room [facility] 1.2.840. 114 [id number] Univers 14:00:00 14:25:50 Huey Deluna HERN[place]N 350.1.13.10 ity of Visit [place] [id number] [address] 2023-02-01 2023-02-01 Telemedici Fellow, Genaro Walters [facility] 1 .2.840.114 [id number] Univers 10:30:00 11:00:00 ne Visit Ama Salgado SENIOR VALIDATION ENGINEER 350.1.13.10 ity of REGIONAL 4.2.7.2.686 [place] as MATERNAL [id number] [facility] ical & CHILD [address] [place] [address] 2023-02-01 2023-02-01 Outpatient P [facility] [id number] Univers 10:30:00 10:30:00 AMA [facility] 2023-01-30 2023-01-30 Routine Room, [facility] 1.2.840.1 14 [id number] Univers 11:00:00 11:15:00 Adum, Claire HERNANDEZ 350.1.13.10 ity of [place] [id number] [address] 2023-01-30 2023-01-[address] [facility] [id number] Univers 11:00:00 11:00:00 CLAIRE [facility] 2023-01-29 2023-01-[address] [facility] [id number] Univers 14:00:00 [facility] 2023-01-[address] [facility] [id number] Univers 11:00:00 11:24:25 ity [facility] 2023-01-25 2023-01-25 Routine Room, [facility] 1.2.840.1 14 [id number] Univers 11:00:00 11:24:25 Huey Deluna 350.1.13.10 ity of [place] [id number] [address] 2023-01-23 2023-01-23 Puncher 1[facility] Room [facility] 1.2. 840.114 [id number] Univers 09:15:00 09:54:30 Visit Evens Mace SENIOR VALIDATION ENGINEER 350.1. 13.10 ity of REGIONAL 4.2.7.2.686 [place] as MATERNAL [id number] [facility] ical & CHILD [address] [place] [address] 2023-01-23 2023-01-[address] [facility] [id number] Univers 09:15:00 09:15:00 EVENS ity [facility] 2023-01-18 2023-01-[address] [facility] [id number] Univers 09:00:00 09:00:00 ity of [facility] 2023-01-17 2023-01-[address] [facility] [id number] Univers 13:30:00 14:01:32 ity of [facility] 2023-01-17 2023-01-17 Routine Huey Deluna [facility] 1.2.323.373 [id number] Univers 13:30:00 14:01:32 Cam [place] 350.1.13.10 ity of Visit [place].2.[place] [id number] Hi dical NAL [address] [place] [address] 2023-01-17 2023-01-17 Orders Doctor FORTINO 1.2.840.114 [id number] Univers 00:00:00 00:00:00 Only Unassigned, ALINA 350.1.13.10 ity of [place] [facility] 4.2.7.2.686 Jaylon as [id number] [address] 2023-01-16 2023-01-[address] [facility] [id number] Univers 13:30:00 13:30:00 ity [facility] 2023-01-16 2023-01-16 Telephone Huey Deluna DEKERRY 1.2.840.114 10 [id number] Univers 00:00:00 00:00:00 Cam [place] 350.1.13.10 i ty of [place].2.[place] [id number] Hi dical NAL [address] [place] [address] 2023-01-15 2023-01-15 Outpatient SFA SFA [id number] 230 Roc 13:00:07 13:00:07 417 F Jasen 2023-01-12 2023-01-[address] [facility] [id number] Univers 11:15:00 11:15:00 CHASEY ity of [facility] 2023-01-10 2023-01-10 Outpatient SFA SFA 3250-20 230 Roc 16:21:39 16:21:39 412 [address] Jasen 2022-12-25 2022-12-[address] [facility] [id number] Univers 11:15:00 11:58:33 ity of [facility] 2022-12-25 2022-12-25 Routine Ambreen Alba [facility] 1.2.840.11 4 [id number] Univers 11:15:00 11:58:33 Regi [facility] 350.1.13.10 ity of [place]2.[place].2.[place] [id number] [address] 2022-12-22 2022-12-22 Outpatient SFA SFA 3250-20 230 Roc 16:51:07 16:51:07 324 F Jasen 2022-12-21 2022-12-21 Orders Doctor FORTINO 1.2.840.114 [id number] Univers 00:00:00 00:00:00 Only Unassigned, ALINA 350.1.13.10 ity of [place] [facility] 4.2.7.2.686 Jaylon as [id number] [address] 2022-12-19 2022-12-19 Telephone Huey Deluna [facility] 1.2.840.114 10 [id number] Univers 00:00:00 00:00:00 Juan HERNANDEZ 350.1.13.10 i ty of [place] [id number] [address] 2022-12-15 2022-12-15 Puncher [facility] 1.2 .840.114 [id number] Univers 11:15:00 12:00:00 Visit Evens Mace SENIOR VALIDATION ENGINEER 350.1. 13.[address] [facility] 4.2.7.2.686 Jaylon as MATERNAL [id number] Med ical & CHILD [address] [place] [address] 2022-12-15 2022-12-15 Outpatient P RODRI DEKERRY [facility] [id number] Univers 11:15:00 11:15:00 CHASEY ity [facility] 2022-12-08 2022-12-08 Telephone Huey Deluna [facility] 1.2.840.114 10 [id number] Univers 00:00:00 00:00:00 Cam [place] 350.1.13.10 i ty of [place] [id number] Hi dical NAL 134 [facility] 2022-12-04 2022-12-[address] [facility] [id number] Univers 13:15:00 13:15:00 ARIC MOSER ity of [facility] 2022-12-04 2022-12-04 Case Huey Deluna [facility] 1.2.559.512 [id number] Univers 00:00:00 00:00:00 Management Cam [place] 350.1.13.10 ity of [place] [id number] Hi dical NAL 134 [facility] 2022-11-27 2022-11-27 Puncher Tila, Adc Lab Main [facility] 1.2.8 40.114 [id number] Univers 11:00:00 11:15:00 Visit Huey Deluna Juan HERNANDEZ 350.1.13.10 ity of [facility] 4.2.7.2.[place] [id number] [facility] 353 [facility] 2022-11-27 2022-11-[address] [facility] [id number] Univers 10:00:00 10:46:35 ity of [facility] 2022-11-27 2022-11-27 Routine Regi [facility] 1.2.828.195 [id number] Univers 10:00:00 10:46:35 [place] 350.1.13.10 ity of Visit [place] 4.2.7.2.686 [place] [id number] Hi dical [facility] 134 [facility] 2022-11-27 2022-11-27 Orders Doctor FORTINO 1.2.840.114 [id number] Univers 00:00:00 00:00:00 Only Unassigned, ALINA 350.1.13.10 ity of [place] [facility] 4.2.7.2.686 Jaylon as [id number] [address] 2022-11-23 2022-11-[address] [facility] [id number] Univers 10:45:00 10:45:00 ity [facility] 2022-11-14 2022-11-14 Puncher 1Ednapastor Room [facility] 1.2. 840.114 [id number] Univers 13:00:00 14:20:04 Visit Vincent Hooker SENIOR VALIDATION ENGINEER 350.1. 13.[address] [facility] 4.2.7.2.686 [place] as MATERNAL [id number] [facility] ical & CHILD 369 [facility] 2022-11-14 2022-11-14 Outpatient P [facility] [id number] Univers 13:00:00 13:00:00 DIMA it y of VINCENT Joy [facility] 2022-11-13 2022-11-13 Telemedici Faculty, Otoniel [facility] 1.2.840.114 [id number] Univers 13:30:00 14:00:00 ne Visit Vincent Hooker SENIOR VALIDATION ENGINEER 350.1 .13.[address] [facility] 4.2.7.2.686 Jaylon as MATERNAL [id number] [facility] & CHILD [address] [place] [address] 2022-11-13 2022-11-13 Outpatient R [facility] [id number] Univers 13:30:00 13:30:00 DIMA it y of Rufino [facility] 2022-11-09 2022-11-[address] [facility] [id number] Univers 09:00:00 09:00:00 ity [facility] 2022-11-06 2022-11-[address] [facility] [id number] Univers 10:00:00 10:00:00 ity [facility] 2022-11-03 2022-11-[address] [facility] [id number] Univers 09:15:00 09:15:00 ity [facility] 2022-10-27 2022-10-27 Orders Doctor FREITAS 1.2.840.114 [id number] Univers 00:00:00 00:00:00 Only Unassigned, ALINA 350.1.13.10 ity of [place] [facility] 4.2.7.2.686 Jaylon as [id number] [address] 2022-10-26 2022-10-26 Routine Huey Deluna [facility] 1.2.089.618 [id number] Univers 10:45:00 11:46:55 Juan HERNANDEZ 350.1.13.10 ity of [place]2.[place].2.[place] [id number] Hi dical NAL 134 [facility] 2022-10-26 2022-10-[address] [facility] [id number] Univers 09:40:00 10:08:35 CHAIM khan o f [facility] 2022-10-26 2022-10-26 [facility] 1.2.840.114 [id number] Univers 09:40:00 10:08:35 Visit Chaim HERNANDEZ 350.1.13.10 ity of [place] 4[place].2.[place] [id number] Hi dical NAL 059 [facility] 2022-10-26 2022-10-26 Orders Doctor FORTINO 1.2.840.114 [id number] Univers 00:00:00 00:00:00 Only Unassigned, ALINA 350.1.13.10 ity of [place] [facility] 4.2.7.2.686 Jaylon as [id number] [address] 2022-10-25 2022-10-25 Out[address] BLUE [facility] [id number] Univers 09:27:58 23:59:00 NATALIE BLUE [facility] 2022-10-24 2022-10-[address] [facility] [id number] Univers 13:00:00 23:59:00 NATALIE BLUE [facility] 2022-10-23 2022-10-23 Telemedici Faculty, Otoniel [facility] 1.2.840.114 [id number] Univers 11:00:00 11:20:00 ne Visit Natalie Blue SENIOR VALIDATION ENGINEER 350.1.13.[address] [facility] 4.2.7.2.686 Jaylon as MATERNAL [id number] [facility] & [address] 2022-10-23 2022-10-23 [address]UE [facility] [id number] Univers 11:00:00 11:00:00 SUBHASH NATALIE [facility] 2022-10-20 2022-10-20 Outpatient R TOBIN VICENTE [facility] [id number] Univers 09:45:00 10:08:13 ity [facility] 2022-10-20 2022-10-20 Telemedici Jennifer Watkins [facility] 1.2.8 40.114 [id number] Univers 09:45:00 10:08:13 ne Visit Tobin Vicente SENIOR VALIDATION ENGINEER 350.1.13.[address] [facility] 4.2.7.2.686 Jaylon as MATERNAL [id number] [facility] & CHILD [address] [place] [address] 2022-10-17 2022-10-[address] [facility] [id number] Univers 10:00:00 10:00:00 CHAIM khan o f [facility] 2022-10-13 2022-10-13 Puncher Tila, Sage Lab Main [facility] 1.2.8 40.114 [id number] Univers 10:45:00 11:00:00 Visit Yanna Joyce 350.1.13.10 ity of [facility] 4.2.7.2.686 [place] [id number] Hi dical [address] 2022-10-13 2022-10-[address] [facility] [id number] Univers 10:45:00 10:45:00 YANNA khan [facility] 2022-10-12 2022-10-[address] [facility] [id number] Univers 10:30:00 11:44:56 ity [facility] 2022-10-12 2022-10-12 Routine Huey Deluna [facility] 1.2.268.425 [id number] Univers 10:30:00 11:44:56 Cam DAVID 350.1.13.10 ity of Visit [place] 4.2.7.2.686 [place] 471.1582202 Hi dical NAL 134 [facility] 2022-10-12 2022-10-12 Orders Doctor FORTINO 1.2.840.114 [id number] Univers 00:00:00 00:00:00 Only Unassigned, ALINA 350.1.13.10 ity of [place] [facility] 4.2.7.2.686 Jaylon as [id number] [address] 2022-10-09 2022-10-09 Office Faculty, Otoniel [facility] 1.2 .840.114 [id number] Univers 11:30:00 14:23:38 Visit Natalie Blue SENIOR VALIDATION ENGINEER 350.1.13.[address] [facility] 4.2.7.2.686 Jaylon as MATERNAL [id number] Med ical & CHILD [address] [place] [address] 2022-10-09 2022-10-09 Puncher Tila, Adc Lab Main [facility] 1.2.8 40.114 [id number] Univers 07:30:00 07:45:00 Visit [facility] 350.1.13.10 ity of [place] 4.2.7.2.686 [place] [id number] Hi dical NAL 353 [facility] 2022-10-09 2022-10-[address] [facility] [id number] Univers 07:30:00 07:30:00 NATALIE BLUE ity of [facility] 2022-09-28 2022-09-28 Puncher 2, Adc Lab [facility] 1.2.840.114 [id number] Univers 11:45:00 11:45:00 Visit [facility] 350.1.13.10 ity of [place] 4.2.7.2.[place] 330.2407551 Hi dical NAL 353 [facility] 2022-09-28 2022-09-[address] [facility] [id number] Univers 10:30:00 11:28:54 ity of [facility] 2022-09-28 2022-09-28 Routine Huey Deluna [facility] 1.2.542.858 [id number] Univers 10:30:00 11:28:54 [place] 350.1.13.10 ity of Visit [place] 4.2.7.2.686 [place] [id number] [address] 2022-09-28 2022-09-28 Orders Doctor FORTINO 1.2.840.114 [id number] Univers 00:00:00 00:00:00 Only Unassigned, ALINA 350.1.13.10 ity of [place] [facility] 4.2.7.2.686 Jaylon as [id number] [address] 2022-09-14 2022-09-14 Case Huey Deluan [facility] 1.2.016.412 [id number] Univers 00:00:00 00:00:00 Management Cam [place] 350.1.13.10 ity of [place] 4[place]2.7.2.[place] [id number] [address] 2022-09-13 2022-09-[address] [facility] [id number] Univers 10:30:00 10:36:27 ity of [facility] 2022-09-13 2022-09-13 Routine Regi [facility] 1.2.199.615 [id number] Univers 10:30:00 10:36:27 Cam [place] 350.1.13.10 ity of Visit [place] 4.2.7.2.686 [place] [id number] [address] 2022-09-12 2022-09-[address] [facility] [id number] Univers 15:45:00 15:45:00 ity of [facility] 2022-09-11 2022-09-11 Emergency X LEISA [facility] ERT [id number] Univers 12:35:00 14:59:00 KATHY ity of [facility] 2022-09-11 2022-09-11 Emergency Leisa [facility] 1.2.961.534 [id number] Univers 12:35:00 14:59:00 Kathy Juani HERNANDEZ 350.1.13.10 ity of [place]2.7.2.[place] [id number] [facility] 0[address] [place] 2022-09-11 2022-09-[address] [facility] [id number] Univers 13:45:00 13:45:00 ity [facility] 2022-09-11 2022-09-11 [address] TIM [facility] [id number] Univers 11:30:00 11:30:00 TRICIA TIM itlaine [facility] 2022-09-08 2022-09-08 Telephone Regi [facility] 1.2.840.114 [id number] Univers 00:00:00 00:00:00 Juan HERNANDEZ 350.1.13.10 i ty of [facility] 4.2.7.2.686 [place] [id number] Hi dical NAL 134 [facility] 2022-09-07 2022-09-07 Outpatient SFA SFA 3250-20 221 Roc 10:35:22 10:35:22 [address] [place] 2022-09-07 2022-09-07 Telephone Regi [facility] 1.2.840.114 [id number] Univers 00:00:00 00:00:00 Juan HERNANDEZ 350.1.13.10 i ty of [facility] 4.2.7.2.[place] 559.0383018 Hi dical NAL 134 [facility] 2022-09-05 2022-09-05 Outpatient SFA [facility] 3250-20 221 Roc 15:37:14 15:37:14 [address] [place] 2022-09-04 2022-09-[address] [facility] [id number] Univers 15:15:00 15:15:00 ity [facility] 2022-08-30 2022-08-30 Puncher 2, Sage Mosher [facility] 1.2.840.114 [id number] Univers 09:30:00 09:45:00 Visit DelunaAureayah HERNANDEZ 350.1.13.10 ity [facility] 4.2.7.2.686 [place] [id number] Hi dical NAL 353 [facility] 2022-08-30 2022-08-[address] [facility] [id number] Univers 09:30:00 09:30:00 ity of [facility] 2022-08-29 2022-08-[address] [facility] [id number] Univers 10:15:00 10:15:00 ity of [facility] 2022-08-28 2022-08-[address] [facility] [id number] Univers 13:15:00 14:34:46 ity of [facility] 2022-08-28 2022-08-28 Routine Regi [facility] 1.2.379.327 [id number] Univers 13:15:00 14:34:46 [place] 350.1.13.10 ity of [place] 4[place]2.7.2.686 [place] [id number] Hi dical NAL [address] [place] [address] 2022-08-28 2022-08-28 Orders Doctor FORTINO 1.2.840.114 [id number] Univers 00:00:00 00:00:00 Only Unassigned, ALINA 350.1.13.10 ity of [place] [facility] 4.2.7.2.686 Jaylon as [id number] [address] 2022-08-23 2022-08-[address] [facility] [id number] Univers 10:15:00 10:15:00 ity of [facility] 2022-08-17 2022-08-[address] [facility] [id number] Univers 10:45:00 11:43:29 ity of [facility] 2022-08-17 2022-08-17 Routine Regi [facility] 1.2.750.069 [id number] Univers 10:45:00 11:43:29 Cam [place] 350.1.13.10 ity of [place].7.2.686 [place] [id number] Hi dical NAL [address] [place] [address] 2022-08-17 2022-08-17 Letter Huey Deluna [facility] 1.2.032.598 [id number] Univers 00:00:00 00:00:00 (Out) Cam [place] 350.1.13.10 i ty of [place].2.[place] [id number] Hi dical NAL 134 [facility] 2022-08-07 2022-08-07 Telephone Huey Deluna [facility] 1.2.840.114 [id number] Univers 00:00:00 00:00:00 Cam [place] 350.1.13.10 i ty of [place] 4.2.7.2.686 [place] 374.2243726 Hi dical NAL 134 [facility] 2022-08-03 2022-08-03 Puncher 2, Adc Lab [facility] 1.2.840.114 [id number] Univers 11:00:00 11:15:00 Visit Huey Deluna 350.1.13.10 ity of [facility] 4.2.7.2.686 [place] [id number] Hi dical NAL 353 [facility] 2022-08-03 2022-08-03 Initial Huey Deluna [facility] 1.2.297.744 [id number] Univers 10:00:00 10:54:29 Juan HERNANDEZ 350.1.13.10 ity of [facility] [place] [id number] [facility] NAL 134 [facility] 2022-08-03 2022-08-03 [address]UNA [facility] [id number] Univers 10:00:00 10:54:29 ity of [facility] 2022-08-03 2022-08-03 Telephone Huey Deluna [facility] 1.2.840.114 [id number] Univers 00:00:00 00:00:00 Juan HERNANDEZ 350.1.13.10 i ty of [place] [phone] Hi dical NAL 134 [facility] 2022-08-03 2022-08-03 Orders Doctor FORTINO 1.2.840.114 [id number] Univers 00:00:00 00:00:00 Only Unassigned, ALINA 350.1.13.10 ity of [facility] 4.2.7.2.686 Jaylon as [phone] [facility] [address] [place] 2022-07-31 2022-07-[address] [facility] [id number] Univers 13:30:00 13:30:00 ity of [facility] 2022-07-25 2022-07-25 Outpatient SFA SFA [id number] 221 Roc 10:28:17 10:28:17 025 F Jasen 2022-07-20 2022-07-20 [facility] 1.2.681.420 [id number] Univers 00:00:00 00:00:00 Management Ambreen HERNANDEZ 350.1.13.10 ity of [place] [phone] Hi dic[address] 2022-07-19 2022-07-[address] [facility] [id number] Univers 11:30:00 12:10:48 [facility]-07-[facility] 2022-07-19 Office [facility] 1.2.409.991 [id number] Univers 11:30:00 12:10:48 Visit Ambreen HERNANDEZ 350.1.13.10 i ty of [place] [phone] Hi dic[address] 2022-07-19 2022-07-19 Orders Doctor FORTINO 1.2.840.114 [id number] Univers 00:00:00 00:00:00 Only Unassigned, ALINA 350.1.13.10 ity of [place] [facility] 4.2.7.2.686 Jaylon as [phone] [facility] [address] [place] 2022-07-12 2022-07-12 Telephone Huey Deluna [facility] 1.2.840.114 [id number] Univers 00:00:00 00:00:00 Juan HERNANDEZ 350.1.13.10 i ty of [place] [phone] Hi dical NAL [address] [place] [address] 2022-06-23 2022-06-23 Orders Doctor FORTINO 1.2.840.114 [id number] Univers 00:00:00 00:00:00 Only Unassigned, ALINA 350.1.13.10 ity of [place] [facility] 4.2.7.2.686 Jaylon as [phone] [facility] [address] [place] 2022-04-18 2022-04-[address] [facility] [id number] Univers 10:00:00 10:00:00 AMBREEN ity [facility] 2022-04-11 2022-04-11 Orders Doctor FORTINO 1.2.840.114 [id number] Univers 00:00:00 00:00:00 Only Unassigned, ALINA 350.1.13.10 ity of [place] [facility] 4.2.7.2.686 Jaylon as [id number] [address] 2022-01-24 2022-01-24 Nurse Nurse, [facility] 1.2.840.114 [id number] Univers 10:30:00 10:45:00 Visit Heuy Deluna 350.1.13.10 ity [facility] [place] [id number] Hi dical [address] 2022-01-24 2022-01-24 Out[address]UEY DELUNA [facility] [id number] Univers 10:30:00 10:30:00 ity [facility] 2021-10-27 2021-10-[address] [facility] [id number] Univers 11:20:00 11:20:00 RADHA erin [facility] 2021-10-27 2021-10-[address] [facility] [id number] Univers 11:20:00 11:20:00 RADHA laine [facility] 2021-10-27 2021-10-27 Out[address]UEY [address]UNA [facility] [id number] Univers 10:45:00 10:45:00 ity [facility] 2021-10-26 2021-10-26 Office Huey Deluna [facility] 1.2.066.908 [id number] Univers 09:30:00 10:06:50 Visit Juan HERNANDEZ 350.1.13.10 i ty [place] [id number] Hi dical [address] 2021-10-26 2021-10-[address] [facility] [id number] Univers 09:30:00 10:06:50 ity [facility] 2021-10-26 2021-10-26 Outpatient R REGI [facility] [id number] Univers 09:30:00 09:30:00 ity [facility] 2021-10-26 2021-10-26 Orders Doctor FORTINO 1.2.840.114 [id number] Univers 00:00:00 00:00:00 Only Unassigned, ALINA 350.1.13.10 ity of [place] [facility] 4.2.7.2.686 Jaylon as [phone] [address] 2021-10-21 2021-10-[address] [facility] [id number] Univers 14:40:00 14:40:00 RADHA [facility] 2021-10-11 2021-10-11 Telephone [facility] 1.2.840.114 [id number] Univers 00:00:00 00:00:00 Cam DAVID 350.1.13.10 i [place] [phone] [address] 2021-10-07 2021-10-07 Case Huey Deluna [facility] 1.2.840.114 [id number] Univers 00:00:00 00:00:00 Management Cam HERNÁN 350.1.13.10 ity of [place] [id number] [address] 2021-10-05 2021-10-[address] [facility] [id number] Univers 11:15:00 12:13:51 ity [facility] 2021-10-05 2021-10-05 Routine Huey Deluna [facility] 1.2.550.092 [id number] Univers 11:15:00 12:13:51 Cam DAVID 350.1.13.10 ity of [place] [id number] Hi dic[address] 2021-10-05 2021-10-[address] [facility] [id number] Univers 11:15:00 12:13:51 ity of [facility] 2021-09-29 2021-09-29 Letter FORTINO [place] 1.2.840.114 [id number] Univers 00:00:00 00:00:00 (Out) Cassidy FULLER 350.1.13.10 it y of [facility] 4.2.7.2.686 Jaylon as [phone] [facility] 019 [place] 2021-09-28 2021-09-28 Emergency X [facility] ERT [id number] Univers 12:26:00 14:15:00 JONO erin [facility] 2021-09-28 2021-09-28 Emergency [facility] 1.2.016.580 [id number] Univers 12:26:00 14:15:00 Jono DAVID 350.1.13.10 i [place] [id number] [facility] 084 [place] 2021-09-27 2021-09-27 Telephone Anjali [facility] 1.2.840.114 [id number] Univers 00:00:00 00:00:00 Ambreen DAVID 350.1.13.10 i [place] [id number] [address] 2021-09-21 2021-09-[address] [facility] [id number] Univers 10:00:00 10:00:00 AMBREEN khan [facility] 2021-09-20 2021-09-[address] [facility] [id number] Univers 14:30:00 15:19:27 AMBREEN khan [facility] 2021-09-20 2021-09-20 [facility] 1.2.043.393 [id number] Univers 14:30:00 15:19:27 Ambreen HERNANDEZ 350.1.13.10 ity [place] [phone] Hi dical NAL 134 [facility] 2021-09-08 2021-09-12 Inpatient P REGI [facility] OBS [id number] Univers 16:31:00 17:15:00 ity of [facility] 2021-09-08 2021-09-12 Hospital Regi [facility] 1.2.840.114 [id number] Univers 16:31:00 17:15:00 Encounter Cam DAVID 350.1.13.10 [place] [id number] [address] 2021-09-08 2021-09-12 Inpatient P [facility] OBS [id number] Univers 16:31:00 17:15:00 ity of [facility] 2021-09-12 2021-09-12 Outpatient R DELUNA [facility] [id number] Univers 15:00:00 15:00:00 ity of [facility] 2021-09-09 2021-09-10 Anesthesia [facility] 1.2.840.114 [id number] Univers 17:39:00 09:06:00 Event renettaDAVID 350.1.13.10 i ty of [facility] 4.2.7.2.686 Jaylon as CAMPUS [id number] [address] 2021-09-08 2021-09-08 Inpatient P [facility] OBS [id number] Univers 16:31:00 16:31:00 ity of [facility] 2021-09-08 2021-09-08 [facility] Regi [facility] 1.2.096.509 [id number] Univers 14:31:37 15:58:55 Cam DAVID 350.1.13.10 ity of [place] [phone] Hi dical NAL [address] [place] [address] 2021-09-08 2021-09-08 Outpatient P [facility] ROLANDO [id number] Univers 14:30:00 15:58:55 ity [facility] 2021-09-08 2021-09-08 Orders Doctor FORTINO 1.2.840.114 [id number] Univers 00:00:00 00:00:00 Only Unassigned, ALINA 350.1.13.10 ity of [place] [facility] 4.2.7.2.686 Jaylon as [id number] [address] 2021-09-05 2021-09-05 Outpatient R REGI [facility] [id number] Univers 13:45:00 13:45:00 ity [facility] 2021-09-05 2021-09-05 Outpatient R REGI [facility] [id number] Univers 13:45:00 13:45:00 ity [facility] 2021-06-12 2021-06-12 Emergency EM LATOYA ChongNKareen MARC [id number] [facility] 03:25:00 05:44:00 Jamir 26 [facility] [address] are [facility] 2021-05-31 2021-05-31 Emergency EM LATOYA RasheedNKareen PAULA [id number] [facility] 15:12:00 23:29:00 Jake 97 [facility] [address] are [facility] 2021-02-26 2021-02-26 Emergency Joselyn, 1.2.840.1 [id number] Methodi 05:15:00 08:13:[address] 3.430.2.7 Hospit a .3.034901 l .8 2021-02-26 2021-02-26 Travel 1.2.840.1 1.2.003.866 [id number] Methodi 00:00:00 00:00:[address] 3.430.2.7 0.2.7.3.698 Ho spita .3.651734 084.8 l .8 2021-02-01 2021-02-[address] [facility] [id number] Univers 13:45:00 13:45:00 ity [facility] 2020-04-27 2020-04-27 Orders Doctor FORTINO 1.2.840.114 [id number] 00:00:00 00:00:00 Only Unassigned, ALINA 350.1.13.10 [place] [facility] 4.2.7.2.686 [id number] [facility] 2020-04-26 2020-04-26 Telephone Huey Deluna [facility] 1.2.840.114 [id number] 00:00:00 00:00:00 Cam [place] 350.1.13.10 [place] 4.2.7.2.686 Professio [id number] [address] 2020-03-22 2020-03-[address] [facility] [id number] Univers 13:00:00 13:00:00 it[facility] 2020-03-11 2020-03-[address] [facility] [id number] Univers 15:30:00 15:30:00 Formerly [facility] 2020-02-27 2020-02-27 Puncher 2, Adc Lab [facility] 1.2.840.114 [id number] 15:47:13 16:02:13 Visit [place] 350.1.13.10 [place] 4.2.7.2.686 Professio [id number] [address] 2020-02-27 2020-02-[address] [facility] [id number] Univers 13:30:00 13:30:00 [facility] 2020-02-27 2020-02-27 Telephone Huey Deluna [facility] 1.2.840.114 [id number] 00:00:00 00:00:00 Cam [place] 350.1.13.10 [place] 4.2.7.2.686 Professio [id number] [address] 2020-02-26 2020-02-26 Telephone Huey Deluna [facility] 1.2.840.114 [id number] 00:00:00 00:00:00 Cam [place] 350.1.13.10 [place] 4.2.7.2.686 Professio [id number] [address] 2020-02-25 2020-02-25 Routine Huey Deluna [facility] 1.2.459.061 [id number] 15:12:41 16:39:24 Cam [place] 350.1.13.10 Visit [place] 4.2.7.2.686 Professio [id number] [address] 2020-02-25 2020-02-[address] [facility] [id number] Univers 13:45:00 13:45:00 MATIAS ity [facility] 2020-02-25 2020-02-[address] [facility] [id number] Univers 10:45:00 10:45:00 ity [facility] 2020-02-24 2020-02-[address] [facility] [id number] Univers 15:15:00 15:15:00 ity [facility] 2020-02-18 2020-02-18 Routine [facility] 1.2.763.448 [id number] 08:56:59 09:27:58 Cam [place] 350.1.13.10 Visit [place] 4.2.7.2.686 Professio [id number] [address] 2020-02-18 2020-02-[address] [facility] [id number] Univers 09:15:00 09:15:00 ity [facility] 2020-02-18 2020-02-18 Orders DelunaHuey FORTINO 1.2.529.926 [id number] 00:00:00 00:00:00 Only Cam ALINA 350.1.13.10 [facility] 4.2.7.2.686 [id number] 009 2020-02-17 2020-02-[address] [facility] [id number] Univers 14:15:00 14:15:00 OTILIO ity [facility] 2020-02-16 2020-02-16 Telephone Esther DANNY 1.2.840.114 [id number] 00:00:00 00:00:00 Otilio Y 350.1.13.10 [facility] 4.2.7.2.686 BANK [id number] BLDG. 136 2020-02-12 2020-02-12 Puncher Ultrasound, [facility] 1.2.840.114 [id number] 11:06:22 12:17:59 Visit Denise SENIOR VALIDATION ENGINEER 350.1.13.10 REGIONAL 4.2.7.2.686 MATERNAL [id number] & CHILD 369 [facility] 2020-02-12 2020-02-[address] [facility] [id number] Univers 10:45:00 10:45:00 [facility] 2020-02-12 2020-02-12 Case Anjali [facility] 1.2.115.105 [id number] 00:00:00 00:00:00 Management Ambreen Hernandez 350.1.13.10 [place] 4.2.7.2.686 Professio [phone] [address] 2020-02-12 2020-02-12 [facility] 1.2.184.616 [id number] 00:00:00 00:00:00 Management Ambreen Hernandez 350.1.13.10 [place] 4.2.7.2.686 Professio [id number] [address] 2020-02-12 2020-02-12 [facility] 1.2.489.317 [id number] 00:00:00 00:00:00 Management Ambreen [place] 350.1.13.10 [place] 4.2.7.2.686 Professio [id number] [address] 2020-02-11 2020-02-11 Initial Huey Deluna [facility] 1.2.341.970 [id number] 07:56:09 12:21:22 Cam [place] 350.1.13.10 Visit [place] 4.2.7.2.686 Professio [id number] [address] 2020-02-11 2020-02-[address] [facility] [id number] Univers 09:00:00 09:00:00 [facility] 2019-12-31 2019-12-31 Telephone Felicia [facility] 1.2.840.114 [id number] 00:00:00 00:00:00 Ana Carmichael SENIOR VALIDATION ENGINEER 350.1.13.10 REGIONAL 4.2.7.2.686 MATERNAL [id number] & CHILD 107 [facility] 2019-12-30 2019-12-[address] [facility] [id number] Univers 14:15:00 14:15:00 Former[facility] 2019-12-23 2019-12-23 Outpatient R [facility] [id number] Univers 14:30:00 14:30:00 VERA [facility] 2019-12-18 2019-12-[address] [facility] [id number] Univers 14:15:00 14:15:00 Former[facility] 2019-12-16 2019-12-[address] [facility] [id number] Univers 11:00:00 11:00:00 [facility] 2019-12-11 2019-12-11 Outpatient P [facility] [id number] Univers 11:15:00 11:15:00 BALA [facility] 2019-12-01 2019-12-[address] [facility] [id number] Univers 15:00:00 15:00:00 [facility] 2019-11-20 2019-12-01 Routine Risk, [facility] 1.2.840.114 [id number] 13:55:16 13:23:02 Ang-Rmchp-N SENIOR VALIDATION ENGINEER 350.1.13.10 Visit p/High REGIONAL 4.2.7.2.686 MATERNAL [id number] & CHILD [address] [place] [address] 2019-11-20 2019-11-20 Outpatient R [facility] [id number] Univers 13:30:00 15:18:09 JAZMÍN [facility] 2018-04-17 2018-04-17 Outpatient [facility] [id number] [facility] 15:56:00 15:56:00 [facility] 2018-04-15 2018-04-15 Outpatient [facility] [id number] [facility] 10:16:00 10:16:00 [facility] 2018-04-05 2018-04-05 Outpatient [facility] [id number] [facility] 09:45:00 09:45:00 [facility] 2018-03-21 2018-03-21 Outpatient [facility] [id number] [facility] 10:30:00 10:30:00 [facility] 2018-03-05 2018-03-05 Outpatient [facility]( [id number] [id number] [facility] 16:00:00 16:00:00 [facility] 2018-03-05 2018-03-05 Outpatient [facility]( [id number] [facility] 15:30:00 15:30:00 [facility] ) 2018-02-04 2018-02-04 Outpatient [facility]( [id number] [facility] 14:45:00 14:45:00 [facility] ) 2018-01-22 2018-01-22 Outpatient [facility]( 79 4225 [facility] 15:00:00 15:00:00 n [facility] ) 2018-01-22 2018-01-22 Outpatient [facility]( [id number] [facility] 14:30:00 14:30:00 [facility] ) 2018-01-20 2018-01-20 Outpatient [facility] [id number] [facility] 13:24:00 13:24:00 [facility] 2018-01-18 2018-01-18 Outpatient [facility] [id number] [facility] 10:30:00 10:30:00 [facility] 2018-01-17 2018-01-17 Outpatient [facility] [id number] [facility] 10:00:00 10:00:00 [facility] 2018-01-03 2018-01-03 Outpatient [facility] [id number] [facility] 10:15:00 10:15:00 [facility] 2017-12-21 2017-12-21 Outpatient [facility] [id number] [facility] 10:15:00 10:15:00 [facility] Results Test Description Test Time Test Comments Results Result Comments Source POCT URINALYSIS W/O SPECIFIC GRAVITY 2023-02-15 15:31:00 Test Item Value Reference Range Interpretation Comme nts POCT PH U (test code = 3254) n/a 5-8 POCT U LEUK EST (test code = 3263) n/a Negative - Negative POCT U NIT (test code = 3262) n/a Negative - Negative POCT U PROT (test code = 3259) Negative Negative - Negative POCT U GLU (test code = 3256) 100 Negative - Negative POCT U KETONE (test code = 3258) n/a Negative - Negative POCT U BLD (test code = 3257) n/a Negative - Negative [facility] URINALYSIS W/O SPECIFIC [id number] 19:34:00 Test Item Value Reference Range Interpretation Comments POCT PH U (test code = 3254) N/A 5-8 POCT U LEUK EST (test code = N/A Negative - Negative 3263) POCT U NIT (test code = 3262) N/A Negative - Negative POCT U PROT (test code = 3259) Negative Negative - Negative POCT U GLU (test code = 3256) Negative Negative - Negative POCT U KETONE (test code = 3258) N/A Negative - Negative POCT U BLD (test code = 3257) N/A Negative - Negative [facility] URINALYSIS W/O SPECIFIC [id number] 18:42:00 Test Item Value Reference Range Interpretation Comments POCT PH U (test code = 3254) n/a 5-8 POCT U LEUK EST (test code = n/a Negative - Negative 3263) POCT U NIT (test code = 3262) n/a Negative - Negative POCT U PROT (test code = 3259) Trace Negative - Negative POCT U GLU (test code = 3256) Negative Negative - Negative POCT U KETONE (test code = 3258) n/a Negative - Negative POCT U BLD (test code = 3257) n/a Negative - Negative [facility] URINALYSIS W/O SPECIFIC [id number] 16:20:00 Test Item Value Reference Range Interpretation Comments POCT PH U (test code = 3254) n/a 5-8 POCT U LEUK EST (test code = n/a Negative - Negative 3263) POCT U NIT (test code = 3262) n/a Negative - Negative POCT U PROT (test code = 3259) n/a Negative - Negative POCT U GLU (test code = 3256) 100 Negative - Negative POCT U KETONE (test code = 3258) negative Negative - Negative POCT U BLD (test code = 3257) n/a Negative - Negative [facility] [id number] 16:16:00 Test Item Value Reference Range Interpretation Comments POCT PH U (test code = 3254) n/a 5-8 POCT U LEUK EST (test code = n/a Negative - Negative 3263) POCT U NIT (test code = 3262) n/a Negative - Negative POCT U PROT (test code = 3259) negative Negative - Negative POCT U GLU (test code = 3256) 100 Negative - Negative POCT U KETONE (test code = 3258) n/a Negative - Negative POCT U BLD (test code = 3257) n/a Negative - Negative [facility] URINALYSIS W/O SPECIFIC [id number] 17:24:00 Test Item Value Reference Range Interpretation Comments POCT PH U (test code = 3254) n/a 5-8 POCT U LEUK EST (test code = n/a Negative - Negative 3263) POCT U NIT (test code = 3262) n/a Negative - Negative POCT U PROT (test code = 3259) Trace Negative - Negative POCT U GLU (test code = 3256) negative Negative - Negative POCT U KETONE (test code = 3258) n/a Negative - Negative POCT U BLD (test code = 3257) n/a Negative - Negative [facility] SPECIFIC [id number] 17:02:00 Test Item Value Reference Range Interpretation Comments POCT PH U (test code = 3254) n/a 5-8 POCT U LEUK EST (test code = n/a Negative - Negative 3263) POCT U NIT (test code = 3262) n/a Negative - Negative POCT U PROT (test code = 3259) Negative Negative - Negative POCT U GLU (test code = 3256) Normal Negative - Negative POCT U KETONE (test code = 3258) n/a Negative - Negative POCT U BLD (test code = 3257) n/a Negative - Negative [facility] SPECIFIC [id number] 17:02:00 Test Item Value Reference Range Interpretation Comments POCT PH U (test code = 3254) n/a 5-8 POCT U LEUK EST (test code = n/a Negative - Negative 3263) POCT U NIT (test code = 3262) n/a Negative - Negative POCT U PROT (test code = 3259) Negative Negative - Negative POCT U GLU (test code = 3256) Normal Negative - Negative POCT U KETONE (test code = 3258) n/a Negative - Negative POCT U BLD (test code = 3257) n/a Negative - Negative [facility] SPECIFIC [id number] 15:56:00 Test Item Value Reference Range Interpretation Comments POCT PH U (test code = 3254) n/a 5-8 POCT U LEUK EST (test code = n/a Negative - Negative 3263) POCT U NIT (test code = 3262) n/a Negative - Negative POCT U PROT (test code = 3259) Trace Negative - Negative POCT U GLU (test code = 3256) Negative - Negative POCT U KETONE (test code = 3258) Negative Negative - Negative POCT U BLD (test code = 3257) negative Negative - Negative [facility] [id number] 16:56:00 Test Item Value Reference Range Interpretation Comments POCT PH U (test code = 3254) n/a 5-8 POCT U LEUK EST (test code = n/a Negative - Negative 3263) POCT U NIT (test code = 3262) n/a Negative - Negative POCT U PROT (test code = 3259) trace Negative - Negative POCT U GLU (test code = 3256) negative Negative - Negative POCT U KETONE (test code = 3258) n/a Negative - Negative POCT U BLD (test code = 3257) n/a Negative - Negative [facility] SPECIFIC [id number] 15:22:00 Test Item Value Reference Range Interpretation Comments POCT PH U (test code = 3254) n/a 5-8 POCT U LEUK EST (test code = n/a Negative - Negative 3263) POCT U NIT (test code = 3262) n/a Negative - Negative POCT U PROT (test code = 3259) negative Negative - Negative POCT U GLU (test code = 3256) Negative - Negative POCT U KETONE (test code = 3258) n/a Negative - Negative POCT U BLD (test code = 3257) n/a Negative - Negative [facility] [id number] 16:42:00 Test Item Value Reference Range Interpretation Comments POCT PREG (test code = 1605) Positive On board controls acceptable with C Yes Line (test code = 3574) POCT PREG LOT # (test code = 3575) POCT PREG TEST DATE (test code = 3576) [facility] [id number] 16:42:00 Test Item Value Reference Range Interpretation Comments POCT PREG (test code = 1605) Positive On board controls acceptable with C Yes Line (test code = 3574) POCT PREG LOT # (test code = 3575) POCT PREG TEST DATE (test code = 3576) [facility] [id number] 16:42:00 Test Item Value Reference Range Interpretation Comments POCT PREG (test code = 1605) Positive On board controls acceptable with C Yes Line (test code = 3574) POCT PREG LOT # (test code = 3575) POCT PREG TEST DATE (test code = 3576) [facility]NG, NAAT, [id number] 21:02:54 Test Item Value Reference Range Interpretation Comments GONORRHEA, NAAT NEGATIVE NEGATIVE IMPORTA NT NOTICE: SEE (test code = [place] [address]) [email or web address] [email or web address] Note: Assay methodology is nucleic acid amplification b y warp drawer m ediated amplification ( TMA) utilizing the A ptima Combo 2 Assay. CHLAMYDIA, NAAT NEGATIVE NEGATIVE IMPORTA NT NOTICE: SEE (test code = [place] [address]) [email or web address] heCobasUrineKit Note: Assay methodology is nucleic acid amplification b y warp drawer m ediated amplification ( TMA) utilizing the A ptima Combo 2 Assay. HEMOGLOBIN [id number] 06:33:05 Test Item Value Reference Range Interpretation Comments HEMOGLOBIN A1c (test 13.5 % 4.2-5.6 H AMERIC AN DIABETES code = 23104) ASSOCIATION IDELINES FOR HGB A1C: PREDIABETES/INC REASED RISK . . . . . . . 5 .7-6.4% DIAGNOSIS OF DI ABETES . . . . . . . . . >=6 .5% WITH CONFIRMATION OR APPROPRIATE SYMPTOMS NOTE: ASSAY MAY BE AFFECTED BY HEMOGLOBINOPATH IES (SICKLE CELL ANEMIA, S- C DISEASE, OTHERS) OR MALENA FICIALLY LOWERED BY DECR EASED RED CELL SURVIVAL ( HEMOLYTIC ANEMIAS, BLOOD LOSS, ETC.). CONSIDER ALTERN ATE TESTING OR LABORATORY C ONSULTATION. COMPREHENSIVE METABOLIC [id number] 06:14:53 Test Item Value Reference Range Interpretation Comments GLUCOSE (test code = 376 MG/DL 70-99 H 2216) BUN (test code = 8 MG/DL 6-20 2207) CREATININE (test 0.48 MG/DL 0.60-1.30 L code = 221) eGFR (2020 CKD-EPI) 130 >60 (test code = 39701) ML/MIN/1.73 CALC BUN/CREAT (test 17 RATIO 6-28 code = 2235) SODIUM (test code = 135 MEQ/L 734-450 0097) POTASSIUM (test code 4.4 MEQ/L 3.5-5.4 = 2227) CHLORIDE (test code 97 MEQ/L 95-107 = 2214) CARBON DIOXIDE (test 21 MEQ/L 19-31 code = 220) CALCIUM (test code = 9.7 MG/DL 8.5-10.5 2208) PROTEIN, TOTAL (test 7.1 G/DL 6.1-8.3 code = 222) ALBUMIN (test code = 4.1 G/DL 3.5-5.2 2200) CALC GLOBULIN (test 3.0 G/DL 1.9-3.7 code = 2240) CALC A/G RATIO (test 1.4 RATIO 1.0-2.6 code = 2234) BILIRUBIN, TOTAL <0.2 MG/DL See_Comment [Automated message] (test code = 220) The [employer] which generated this result transmitted ref erence range: <=1.2. T he reference range was not used to int erpret this result as normal/abnormal . ALKALINE PHOSPHATASE 98 U/L 40-114 (test code = 2204) AST (test code = 11 U/L 9-40 2217) ALT (test code = 9 U/L 5-40 UNLESS OTH ERWISE 2219) INDICATED, ALL TESTING PERFORM ED [facility], [facility]. [address] [facility] [place] [address] [facility] DIRECTOR: JEANA ORO M.D. CLIA NUMBER [id number] CAP ACCREDITATION N O. [id number] 05:32:02 Test Item Value Reference Range Interpretation Comments RPR RESULT (test code = NON-REACTIVE NON-REACTIVE 3501) RPR TITER (test code = 3500) NOT INDIC. TITER NOT INDIC. HIV 1/2 4TH GEN, RFLX [id number] 04:56:29 Test Item Value Reference Range Interpretation Comments HIV 1/2 4TH GEN, RFLX CONF (test NON-REACTIVE NON-REACTIVE code = 3514) HEPATITIS PANEL, [id number] 04:56:29 Test Item Value Reference Range Interpretation Comments HEPATITIS A IgM (test NON-REACTIVE NON-REACTIVE code = 03497) HEPATITIS B CORE IgM NON-REACTIVE NON-REACTIVE (test code = 4644) HEPATITIS B SURF AG NON-REACTIVE NON-REACTIVE (test code = 2739) HEPATITIS C ANTIBODY NON-REACTIVE NON-REACTIVE (test code = 4675) INTERPRETATION (NOTE) Hepatitis A HEPATITIS A: (test code sero logy shows no = 2552) evidence of acu te hepatitis A. INTERPRETATION (NOTE) Hepatitis B HEPATITIS B: (test code sero logy shows no = 45831) evidence of acu te hepatitis B and no indication of exposure to hepatitis B vir us in the previous ora eight months. INTERPRETATION (NOTE) Hepatitis C HEPATITIS C: (test code sero logy shows no = 96031) evidence of exposure to hepatitisC viru s at this time. I t can take up to 12 months after exposure tothe hepatitis C vir us for antibodies to become detectab le in the blood in certain patient s. POCT [id number] 15:56:00 Test Item Value Reference Range Interpretation Comments POCT PREG (test code = 1605) Negative On board controls acceptable with C Yes Line (test code = 3574) POCT PREG LOT # (test code = 3575) POCT PREG TEST DATE (test code = 3576) [facility] [id number] 15:56:00 Test Item Value Reference Range Interpretation Comments POCT PREG (test code = 1605) Negative On board controls acceptable with C Yes Line (test code = 3574) POCT PREG LOT # (test code = 3575) POCT PREG TEST DATE (test code = 3576) [facility] [id number] 04:37:00 Test Item Value Reference Range Interpretation [...] code None /HPF NONE SEEN = BACU) [id number] 04:15:00 Test Item Value Reference Range Interpretation Comments GLUBED (test code = GLUBED) 134 MG/DL 70-105 H - XR CHEST 1 [id number] 16:20:00 [facility] 1990 Sex: FPatient Name: MICHELLE AZUL Unit No: [id number] EXAMS: CPT: [id number] XR CHEST 1 V 27486 CHEST RADIOGRAPH, ONE VIEW: FRONTAL HISTORY: Shortness of breath. COMPARISON: None. FINDINGS: The lungs are clear and the cardiovascular silhouette is normal. No infiltrates or pulmonary edema is present. No pleural effusions are seen. IMPRESSION: No acute lung findings. at 1620 Reported and signed by: Moses Mercado MD CC: Jamir Chong DO Technologist: Jonas Roa Time: DAP (Gy m2): Air Kerma (mGy): Trscr Dt/Tm: 05/31/2021 (1620) by:[email or web address] Orig Print D/T: S: 05/31/2021 (1623) BATCH NO: N/A Name: MICHELLE AZUL [facility] Phys: [id number] - Jake Rasheed MD [address] [facility] : 1990 Age: 31 Sex: [place] [address] Loc: N.ERS Exam Date: 05/31/2021 Status: REG ER PH: FAX: PAGE 1 Signed ReportUrine [id number] 21:11:10 Test Item Value Reference Range Interpretation Comments Urine culture Mixed madelyn Specimen isolate (test 10 col/cc InformationSpe [facility] code = 28103-3) Source: Urin eSpecimen Site: Clean cat ch [facility] Less Than 14 [id number] 12:09:20 EXAMINATION: US SINGLE LESS THAN 14 WEEKS, US TRANSVAGINAL CLINICAL HISTORY: Vaginal bleeding () COMPARISON: None. TECHNIQUE: Transverse and longitudinal transvaginal and transabdominal sonographic images of the pelvis were obtained. Grayscale, color Doppler, and spectral waveform analysis of the ovarian vessels was performed. FINDINGS: The uterus measures 8.8 x 5.9 x 4.7 cm. The right ovary measures 2.5 x 1.5 x 1.0 cm. The left ovary measures 2.6 x 2.1 x 1.5 cm. Blood flow is documented within each ovary. No suspicious fluid is identified. Limited evaluation demonstrates a single intrauterine . Mean gestational sac diameter: 3.0 cmCrown-rump length: 2.2 cm Estimated gestational age is 8 weeks 3 days which gives an JAKOB of 10/05/2021. cardiac activity is identified with a rate of 171 bpm. IMPRESSION: 1.Viable montes intrauterine , 8 weeks 3 days by sonographic dating, with heart rate of 171 bpm. [facility] Interface, Radiology Results 02/26/2021 7:12 AM CDT EXAMINATION: US SINGLE LESS THAN 14 WEEKS, US TRANSVAGINALCLINICAL HISTORY: Vaginal bleeding ()COMPARISON: None.TECHNIQUE: Transverse and longitudinal transvaginal and transabdominal sonographic images of the pelvis were obtained. Grayscale, color Doppler, and spectral waveform analysis of the ovarian vessels was performed.FINDINGS:The uterus measures 8.8 x 5.9 x 4.7 cm. The right ovary measures 2.5 x 1.5 x 1.0 cm. The left ovary measures 2.6 x 2.1 x 1.5 cm. Blood flow is documented within each ovary. [...] sonographic dating, with heart rate of 171 bpm.[facility] [id number] 12:09:20EXAMINATION: US SINGLE LESS THAN 14 WEEKS, US TRANSVAGINAL CLINICAL HISTORY: Vaginal bleeding () COMPARISON: None. TECHNIQUE: Transverse and longitudinal transvaginal and transabdominal sonographic images of the pelvis were obtained. Grayscale, color Doppler, and spectral waveform analysis of the ovarian vessels was performed. FINDINGS: The uterus measures 8.8 x 5.9 x 4.7 cm. The right ovary measures 2.5 x 1.5 x 1.0 cm. The left ovary measures 2.6 x 2.1 x 1.5 cm. Blood flow is documented within each ovary. No suspicious fluid is identified. Limited evaluation demonstrates a single intrauterine . Mean gestational sac diameter: 3.0 cmCrown-rump length: 2.2 cm Estimated gestational age is 8 weeks 3 days which gives an JAKOB of 10/05/2021. cardiac activity is identified with a rate of 171 bpm. IMPRESSION: 1.Viable montes intrauterine , 8 weeks 3 days by sonographic dating, with heart rate of 171 bpm. [facility] Results 02/26/2021 7:12 AM CDT EXAMINATION: US SINGLE LESS THAN 14 WEEKS, US TRANSVAGINALCLINICAL HISTORY: Vaginal bleeding ()COMPARISON: None.TECHNIQUE: Transverse and longitudinal transvaginal and transabdominal sonographic images of the pelvis were obtained. Grayscale, color Doppler, and spectral waveform analysis of the ovarian vessels was performed.FINDINGS:The uterus measures 8.8 x 5.9 x 4.7 cm. The right ovary measures 2.5 x 1.5 x 1.0 cm. The left ovary measures 2.6 x 2.1 x 1.5 cm. Blood flow is documented within each ovary. No suspicious fluid is identified.Limited evaluation demonstrates a single intrauterine .Mean gestational sac diameter: 3.0 cmCrown-rump length: 2.2 cmEstimated gestational age is 8 weeks 3 days which gives an JAKOB of 10/05/2021. cardiac activity is identified with arate of 171 bpm.IMPRESSION:1.Viable montes intrauterine , 8 weeks 3 days by sonographic dating, with heart rate of 171 bpm.[facility] HospitalType and [id number] 11:15:00 Test Item Value Reference Range Interpretation Comments ABO grouping (test code = 883-9) A Rh type (test code = 21638-4) POS Antibody screen (gel) (test code = NEG 890-4) [facility] [id number] 18:51:00 RUN DATE: 06/09/20 [facility] LAB PAGE 1 RUN TIME: 1850 Specimen Inquiry RUN USER: INTERFACE ---- --------PATIENT: MICHELLE AZUL LOC: NAinsley U #: [id number] AGE/SX: 30/F [facility]: Jamir Chong : [birth year] BED: 1 DIS: 06/02/20 STATUS: DIS IN TLOC: -------- ---- SPEC #: [id number] RECD: 06/02/201148 STATUS: SOUJuani REQ #: [id number] [place]: 06/01/20-[address]: Jamir Chong DO [...] surface blood vessel with organizing thrombus. Other fe ceferino surface vessels with endothelial cushion lesion. Cotyledons: [...] in the Pathology department. Discussed with Jackie Vance (Desire Scales Director) on 06/08/2020, by telephone. Electronically signed by: Juan Duncan MD 06/09/2020 LUZMARIA BANUELOS ON NEXT PAGE RUN DATE: 06/09/20 [facility] PAGE 2 RUN TIME: 1851 Specimen Inquiry RUN USER: INTERFACE SPEC #: [id number] PATIENT: MICHELLE AZUL #[id number] (Continued) - GROSS DESCRIPTION Received fresh, labeled "placenta", is a 280 g, 15.0 x 14.0 x 2.0 cm, montes, ovoid placenta. The membranes are segura-pink to segura- brown, semi-translucent, and insert marginally. The umbilical cord is segura-brown and dusky, measures 21.0 cm in length and 1.7 cm in diameter, is normally coiled, contains three vessels and inserts eccentrically. The surface is blue-pizano, contains focal areas ofmeconium staining, and has a normal vascular distribution pattern. The maternal surface is red-brownwith complete cotyledons. The parenchyma contains multiple, segura-yellow, focal, firm lesions ranging from 0.5 - 1.2 x 1.0 x 0.6 cm in greatest dimension. These areas account for less than 10% of the total disc. The remaining cotyledons are segura-red and spongy. Medical Coding Technician sections are submitted in cassettes as follows, A1 - A5 (A2-A3 contains lesions). TR 06/04/2020 03:05 PM The placenta is grossly examined by Dr. Jorge L Duncan on 06/08/2020. Of note, the surface blood vessels appear dilated and filled with blood clot. The umbilical cord, on cut section also shows some dilated vessels filled with blood clot. The placental parenchyma shows vague areas of soft, segura-white discoloration as well as a few, white-segura, more firm areas. The maternal surface appears relatively unremarkable. Additional client services representative sections are submitted in A6-A10. [facility], 06/09/2020 5:54 PM MICROSCOPIC DESCRIPTION Sections of the umbilical cord show three vessels identified that are free of inflammation. Sections ofthe membranes show amnion and chorion that are without inflammation, however, a number of pigment-laden macrophages are noted within the membranes, consistent with microscopic meconium staining. A surface vessel is dilated and filled with organizing thrombus. Other surface vessels show endothelial cushion lesions. Sections of the cotyledons show a pattern consistent with accelerated maturation, showing frequently slender or small chorionic villi and numerous syncytial knots. Several fociof placental infarction and increased perivillous fibrin deposition are noted. Many villi show appropriate vascularity, however, occasional, hypovascular or avascular stem villi are noted and some stemvilli show focal, luminal septations, organizing or organized thrombi. No villitis is identified. A mild increase in parenchymal calcifications is noted. The decidual vessels are without thrombosis nornecrosis. No distinct evidence of malignancy is identified. Signed SIGNATURE ON FILE Juan Duncan MD 06/09/20 6457 END OF REPORT CBC W/AUTO [id number] 06:12:00 Test Item Value Reference Range Interpretation [...] 0.0 x10 3/uL 0.0-0.1 N RAPID PLASMA [id number] 10:35:00 Test Item Value Reference Range Interpretation Comments RAPID PLASMA REAGIN (test code = NEGATIVE NEGATIVE RPR) [id number] 06:52:00 Test Item Value Reference Range Interpretation Comments GLUBED (test code = GLUBED) 85 MG/DL 70-105 N [id number] 04:40:00 Test Item Value Reference Range Interpretation Comments GLUBED (test code = GLUBED) 78 MG/DL 70-105 N UR CREATININE [id number] 02:42:00 Test Item Value Reference Range Interpretation Comments UR CREATININE RANDOM (test code 221.63 mg/dL 40-300 N = CREATU) UR MICROALB/CREAT [id number] 02:42:00 Test Item Value Reference Range Interpretation Comments UR MICROALB/CREAT RATIO (test code 0.0 mg/dL 0.0-30.0 N = MICALBRAT) MICROALBUMIN [id number] 02:42:00 Test Item Value Reference Range Interpretation Comments MICROALBUMIN UR (test code = 1.6 mg/dL 0.0-1.9 N MICROALBUR) UR CREATININE [id number] 02:36:00 Test Item Value Reference Range Interpretation Comments UR CREATININE RANDOM (test code 221.63 mg/dL 40-300 N = CREATU) UR MICROALB/CREAT [id number] 02:36:00 Test Item Value Reference Range Interpretation Comments UR MICROALB/CREAT RATIO (test code = mg/dL 0.0-30.0 MICALBRAT) MICROALBUMIN [id number] 02:36:00 Test Item Value Reference Range Interpretation Comments MICROALBUMIN UR (test code = mg/dL 0.0-1.9 MICROALBUR) AB RUBELLA [id number] 02:26:00 Test Item Value Reference Range Interpretation Comments AB RUBELLA IGG POSITIVE NEGATIVE A Interpretive Data: Rubella (test code = IgG Concentrati ons between RUBGAB) >= 10 IU/mL and < 15 IU/mL are considered indeterminate f or determining imm unity to rubella. Studie s suggest that vaccinated individuals hav ing these low levels of a nti-rubella IgG do show a s econdary immune response following re-vaccination but have not been challe nged with wild rubella vi nish (9). A follow-up sampl e should be taken to furthe r evaluate immune status. If the repeat sample i s still indeterminate, the sample may require zohaib ting by alternate prestono ds AG HEPATITIS B [id number] 02:26:00 Test Item Value Reference Range Interpretation Comments AG HEPATITIS B SURFACE (test code = NEGATIVE NEGATIVE HBSAG) AB HIV 1 02:26:00 Test Item Value Reference Range Interpretation Comments AB HIV 1 2 (test code = MQV84NB) NEGATIVE NEGATIVE [id number] 02:25:00 Test Item Value Reference Range Interpretation Comments GLUBED (test code = GLUBED) 117 MG/DL 70-105 H BASIC METABOLIC [id number] 02:25:00 Test Item Value Reference Range Interpretation [...] 9.3 mg/dL 8.5-10.5 N = CA) T4 [id number] 02:25:00 Test Item Value Reference Range Interpretation Comments T4 FREE (test code = T4F) 0.78 ng/dL 0.61-1.12 N THYROID STIMULATING [id number] 02:25:00 Test Item Value Reference Range Interpretation Comments THYROID STIMULATING HORMONE 0.229 uIU/ml 0.450-5.330 L (test code = TSH) THYROID REFLEX TO [id number] 02:25:00 Test Item Value Reference Range Interpretation Comments THYROID REFLEX TO FT4 (test code 0.229 uIU/ml 0.450-5.330 L = TSHREFLEX) DRUGS OF ABUSE SCREEN [id number] 01:41:00 Test Item Value Reference Range Interpretation Comments UR COCAINE (test code NEGATIVE NEGATIVE This i s a toxicology = COCAU) qualitative scr eening test only, whic hmay detect parent c ompound or metabolite or relatedsubstanc e. If confirmatory te sting is desired, please request drug screen con firmation. These results a re unconfirmed and should be used only for m edical purposes. Cut-o ff concentration f or Cocaine is 300 ng/mLRec ommended screening cut-o ff concentrations by [facility] Ab use and Mental [facility]. UR CANABINOIDS (test POSITIVE NEGATIVE A [...] ff concentrations by thebstance Ab use and Mental [facility]. UR AMPHETAMINE (test POSITIVE NEGATIVE A The ing estion of natural code = AMPHU) herbal and mirian nt productscontain ing Ephedra/Ephedra -Metabolit es can produce in urineone or mor e substances capa ble of cross-reacting withAmphetamine /Methamphe hernesto immunolavern says. This testprovides a preliminary res ult only. A more [...] ff concentrations by thebstance Ab use and Mental [facility]. UR BARBITURATE (test NEGATIVE NEGATIVE This [...] ff concentrations by thebstance Ab use and Mental [facility] ervices Administration. UR BENZODIAZEPINE NEGATIVE NEGATIVE This is [...] ff concentrations by thebstance Ab use and [facility]. UR OPIATES QUAL (test NEGATIVE NEGATIVE This [...] ng/mLRec ommended screening cut-o ff concentrations by [facility] Ab use and [facility]. UR PHENCYCLIDINE NEGATIVE NEGATIVE This is a [...] ng/mLRecomme nded screening cut-o ff concentrations by [facility] use and [facility]. - US [id number] 01:34:00Patient Name: MICHELLE AZUL Unit No: [id number] EXAMS: CPT: [id number] [place] L[place] 11188 Limited obstetrical sonogram, 06/01/2020. Clinical: No heart [...] 06/01/2020 (0134) by:[email or web address] Orig Print D/T: S: 06/01/2020 (0137) BATCH NO: N/A Name: MICHELLE AZUL [facility] Phys: Moshe Chaparro MD [address] : 1990 Age: 30 Sex: F [place] [address] Loc: N.1210 1 Exam Date: 05/31/2020 Status: ADM IN PH: FAX: PAGE 1 Signed ReportCBC W/AUTO [id number] 01:33:00 Test Item Value Reference Range Interpretation [...] 0.0 x10 3/uL 0.0-0.1 N BASIC METABOLIC [id number] 01:32:00 Test Item Value Reference Range Interpretation [...] 9.3 mg/dL 8.5-10.5 N = CA) T4 [id number] 01:32:00 Test Item Value Reference Range Interpretation Comments T4 FREE (test code = T4F) ng/dL 0.61-1.12 THYROID STIMULATING [id number] 01:32:00 Test Item Value Reference Range Interpretation Comments THYROID STIMULATING HORMONE 0.229 uIU/ml 0.450-5.330 L (test code = TSH) THYROID REFLEX TO [id number] 01:32:00 Test Item Value Reference Range Interpretation Comments THYROID REFLEX TO FT4 (test code 0.229 uIU/ml 0.450-5.330 L = TSHREFLEX) CBC W/AUTO [id number] 01:24:00 Test Item Value Reference Range Interpretation [...] = EO#) x10 3/uL 0.0-0.5 BASIC METABOLIC [id number] 01:10:00 Test Item Value Reference Range Interpretation [...] mg/dL 8.5-10.5 N = CA) THYROID STIMULATING [id number] 01:10:00 Test Item Value Reference Range Interpretation Comments THYROID STIMULATING HORMONE (test uIU/ml 0.450-5.330 code = TSH) THYROID REFLEX TO [id number] 01:10:00 Test Item Value Reference Range Interpretation Comments THYROID REFLEX TO FT4 (test code = uIU/ml 0.450-5.330 TSHREFLEX) URINALYSIS [id number] 00:16:00 Test Item Value Reference Range Interpretation [...] /LPF NONE SEEN COVID 19 Asymptomatic IH [id number] 00:03:00 Test Item Value Reference Range Interpretation [...] clnical signs and sympt oms consistent withCOVID-19. [id number] 23:23:00 Test Item Value Reference Range Interpretation Comments GLUBED (test code = GLUBED) 161 MG/DL 70-105 H URINALYSIS [id number] 02:17:00 Test Item Value Reference Range Interpretation [...] BACU) 1+ /HPF NONE SEEN A URINALYSIS [id number] 01:28:00 Test Item Value Reference Range Interpretation [...] code = MUCU) 1+ /LPF NONE SEEN Notes Date/Time Note Provider Source 2021-05-31 16:41:00-00:00 [facility] ([facility] EMERGENCY PROVIDER REPORT REPORT#:[id number] REPORT STATUS: Signed DATE:05/31/21 TIME: 164 PATIENT: MICHELLE AZUL UNIT #: [id number] ROOM: BED: AGE: 31 SEX: F PCP PHYS: Jamir Chong DO SERVICE AUTHOR: Jake Rasheed MD * ALL edits or amendments must be made on the el [employer]/computer document * HPI-URI/Cough/Cold General Initial Greet Date/Time 05/31/21 1517 Presentation Chief Complaint Upper resp infection Free Text HPI Notes Free Text HPI Notes Patient reports a 2-day history of fever chills and body aches. Patient also reports mild nonproductive cough. Patient denies shortness of breath. Patient is here with her boyfriend who has similar illne ss. Patient is currently 6 weeks . Patient denies prior history of Covid patient de nies Covid vaccination. My H P was limited as I greeted the pt in the ED lobby, per administrations direction, as there were no beds available in the ED and therefore studies which I order may take an extended time to result. Review of Systems ROS Statements All systems rev neg except as marked. Complete sys rev neg except as marked. Basic Review of Systems Basic ROS CV: No chest pain, : No dysuria/frequency, MS: No ext swelling/pain, HEM: No bleeding/bruising, PSYCH: NL thought con tent Past Medical History - Adult Stated Complaint COVID SYMPTOMS Allergies Coded Allergies: No Known Allergies (04/14/20) Home Medications Active Scripts IBUPROFEN (ADVIL) 800 MG PO Q6H PRN ABDOMINAL CR AMPS/PAIN IBUPROFEN (ADVIL) 800 MG PO Q6H PRN ABDOMINAL C RAMPS/PAIN #30 TAB Prov: 06/01/20 Reported Medications Insulin Regular (Humulin R) 10 U SUBQ AC BK Insulin Regular (Humulin R) 9 UNIT SUBQ PC DIN Insulin Nph Human Recom (Novolin N) 24 UNIT SUBQ AC BK Insulin Nph Human Recom (Novolin N) 9 UNIT SUBQ PC DIN Pnv With Fe Fumarate/Fa () 1 EACH PO ROSHAN LY Pt reports no significant: Past medical history, Past surgical history, Family history, Social history Smoking status: Smoking status for patients 13 years old or old er: Unknown,if ever smoked Physical Exam Vital Signs Vital Signs First Documented: Result Date Time Pulse Ox 100 05/31 1513 B/P 113/76 05/31 1513 B/P Mean 88 05/31 1513 O2 Delivery Room air 05/31 1513 Temp 36.9 05/31 1513 Pulse 84 05/31 1513 Resp 18 05/31 1513 Last Documented: Result Date Time Pulse Ox 100 05/31 1513 B/P 113/76 05/31 1513 B/P Mean 88 05/31 1513 O2 Delivery Room air 05/31 1513 Temp 36.9 05/31 151 Pulse 84 05/31 151 Resp 18 05/31 151 Review of Vital Signs Reviewed Basic Physical Exam Basic PE HEAD: Atraumatic/NC, EYES: PERRL, conj clear, NECK: Supple, CV: Reg rate rhythm, ABD: Soft/non-tender, EXT: No gross abnormality, SKIN: No rashes, warm/dry, NEURO: alert oriented, NEURO: gross mo vement NL, PSYCH: NL thought content Focused PE General/Const General/Const Awake, Alert, Well appearing, Not toxic appearing Eyes Eyes PERRL Ears/Nose/Throat Ears/Nose/Throat Airway patent, Mucous membrane s moist, Pharynx NL, Tympanic membs NL, Ext aud canal NL, Nose exam NL, No sin us tenderness MS Neck Neck Supple, No meningismus, Full range of motion, No adenopathy, No swelling , Non-tender Resp/Chest Respiratory/Chest Breath sounds NL, Breath soun ds = bilat, No respiratory distress, No rales, No rhonchi, No wheezing, No retractions, No stridor Cardiovascular Cardiovascular Heart rate NL, Regular rhythm, H eart sounds NL, Peripheral circulation NL Abdomen/GI Abdomen/GI Soft, Non-tender, No guarding, No re bound Skin Skin Color NL, No rash, Warm, Dry, Turgor NL Neurologic Neurologic Oriented X3, Speech NL, No motor def icits, No sensory deficits Interpretation Diagnostics Lab Results Interpretation Results Recent Impressions: RADIOLOGY - XR CHEST 1 V 05/31 1555 Report Impression - Status: SIGNED Entered: 05/31/2021 1623 IMPRESSION: No acute lung findings. Impression By: [email or web address] - Moses Mercado MD Re-Evaluation MDM Free Text MDM Notes Additional Text Patient left from waiting room Patient Discharge Departure Vital Signs/Condition Vital Signs First Documented: Result Date Time Pulse Ox 100 05/31 1513 B/P 113/76 05/31 1513 B/P Mean 88 05/31 151 O2 Delivery Room air 05/31 1513 Temp 36.9 05/31 151 Pulse 84 05/31 151 Resp 18 05/31 151 Last Documented: Result Date Time Pulse Ox 100 05/31 1513 B/P 113/76 05/31 1513 B/P Mean 88 05/31 151 O2 Delivery Room air 05/31 1513 Temp 36.9 05/31 151 Pulse 84 05/31 1513 Resp 18 05/31 1513 All vital signs available at the time of this en try have been reviewed. Condition Stable, Improved Clinical Impression Clinical Impression Primary Impression: URI (upper respiratory infec tion) Secondary Impressions: Encounter for laboratory testing for COVID-19 virus Time of Impression 1952 Disposition Decision Other )( Time 1952 )( Date 05/31/21 Against Medical Advice Yes Electronically Signed by Jake Rasheed MD on 04/20 at 0611 [facility] #:[id number] END OF REPORT 2020-04-14 01:57:00-00:00 [id number] [facility] [address] [facility] [address] [place] [address] PATIENT NAME: MICHELLE AZUL ADMIT CORINNE E: 04/14/20 ACCOUNT NO: [id number] ROOM NO: AGE: 30 REPORT TYPE: PROGRESS NOTE SEX: F ADMITTING PHYSICIAN: ATTENDING PHYSICIAN: DATE: SUBJECTIVE: She is a 30-year-old -Amparo n female, at 30 weeks' gestation, presents to the hospital complaining of mild cramping. The patient has a history of diabetes. She is currently on i nsulin. She also has hypertension. She was on atenolol, but does not take the medication at this time. The patient was monitored. The baby is kera ssuring. NST is reactive. No contractions on the monitor. Her cervix is long, thick, and closed. Her blood pressure is within normal limits, 110/60. The christoph toledo has an appointment with Dr. Chong soon, so she was advised to follow up with Dr. Chong this week. The patient does not appear to be in labor and the b fernie is reassuring. She was advised to continue her insulin as prescribed by her previous provider and monitor her glucose and follow up with Dr. Chong as mentioned above. Dictated By: Cruz Calle MD WT: PN:N.NETO/RAQUEL/NTS Conf#: [id number]/DID#: [id number] Authenticated by Cruz Calle MD On 05/17/20 06:13:52 PM at 1814 PATIENT NAME MICHELLE AZUL 2020-03-14 05:54:00-00:00 [id number] [place] [id number] PATIENT NAME: MICHELLE AZUL ADMIT CORINNE E: 03/14/20 ACCOUNT NO: [id number] ROOM NO: AGE: 29 REPORT TYPE: HISTORY AND PHYSICAL SEX: F ADMITTING PHYSICIAN: ATTENDING PHYSICIAN: ADMISSION DATE: 03/14/2020 HISTORY OF PRESENT ILLNESS: She is a 29- year-old 3, para 0-0-2-0 at 25 weeks and 6 days, due date o f 06/21/2020, presents with complaint of back pain. PAST MEDICAL HISTORY: Negative. ALLERGIES: NO KNOWN DRUG ALLERGIES. SOCIAL HISTORY: Negative. PHYSICAL EXAMINATION: Her vaginal exam was closed, thick, and posterio r. ABDOMEN: Soft and nondistended. No contractions on the monitor. heart tones were reassuring. VITAL SIGNS: Blood pressure 113/62, respiration 18, pulse of 81, and temperature 97.3 degrees Celsius. The patient was discharged to home in stable con dition with instructions to follow up with her primary OB. Dictated By: Jamir Chong DO WT: HP:MOIRA/FABIÁN/DOYLE Conf#: [id number]/DID#: [id number] Authenticated by Jamir Chong DO On 08:02:48 AM at 0836 PATIENT NAME MICHELLE AZUL
--- NOTE | 2023-02-24 20:51 | EDPHYS ---
Physician Documentation [facility] Name: Lindsay Alexander Age: 32 yrs Sex: Female : 1990 Arrival Date: 02/24/2023 Time: 20:23 Bed 1 Private MD: ED Physician Arpit Talavera HPI: 02/24 20:30 This 32 yrs old Black Female presents to ER via Unassigned with complaints of , sp4 water break . 20:35 Patient is 32-year-old black female at 36 weeks EGA, reported rupture and leak sp4 of amniotic fluid 45 minutes ago prior to arrival. Patient's OB is at [facility], Dr Salomon who is currently on vacation. Patient reports no contractions at this time. She was brought here by EMS to be assessed for active labor. . 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 - Social history:: Smoking status: Patient denies any tobacco usage or history of. - Family history:: not pertinent. ROS: 20:36 Constitutional: Negative for fever, chills, and weight loss, Eyes: Negative for injury, sp4 pain, redness, and discharge, ENT: Negative for injury, pain, and discharge, Neck: Negative for injury, pain, and swelling, Cardiovascular: Negative for chest pain, palpitations, and edema, Respiratory: Negative for shortness of breath, cough, wheezing, and pleuritic chest pain, Abdomen/GI: Negative for abdominal pain, nausea, vomiting, diarrhea, and constipation, Back: Negative for injury and pain, : Positive for amniotic fluid leak. Negative for contractions. Negative for vaginal bleeding MS/Extremity: Negative for injury and deformity, Skin: Negative for injury, rash, and discoloration, Neuro: Negative for headache, weakness, numbness, tingling, and seizure, Psych: Negative for depression, anxiety, Allergy/Immunology: Negative for hives, rash, and allergies Endocrine: Negative for neck swelling, polydipsia, polyuria, polyphagia, and weight changes Hematologic/Lymphatic: Negative for swollen nodes, abnormal bleeding, and unusual bruising Exam: 20:36 Constitutional: This is a well developed, well nourished patient who is awake, alert, sp4 and in no acute distress. Head/Face: Normocephalic, atraumatic. Eyes: Pupils equal round and reactive to light, extra-ocular motions intact. Lids and lashes normal. Conjunctiva and sclera are not injected. Cornea within normal limits. Periorbital areas with no swelling, redness, or edema. ENT: Nares patent. No nasal discharge, no septal abnormalities noted. Tympanic membranes are normal and external auditory canals are clear. Oropharynx with no redness, swelling, or masses, exudates, or evidence of obstruction, uvula midline. Mucous membranes moist. Neck: Trachea midline, no thyromegaly or masses palpated, and no cervical lymphadenopathy. Supple, full range of motion without nuchal rigidity, or vertebral point tenderness. No Meningismus. Chest/axilla: Normal chest wall appearance and motion. Nontender with no deformity. No lesions are appreciated. Cardiovascular: Regular rate and rhythm with a normal S1 and S2. No gallops, murmurs, or rubs. Normal PMI, no JVD. No pulse deficits. Respiratory: Lungs have equal breath sounds bilaterally, clear to auscultation and percussion. No rales, rhonchi or wheezes noted. No increased work of breathing, no retractions or nasal flaring. Abdomen/GI: Soft, non-tender, with normal bowel sounds. No distension or tympany. No guarding or rebound. No evidence of tenderness throughout. Back: No spinal tenderness. No costovertebral tenderness. Pelvic Exam: Normal external genitalia. No vaginal bleeding. Cervical exam reveals 1 cm dilation. Without effacement. At this time no sign of imminent delivery. Female stereoptician registered nurse present for exam Female : Normal external genitalia. Skin: Warm, dry with normal turgor. Normal color with no rashes, no lesions, and no evidence of cellulitis. MS/ Extremity: Pulses equal, no cyanosis. Neurovascular intact. Full, normal range of motion. Neuro: Awake and alert, GCS 15, oriented to person, place, time, and situation. Cranial nerves II-XII grossly intact. Motor strength 5/5 in all extremities. Sensory grossly intact. Psych: Awake, alert, with orientation to person, place and time. Behavior, mood, and affect are within normal limits Vital Signs: 20:38 BP 137 / 87; Pulse 101; Resp 15 S; Temp 98.8(O); Pulse Ox 100% on R/A; Weight 74.84 kg as6 (R); Height 5 ft. 2 in. (R); Pain 5/10; 20:49 BP 113 / 64; Pulse 99; Resp 18 S; Pulse Ox 97% on R/A; as6 20:38 Body Mass Index 30.18 (74.84 kg, 157.48 cm) as6 20:38 Pain Scale: Adult as6 MDM: 20:39 Patient medically screened. sp4 20:47 Differential Diagnosis Active labor. Rupture of amniotic membranes.. Data reviewed: sp4 vital signs, nurses notes, lab test result(s), radiologic studies, ultrasound. Consideration of Admission/Observation Escalation of care including admission/observation considered. ED course: heart tones 157.. 22:00 ED course: Ultrasound revealed single intrauterine gestation with estimated gestational sp4 age 34 weeks 5 days. Cephalic presentation. heart tones 159. Patient was transferred to [facility] in stable condition. . ED course: Patient was accepted in [facility] by optical mechanic. . 02/24 20:34 Order name: Basic Metabolic Panel; Complete Time: 21:59 sp4 02/24 20:34 Order name: CBC with Diff; Complete Time: 21:59 sp4 02/24 20:34 Order name: LFT's; Complete Time: 21:59 sp4 02/24 20:34 Order name: Troponin HS; Complete Time: 21:59 sp4 02/24 20:34 Order name: Type And Screen sp4 02/24 20:33 Order name: US OB Limited; Complete Time: 21:25 sp4 02/24 20:34 Order name: IV Saline Lock; Complete Time: 20:43 sp4 02/24 20:34 Order name: Labs collected and sent; Complete Time: 21:10 sp4 02/24 20:34 Order name: O2 Per Protocol; Complete Time: 21:10 sp4 02/24 20:34 Order name: O2 Sat Monitoring; Complete Time: 21:10 sp4 Administered Medications: 21:10 Drug: NS 0.9% IV 1000 ml Route: IV; Rate: 125 ml/hr; Site: left forearm; as6 21:54 Follow up: Response: No adverse reaction; IV Status: Infusion continued upon transfer; as6 IV Intake: 50ml Disposition Summary: 02/24/23 20:50 Transfer Ordered Transfer Location: [facility] sp4 Reason: Higher level of care sp4 Condition: Stable sp4 Problem: new sp4 Symptoms: are unchanged sp4 Accepting Physician: [facility] LINE ATTENDANT accepting (02/24/23 21:55) as6 Diagnosis - Rupture of amniotic membranes, early labor sp4 - labor without delivery, third trimester sp4 Discharge Instructions: - Discharge Summary Sheet rv1 Forms: - SBAR form rv1 - Medication Reconciliation Form sp4 Signatures: Dispatcher [employer] Reuben Sebastian, JESSI-C HISTOLOGIC AIDE-Cla1 Meño Bean RN RN as6 Arpit Talavera MD MD sp4 Corrections: (The following items were deleted from the chart) 21:55 20:50 [facility] LINE ATTENDANT accepting sp4 as6
--- NOTE | 2023-02-24 20:51 | ER ---
Nurse's Notes [facility] Name: Lindsay Alexander Age: 32 yrs Sex: Female : 1990 Arrival Date: 02/24/2023 Time: 20:23 Bed 1 Private MD: Diagnosis: Rupture of amniotic membranes, early labor; labor without delivery, third trimester Presentation: 02/24 20:38 Chief complaint: EMS states: pt water broke around 1945 with contractions every 3-5 as6 minutes. pt is calm and able to talk through contractions. Coronavirus screen: At this time, the client does not indicate any symptoms associated with coronavirus-19. Ebola Screen: No symptoms or risks identified at this time. Initial Sepsis Screen: Does the patient meet any 2 criteria? No. Patient's initial sepsis screen is negative. Does the patient have a suspected source of infection? No. Patient's initial sepsis screen is negative. Risk Assessment: Do you want to hurt yourself or someone else? Patient reports no desire to harm self or others. Onset of symptoms was February 24, 2023 at 19:45. 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 - Social history:: Smoking status: Patient denies any tobacco usage or history of. - Family history:: not pertinent. Screenin:[address] [facility] ED Fall Risk Assessment (Adult) Score/Fall Risk Level 0 - 2 = Low Risk. Abuse as6 screen: Denies threats or abuse. Denies injuries from another. Nutritional screening: No deficits noted. Tuberculosis screening: No symptoms or risk factors identified. Assessment: 20:49 General: Appears in no apparent distress. Behavior is calm, cooperative, pt 36 weeks 3 as6 days. Pain: Complains of pain in abdomen. Neuro: Level of Consciousness is awake, alert, obeys commands, Oriented to person, place, time, situation. Cardiovascular: No deficits noted. Respiratory: Respiratory effort is even, unlabored. GI: Abdomen is round distended, Reports lower abdominal pain, cramping. Vital Signs: 20:38 BP 137 / 87; Pulse 101; Resp 15 S; Temp 98.8(O); Pulse Ox 100% on R/A; Weight 74.84 kg as6 (R); Height 5 ft. 2 in. (R); Pain 5/10; 20:49 BP 113 / 64; Pulse 99; Resp 18 S; Pulse Ox 97% on R/A; as6 20:38 Body Mass Index 30.18 (74.84 kg, 157.48 cm) as6 20:38 Pain Scale: Adult as6 Vitals: 20:42 Heart Tones 157. as6 ED Course: 20:24 Patient arrived in ED. rv1 20:30 Arpit Talavera MD is Attending Physician. sp4 20:37 Meño Bean, RN is Primary Nurse. as6 20:37 Arm band placed on. as6 20:42 Triage completed. as6 20:52 Placed in gown. Bed in low position. Call light in reach. Side rails up X2. as6 21:08 US OB Limited In Process Unspecified. EDMS 21:54 Assist provider with pelvic exam:. Patient transferred, IV remains in place. as6 Administered Medications: 21:10 Drug: NS 0.9% IV 1000 ml Route: IV; Rate: 125 ml/hr; Site: left forearm; as6 21:54 Follow up: Response: No adverse reaction; IV Status: Infusion continued upon transfer; as6 IV Intake: 50ml Medication: 20:51 VIS not applicable for this client. as6 Intake: 21:54 IV: 50ml; Total: 50ml. as6 Outcome: 20:50 ER care complete, transfer ordered by . sp4 21:54 Transferred by ground EMS to [facility], Transfer form as6 completed. 21:54 Condition: stable 21:54 Instructed on the need for transfer. 21:55 Patient left the ED. as6 Signatures: Dispatcher [employer] EDMS Meño Bean, TRENTON RN as6 Kendal Bear rv1 Arpit Talavera MD MD sp4
[2023-02-24] MEDS ORDERED: NA CHLORIDE 0.9% 1,000 ML ONE (20:52)
[2023-02-24 21:15] LABS: Absolute Lymphocytes (CBC) 2.2 K/uL (0.7-4.9); Hematocrit 30.2 % (36.0-45.0); Lymphocytes % 28.9 % (15.3-44.8); MCV 87.5 fL (80-100); MPV 7.3 fL (7.6-11.3); RBC Red Blood Cell Count 3.45 M/uL (3.86-4.86)
--- NOTE | 2023-02-24 21:24 | RAD REPORT ---
EXAM DESCRIPTION: US - OB Limited - 02/24/2023 9:06 pm CLINICAL HISTORY: 36 weeks and Amniotic leak COMPARISON: No comparisons TECHNIQUE: Sonographic grayscale and color flow images of a third -trimester were obtained through a transabdominal approach. FINDINGS: A single live intrauterine is identified, in cephalic presentation. heart rate: 159 beats per minute. The cervical canal is closed, measuring 3.8 centimeter in length. Placenta appears to be posterior, and is not fully evaluated. Amniotic fluid index: 18.17 centimeter, at the higher normal limits for gestational age. MVP: Q2, charmaine suring 6.13 cm. Gestational age by femur length: 34 weeks, 5 days. Maternal ovaries were not visualized. No free fluid. IMPRESSION: 1. Single live intrauterine in cephalic presentation. 2. OJ at the upper limit of normal for gestational age. 3. Gestational age, by femur length: 34 weeks, 5 days.
[2023-02-24 21:34] LABS: ALT/SGPT 12 U/L (13-56); AST/SGOT 19 U/L (15-37); Albumin 2.1 g/dL (3.4-5.0); Alkaline Phosphatase 135 U/L (45-117); BUN Blood Urea Nitrogen 8 mg/dL (7-18); Bicarbonate 24 mEq/L (21-32); Bilirubin Total 0.2 mg/dL (0.2-1.0); Glomerular Filtration Rate 128 ml/min (=/>90); Glucose Level 122 mg/dL (74-106); Potassium 3.3 mEq/L (3.5-5.1); Protein, Total 6.3 g/dL (6.4-8.2); Sodium Level 136 mEq/L (136-145); Troponin High Sensitivity 5.1 pg/mL (<58.9)
[2023-02-24 21:37] LABS: Bilirubin Direct < 0.1 mg/dL (0-0.2); Bilirubin Indirect, Calculated ND mg/dL (0.2-0.8)
[2023-02-24 21:59] VITALS: TEMP 98.8
[2023-02-24 22:00] VITALS: BP 113/64; O2SAT 97
== END 2023-02-24 21:55 | disposition short-term general hospital (02) ==
LOC: ER 20:23
DX: O42.913 Preterm premature rupture of membranes, unspecified as to length of time between rupture and onset of labor, third trimester (principal); O60.03 Preterm labor without delivery, third trimester; Z3A.34 34 weeks gestation of pregnancy
CPT/HCPCS: 85025; 80048; 36415; 86900; 86850; 86901; 80076; 84484; 76815; 96360; 99285; J7030

== ENCOUNTER 2025-07-13 11:53 | Observation (INO) | payer OTHER ==
[2025-07-13] MEDS ORDERED: ONDANSETRON 4 MG/2 ML VIAL ONE (13:45)
[2025-07-13] MEDS ORDERED: ACETAMINOPHEN 500 MG TAB ONE (13:46)
[2025-07-13] MEDS ORDERED: NA CHLORIDE 0.9% 1,000 ML ONE ×2 (13:46→16:18)
[2025-07-13 13:56] LABS: Absolute Lymphocytes (CBC) 1.0 K/uL (0.7-4.9); Hematocrit 38.7 % (36.0-45.0); Hemoglobin 13.3 g/dL (12.0-15.0); MCH 29.2 pg (27.0-35.0); MCHC 34.4 g/dL (32.0-36.0); MCV 84.7 fL (80-100); MPV 8.2 fL (7.6-11.3); Nucleated RBC Absolute Count 0.0 (0-0); Nucleated Red Blood Cells % 0.0 % (0-0); RBC Red Blood Cell Count 4.57 M/uL (3.86-4.86); White Blood Count 10.10 thou/uL (4.3-10.9)
[2025-07-13 14:03] LABS: Sqamous Epithelial <5 /HPF (None Seen); Urine Culture Reflex Order NOT NEEDED; Urine Microscopic Reflex YN ORDER UMIC
[2025-07-13 14:12] LABS: Influenza A Ag Negative; Influenza B Ag Negative; SARS-CoV-2 Antigen Rapid Res Negative (Negative)
[2025-07-13 14:13] LABS: ALT/SGPT 19.0 U/L (13-56); AST/SGOT 14.0 U/L (15-37); Albumin 2.9 g/dL (3.4-5.0); Albumin/Globulin Ratio 0.6 (1.1-1.8); Alkaline Phosphatase 101.0 U/L (45-117); Anion Gap 11.0 mEq/L (5.0-15.0); BUN Blood Urea Nitrogen 8.0 mg/dL (7-18); Globulin 4.8 g/dL (2.3-3.5); Glucose Level 186.0 mg/dL (74-106); Potassium 3.0 mEq/L (3.5-5.1)
[2025-07-13] MEDS ORDERED: LORazepam 2 MG/ML VIAL ONE (14:45)
[2025-07-13 15:47] LABS: METHAMPHETAM POSITIVE (NEGATIVE); THC Cannibis POSITIVE (NEGATIVE)
[2025-07-13] MEDS ORDERED: IBUPROFEN 400 MG TAB ONE (16:17)
--- NOTE | 2025-07-13 16:42 | RAD REPORT ---
EXAMINATION: ONE VIEW CHEST XR CLINICAL INDICATION: DYSPNEA TECHNIQUE: Frontal chest projection is submitted. Examination is limited by patient positioning and t echnique. COMPARISON: No prior exam. FINDINGS: Opacity is present in the left lung base which is suspicious for pneumonia. The lungs are otherwise c lear. The heart is upper limit of normal in size. No displaced fractures identified. IMPRESSION: Opacity in the left lung base favored to represent pneumonia.
[2025-07-13] MEDS ORDERED: AZITHROMYCIN 500 MG INJ IVPB ONE (16:58)
[2025-07-13] MEDS ORDERED: CEFTRIAXONE 1000 MG/VIAL ONE (16:58)
[2025-07-13] MEDS ORDERED: NA CHLORIDE 0.9% 50 ML ONE (16:59)
[2025-07-13] MEDS ORDERED: NA CHLORIDE 0.9% 250 ML ONE (16:59)
[2025-07-13 17:05] LABS: PT Prothrombin Time 14.7 SECONDS (10-13.0); PTT, Activated Partial Thromb 29.1 SECONDS (27.2-37.4); Protime INR 1.31
--- NOTE | 2025-07-13 17:05 | ER ---
Nurse's Notes [facility] Name: Lindsay Alexander Age: 35 yrs Sex: Female : 1990 Arrival Date: 07/13/2025 Time: 11:53 Bed 20 Private MD: Diagnosis: Pneumonia, unspecified organism;Sepsis, unspecified organism;Tachycardia, unspecified Presentation: 07/13 12:31 Chief complaint: Patient states: ARREDONDO, fever, body aches, cough, congestion that started me1 this past weekend. Concern she may be as she only bled for one day in June and then July 12 she bled for one day also. Temp 100.1 in triage. Coronavirus screen: Vaccine status: Patient reports being unvaccinated. Ebola Screen: No symptoms or risks identified at this time. Initial Sepsis Screen: Does the patient meet any 2 criteria? HR > 90 bpm. Does the patient have a suspected source of infection? No. Patient's initial sepsis screen is negative. Risk Assessment: Do you want to hurt yourself or someone else? Patient reports no desire to harm self or others. Onset of symptoms is unknown. 12:31 Method Of Arrival: Ambulatory me1 12:31 Acuity: MORENO 3 me1 CITY EDITOR: 12:33 LMP 07/12/2025, unknown me1 Historical: - Allergies: 12:33 No Known Drug Allergies; me1 - PMHx: 12:33 diabetes mellitus; Hypertensive disorder; me1 - PSHx: 12:33 None; me1 - Immunization history:: Adult Immunizations up to date. - Infectious Disease History:: Denies. - Social history:: Smoking status: Patient reports the use of cigarette tobacco products, smokes one pack cigarettes per day. Patient uses street drugs, marijuana. Screenin:00 [facility] ED Fall Risk Assessment (Adult) History of falling in the last 3 months, zm including since admission No falls in past 3 months (0 pts) Confusion or Disorientation No (0 pts) Intoxicated or Sedated No (0 pts) Impaired Gait No (0 pts) Mobility Assist Device Used No (0 pt) Altered Elimination No (0 pt) Score/Fall Risk Level 0 - 2 = Low Risk Oriented to surroundings, Maintained a safe environment, Educated pt \T\ family on fall prevention, incl call for assistance when getting out of bed, Assessed \T\ reinforced patient's understanding of fall precautions, Hourly rounding (assess needs \T\ fall precautionary measures) done, Used ambulatory aids as needed (educated on \T\ assisted with), Used gait belt as appropriate. Abuse screen: Denies threats or abuse. Denies injuries from another. Nutritional screening: No deficits noted. Tuberculosis screening: No symptoms or risk factors identified. Assessment: 14:50 General: Appears in no apparent distress. uncomfortable, Behavior is cooperative, zm restless. 14:50 Pain: Complains of pain in back and chest Pain currently is 9 out of 10 on a pain zm scale. Quality of pain is described as aching. Neuro: Level of Consciousness is awake, alert, obeys commands, Oriented to person, place, time, situation. Cardiovascular: Heart tones S1 S2 present Capillary refill < 3 seconds in bilateral fingers Patient's skin is warm and dry. Rhythm is sinus tachycardia. Respiratory: Airway is patent Respiratory effort is even, unlabored, Respiratory pattern is regular, symmetrical, Breath sounds are clear bilaterally. GI: No signs and/or symptoms were reported involving the gastrointestinal system. : No signs and/or symptoms were reported regarding the genitourinary system. EENT: No signs and/or symptoms were reported regarding the EENT system. Derm: No signs and/or symptoms reported regarding the dermatologic system. Musculoskeletal: No signs and/or symptoms reported regarding the musculoskeletal system. 16:40 Reassessment: No changes from previously documented assessment. Patient and/or family zm updated on plan of care and expected duration. Pain level reassessed. Patient is alert, oriented x 3, equal unlabored respirations, skin warm/dry/pink. Patient states symptoms have not improved. 18:09 Reassessment: Patient appears in no apparent distress at this time. No changes from zm previously documented assessment. Patient and/or family updated on plan of care and expected duration. Pain level reassessed. Patient is alert, oriented x 3, equal unlabored respirations, skin warm/dry/pink. Vital Signs: 12:31 BP 150 / 108; Pulse 149; Resp 20; Temp 100.1; Pulse Ox 100% ; Weight 52.62 kg; Height 5 me1 ft. 5 in. ; Pain 9/10; 14:34 BP 147 / 84; Pulse 137; Resp 23; Temp 100.2; Pulse Ox 99% ; ts3 15:44 Temp 100.9(O); iw 16:41 BP 128 / 73; Pulse 128; Resp 23; Pulse Ox 100% on R/A; zm 18:09 BP 116 / 65; Pulse 137; Resp 22; Temp 100.4; Pulse Ox 99% on R/A; Pain 0/10; zm 19:00 BP 103 / 67; Pulse 120; Resp 16; Pulse Ox 96% ; me1 19:45 BP 133 / 88; Pulse 115; Resp 17; Temp 98.5; Pulse Ox 100% ; me1 12:31 Body Mass Index 19.30 (52.62 kg, 165.1 cm) me1 12:31 Pain Scale: Adult me1 18:09 Pain Scale: Adult zm Marge Coma Score: 16:41 Eye Response: spontaneous(4). Motor Response: obeys commands(6). Verbal Response: zm oriented(5). Total: 15. 18:09 Eye Response: spontaneous(4). Motor Response: obeys commands(6). Verbal Response: zm oriented(5). Total: 15. ED Course: 11:58 Patient arrived in ED. cj3 12:02 Sride[facility]ellers [facility]C [facility] kb 12:02 Bladimir Porter MD is Attending Physician. kb 12:33 Triage completed. me1 12:33 Arm band placed on Patient placed in waiting room. me1 13:43 COVID-19 Ag + Flu A+B Ag Sent. hh1 13:43 Parker Screen Profile Sent. hh1 13:43 Group A Streptococcus Rapid Sent. hh1 13:43 Test, Urine Sent. hh1 13:44 UA Rfx Camacho Cult if indicated Sent. hh1 13:44 CMP Sent. hh1 13:44 CBC with Diff Sent. hh1 13:55 Inserted saline lock: 20 gauge in right antecubital area, using aseptic technique. hh1 Blood collected. Flushed with 10 mL NS. 14:34 EKG done, by monogram technician. reviewed by Sridevi GRIGSBY. ts3 14:50 Patient has correct armband on for positive identification. Bed in low position. Call zm light in reach. Side rails up X 1. Adult w/ patient. 14:50 Provided Education on: call light use. Client placed on continuous cardiac and pulse zm oximetry monitoring. NIBP monitoring applied. medical physics professor on. Pulse ox on. NIBP on. Door closed. Noise minimized. Lights dimmed. Warm blanket given. Verbal reassurance given. 14:58 Lilia Hanson RN is Primary Nurse. zm 16:30 Chest Single View XRAY In Process Unspecified. EDMS 16:45 by me, sent to lab. First set of blood cultures drawn by me. Inserted saline lock: 20 iw gauge in left forearm, using aseptic technique. Blood collected. Flushed with 10 mL NS. 17:04 Hallie Rasheed MD is Hospitalizing Provider. kb 19:13 Report given to TRENTON Hernandez. 19:48 No provider procedures requiring assistance completed. Patient admitted, IV remains in id1 place. Administered Medications: 13:55 Drug: NS 0.9% IV 1000 ml IV at 1000 ml once; to be given as a bolus over 60 minutes 1 Route: IV; Rate: 1000 ml; Site: right antecubital; 18:15 Follow up: Response: No adverse reaction; IV Status: Completed infusion; IV Intake: zm 1000ml 13:55 Drug: Acetaminophen PO 1000 mg PO once Route: PO; [facility] 18:15 Follow up: Response: No adverse reaction 13:55 Drug: Ondansetron IVP 4 mg IVP once; over 2 minutes Route: IVP; Site: right antecubital;[facility] 18:15 Follow up: Response: No adverse reaction 14:58 Drug: Ativan IVP 1 mg IVP once Route: IVP; Site: right antecubital; 18:15 Follow up: Response: No adverse reaction; Anxiety decreased 15:58 CANCELLED (Physician Discretion): ns 0.9% (30 ml/kg) 30 ml/kg IV at bolus once; give as kb a bolus over 90 minutes, subtract 1L already infused 16:47 Drug: NS 0.9% IV 1000 ml IV at 1000 ml once; to be given as a bolus over 60 minutes Route: IV; Rate: 1000 ml; Site: right antecubital; 19:50 Follow up: Response: No adverse reaction; IV Status: Completed [place] [facility] 16:47 Drug: Ibuprofen PO 400 mg PO once Route: PO; zm 19:50 Follow up: Response: No adverse reaction [facility] 17:29 Drug: Rocephin IV 1 grams IV at calculated rate once; Given slow IV push per pharmacy zm instructions Route: IV; Rate: calculated rate; Site: right antecubital; 18:16 Follow up: Response: No adverse reaction; IV Status: Completed infusion; IV Intake: 50mlzm 17:29 Drug: Zithromax IVPB 500 mg IVPB once over 1 hrs; mix in 250 mL NS Route: IVPB; Infused zm Over: 1 hrs; Site: left forearm; 19:49 Follow up: Response: No adverse reaction; IV Status: Completed infusion me1 17:42 Drug: Potassium PO Effervescent Tablet 50 mEq PO once; dissolve in 4 ounces of water or zm juice Route: PO; 19:49 Follow up: Response: No adverse reaction me1 Medication: 15:33 VIS not applicable for this client. zm Intake: 18:15 IV: 1000ml; Total: 1000ml. zm 18:16 IV: 50ml; Total: 1050ml. zm Outcome: 17:05 Decision to Hospitalize by Provider. kb 19:48 Admitted to Med/surg accompanied by tech, via wheelchair, room 205, with chart, Report me1 called to sent up by TRENTON Rodrigues 19:48 Condition: stable 19:48 Instructed on the need for admit, 19:49 Patient left the ED. me1 Signatures: Dispatcher [employer] Sridevi Avila, GUM WORKER-C GUM WORKER-CkSuzanna Quigley, Lilia Ramirez RN, RN RN zm Eddleman, Michelle, RN RN id1 Guillermina Olivarez [facility] Gladys Cornelius [facility] Manuela Mancini RN RN hh1
--- NOTE | 2025-07-13 17:05 | EDPHYS ---
Physician Documentation [facility] Name: Lindsay Alexander Age: 35 yrs Sex: Female : 1990 Arrival Date: 07/13/2025 Time: 11:53 Bed 20 Private MD: ED Physician Bladimir Porter HPI: 07/13 17:09 This 35 yrs old Black Female presents to ER via Ambulatory with complaints of Flu kb Symptoms, Test. 17:09 Pt is a 35 year old female who presents for headache, fever, bodyaches, cough and kb congestion that started 3 days ago. States she went to the [facility] women's clinic today because she thought she was , but they sent her here since she had the fever. . 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 - Infectious Disease History:: Denies. - Social history:: Smoking status: Patient reports the use of cigarette tobacco products, smokes one pack cigarettes per day. Patient uses street drugs, marijuana. ROS: 17:05 Constitutional: As per HPI kb Exam: 14:37 ECG was reviewed by the Attending Physician. kb 17:07 Head/Face: Normocephalic, atraumatic. ENT: Moist Mucous membranes Respiratory: kb Respirations even and unlabored. No increased work of breathing. Talking in full sentences Abdomen/GI: Soft, non-tender. No distention Skin: Warm, dry with normal turgor. Normal color. MS/ Extremity: Pulses equal, no cyanosis. Neurovascular intact. Full, normal range of motion. Neuro: Awake and alert, GCS 15, oriented to person, place, time, and situation. 17:07 Constitutional: The patient appears alert, awake, anxious, 17:07 Cardiovascular: Rate: tachycardic, Vital Signs: 12:31 BP 150 / 108; Pulse 149; Resp 20; Temp 100.1; Pulse Ox 100% ; Weight 52.62 kg; Height 5 me1 ft. 5 in. ; Pain 9/10; 14:34 BP 147 / 84; Pulse 137; Resp 23; Temp 100.2; Pulse Ox 99% ; ts3 15:44 Temp 100.9(O); iw 16:41 BP 128 / 73; Pulse 128; Resp 23; Pulse Ox 100% on R/A; zm 18:09 BP 116 / 65; Pulse 137; Resp 22; Temp 100.4; Pulse Ox 99% on R/A; Pain 0/10; zm 19:00 BP 103 / 67; Pulse 120; Resp 16; Pulse Ox 96% ; me1 19:45 BP 133 / 88; Pulse 115; Resp 17; Temp 98.5; Pulse Ox 100% ; me1 12:31 Body Mass Index 19.30 (52.62 kg, 165.1 cm) me1 12:31 Pain Scale: Adult me1 18:09 Pain Scale: Adult zm [place] Coma Score: 16:41 Eye Response: spontaneous(4). Motor Response: obeys commands(6). Verbal Response: zm oriented(5). Total: 15. 18:09 Eye Response: spontaneous(4). Motor Response: obeys commands(6). Verbal Response: zm oriented(5). Total: 15. MDM: 12:02 Medical Screening Exam initiated kb 17:07 Differential diagnosis: flu, covid, uri, , uti, pneumonia, drug abuse, severe kb sepsis. Data reviewed: vital signs, nurses notes. Consideration of Admission/Observation Patient was admitted/placed on observation. Escalation of care including admission/observation considered. Management of patient was discussed with the following: Hospitalist: hospitalist team, pt accepted for admission under Dr Rasheed. Historians other than the Patient: Family Member: mother. Counseling: I had a detailed discussion with the patient and/or guardian regarding the historical points, exam findings, and any diagnostic results supporting the discharge/admit diagnosis, lab results, radiology results, the need for further work-up and treatment in the hospital. 07/13 12:31 Order name: CBC with Diff; Complete Time: 13:59 kb 07/13 12:31 Order name: CMP; Complete Time: 14:13 kb 07/13 12:31 Order name: UA Rfx Camacho Cult if indicated; Complete Time: 14:04 kb 07/13 12:31 Order name: Test, Urine; Complete Time: 14:04 kb 07/13 12:31 Order name: Group A Streptococcus Rapid; Complete Time: 14:04 kb 07/13 12:31 Order name: [place] Screen Profile; Complete Time: 14:28 kb 07/13 12:31 Order name: COVID-19 Ag + Flu A+B Ag; Complete Time: 14:12 kb 07/13 14:06 Order name: Throat Culture EDMS 07/13 14:13 Order name: UDS; Complete Time: 15:49 kb 07/13 15:47 Order name: BNP; Complete Time: 17:22 kb 07/13 15:47 Order name: Blood Culture Adult (2) kb 07/13 15:47 Order name: Lactate w/ 2H reflex if indic.; Complete Time: 17:17 kb 07/13 15:47 Order name: Protime (+inr); Complete Time: 17:10 kb 07/13 15:47 Order name: Ptt, Activated; Complete Time: 17:10 kb 07/13 15:47 Order name: Troponin HS; Complete Time: 17:22 kb 07/13 17:48 Order name: TSH 07/13 17:56 Order name: Phosphorus EDMS 07/13 17:56 Order name: Basic Metabolic Panel EDMS 07/13 17:56 Order name: Basic Metabolic Panel EDMS 07/13 17:56 Order name: Basic Metabolic Panel EDMS 07/13 17:56 Order name: Basic Metabolic Panel EDMS 07/13 17:56 Order name: CBC with Automated Diff EDMS 07/13 17:56 Order name: CBC with Automated Diff EDMS 07/13 17:56 Order name: CBC with Automated Diff EDMS 07/13 17:56 Order name: CBC with Automated Diff EDMS 07/13 17:56 Order name: Lipid Profile EDMS 07/13 17:56 Order name: Lipid Profile EDMS 07/13 17:56 Order name: Magnesium EDMS 07/13 17:56 Order name: Magnesium EDMS 07/13 17:56 Order name: T4 Free EDMS 07/13 17:56 Order name: T4 Free EDMS 07/13 17:56 Order name: Thyroid Stimulating Hormone EDMS 07/13 17:56 Order name: Thyroid Stimulating Hormone EDMS 07/13 15:47 Order name: Chest Single View XRAY; Complete Time: 16:45 kb 07/13 14:13 Order name: EKG; Complete Time: 14:13 kb 07/13 12:31 Order name: IV Start; Complete Time: 13:44 kb 07/13 14:13 Order name: EKG - Nurse/Tech; Complete Time: 14:34 kb 07/13 14:13 Order name: Vital Signs; Complete Time: 14:34 kb EC:37 Rate is 136 beats/min. Rhythm is regular. QRS [place] is Normal. ND interval is normal at kb 160 msec. QRS interval is normal at 92 msec. QT interval is normal at 406 msec. Administered Medications: 13:55 Drug: NS 0.9% IV 1000 ml IV at 1000 ml once; to be given as a bolus over 60 minutes [facility] Route: IV; Rate: 1000 ml; Site: right antecubital; 18:15 Follow up: Response: No adverse reaction; IV Status: Completed infusion; IV Intake: zm 1000ml 13:55 Drug: Acetaminophen PO 1000 mg PO once Route: PO; [facility] 18:15 Follow up: Response: No adverse reaction 13:55 Drug: Ondansetron IVP 4 mg IVP once; over 2 minutes Route: IVP; Site: right antecubital;[facility] 18:15 Follow up: Response: No adverse reaction 14:58 Drug: Ativan IVP 1 mg IVP once Route: IVP; Site: right antecubital; 18:15 Follow up: Response: No adverse reaction; Anxiety decreased zm 15:58 CANCELLED (Physician Discretion): ns 0.9% (30 ml/kg) 30 ml/kg IV at bolus once; give as kb a bolus over 90 minutes, subtract 1L already infused 16:47 Drug: NS 0.9% IV 1000 ml IV at 1000 ml once; to be given as a bolus over 60 minutes Route: IV; Rate: 1000 ml; Site: right antecubital; 19:50 Follow up: Response: No adverse reaction; IV Status: Completed infusion sc1 16:47 Drug: Ibuprofen PO 400 mg PO once Route: PO; 19:50 Follow up: Response: No adverse reaction sc1 17:29 Drug: Rocephin IV 1 grams IV at calculated rate once; Given slow IV push per pharmacy instructions Route: IV; Rate: calculated rate; Site: right antecubital; 18:16 Follow up: Response: No adverse reaction; IV Status: Completed infusion; IV Intake: 50mlzm 17:29 Drug: Zithromax IVPB 500 mg IVPB once over 1 hrs; mix in 250 mL NS Route: IVPB; Infused zm Over: 1 hrs; Site: left forearm; 19:49 Follow up: Response: No adverse reaction; IV Status: Completed infusion me1 17:42 Drug: Potassium PO Effervescent Tablet 50 mEq PO once; dissolve in 4 ounces of water or zm juice Route: PO; 19:49 Follow up: Response: No adverse reaction me1 Disposition: 07/14 06:57 Co-signature as Attending Physician, Bladimir Porter MD I reviewed the patient's care rn provided by the Advanced Practice Provider and agree with the diagnosis and treatment plan. Disposition Summary: 07/13/25 17:05 Hospitalization Ordered Notes: Hospitalization Status: Inpatient Admission kb Provider: Hallie Rasheed Location: Telemetry/MedSurg (Inpatient) kb Condition: Stable kb Problem: new kb Symptoms: are unchanged kb Bed/Room Type: Standard kb Room Assignment: 205(07/13/25 17:54) bd Diagnosis - Pneumonia, unspecified organism kb - Sepsis, unspecified organism kb - Tachycardia, unspecified kb Forms: - Medication Reconciliation Form kb - SBAR form kb - Leadership Thank You Letter kb Signatures: Dispatcher [employer] EDMS Sridevi Sellers, JESSI-C CARTON FOLDER-Ckb Jackie Alonzo Roman, MD MD rn Martinez, Zaina RN Mary Ozuna RN RN sc1 Manuela Mancini RN RN 1 Corrections: (The following items were deleted from the chart) 07/13 12:32 12:32 CBC+H.LAB.BRZ ordered. EDMS EDMS 12:32 12:32 COMPREHENSIVE METABOLIC PANEL+C.LAB.BRZ ordered. EDMS EDMS 12:32 12:32 UA Rfx Camacho Cult if indicated+U.LAB.BRZ ordered. EDMS EDMS 12:32 12:32 Test, Urine+UC.LAB.BRZ ordered. EDMS EDMS 12:32 12:32 Group A Streptococcus Rapid Sc+I.LAB.BRZ ordered. EDMS EDMS 12:32 12:32 MONO SCREEN PROFILE+I.LAB.BRZ ordered. EDMS EDMS 12:32 12:32 COVID-19 Ag + Flu A+B Ag+I.LAB.BRZ ordered. EDMS EDMS 15:47 15:47 PROBNP+C.LAB.BRZ ordered. EDMS EDMS 15:47 15:47 BLOOD CULTURE*+BA.LAB.BRZ ordered. EDMS EDMS 15:47 15:47 LACTATE+C.LAB.BRZ ordered. EDMS EDMS 15:47 15:47 PROTIME (+INR)+COAG.LAB.BRZ ordered. EDMS EDMS 15:47 15:47 PTT, ACTIVATED+COAG.LAB.BRZ ordered. EDMS EDMS 15:48 15:47 Troponin High Sensitivity+C.LAB.BRZ ordered. EDMS EDMS 15:58 15:57 NS 0.9% IV (30 ml/kg) 30 ml/kg IV at bolus once; give as a bolus over 90 minutes, kb subtract 1L already infused ordered. kb 17:08 17:07 Differential diagnosis: flu, covid, uri, , uti, pneumonia, drug abuse kb kb 17:54 17:05 kb bd
[2025-07-13 17:19] LABS: NT PRO-BNP 524.0 pg/mL (<125); Troponin High Sensitivity 9.5 pg/mL (<58.9)
[2025-07-13] MEDS ORDERED: POTASSIUM 25 MEQ EFFERV TAB ONE (17:31)
[2025-07-13] MEDS ORDERED: ALBUTEROL 2.5 MG/3 ML NEB SOL NEB PRN (17:49)
[2025-07-13] MEDS ORDERED: IPRATROPIUM BROM 0.5MG/2.5ML NEB PRN (17:49)
--- NOTE | 2025-07-13 17:57 | P.HP ---
Certification for Inpatient Patient admitted to: Observation With expected LOS: <2 Midnights Patient will require the following post-hospital care: None Practitioner: I am a practitioner with admitting privileges, knowledge of patient current condition, hospital course, and medical plan of care. Services: Services provided to patient in accordance with Admission requirements found in Title 42 Section 412.3 of the Code of Federal Regulations Patient History Date of Service: 07/13/25 Reason for admission: Right lower lobe pneumonia; aspiration pneumonia History of Present Illness: Patient is a 35-year-old female who came to the hospital with polysubstance abuse and right lower lobe pneumonia. She is not really able to remember what happened but she has been sick for the last 24 hours. She did not cough and had some greenish phlegm. She denies any night sweats, hemoptysis, weight loss. She does have a history of hypertension and diabetes and she also has been told that she needed her thyroid gland out. She came to the emergency room as she was not feeling better. Her heart rate was 150s. Her UDS was positive for amphetamines and cannabis. She also had a right lower lobe pneumonia on her chest x-ray. Otherwise, she is slightly hyponatremic and her BNP is slightly elevated. Will check a procalcitonin level. Treated with nebs, steroids, and antibiotics that she also smokes. She will be admitted for observation. Allergies No Known Drug Allergies Allergy (Unverified 06/18/15 16:44) Unknown - Past Medical/Surgical History -: Hypertension -: Type 2 diabetes -: Thyroid-unknown Past Surgical History: Patient denies surgical history -: Normal vaginal deliveries - Family History Father Family History: Reviewed- Non-Contributory - Social History Smoking Status: Current every day smoker (1-1/2 packs a day) Alcohol use: Yes CD- Drugs: Yes Review of Systems 10-point ROS is otherwise unremarkable Physical Examination - Vital Signs Temperature: 101 F Blood Pressure: 130/80 Pulse: 120 Respirations: 18 Pulse Ox (%): 95 - Physical Exam General: Alert, In no apparent distress, Oriented x3 HEENT: Atraumatic, PERRLA, Mucous membr. moist/pink, EOMI, Sclerae nonicteric Neck: Supple, 2+ carotid pulse no bruit, No LAD, Without JVD or thyroid abnormality Respiratory: Diminished, Other (Coarse breath sounds but otherwise clear) Cardiovascular: Other (Tachyarrhythmic) Gastrointestinal: Normal bowel sounds, Soft and benign, Non-distended, No tenderness Musculoskeletal: No tenderness Integumentary: No rashes Neurological: Normal gait, Normal speech, Normal strength at 5/5 x4 extr, Normal tone, Sensation intact, Cranial nerves 3-12 intact, Normal affect Lymphatics: No axilla or inguinal lymphadenopathy - Studies Laboratory Data (last 24 hrs) 07/13/25 07/13/25 07/13/25 16:43 13:33 13:33 WBC 10.10 Hgb 13.3 Hct 38.7 Plt Count 275 PT 14.7 H INR 1.31 APTT 29.1 Sodium 133 L Potassium 3.0 L BUN 8 Creatinine 0.52 L Glucose 186 H Total Bilirubin 0.3 AST 14 L ALT 19 Alkaline Phosphatase 101 Assessment & Plan - Problems (Diagnosis) (1) Right lower lobe pneumonia Current Visit: Yes Status: Acute (2) Tachyarrhythmia Current Visit: Yes Status: Acute (3) Polysubstance abuse Current Visit: Yes Status: Acute (4) Hypertension Current Visit: Yes Status: Acute (5) Type 2 diabetes mellitus Current Visit: Yes Status: Acute - Plan Plan: 1. Continue with IV antibiotics 2. Awaiting sputum and blood culture 3. Repeat chest x-ray 4. CT scan of the chest if pneumonia is not improving- 5. Appreciate pulmonary consultation 6. Continue with nebs as needed 7. O2 per protocol 8. Continue with gentle hydration 9. Repeat labs including CBC and renal function in a.m. 10. Check thyroid labs 11. Chief Digital Officer regarding polysubstance abuse can tobacco sensation; patient receptive to nicotine patch 12. GI and DVT prophylaxis Discharge Plan: Home Plan to discharge in: 24 Hours - Advance Directives Does patient have a Living Will: No Does patient have a Durable POA for Healthcare: No - Code Status/Comfort Care Code Status Assessed: Yes Code Status: Full Code Critical Care: No Time Spent Managing PTS Care (In Minutes): 45
[2025-07-13] MEDS ORDERED: IBUPROFEN 400 MG TAB PO SCH (19:00)
[2025-07-13] MEDS: NA CHLORIDE 0.9% 1,000 ML IV SCH (20:10)
[2025-07-13] MEDS: METHYLPREDNISOLONE 40 MG INJ IV SCH (20:11)
[2025-07-13] MEDS: IBUPROFEN 400 MG TAB PO SCH (22:37)
[2025-07-13] MEDS: METOPROLOL TAR 25 MG TAB PO SCH (22:37)
[2025-07-13 22:55] VITALS: BMI 21.2
[2025-07-13] MEDS: ACETAMINOPHEN 500 MG TAB PO PRN (23:40)
[2025-07-14 05:39] LABS: Absolute Lymphocytes (CBC) 0.6 K/uL (0.7-4.9); Hematocrit 32.6 % (36.0-45.0); Hemoglobin 11.4 g/dL (12.0-15.0); MCH 29.4 pg (27.0-35.0); MCHC 34.9 g/dL (32.0-36.0); MCV 84.2 fL (80-100); MPV 8.3 fL (7.6-11.3); Nucleated RBC Absolute Count 0.0 (0-0); Nucleated Red Blood Cells % 0.1 % (0-0); RBC Red Blood Cell Count 3.87 M/uL (3.86-4.86); White Blood Count 9.20 thou/uL (4.3-10.9)
[2025-07-14 06:06] LABS: Anion Gap 11.6 mEq/L (5.0-15.0); BUN Blood Urea Nitrogen 9 mg/dL (7-18); Glucose Level 280 mg/dL (74-106); HDL Cholesterol 30 mg/dL (40-60); LDL Cholesterol, Calculated 45 mg/dL (<130); LDL Cholesterol,Calc NonReport 45; Magnesium 1.4 mg/dL (1.6-2.4); Potassium 3.6 mEq/L (3.5-5.1)
[2025-07-14 06:07] LABS: Thyroid Stimulating Hormone < 0.005 uIU/mL (0.358-3.740)
[2025-07-14 06:21] LABS: Differential Total Cells Count 100; Platelets, Giant PRESENT; Segmented Neutrophils 85 % (40-80)
[2025-07-14 06:22] LABS: Blood Morphology Comment NOT SEEN (NOT SEEN)
[2025-07-14] MEDS: Magnesium Sulfate 2gm IVPB 2 G/50 ML BAG IV ONE ×2 (06:41→16:37)
--- NOTE | 2025-07-14 07:45 | RAD REPORT ---
EXAMINATION: ONE VIEW CHEST XR CLINICAL INDICATION: PNA TECHNIQUE: Frontal chest projection is submitted. Examination is limited by patient positioning and t echnique. COMPARISON: 07/13/2025 FINDINGS: Left lower lobe lung opacity appears improved mildly since the prior study. The lungs are otherwise c lear. The heart is upper limit of normal in size. No displaced fractures identified. IMPRESSION: Mild to moderate improvement in left lower lobe infiltrate since prior study.
[2025-07-14] MEDS: CEFTRIAXONE 1,000 MG in NA CHLORIDE 0.9% 50 ML IVPB SCH (08:05)
[2025-07-14] MEDS: ENOXAPARIN 40 MG/0.4 ML SQ SCH (08:05)
[2025-07-14] MEDS: AZITHROMYCIN IV 500 MG in NA CHLORIDE 0.9% 250 ML IVPB SCH (09:12)
--- NOTE | 2025-07-14 13:49 | P.PN ---
Subjective Date of Service: 07/14/25 Chief Complaint: Right lower lobe pneumonia; aspiration pneumonia Subjective: Improving Patient assessed lying in bed on room air in no apparent distress. She endorses feeling somewhat better, however continues to endorse profound weakness and fatigue. Patient answers questions but falls back asleep quickly during assessment multiple times. Review of Systems 10-point ROS is otherwise unremarkable Physical Examination - Vital Signs Temperature: 97.7 F Blood Pressure: 126/74 Pulse: 89 Respirations: 16 Pulse Ox (%): 100 - Physical Exam General: Alert, In no apparent distress, Oriented x3, Cooperative HEENT: Atraumatic, Normocephalic, Mucous membr. moist/pink Neck: Supple, JVD not distended, No Thyromegaly Respiratory: Clear to auscultation bilaterally, Normal air movement, Diminished (left base) Cardiovascular: No edema, Normal pulses, Regular rate/rhythm, Normal S1 S2 Capillary refill: Brisk Gastrointestinal: Normal bowel sounds, Soft and benign, Non-distended Musculoskeletal: No clubbing, No swelling, No contractures, No erythema Integumentary: No breakdown, No significant lesion, No tenderness/swelling, No erythema Neurological: Normal speech, Normal tone, Sensation intact, Cranial nerves 3-12 intact - Studies Laboratory Data (last 24 hrs) 07/13/25 07/13/25 07/13/25 16:43 13:33 13:33 WBC 10.10 Hgb 13.3 Hct 38.7 Plt Count 275 PT 14.7 H INR 1.31 APTT 29.1 Sodium 133 L Potassium 3.0 L BUN 8 Creatinine 0.52 L Glucose 186 H Total Bilirubin 0.3 AST 14 L ALT 19 Alkaline Phosphatase 101 Assessment And Plan - Plan Assessment: 35-year-old female with polysubstance abuse and right lower lobe pneumonia admitted for IV antibiotics. Plan: acute hypoxic respiratory failure, resolved Community-acquired pneumonia -PSI score on admission_100_ -O2 saturation less than 88% on room air, now on nasal cannula with a flow rate of 2 L/min at time of admission. Now on room air. -Continuous pulse oximetry. -Procalcitonin on admission 0.4 -Blood cultures no growth to date. Sputum culture ordered, pending collection -Throat culture ordered, will follow -Influenza A, B, COVID 19, strep, mono negative -Chest x-ray personally reviewed and showed mild improvement in LLL in filtration since x-ray previous day 07/13 DuoNebs every 6 hours as needed Monitor CBC -Antibiotics: Azithromycin 500 mg daily x 3 days IV, ceftriaxone 1 g daily twice daily x 5 days -Can de-escalate to p.o. with clinical improvement Hyperglycemia Persistently elevated fasting and random glucose levels A1c ordered will follow ACHS Accu-Cheks with sliding scale Hyperthyroidism Not currently taking any medications Start methimazole 10 mg daily TSH undetectable, free T43.91 Polysubstance abuse Urine tox cream positive for amphetamines and THC Monitor for signs symptoms of withdrawal Dispo: Improvement in weakness Anticipate home with no needs Discharge Plan: Home Plan to discharge in: 24 Hours - Code Status/Comfort Care Code Status Assessed: No
[2025-07-14 14:36] VITALS: O2SAT 98
[2025-07-14] MEDS ORDERED: Magnesium Sulfate 2gm IVPB 2 G/50 ML BAG IV ONE (15:54)
[2025-07-14 16:25] VITALS: BP 132/81; TEMP 97.7
--- NOTE | 2025-07-15 15:49 | P.DS ---
Admission Date: 07/13/25 Discharge Date: 07/14/25 Primary Care Provider: None Disposition: ROUTINE DISCHARGE Discharge Condition: GOOD Reason for Admission: Right lower lobe pneumonia; aspiration pneumonia Consultations: None Procedures: None Brief History of Present Illness: Lindsay Alexander is a 35-year-old female with a known history of diabetes and hypertension, who presented with a three-day history of cough, congestion, and chest pain upon coughing, accompanied by generalized weakness. She reported that these symptoms began over the weekend, shortly after spending time with her children, who were also ill. Her past medical history includes diabetes and hypertension, and she has no known drug allergies or prior surgical history. Notably, Lindsay is a qct-bggl-bbe-day smoker and also uses marijuana; a urine toxicology screen was positive for amphetamines. She denied the use of other illicit drugs. Hospital Course: On initial presentation, Lindsay had a temperature of 100.1F, and reported feeling weak, with chest pain associated with coughing. Her cardiovascular exam revealed a pulse rate of 136 bpm, and respiratory examination noted a productive cough. Physical examination was significant for elevated blood pressure at 150/108 mmHg and tachycardia. Her chest X-ray showed an opacity in the left lung base, which is suggestive of pneumonia. Laboratory results showed mild hyponatremia (sodium 133) and hypokalemia (potassium 3.0), with a slightly elevated PT at 14.7. Her BNP was elevated at 524, and troponin levels were elevated at 9.5, raising concern for possible cardiac involvement or stress. A comprehensive infectious disease panel, including COVID-19, influenza, and rapid strep, returned negative results. Blood cultures were collected, and results are pending. Urinalysis showed glucose, ketones, and blood, but no signs of urinary tract infection. In light of her clinical presentation and imaging findings, pneumonia was diagnosed. Given her clinical status, an initial treatment plan was initiated, including Ceftriaxone 1 gram IV piggyback, normal saline bolus, and supportive measures such as Tylenol, Zofran, Ativan, IV ibuprofen, and Azithromycin. Her management also addressed the elevated blood pressure and tachycardia, and further monitoring and investigations were arranged, including follow-up blood cultures and continuous assessment of her response to the antibiotics and supportive treatments. The patients pneumonia will continue to be managed with appropriate antibiotic therapy and supportive care, and she will be monitored for any potential complications or worsening of symptoms. Vital Signs/Physical Exam: Temp Pulse Resp BP Pulse Ox 97.7 F 99 H 16 132/81 98 07/14/25 16:00 07/14/25 16:00 07/14/25 16:00 07/14/25 16:00 07/14/25 16:00 Other Physical/Emotional Findings: GEN: No apparent distress, nontoxic appearance. HEENT: Nasal septum midline. RESP: No accessory muscle use. CV: Regular rate. MSK: No cyanosis or clubbing. SKIN: No visible rash. PSYCH: Alert, not appearing anxious or agitated Laboratory Data at Discharge: WBC 9.20 thou/uL (4.3-10.9) 07/14/25 04:58 Hgb 11.4 g/dL (12.0-15.0) L D 07/14/25 04:58 Hct 32.6 % (36.0-45.0) L 07/14/25 04:58 Plt Count 238 thou/uL (152-406) 07/14/25 04:58 PT 14.7 SECONDS (10-13.0) H 07/13/25 16:43 INR 1.31 07/13/25 16:43 APTT 29.1 SECONDS (27.2-37.4) 07/13/25 16:43 Sodium 138 mEq/L (136-145) D 07/14/25 04:58 Potassium 3.6 mEq/L (3.5-5.1) D 07/14/25 04:58 BUN 9 mg/dL (7-18) 07/14/25 04:58 Creatinine < 0.25 mg/dL (0.55-1.02) L 07/14/25 04:58 Glucose 280 mg/dL (74-106) H 07/14/25 04:58 Phosphorus 2.5 mg/dL (2.5-4.9) 07/14/25 04:58 Magnesium 1.4 mg/dL (1.6-2.4) L 07/14/25 04:58 Total Bilirubin 0.3 mg/dL (0.2-1.0) 07/13/25 13:33 AST 14 U/L (15-37) L 07/13/25 13:33 ALT 19 U/L (13-56) 07/13/25 13:33 Alkaline Phosphatase 101 U/L (45-117) 07/13/25 13:33 Triglycerides 46 mg/dL (<150) 07/14/25 04:58 Cholesterol 84 mg/dL (<200) 07/14/25 04:58 HDL Cholesterol 30 mg/dL (40-60) L 07/14/25 04:58 Cholesterol/HDL Ratio 2.80 07/14/25 04:58 Home Medications: Azithromycin [Zithromax] 250 mg PO DAILY #5 tab 07/14/25 Cefdinir [Cefdinir*] 300 mg PO BID #10 cap 07/14/25 Metoprolol Tartrate [Lopressor] 25 mg PO BID #60 tab 07/14/25 predniSONE [Deltasone] 20 mg PO BID #8 tab 07/14/25 New Medications: Cefdinir [Cefdinir*] 300 mg PO BID #10 cap Metoprolol Tartrate [Lopressor] 25 mg PO BID #60 tab predniSONE [Deltasone] 20 mg PO BID #8 tab Azithromycin [Zithromax] 250 mg PO DAILY #5 tab Physician Discharge Instructions: -DC IV and DC home -Follow-up with PCP in 1 to 2 weeks -Follow-up with Pulmonary in 1 to 2 weeks -Please call Dr. Rasheed at [phone] if any questions regarding hospital stay -Please call nursing station at [phone] worsen Diet: Regular Activity: Fall precautions Followup: NONE,NONE [Primary Care Provider] - Time spent managing pt's care (in minutes): 34
== END 2025-07-14 18:14 | disposition home or self-care (01) ==
LOC: ER 11:53 → ERHOLD 17:48 → INTOOBSV 17:48 → 2ND 18:10
PROVIDERS: ADMIT Hospitalist; ATTEND Hospitalist
DX: J18.9 Pneumonia, unspecified organism (principal); J96.91 Respiratory failure, unspecified with hypoxia; I10 Essential (primary) hypertension; E11.65 Type 2 diabetes mellitus with hyperglycemia; F12.90 Cannabis use, unspecified, uncomplicated; F15.90 Other stimulant use, unspecified, uncomplicated; E87.1 Hypo-osmolality and hyponatremia; F17.210 Nicotine dependence, cigarettes, uncomplicated; R00.0 Tachycardia, unspecified; E05.90 Thyrotoxicosis, unspecified without thyrotoxic crisis or storm; Z11.52 Encounter for screening for COVID-19
CPT/HCPCS: 93005; 87040 ×2; 87070; 85025 ×2; 81001; 80048; 36415 ×2; 83735; 86308; 81025; 84100; 85610; 80061; 82947 ×3; 83605; 85730; 84443; 84484; 84439; 80053; 84145; 83880; 80307; 71045 ×2; 94760 ×2; 99285; 87428; J0456 ×2; J3475 ×2; J1650; J2405; J7050 ×2; J7030 ×5; J2919 ×4; J0696 ×2